=== PATIENT | male | born 1940 | race Caucasian/White ===

== ENCOUNTER → 2016-02-15 | Outpatient (CLI) | payer MEDICARE ==
[~2016-02-15] MED LIST: ASP81TEC; ASP81TEC PO; ASPI-983 PO; ATOR80TA PO; ATOR80TA76 PO; BACL10TA PO; CARDIZEM LA; CARV12.53 PO; CENTRUM SILVER; CIPR-226 PO; CIPR250T3 PO; CLIN300C11 PO; CLOP75TA28 PO; CLPD75T PO; DILT360C20 PO; GADOBUTROL 10 MMOL/10 ML (GADAVIST) VIAL IV ONE; GARL1500 PO; HYDR-3820 PO; LEVO500T69 PO; LEVO750T6 PO; LINA5TAB PO; MULT-1029 PO; NITR0.4T SL; OMEG1CAP58 PO; OMEP-10; OMEP40CA36 PO; OMG1KC; PRD10T PO; RAMI2.5C PO; RANO500T3 PO; RMP2.5C; RMP2.5C PO; SITA1TAB2 PO; TAMS0.4C2 PO; TMSL.4C PO; [UNRECOGNIZED DRUG - REMARK]
[2016-02-15 11:19] LABS: CREATININE SERUM 1.51 MG/DL (0.60-1.30)
--- NOTE | 2016-02-15 15:00 | Diagnostic Imaging Report ---
PROCEDURE: MRI lumbar spine with and without contrast. TECHNIQUE: Multiplanar, multisequence MRI of the lumbar spine was performed with and without contrast. INDICATION: Low back pain. History of laser surgery to the back. COMPARISON: . 7 mL of Gadavist is administered intravenously. FINDINGS: There is straightening of the lumbar lordosis. There is satisfactory alignment of the posterior spinal line. There is no compression fracture at any level. There is disc desiccation at all levels. There is significant disc height loss at L4/5 and L5/S1 and moderate disc height loss at L2/3 and L3/ 4. There is prominent bone marrow edema and enhancement around the endplates of L2/3 level with associated postcontrast enhancement. At this level, there is slight prominent edema compared to marrow edema seen on study from 09/07/2015 exam. The prior study is unenhanced and the degree of contrast enhancement cannot be compared. There is mild edema around endplates of L3/4 and L4/5 with mostly Modic type II marrow changes around the endplates of lower lumbar spine disc levels. The cauda equina and conus medullaris appear grossly unremarkable. T12/L1: There is no disc herniation, no spinal canal or foraminal stenosis. L1/2: No disc herniation, no spinal canal or foraminal stenosis. L2/3: There is diffuse disc bulge and moderate facet arthropathy. There is severe central canal stenosis reducing the AP dimension of the spinal canal to 6.5 mm and severe compression of the lateral recess bilaterally, worse on the left side. The foramina demonstrates moderate to severe stenosis on the left side and mild stenosis on the right. The picture overall is similar to 09/07/2015 with perhaps minimal worsening. L3/4: There is interval left hemilaminectomy with fluid signal at the resection bed and peripheral linear enhancement presumably related to a seroma. There is a diffuse disc bulge. The central canal is patent. The left lateral recess is decompressed with a hemilaminectomy. The right lateral recess demonstrates moderate stenosis abutting the descending right L4 nerve roots. The foramina at this level demonstrate moderate stenosis bilaterally, but worse on the left side. L4/5: There is a diffuse disc bulge and significant disc height loss. There is severe facet arthropathy on the right side and moderate facet hypertrophy on the left. No central canal stenosis. There is however bilateral stenosis of the lateral recess, moderate to severe on the right and moderate on the left abutting the descending L5 nerve roots. The foramina demonstrate bilateral stenosis moderate on the left and severe on the right side. L5/S1: There is a disc bulge and osteophyte formation projecting posteriorly. There is suggestion of old right limited hemilaminectomy. There is no central canal stenosis. There is lateral recess stenosis bilaterally of a moderate degree abutting the descending S1 nerve roots. The foramina demonstrate severe stenosis on both sides. IMPRESSION: 1. Multilevel degenerative changes seen with markedly severe spinal canal stenosis at the L2/3 level. There is associated marrow edema and likely reactive enhancement seen from the facet and the disc degenerative changes and disc herniation. This includes epidural enhancement around the spinal canal at this level without fluid collection seen. 2. Interval left hemilaminectomy at L3/4 with small seroma seen. Other findings as above. Dictated by: Dictated on workstation # [id number]
--- NOTE | 2016-02-15 15:47 | Diagnostic Imaging Report ---
Multiple views of lumbar spine with extension and flexion views. INDICATION: Low back pain. FINDINGS: There is mild right convexity scoliosis centered at L3-L4 level. There is straightening of the lordotic curvature. The alignment of the posterior spinal line is satisfactory. There is preserved vertebral body heights. The discs from L2-L3 through L5-S1 demonstrate moderate narrowing at least on one side of the discs based on the scoliotic curvatures. The flexion and extension views demonstrate no significant spondylolisthesis or subluxation. IMPRESSION: Lower lumbar spine scoliosis and prominent degenerative disc changes. Dictated by: Dictated on workstation # [id number]
== END ==
LOC: RAD 10:41
DX: M54.5 Low back pain (principal)
CPT/HCPCS: 36415; 72114; 72158; 82565; 84520

== ENCOUNTER 2016-05-21 15:22 | Emergency (ER) | payer MEDICARE ==
[~2016-05-21] VITALS: Ht 167.6 cm; Wt 68.9 kg
[~2016-05-21 15:22] MED LIST changes: -ASPI-983 PO; -ATOR80TA76 PO; -BACL10TA PO; -CARV12.53 PO; -CIPR-226 PO; -CIPR250T3 PO; -CLOP75TA28 PO; -GADOBUTROL 10 MMOL/10 ML (GADAVIST) VIAL IV ONE; -HYDR-3820 PO; -NITR0.4T SL; -RANO500T3 PO; -TAMS0.4C2 PO
--- NOTE | 2016-05-21 16:08 | ED GU-Male ---
General Chief Complaint: -Male Stated Complaint: BLOOD IN URINE Nursing Triage Note: AMBULATED TO ROOM 09 WITHOUT DIFFICULTY. COMPLAINS OF BLOOD IN URINE STARTING 30 HRS AGO. STATES HE HAD A RECENT BACK SURGEY 2 1/2 WEEKS AGO AND HAD A CATH AT THAT TIME. Source: patient Exam Limitations: no limitations History of Present Illness Time seen by provider: 16:06 Initial Comments To ER with reports of hematuria. This began about 30 hours ago. Patient had low back surgery by Dr. Quesada in [place] on 01 May. He had a Buckner catheter placed which remained in place for 3 days following that surgery. He had no problems until about 30 hours ago at which point he felt as though he could not urinate. He went to the bathroom and strained and then urinated a large clot followed by a large amount of blood in the toilet. Since then he has had persistent brownish bloody urine. He denies fevers or chills or suprapubic abdominal pain. Denies any flank pain. He has seen Dr. June in the past about 6 months ago most recently because he has a history of prostate issues. Severity/Quality: moderate Location: suprapubic Radiation: none Activities at Onset: none Associated Symptoms: dysuria, No lower back pain, No urinary frequency Allergies and Home Medications Allergies Coded Allergies: No Known Drug Allergies (Verified , 01/10/08) Home Medications Aspirin 81 Mg Tabec, 81 MG PO DAILY, (Reported) Atorvastatin Calcium 80 Mg Tablet, 80 MG PO DAILY, (Reported) Clindamycin HCl 300 Mg Capsule, 300 MG PO QID, #40 Prescribed by: IAIN LUDWIG on 10/10/15 1556 Clopidogrel Bisulfate 75 Mg Tab, 75 MG PO DAILY, (Reported) Diltiazem Hcl 360 Mg Capsule.sa, 360 MG PO DAILY, (Reported) Levofloxacin 500 Mg Tab, 500 MG PO DAILY for 5 Days, (Reported) Linagliptin 5 Mg Tablet, 5 MG PO DAILY, (Reported) Omeprazole 40 Mg Capsule.dr, 40 MG PO DAILY, (Reported) Prednisone 10 Mg Tab, 40 MG PO DAILY, #12 Prescribed by: IAIN LUDWIG on 10/10/15 1600 Constitutional: see HPI, No chills, No fever EENTM: see HPI Respiratory: no symptoms reported Cardiovascular: no symptoms reported Genitourinary: see HPI, dysuria, hematuria Musculoskeletal: no symptoms reported Skin: no symptoms reported Psychiatric/Neurological: No Symptoms Reported Endocrine: No Symptoms Reported Past Gurbnta-Kelzdo-Odfxzn Hx Patient Social History Alcohol Use: Occasionally Uses Recreational Drug Use: No Smoking Status: Never a Smoker Recent Foreign Travel: No Contact w/Someone Who Travel: No Recent Infectious Disease Expo: No Recent Hopitalizations: Yes Immunizations Up To Date Tetanus Booster (TDap): Unknown Date of Influenza Vaccine: Nov 06, 2013 Surgeries HX Surgeries: Yes (BACK) Surgeries: Cardiac, Coronary Stent, Orthopedic Respiratory Hx Respiratory Disorders: No Cardiovascular Hx Cardiac Disorders: Yes (CABG WITH STENTS) Cardiac Disorders: Coronary Artery Disease, High Cholesterol, Hypertension Neurological Hx Neurological Disorders: No Reproductive System Hx Reproductive Disorders: No Genitourinary Hx Genitourinary Disorders: Yes Genitourinary Disorders: Prostate Problems Gastrointestinal Hx Gastrointestinal Disorders: No Musculoskeletal Hx Musculoskeletal Disorders: Yes Musculoskeletal Disorders: Chronic Back Pain Endocrine Hx Endocrine Disorders: Yes Endocrine Disorders: Diabetes, Non-Insulin dep HEENT HX ENT Disorders: No Cancer Hx Cancer: Yes Cancer: Prostate Psychosocial Hx Psychiatric Problems: No Integumentary HX Skin/Integumentary Disorder: No Blood Transfusions Hx Blood Disorders: No Physical Exam Vital Signs Vital Sign - Last 12Hours 05/21/16 15:35 Temp 97.7 Pulse 90 Resp 16 B/P (MAP) 126/83 Pulse Ox 97 Capillary Refill : Less Than 3 Seconds General Appearance: WD/WN, no apparent distress HEENT: PERRL/EOMI, normal ENT inspection Neck: non-tender, full range of motion Respiratory: no respiratory distress, no accessory muscle use Gastrointestinal: non tender, soft Extremities: normal range of motion, non-tender Neurologic/Psychiatric: alert, normal mood/affect, oriented x 3 Skin: normal color, warm/dry Progress/Results/Core Measures Results/Orders Lab Results Laboratory Tests Test 05/21/16 16:12 05/21/16 16:26 Range/Units Urine Color RED H Urine Clarity BLOODY H Urine pH 6.5 5-9 Urine Specific [place] 1.015 L 1.016-1.022 Urine Protein 4+ NEGATIVE Urine Glucose (UA) NEGATIVE NEGATIVE Urine Ketones 1+ H NEGATIVE Urine Nitrite NEGATIVE NEGATIVE Urine Bilirubin NEGATIVE NEGATIVE Urine Urobilinogen NORMAL NORMAL MG/DL Urine Leukocyte Esterase 3+ H NEGATIVE Urine RBC (Auto) 5+ H NEGATIVE Urine RBC TNTC H /HPF Urine WBC >100 H /HPF Urine Squamous Epithelial Cells RARE /HPF Urine Crystals NONE /LPF Urine Bacteria FEW H /HPF Urine Casts NONE /LPF Urine Mucus NEGATIVE /LPF Urine Culture Indicated YES White Blood Count 7.7 4.3-11.0 10^3/uL Red Blood Count 3.12 L 4.35-5.85 10^6/uL Hemoglobin 8.7 L 13.3-17.7 G/DL Hematocrit 28 L 40-54 % Mean Corpuscular Volume 91 80-99 FL Mean Corpuscular Hemoglobin 28 25-34 PG Mean Corpuscular Hemoglobin Concent 31 L 32-36 G/DL Red Cell Distribution Width 14.2 10.0-14.5 % Platelet Count 293 130-400 10^3/uL Mean Platelet Volume 8.9 7.4-10.4 FL Neutrophils (%) (Auto) 71 42-75 % Lymphocytes (%) (Auto) 17 12-44 % Monocytes (%) (Auto) 11 0-12 % Eosinophils (%) (Auto) 1 0-10 % Basophils (%) (Auto) 1 0-10 % Neutrophils # (Auto) 5.5 1.8-7.8 X 10^3 Lymphocytes # (Auto) 1.3 1.0-4.0 X 10^3 Monocytes # (Auto) 0.8 0.0-1.0 X 10^3 Eosinophils # (Auto) 0.1 0.0-0.3 10^3/uL Basophils # (Auto) 0.0 0.0-0.1 10^3/uL Sodium Level 139 135-145 MMOL/L Potassium Level 4.1 3.6-5.0 MMOL/L Chloride Level 104 98-107 MMOL/L Carbon Dioxide Level 23 21-32 MMOL/L Anion Gap 12 5-14 MMOL/L Blood Urea Nitrogen 28 H 7-18 MG/DL Creatinine 1.71 H 0.60-1.30 MG/DL Estimat Glomerular Filtration Rate 39 BUN/Creatinine Ratio 16 Glucose Level 114 H 70-105 MG/DL Calcium Level 9.3 8.5-10.1 MG/DL My Orders Orders - XIAO BURROWS [employer] Cbc With Automated Diff (05/21/16 16:00) Basic Metabolic Panel (05/21/16 16:00) Saline Lock/Iv-Start (05/21/16 16:00) Ns Iv 500 Ml (Sodium Chloride 0.9%) (05/21/16 16:15) Ua Culture If Indicated (05/21/16 16:09) Urine Culture (05/21/16 16:12) Ceftriaxone Injection (Rocephin Injectio (05/21/16 16:30) Ct Abd/Pelvis Wo(Kidney Stone) (05/21/16 17:06) Medications Given in ED Current Medications Medications Dose Ordered Sig/Luz Route Start Time Stop Time Status Last Admin Dose Admin Ceftriaxone Sodium 1000 mg/ Sodium Chloride 50 ml @ 100 mls/hr ONCE ONCE IV 05/21/16 16:30 05/21/16 16:59 DC 05/21/16 17:25 100 MLS/HR Vital Signs/I&O Vital Sign - Last 12Hours 05/21/16 15:35 Temp 97.7 Pulse 90 Resp 16 B/P (MAP) 126/83 Pulse Ox 97 Blood Pressure Mean: 97 Diagnostic Imaging Diagonstic Imaging: CT Comments NAME: ALONDRA WOODS [facility] REC#: [id number] PT STATUS: REG ER : 1940 PHYSICIAN: XIAO BURROWS APRN ADMIT DATE: 05/21/16/ER Draft Date of Exam:05/21/16 CT ABD/PELVIS WO(KIDNEY STONE) PROCEDURE: CT urinary tract, rule out kidney stone. TECHNIQUE: Multiple contiguous axial images were obtained through the abdomen and pelvis without the use of intravenous contrast. INDICATION: Blood in urine FINDINGS: The liver, gallbladder and bile ducts are normal. The spleen, pancreas and adrenals are normal. There are approximately six 2-3 mm nonobstructing stones in the right kidney. There are several 2 mm nonobstructing stones in left kidney. There are low density lesions in the kidneys consistent with cysts. No hydronephrosis on either side is seen. No ureteral calculus is evident. The bladder is normal. There are numerous prostate seed implants present. There is diverticulosis of the colon with no acute bowel abnormality seen. There are changes of recent laminectomy and fusion in the lumbosacral spine with no other acute bony abnormality seen. IMPRESSION: There are bilateral nonobstructing stones. There are low density lesions in the kidneys which are probably cysts but could be confirmed with contrast or ultrasound. There is no ureteral calculus or hydronephrosis on either side. Also seen is diverticulosis of the colon with changes of prior laminectomy and fusion in the lumbar spine. Dictated on workstation # [id number] Dict: 05/21/16 1726 Trans: 05/21/16 1736 [id number] Interpreted by: GREGG RODRIGUEZ MD Electronically signed by: Departure Communication Progress Notes 1742-I also discussed with Dr. Rodriguez from radiology about the appearance of the left retroperitoneal space on CT. He feels that is related to the recent surgery and would be a small amount of blood/edema, but not large enough to be of concern. Patient is not symptomatic in that he does not have lightheadedness chest pain or shortness of breath and he is hemodynamically stable. He should follow-up with his primary care provider next week. I did discuss the UTI and hematuria with Dr. June. We will use ciprofloxacin and the patient will follow-up with Dr. June on Monday. Impression Impression: Primary Impression: Urinary tract infection Additional Impressions: Hematuria Anemia Disposition: HOME, SELF-CARE Condition: Stable Departure-Patient Inst. Decision time for Depature: 17:51 Referrals: PREM POOLE MD (PCP/Family) Primary Care Physician Patient Instructions: Urinary Tract Infection, Adult (DC) Add. Discharge Instructions: 1. You are little anemic. For this reason you need to follow-up with your doctor on Monday to have blood levels rechecked. Between now and Monday you should return to the emergency room for any shortness of breath, lightheadedness or chest pain 2. Take antibiotics as directed for the bladder infection which is likely the cause of the bleeding in your urine All discharge instructions reviewed with patient and/or family. Voiced understanding. Scripts Ciprofloxacin HCl (Ciprofloxacin HCl) 250 Mg Tablet 250 MG PO BID, #14 TAB Prov: XIAO BURROWS APRN 05/21/16 Copy Copies To 1: ILSA JUNE MD; PREM POOLE MD, PETER J APRN May 21, 2016 16:08
[2016-05-21] MEDS ORDERED: NS IV 500 ML 500 ML IV SCH (16:15)
[2016-05-21 16:18] LABS: BILIRUBIN,URINE NEGATIVE (NEGATIVE); KETONES,URINE 1+ (NEGATIVE); LEUKOCYTE ESTERASE ,URINE 3+ (NEGATIVE); NITRITE,URINE NEGATIVE (NEGATIVE); PH,URINE 6.5 (5-9); PROTEIN,URINE 4+ (NEGATIVE); UROBILINOGEN,URINE NORMAL (NORMAL)
[2016-05-21 16:25] LABS: SQUAMOUS EPITHELIAL CELL,UR RARE /HPF; WBC,URINE >100 /HPF
[2016-05-21] MEDS ORDERED: cefTRIAXone INJECTION 1,000 MG in NS (IVPB) 50 ML IV ONE (16:30)
[2016-05-21 16:35] LABS: BASOPHILS % (AUTO) 1 % (0-10); EOSINOPHILS # (AUTO) 0.1 10^3/uL (0.0-0.3); EOSINOPHILS % (AUTO) 1 % (0-10); LYMPHOCYTES # (AUTO) 1.3 X 10^3 (1.0-4.0); LYMPHOCYTES % (AUTO) 17 % (12-44); MEAN CORPUSCULAR HEMOGLOBIN 28 PG (25-34); MEAN CORPUSCULAR HGB CONC 31 G/DL (32-36); MEAN CORPUSCULAR VOLUME 91 FL (80-99); MEAN PLATELET VOLUME 8.9 FL (7.4-10.4); MONOCYTES # (AUTO) 0.8 X 10^3 (0.0-1.0); MONOCYTES % (AUTO) 11 % (0-12); NEUTROPHILS # (AUTO) 5.5 X 10^3 (1.8-7.8); NEUTROPHILS % (AUTO) 71 % (42-75); PLATELET COUNT 293 10^3/uL (130-400); RED BLOOD COUNT 3.12 10^6/uL (4.35-5.85); RED CELL DISTRIBUTION WIDTH 14.2 % (10.0-14.5); WHITE BLOOD COUNT 7.7 10^3/uL (4.3-11.0)
[2016-05-21 16:52] LABS: POTASSIUM 4.1 MMOL/L (3.6-5.0)
[2016-05-21 17:02] LABS: CALCIUM 9.3 MG/DL (8.5-10.1); CREATININE SERUM 1.71 MG/DL (0.60-1.30)
--- NOTE | 2016-05-21 17:37 | Diagnostic Imaging Report ---
PROCEDURE: CT urinary tract, rule out kidney stone. TECHNIQUE: Multiple contiguous axial images were obtained through the abdomen and pelvis without the use of intravenous contrast. INDICATION: Blood in urine FINDINGS: The liver, gallbladder and bile ducts are normal. The spleen, pancreas and adrenals are normal. There are approximately six 2-3 mm nonobstructing stones in the right kidney. There are several 2 mm nonobstructing stones in left kidney. There are low density lesions in the kidneys consistent with cysts. No hydronephrosis on either side is seen. No ureteral calculus is evident. The bladder is normal. There are numerous prostate seed implants present. There is diverticulosis of the colon with no acute bowel abnormality seen. There are changes of recent laminectomy and fusion in the lumbosacral spine with no other acute bony abnormality seen. There is some edema and fluid along the left psoas muscle. This is likely related to the recent spine surgery and represents edema and/or hemorrhage. No large focal hematoma is seen. There is no air within this to suggest an abscess. IMPRESSION: There are bilateral nonobstructing stones. There are low density lesions in the kidneys which are probably cysts but could be confirmed with contrast or ultrasound. There is no ureteral calculus or hydronephrosis on either side. There is also what is likely psoas muscle hemorrhage/inflammation which is likely associated with the recent lumbar spinal surgery. Also seen is diverticulosis of the colon with changes of prior laminectomy and fusion in the lumbar spine. Dictated by: Dictated on workstation # [id number]
[2016-05-21] MEDS ORDERED: CIPR250T3 PO (17:52)
[2016-05-21 18:22] VITALS: BP 146/70
== END 2016-05-21 18:22 | disposition home or self-care (01) ==
LOC: EDUNIT# 15:22 → ER 15:24
DX: N30.91 Cystitis, unspecified with hematuria (principal); D64.9 Anemia, unspecified; I10 Essential (primary) hypertension; I25.10 Atherosclerotic heart disease of native coronary artery without angina pectoris; E11.9 Type 2 diabetes mellitus without complications; Z79.82 Long term (current) use of aspirin; Z79.02 Long term (current) use of antithrombotics/antiplatelets; Z79.899 Other long term (current) drug therapy; Z98.890 Other specified postprocedural states
CPT/HCPCS: 36415; 74176; 80048; 81000; 85025; 87077; 87088; 87186; 96374

== ENCOUNTER 2016-05-24 08:07 | Outpatient (RCR) | payer MEDICARE ==
[2016-05-24] VITALS (9 sets, daily range): BP systolic 98–169; BP diastolic 60–93
[~2016-05-24] VITALS: Ht 167.6 cm; Wt 71.2 kg
[~2016-05-24 08:07] MED LIST changes: +CIPR250T3 PO
[2016-05-24] MEDS ORDERED: NS IV 500 ML 500 ML ONE (08:12)
[2016-05-24] MEDS ORDERED: LIDOCAINE UROJET 2% GEL 10 ML PKG ONE (09:58)
[2016-05-24] MEDS ORDERED: cefTRIAXone INJECTION 1,000 MG in NS (IVPB) 50 ML IV ONE (10:00)
--- NOTE | 2016-05-24 11:04 | CONSULTATION REPORT ---
DATE OF CONSULTATION: 05/24/2016 ATTENDING PHYSICIAN: Dr. Lr SUMMARY: 75-year-old white man known to me for many years with history of cancer of the prostate previously treated with brachytherapy a long time ago, history of heart bypass on aspirin and Plavix. Bypass was again many years ago. He presented to the emergency room over the weekend with history of gross hematuria and some clot retention and was relieved. The patient underwent a CAT scan of the abdomen and pelvis revealed bilateral nonobstructing small renal stones and question cyst and no ureteral obstruction or stones. The patient was dismissed home on Cipro and was given a Rocephin shot in the ER. However, he continued to have gross hematuria. He went to Dr. Lr and had an H\T\H done that showed no values. He was admitted to the outpatient department to receive 2 units of blood, however, it was noticed to have continuous gross hematuria and clot some clot retention and had a problem voiding since midnight last night. IMPRESSION: 1. Gross hematuria. 2. Bilateral renal stones. 3. History of CA of the prostate treated with brachytherapy. No external beam radiation. 4. Medical illnesses essentially heart issues. PLAN: I had a extensive discussion of options with the patient with pros and cons we decided to go ahead and inserted a three-way catheter in him no, irrigated with CBI, and see how he does. If he clears up nicely we will let him go home with the catheter and plug inlet of the CBI and follow up at the office as planned on . However, if he continues to have issues with gross, hematuria, we will admit him to the hospital and take care of it. We will also order a renal ultrasound to on the cyst. If he goes home he has to continue on the Cipro. We will give him another Rocephin today IV when he is here. We will proceed with 2 units of blood transfusion as planned. If he goes home I told him if he any problems to contact my office during hours. Off hours he can try on my cell phone or at home otherwise come to the emergency room and will admit him. Job ID: [id number] Dictated Date: 05/24/2016 09:50:00 Coldfusion Date: 05/24/2016 10:55:19/marie
[2016-05-24] MEDS ORDERED: cefTRIAXone 1 GM (ROCEPHIN) VIAL ONE (11:22)
[2016-05-24] MEDS ORDERED: NS (IVPB) 50 ML ONE (11:23)
[2016-05-24] MEDS ORDERED: PATIENT MAY USE OWN MEDS, ALL MC SCH (17:45)
[2016-05-24] MEDS: HYDROcodone/APAP 10 MG/325 MG (LORTAB) TAB PO PRN ×2 (18:52→23:32)
[2016-05-25 00:10] VITALS: BP 149/73
[2016-05-25 04:05] VITALS: BP 151/76
--- NOTE | 2016-05-25 07:03 | Progress Note-Urology ---
Progress Note-Urology Progress Notes/Assess & Plan Progress/Assessment & Plan afeb, vss, doing well, urine clear nelly, h/h 9.05/04 Final Diagnosis gross hematuria ILSA JUNE MD May 25, 2016 07:03
[2016-05-25] MEDS ORDERED: MILK OF MAGNESIA 400 MG/5 ML 30 ML UDC PO NR (07:15)
[2016-05-25] MEDS ORDERED: cefTRIAXone INJECTION 1,000 MG in NS (IVPB) 50 ML IV NR (07:15)
[2016-05-25 08:00] VITALS: BP 181/81
--- NOTE | 2016-05-25 08:43 | HISTORY AND PHYSICAL ---
DATE OF ADMISSION: 05/24/2016 CHIEF COMPLAINT: Gross hematuria. PRESENT HISTORY: 75-year-old white man known to me for a long time with history of cancer of the prostate previously treated with brachytherapy back in 2004. The patient came to the emergency room on the weekend having gross hematuria with some clot retention. He was treated for urinary tract infection. A CAT scan of the abdomen and pelvis revealed bilateral small renal stone, nonobstructing and what looked like cysts in the kidneys. No other abnormalities. The patient saw Dr. Lr the day prior to admission. His H\T\H was found to be low and he was sent for blood transfusion at the preop area. He continues to have gross hematuria and clot. His anticoagulation was never stopped. He denies any significant voiding symptoms and he is on antibiotic from the ER. In the ER he also received 1 gram of Rocephin. We went ahead and inserted a 23-way 10 mL balloon catheter and connected to continuous bladder irrigation to clear and it achieved good results. The patient was concerned to go home with catheter in pain by himself and elected to be admitted to the hospital for management. REVIEW OF SYSTEMS: Otherwise negative for the 10 systems. PERSONAL HISTORY: The patient is , has children. No smoking. No alcohol. No drugs. FAMILY HISTORY: Noncontributory. PAST MEDICAL HISTORY: 1. No known drug allergies. 2. History of CA of the prostate. 3. Erectile dysfunction. 4. Vvy-mexdodl-xkjmzyjqn diabetic, 5. Atherosclerotic heart disease. 6. Coronary artery disease. PREVIOUS SURGERIES: 1. Brachytherapy. 2. CABG and stent. MEDICATION BROOKS: As per admission; we held his aspirin and has Plavix. PHYSICAL EXAMINATION: VITAL SIGNS: Per chart. GENERAL: Well-nourished, well-developed, in no acute distress. HEAD: Normocephalic. ENT: Unremarkable. NECK: Supple. No bruits. CHEST: Clear, nontender. HEART: Regular rate and rhythm. No murmur. ABDOMEN: Soft and nontender. External genitalia of adequate male configuration. RECTAL EXAM: Deferred. EXTREMITIES: Lower extremity no edema or cyanosis. NEUROLOGICAL EXAM: Grossly intact. Oriented x3. IMPRESSION: 1. Gross hematuria with clot retention. 2. History of CA of the prostate post brachytherapy. 3. Coronary artery disease post CABG and stent. 4. Gdc-bezjjtv-iavurjteu diabetes mellitus. 5. Erectile dysfunction. PLAN: 1. Admit to the hospital, we will continue CBI, rechecking the H\T\H after 2 units of blood . Also check basic metabolic panel. 2. Check an ultrasound of the kidney to confirm the lesion to be cyst not solid in the kidneys. 3. Once he clears very well, we perform a flexible cystoscopy to check on the bladder. The plan was fully explained to him. Job ID: [id number] Dictated Date: 05/24/2016 14:05:41 Shipping & Receiving Lead Date: 05/25/2016 08:33:16/marie
[2016-05-25] MEDS ORDERED: OMEP40CA36 PO (08:48)
[2016-05-25] MEDS ORDERED: ATOR80TA76 PO (08:48)
[2016-05-25] MEDS ORDERED: LINA5TAB PO (08:48)
[2016-05-25] MEDS ORDERED: CARV12.53 PO (08:48)
[2016-05-25] MEDS ORDERED: BACL10TA PO (08:48)
[2016-05-25] MEDS ORDERED: CIPR-226 PO (08:48)
[2016-05-25] MEDS ORDERED: CLOP75TA28 PO (08:48)
[2016-05-25] MEDS ORDERED: RANO500T3 PO (08:48)
[2016-05-25] MEDS ORDERED: NITR0.4T SL (08:48)
[2016-05-25] MEDS ORDERED: RAMI2.5C PO (08:48)
[2016-05-25] MEDS ORDERED: ASPI-983 PO (08:48)
[2016-05-25] MEDS ORDERED: TAMS0.4C2 PO (08:48)
[2016-05-25] MEDS ORDERED: HYDR-3820 PO (08:52)
[2016-05-25] MEDS ORDERED: PANTOPRAZOLE 40 MG (PROTONIX) TAB PO SCH (09:00)
[2016-05-25] MEDS ORDERED: ATORVASTATIN 80 MG (LIPITOR) TABLET PO SCH (09:00)
[2016-05-25] MEDS ORDERED: DOCUSATE SODIUM 100 MG (COLACE) CAP PO SCH (09:00)
[2016-05-25] MEDS ORDERED: LEVOFLOXACIN 500 MG TAB (LEVAQUIN) PO SCH (09:00)
[2016-05-25] MEDS ORDERED: predniSONE 10 MG TAB PO SCH (09:00)
[2016-05-25] MEDS ORDERED: BACLOFEN 10 MG (LIORESAL) TAB PO PRN (09:15)
[2016-05-25] MEDS ORDERED: RANOLAZINE ER 500 MG TAB (RANEXA) PO SCH (09:15)
[2016-05-25 12:00] VITALS: BP 149/74
[2016-05-25] MEDS ORDERED: ALFUZOSIN HCL 10 MG TAB (UROXATRAL) PO SCH (18:00)
[2016-05-25] MEDS ORDERED: CARVEDILOL 12.5 MG (COREG) TABLET PO SCH (21:00)
[2016-05-26 08:00] VITALS: BP 130/65
[2016-05-26] MEDS ORDERED: RAMIPRIL 2.5 MG (ALTACE) CAP PO SCH (09:00)
== END 2016-08-21 | disposition home or self-care (01) ==
LOC: LAB 08:07 → 4TH 15:46 → SDC 15:46
PROVIDERS: ATTEND Internal Medicine
DX: R31.0 Gross hematuria (principal); N20.0 Calculus of kidney; Z85.46 Personal history of malignant neoplasm of prostate
CPT/HCPCS: 36415; 76770; 80048; 85025; 86850; 86900; 86901; 86920

== ENCOUNTER 2016-05-24 15:45 | Observation (INO) | payer MEDICARE ==
[2016-05-25 06:10] LABS: BASOPHILS % (AUTO) 1 % (0-10); EOSINOPHILS # (AUTO) 0.2 10^3/uL (0.0-0.3); EOSINOPHILS % (AUTO) 3 % (0-10); LYMPHOCYTES # (AUTO) 1.3 X 10^3 (1.0-4.0); LYMPHOCYTES % (AUTO) 18 % (12-44); MEAN CORPUSCULAR HEMOGLOBIN 28 PG (25-34); MEAN CORPUSCULAR HGB CONC 32 G/DL (32-36); MEAN CORPUSCULAR VOLUME 87 FL (80-99); MEAN PLATELET VOLUME 9.5 FL (7.4-10.4); MONOCYTES # (AUTO) 0.8 X 10^3 (0.0-1.0); MONOCYTES % (AUTO) 12 % (0-12); NEUTROPHILS # (AUTO) 4.7 X 10^3 (1.8-7.8); NEUTROPHILS % (AUTO) 66 % (42-75); PLATELET COUNT 263 10^3/uL (130-400); RED BLOOD COUNT 3.31 10^6/uL (4.35-5.85); RED CELL DISTRIBUTION WIDTH 15.2 % (10.0-14.5); WHITE BLOOD COUNT 7.1 10^3/uL (4.3-11.0)
[2016-05-25 06:32] LABS: CALCIUM 8.7 MG/DL (8.5-10.1); CREATININE SERUM 1.25 MG/DL (0.60-1.30)
[2016-05-25] MEDS ORDERED: OMEP40CA36 PO (08:48)
[2016-05-25] MEDS ORDERED: ATOR80TA76 PO (08:48)
[2016-05-25] MEDS ORDERED: CIPR-226 PO (08:48)
[2016-05-25] MEDS ORDERED: TAMS0.4C2 PO (08:48)
[2016-05-25] MEDS ORDERED: CLOP75TA28 PO (08:48)
[2016-05-25] MEDS ORDERED: RAMI2.5C PO (08:48)
[2016-05-25] MEDS ORDERED: ASPI-983 PO (08:48)
[2016-05-25] MEDS ORDERED: RANO500T3 PO (08:48)
[2016-05-25] MEDS ORDERED: BACL10TA PO (08:48)
[2016-05-25] MEDS ORDERED: NITR0.4T SL (08:48)
[2016-05-25] MEDS ORDERED: LINA5TAB PO (08:48)
[2016-05-25] MEDS ORDERED: CARV12.53 PO (08:48)
[2016-05-25] MEDS ORDERED: HYDR-3820 PO (08:52)
[2016-05-25 16:20] VITALS: BP 156/73
[2016-05-25] MEDS ORDERED: ALFUZOSIN HCL 10 MG TAB (UROXATRAL) PO SCH (18:05)
[2016-05-25] MEDS ORDERED: BACLOFEN 10 MG (LIORESAL) TAB PO PRN (18:15)
[2016-05-25] MEDS ORDERED: PATIENT MAY USE OWN MEDS, ALL MC SCH (18:15)
[2016-05-25 19:50] VITALS: BP 139/63
[2016-05-25] MEDS: DOCUSATE SODIUM 100 MG (COLACE) CAP PO SCH (20:35)
[2016-05-25] MEDS: CARVEDILOL 12.5 MG (COREG) TABLET PO SCH (20:35)
[2016-05-25] MEDS: HYDROcodone/APAP 10 MG/325 MG (LORTAB) TAB PO PRN (20:39)
[2016-05-26] VITALS: BP 150/70
[2016-05-26] MEDS: HYDROcodone/APAP 10 MG/325 MG (LORTAB) TAB PO PRN ×2 (02:09→06:14)
[2016-05-26 04:00] VITALS: BP 138/66
[2016-05-26] MEDS: CARVEDILOL 12.5 MG (COREG) TABLET PO SCH (08:46)
[2016-05-26] MEDS: DOCUSATE SODIUM 100 MG (COLACE) CAP PO SCH (08:47)
[2016-05-26] MEDS ORDERED: PANTOPRAZOLE 40 MG (PROTONIX) TAB PO SCH (09:00)
[2016-05-26] MEDS ORDERED: ATORVASTATIN 80 MG (LIPITOR) TABLET PO SCH (09:00)
[2016-05-26] MEDS ORDERED: RAMIPRIL 2.5 MG (ALTACE) CAP PO SCH (09:00)
[2016-05-26] MEDS ORDERED: RANOLAZINE ER 500 MG TAB (RANEXA) PO SCH (09:00)
--- NOTE | 2016-05-26 12:01 | Progress Note-Urology ---
Progress Note-Urology Progress Notes/Assess & Plan Progress/Assessment & Plan doing very well, voiding well, clear nelly urine, home Final Diagnosis gross hematuria ILSA JUNE MD May 26, 2016 12:01
--- NOTE | 2016-05-26 12:05 | Discharge Inst-Urology ---
Discharge Inst-Urology Patient Instructions/Follow Up Plan Office Monday at 3:45pm, stay off ASA and Plavix till then Increase oral fluids for 48 hours and then as needed. Diet and Activity as tolerated. If questions or concerns contact your physician Or seek help at emergency department. ILSA JUNE MD May 26, 2016 12:05
[2016-05-26 13:00] VITALS: BP 138/66
--- NOTE | 2016-05-27 13:44 | RADIOLOGY REPORT ---
NAME: ALONDRA WOODS [facility] REC#: [id number] PT STATUS: REG RCR : 1940 PHYSICIAN: ILSA JUNE MD ADMIT DATE: 05/24/16 CORRECTED Signed Date of Exam:05/25/16 US RENAL BILATERAL [id number] EXAMINATION: Renal ultrasound. INDICATION: Evaluate lesions seen on the CT scan. FINDINGS: The right kidney is 10.9 cm and the left kidney is 12.3 cm in length. There is no hydronephrosis or focal lesion. In the right kidney medially, there is a 1.7 cm simple cyst. In the left kidney, there is a 3 x 2.8 x 3.4 cm simple cyst in the mid to inferior aspect. The bladder is empty with a Buckner catheter in place. IMPRESSION: The lesions seen on the CT scan are simple cysts. No solid mass. Dictated by: Dictated on workstation # [id number] Dict: 05/25/16 0855 Trans: 05/25/16 1640 [id number] Interpreted by: HAMIDA LACEY MD Electronically signed by: HAMIDA LACEY MD 05/25/16 1640 MTDD
== END 2016-05-26 12:02 | disposition home or self-care (01) ==
LOC: 4TH 15:45
PROVIDERS: ADMIT Urology; ATTEND Urology
DX: R31.0 Gross hematuria (principal)
CPT/HCPCS: 36415; 36430; 76770; 80048; 85025; 99211; G0378

== ENCOUNTER → 2016-06-08 | Outpatient (CLI) | payer MEDICARE ==
[~2016-06-08] MED LIST changes: +ASPI-983 PO; +ATOR80TA76 PO; +BACL10TA PO; +CARV12.53 PO; +CIPR-226 PO; +CLOP75TA28 PO; +HYDR-3820 PO; +NITR0.4T SL; +RANO500T3 PO; +TAMS0.4C2 PO
--- NOTE | 2016-06-08 15:44 | Diagnostic Imaging Report ---
EXAMINATION: PA and lateral views of the chest. INDICATION: Shortness of breath. FINDINGS: The lungs are clear. The heart size is borderline enlarged. No effusion or pneumothorax. The mediastinum and dameon appear unremarkable. Sternotomy wires and post CABG changes are seen. IMPRESSION: No acute process. Dictated by: Dictated on workstation # [id number]
[2016-06-08 16:58] LABS: PH,URINE 5 (5-9); PROTEIN,URINE 3+ (NEGATIVE)
[2016-06-08 16:59] LABS: KETONES,URINE 1+ (NEGATIVE); LEUKOCYTE ESTERASE ,URINE 2+ (NEGATIVE); NITRITE,URINE NEGATIVE (NEGATIVE); UROBILINOGEN,URINE 4 MG/DL (NORMAL)
[2016-06-08 17:24] LABS: BILIRUBIN,URINE 1+ (NEGATIVE)
== END ==
LOC: RAD 15:08
PROVIDERS: ATTEND Internal Medicine
DX: R09.02 Hypoxemia (principal); R31.9 Hematuria, unspecified; R06.00 Dyspnea, unspecified
CPT/HCPCS: 71020; 81000; 87088

== ENCOUNTER 2017-01-24 11:31 | Inpatient (IN) | payer MEDICARE ==
[2017-01-24] VITALS (26 sets, daily range): BP systolic 79–149; BP diastolic 34–92
[~2017-01-24] VITALS: Ht 172.7 cm; Wt 67.2 kg
--- NOTE | 2017-01-24 12:49 | Diagnostic Imaging Report ---
INDICATION: GI bleeding. EXAMINATION: Portable chest at 12:40 PM. FINDINGS: There are postop changes from CABG surgery. The heart size and pulmonary vascularity are normal. The lungs are clear. There are no effusions or pneumothoraces. IMPRESSION: No acute abnormalities in the chest. Dictated by: Dictated on workstation # [id number]
--- NOTE | 2017-01-24 12:54 | ED GI ---
General Chief Complaint: Abdominal/GI Problems Stated Complaint: POSS BLEEDING ULCER Source of Information: Patient Exam Limitations: No Limitations History of Present Illness Time Seen By Provider: 12:51 Initial Comments Sent to ER from Dr. Poole's office where he presented with reports of dark tarry stools noticed this morning. Patient states that about one week ago he was in [place] and had several beers and some hot wings. He was unable to sleep that night because of the severe acid reflux and heartburn. The symptoms have persisted including belching since then. This morning upon awakening he noticed dark tarry stools in his underwear. He also reports severe general weakness. He reports epigastric fullness and discomfort and early satiety. He reports a brief episode of chest/epigastric discomfort last night relieved with one of his sublingual nitroglycerin. Timing/Duration: 2-3 Days Severity/Quality: Moderate Radiation: No Radiation Allergies and Home Medications Allergies Coded Allergies: No Known Drug Allergies (Verified , 05/24/16) Home Medications Atorvastatin Calcium 80 Mg Tablet, 80 MG PO HS, (Reported) Baclofen 10 Mg Tablet, 10 MG PO Q8H PRN for MUSCLE SPASMS, (Reported) Carvedilol 12.5 Mg Tablet, 12.5 MG PO BID, (Reported) Ciprofloxacin HCl 250 Mg Tablet, 250 MG PO BID, (Reported) FILLED 05/21/16 #14 FOR A 7 DAY THERAPY Hydrocodone/Acetaminophen 1 Each Tablet, 1-2 TAB PO, #100 (Reported) Linagliptin 5 Mg Tablet, 5 MG PO DAILY, (Reported) Nitroglycerin 0.4 Mg Tab.subl, 0.4 MG SL UD PRN for CHEST PAIN, (Reported) 1 TABLET UNDER TONGUE NEEDED FOR CHEST PAIN; IF PAIN REMAINS AFTER 5 MINUTES CALL 911 / NOT TO EXCEED 3 DOSES IN 15 MINUTES Omeprazole 40 Mg Capsule.dr, 40 MG PO DAILY, (Reported) Ramipril 2.5 Mg Capsule, 2.5 MG PO DAILY, (Reported) Ranolazine 500 Mg Tab.er.12h, 500 MG PO Q12H, (Reported) Tamsulosin HCl 0.4 Mg Cap.er.24h, 0.4 MG PO HS, (Reported) Review of Systems Constitutional: see HPI EENTM: No Symptoms Reported Respiratory: No Symptoms Reported Cardiovascular: No Symptoms Reported Gastrointestinal: See HPI, Abdominal Pain (epigastric fullness) Genitourinary: No Symptoms Reported Musculoskeletal: no symptoms reported Skin: no symptoms reported Psychiatric/Neurological: No Symptoms Reported Endocrine: No Symptoms Reported Hematologic/Lymphatic: No Symptoms Reported Past Gnugsrl-Qrxgqj-Wdecns Hx Patient Social History Alcohol Beverage of Choice: Whiskey Recent Foreign Travel: No Contact w/Someone Who Travel: No Recent Hopitalizations: Yes (BACK SX 3 WEEKS AGO) Immunizations Up To Date Tetanus Booster (TDap): Unknown Date of Influenza Vaccine: Nov 06, 2013 Surgeries History of Surgeries: Yes (BACK, HEMMORHOID SX) Surgeries: Cardiac, Coronary Stent, Orthopedic Respiratory History of Respiratory Disorde: No Cardiovascular History of Cardiac Disorders: Yes (TRIPLE BYPASS) Cardiac Disorders: Coronary Artery Disease, High Cholesterol, Hypertension Neurological History of Neurological Disord: No Reproductive System Hx Reproductive Disorders: No Genitourinary History of Genitourinary Disor: No Genitourinary Disorders: Prostate Problems Gastrointestinal History of Gastrointestinal Di: No Musculoskeletal History of Musculoskeletal Dis: Yes Musculoskeletal Disorders: Chronic Back Pain Endocrine History of Endocrine Disorders: Yes Endocrine Disorders: Diabetes, Non-Insulin dep HEENT History of HEENT Disorders: No Cancer History of Cancer: Yes Cancer: Prostate Psychosocial History of Psychiatric Problem: No Integumentary History of Skin or Integumenta: No Blood Transfusions History of Blood Disorders: No Physical Exam Vital Signs Capillary Refill : General Appearance: WD/WN, no apparent distress HEENT: PERRL/EOMI, normal ENT inspection Neck: non-tender, full range of motion Respiratory: no respiratory distress, no accessory muscle use Cardiovascular: regular rate, rhythm, no murmur Gastrointestinal: normal bowel sounds, non tender, soft Neurologic/Psychiatric: alert, normal mood/affect, oriented x 3 Skin: normal color, warm/dry Progress/Results/Core Measures Results/Orders Lab Results Laboratory Tests Test 01/24/17 12:50 Range/Units White Blood Count 11.4 H 4.3-11.0 10^3/uL Red Blood Count 2.05 L 4.35-5.85 10^6/uL Hemoglobin 6.2 *L 13.3-17.7 G/DL Hematocrit 19 *L 40-54 % Mean Corpuscular Volume 93 80-99 FL Mean Corpuscular Hemoglobin 30 25-34 PG Mean Corpuscular Hemoglobin Concent 33 32-36 G/DL Red Cell Distribution Width 13.7 10.0-14.5 % Platelet Count 267 130-400 10^3/uL Mean Platelet Volume 9.6 7.4-10.4 FL Neutrophils (%) (Auto) 77 H 42-75 % Lymphocytes (%) (Auto) 16 12-44 % Monocytes (%) (Auto) 6 0-12 % Eosinophils (%) (Auto) 1 0-10 % Basophils (%) (Auto) 0 0-10 % Neutrophils # (Auto) 8.7 H 1.8-7.8 X 10^3 Lymphocytes # (Auto) 1.8 1.0-4.0 X 10^3 Monocytes # (Auto) 0.7 0.0-1.0 X 10^3 Eosinophils # (Auto) 0.2 0.0-0.3 10^3/uL Basophils # (Auto) 0.0 0.0-0.1 10^3/uL My Orders Orders - XIAO BURROWS APRN Cbc With Automated Diff (01/24/17 12:15) Comprehensive Metabolic Panel (01/24/17 12:15) Protime With Inr (01/24/17 12:15) Partial Thromboplastin Time (01/24/17 12:15) Chest 1 View, Ap/Pa Only (01/24/17 12:15) Saline Lock/Iv-Start (01/24/17 12:15) Type And Screen (01/24/17 12:32) Fecal Occult Bedside (01/24/17 12:32) Troponin I (01/24/17 13:06) Lipase (01/24/17 13:06) Pantoprazole Injection (Protonix Injecti (01/24/17 13:15) Red Cells Leukocytes Reduced (01/24/17 13:06) Peg 3340/Electrolyte Powder (Golytely Po (01/24/17 13:15) Diagnostic Imaging Diagonstic Imaging: Xray Plain Films/CT/US/NM/MRI: chest Comments NAME: MARIYA QUIROS [facility] REC#: [id number] PT STATUS: REG ER : 12/06/2011 PHYSICIAN: XIAO BURROWS APRN ADMIT DATE: 01/24/17/ER Draft Date of Exam:01/24/17 CHEST PA/LAT (2 VIEW) INDICATION: Lower respiratory infection. FINDINGS: There are infiltrates present in the right middle lobe. There is also some infiltrate in the left medial lung base. This may be in the lingular segment of the left upper lobe. IMPRESSION: Bilateral infrahilar infiltrates consistent with pneumonia. Dictated on workstation # [id number] Dict: 01/24/17 1224 Trans: 01/24/17 1228 [facility] [id number] Interpreted by: TRINI WATSON MD Electronically signed by: Departure Communication (Admissions) Progress Notes Dr. Fairchild is present in the emergency room and has evaluated the patient here. Impression Impression: Primary Impression: GI bleed Disposition: 01 HOME, SELF-CARE Condition: Stable Admissions Decision to Admit Reason: Admit from ER (General) Decision to Admit/Date: Jan 24, 2017 Time/Decision to Admit Time: 13:14 Departure-Patient Inst. Referrals: PREM POOLE MD (PCP/Family) Primary Care Physician XIAO BURROWS APRN Jan 24, 2017 12:54
[2017-01-24 13:01] LABS: BASOPHILS % (AUTO) 0 % (0-10); EOSINOPHILS # (AUTO) 0.2 10^3/uL (0.0-0.3); EOSINOPHILS % (AUTO) 1 % (0-10); LYMPHOCYTES # (AUTO) 1.8 X 10^3 (1.0-4.0); LYMPHOCYTES % (AUTO) 16 % (12-44); MEAN CORPUSCULAR HEMOGLOBIN 30 PG (25-34); MEAN CORPUSCULAR HGB CONC 33 G/DL (32-36); MEAN CORPUSCULAR VOLUME 93 FL (80-99); MEAN PLATELET VOLUME 9.6 FL (7.4-10.4); MONOCYTES # (AUTO) 0.7 X 10^3 (0.0-1.0); MONOCYTES % (AUTO) 6 % (0-12); NEUTROPHILS # (AUTO) 8.7 X 10^3 (1.8-7.8); NEUTROPHILS % (AUTO) 77 % (42-75); PLATELET COUNT 267 10^3/uL (130-400); RED BLOOD COUNT 2.05 10^6/uL (4.35-5.85); RED CELL DISTRIBUTION WIDTH 13.7 % (10.0-14.5); WHITE BLOOD COUNT 11.4 10^3/uL (4.3-11.0)
[2017-01-24] MEDS ORDERED: PANTOPRAZOLE 40 MG/10 ML (PROTONIX) VIAL IV ONE (13:15)
[2017-01-24] MEDS ORDERED: GOLYTELY POWDER 4000 ML BTL PO ONE (13:15)
[2017-01-24 13:16] LABS: INR 1.1 (0.8-1.4)
[2017-01-24 13:23] LABS: ALBUMIN 3.4 GM/DL (3.2-4.5); BILIRUBIN,TOTAL 0.3 MG/DL (0.1-1.0); CALCIUM 8.4 MG/DL (8.5-10.1); CREATININE SERUM 1.73 MG/DL (0.60-1.30); POTASSIUM 3.9 MMOL/L (3.6-5.0); TOTAL PROTEIN 6.2 GM/DL (6.4-8.2)
[2017-01-24 13:29] LABS: LIPASE 99 U/L (8-78); TROPONIN I < 0.30 NG/ML (<0.30)
--- OUTSIDE RECORDS SUMMARY | 2017-01-24 13:42 | XMS REPORT ---
Author Author ELISE AMBRIZ [facility] Address [address] [place] [address] Care Team Providers Care Sole Skiver Name Role Phone ELISE AMBRIZ Unavailable PROBLEMS Type Condition ICD9-CM Code [id number] Code Onset Dates Condition Status SNOMED Code Problem Adjustment disorder with anxious mood F43.22 Active [id number] ALLERGIES Unknown Allergies SOCIAL HISTORY No smoking Hx information available PLAN OF CARE Activity Details Follow Up prn Reason:Adjustment disorder VITAL SIGNS MEDICATIONS Unknown Medications RESULTS No Results PROCEDURES Procedure Date Ordered Related Diagnosis Body Site Psych diagnostic evaluation, new patient Feb 25, 2016 IMMUNIZATIONS No Known Immunizations
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
--- NOTE | 2017-01-24 14:06 | History & Physical-Hospitalist ---
HPI History of Present Illness: HPI/Chief Complaint Pt is a 76yoCM with a PMH of CAD s/p 3 vessel CABG who presented to the ER today from his PCP for weakness and black stools. He reports his symptoms started last week when he had beer and hot wings at a restaurant in . He developed severe heartburn and burning pain. This pain continued despite taking Prilosec. He eventually attempted to treat his pain with Nitro which resolved his symptoms. He had a black stool on 01/19. He continued to feel more weak so he was seen in his PCP's office today and sent here for evaluation as he had a large black stool in their office. In the ER he was found to have a hemoglobin on 6.2. He is being admitted for GI bleed. Source: patient Date Seen 01/24/17 Time Seen by Provider: 13:45 Attending Physician Fco De La O MD PCP Khurram Lr MD Referring Physician Date of Admission Jan 24, 2017 at 13:52 Home Medications & Allergies Home Medications Reviewed patient Home Medication Reconciliation Form Allergies Allergies Coded Allergies No Known Drug Allergies (Verified05/24/16) Past Japegos-Orytbp-Opsvca Hx Patient Social History Alcohol Beverage of Choice: Whiskey Recent Foreign Travel: No Contact w/other who traveled: No Recent Hopitalizations: Yes (BACK SX 3 WEEKS AGO) Immunizations Up To Date Tetanus Booster (TDap): Unknown Date of Influenza Vaccine: Nov 06, 2013 Surgeries Yes (BACK, HEMMORHOID SX) Cardiac, Coronary Stent, Orthopedic Respiratory No Cardiovascular Yes (TRIPLE BYPASS) Coronary Artery Disease, High Cholesterol, Hypertension Neurological No Reproductive System Hx Reproductive Disorders: No Genitourinary No Prostate Problems Gastrointestinal No Musculoskeletal Yes Chronic Back Pain Endocrine History of Endocrine Disorders: Yes Endocrine Disorders: Diabetes, Non-Insulin dep HEENT History of HEENT Disorders: No Cancer Yes Prostate Psychosocial History of Psychiatric Problem: No Integumentary History of Skin or Integumenta: No Blood Transfusions History of Blood Disorders: No Review of Systems Constitutional: No chills, dizziness, No fever, weakness EENTM: No blurred vision, No double vision, No nose congestion, No throat pain Respiratory: No cough, No dyspnea on exertion, No short of breath Cardiovascular: chest pain, No edema, No palpitations, No syncope Gastrointestinal: abdominal pain, No constipation, No diarrhea, heartburn, loss of appetite, melena, No nausea, No vomiting Genitourinary: No dysuria, No frequency Musculoskeletal: No joint pain, No muscle pain Skin: No lesions, No rash Psychiatric/Neurological: Denies Headache, Denies Numbness, Denies Tingling Physical Exam Physical Exam Vital Signs Vital Sign - Last 12Hours 01/24/17 01/24/17 12:00 14:00 Temp 98.2 Pulse 82 Resp 16 B/P (MAP) 120/82 (95) Pulse Ox 98 O2 Delivery Room Air O2 Flow Rate 2.00 Capillary Refill : General Appearance: No Apparent Distress, WD/WN HEENT: PERRL/EOMI, Moist Mucous Membranes Neck: Non Tender, Supple Respiratory: Lungs Clear, No Respiratory Distress Cardiovascular: Regular Rate, Rhythm, No Edema, No Murmur Gastrointestinal: Normal Bowel Sounds, Non Tender, Soft Extremity: Normal Capillary Refill, No Calf Tenderness Neurologic/Psychiatric: Alert, Oriented x3, Normal Mood/Affect Skin: Warm/Dry, Pallor Results Results/Procedures Lab Laboratory Tests 01/24/17 12:50 01/24/17 22:40 01/25/17 04:40 Assessment/Plan Admission Diagnosis GI Bleed Diagnosis/Problems Diagnosis/Problems (1) GI bleed Status: Acute Assessment & Plan: Hgb 6.2 9.3 in May 2u pRBCs ordered, await post transfusion H&H Surgery consulted, appreciate recs IV PPI Clear diet go lytely prep plan for scope in AM Qualifiers: Qualified Codes: K92.2 - Gastrointestinal hemorrhage, unspecified (2) JAYLEN (acute kidney injury) Status: Resolved 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
--- OUTSIDE RECORDS SUMMARY | 2017-01-24 14:29 | XMS REPORT | Continuity of Care Document ---
Author Author [facility] Organization [facility] Address Unknown Phone Unavailable Allergies Active Description Code Type Severity Reaction Onset Reported/Identified Relationship to Patient Clinical Status Yes No Known Drug Allergies [id number] Drug Allergy Unknown N/A 05/24/2016 Medications There is no data. 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 NEC [...] OBJ 12/05/2013 IAIN LUDWIG DO Ot V06.1 [id number], COMBINED [ 06/20/2014 Ot 272.4 06/20/2014 Ot [...] APRN Ot I25.10 ATHSCL HEART DISEASE OF [place] CORONARY 05/21/2016 XIAO BURROWS APRN Ot N30.91 CYSTITIS, UNSPECIFIED WITH HEMATURIA 05/21/2016 XIAO BURROWS APRN Ot R31.9 HEMATURIA, UNSPECIFIED 05/21/2016 XIAO BURROWS WARDROBE TECHNICIAN Ot Z79.02 ATHLETIC SHOE DESIGNER (CURRENT) USE OF ANTITHROMBOTI 05/21/2016 XIAO BURROWS WARDROBE TECHNICIAN Ot Z79.82 ASSISTED (CURRENT) USE OF ASPIRIN 05/21/2016 XIAO BURROWS WARDROBE TECHNICIAN Ot Z79.899 OTHER ATHLETIC SHOE DESIGNER (CURRENT) DRUG THERAPY 05/21/2016 XIAO BURROWS WARDROBE TECHNICIAN Ot Z98.890 OTHER SPECIFIED POSTPROCEDURAL STATES 05/23/2016 XIAO BURROWS APRN Ot D64.9 ANEMIA, UNSPECIFIED 05/23/2016 XIAO BURROWS WARDROBE TECHNICIAN Ot E11.9 TYPE 2 DIABETES MELLITUS WITHOUT COMPLIC 05/23/2016 XIAO BURROWS APRN Ot I10 ESSENTIAL (PRIMARY) HYPERTENSION 05/23/2016 XIAO BURROWS APRN Ot I25.10 ATHSCL HEART DISEASE OF [place] CORONARY 05/23/2016 XIAO BURROWS APRN Ot N30.91 CYSTITIS, UNSPECIFIED WITH HEMATURIA 05/23/2016 XIAO BURROWS APRN Ot R31.9 HEMATURIA, UNSPECIFIED 05/23/2016 XIAO BURROWS WARDROBE TECHNICIAN Ot Z79.02 ATHLETIC SHOE DESIGNER (CURRENT) USE OF ANTITHROMBOTI 05/23/2016 XIAO BURROWS WARDROBE TECHNICIAN Ot Z79.82 ATHLETIC SHOE DESIGNER (CURRENT) USE OF ASPIRIN 05/23/2016 XIAO BURROWS WARDROBE TECHNICIAN Ot Z79.899 OTHER ASSISTED (CURRENT) DRUG THERAPY 05/23/2016 XIAO BURROWS WARDROBE TECHNICIAN Ot Z98.890 OTHER SPECIFIED POSTPROCEDURAL STATES 05/24/2016 [...] 10/10/15 15:44 Bacterial blood culture NG NRG [id number] - 02/15/16 10:56 Serum or plasma urea [...] culture - 05/21/16 16:12 Bacterial urine culture [id number] NRG COLONY COUNT >100,000/ML NRG FTX;REPORTABLE SENSITIVITY [...] plasma calcium measurement (mass/volume) 9.3 mg/dL 8.5-10.1 [id number] - 05/23/16 17:24 [id number] SPECIMEN AVAILABLE NR RED CELLS LEUKO REDUCED AS1 - 05/23/16 17:24 RED CELLS LEUKO REDUCED AS1 TRANSFUSED 05/24/[address] [facility] [id number] - 05/23/16 17:[id number] [facility] Blood type T Indirect antibody screen panel - 05/23/16 17:24 ABO+Rh group BP NR Transfusion band number [id number] [facility] Blood group antibody screen NEGATIVE [facility] Complete blood count (CBC) with automated white [...] 06/08/16 16:54 URINE CULTURE RESULTS <10,000/ML NRG Complete blood count (CBC) with automated white blood cell (WBC) differential - 01/24/17 12:50 Blood leukocytes automated count (number/volume) 11.4 10*3/uL 4.3-11.0 Blood erythrocytes automated count (number/volume) 2.05 10*6/uL 4.35-5.85 Venous blood hemoglobin measurement (mass/volume) 6.2 g/dL 13.3-17.7 Blood hematocrit (volume fraction) 19 % 40-54 Automated erythrocyte mean corpuscular volume 93 [foz_us] 80-99 Automated erythrocyte mean corpuscular hemoglobin (mass per erythrocyte) 30 pg 25-34 Automated erythrocyte mean corpuscular hemoglobin concentration measurement ( mass/volume) 33 g/dL 32-36 Automated erythrocyte distribution width ratio 13.7 % 10.0-14.5 Automated blood platelet count (count/volume) 267 10*3/uL 130-400 Automated blood platelet mean volume measurement 9.6 [z_us] 7.4-10.4 Automated blood neutrophils/100 leukocytes 77 % 42-75 Automated blood lymphocytes/100 leukocytes 16 % 12-44 Blood monocytes/100 leukocytes 6 % 0-12 Automated blood eosinophils/100 leukocytes 1 % 0-10 Automated blood basophils/100 leukocytes 0 % 0-10 Blood neutrophils automated count (number/volume) 8.7 10*3 1.8-7.8 Blood lymphocytes automated count (number/volume) 1.8 10*3 1.0-4.0 Blood monocytes automated count (number/volume) 0.7 10*3 0.0-1.0 Automated eosinophil count 0.2 10*3/uL 0.0-0.3 Automated blood basophil count (count/volume) 0.0 10*3/uL 0.0-0.1 PT panel in platelet poor plasma by coagulation assay - 01/24/17 12:50 Prothrombin time (PT) in platelet poor plasma by coagulation assay 14.0 s 12.2-14.7 INR in platelet poor plasma or blood by coagulation assay 1.1 0.8-1.4 Activated partial thromboplastin time (aPTT) in platelet poor plasma bycoagulation assay - 01/24/17 12:50 Activated partial thromboplastin time (aPTT) in platelet poor plasma bycoagulation assay 27 s 24-35 Comprehensive metabolic panel - 01/24/17 12:50 Serum or plasma sodium measurement (moles/volume) 141 mmol/L 135-145 Serum or plasma potassium measurement (moles/volume) 3.9 mmol/L 3.6-5.0 Serum or plasma chloride measurement (moles/volume) 111 mmol/L 98-107 Carbon dioxide 21 mmol/L 21-32 Serum or plasma anion gap determination (moles/volume) 9 mmol/L 5-14 Serum or plasma urea nitrogen measurement (mass/volume) 46 mg/dL 7-18 Serum or plasma creatinine measurement (mass/volume) 1.73 mg/dL 0.60-1.30 Serum or plasma urea nitrogen/creatinine mass ratio 27 NRG Serum or plasma creatinine measurement with calculation of estimated glomerular filtration rate 38 NRG Serum or plasma glucose measurement (mass/volume) 147 mg/dL 70-105 Serum or plasma calcium measurement (mass/volume) 8.4 mg/dL 8.5-10.1 Serum or plasma total bilirubin measurement (mass/volume) 0.3 mg/dL 0.1-1.0 Serum or plasma alkaline phosphatase measurement (enzymatic activity/volume) 64 U/L 40-136 Serum or plasma aspartate aminotransferase measurement (enzymatic activity/ volume) 17 U/L 5-34 Serum or plasma alanine aminotransferase measurement (enzymatic activity/volume ) 10 U/L 0-55 Serum or plasma protein measurement (mass/volume) 6.2 g/dL 6.4-8.2 Serum or plasma albumin measurement (mass/volume) 3.4 g/dL 3.2-4.5 Serum or plasma troponin i.cardiac measurement (mass/volume) - 01/24/17 12:50 Serum or plasma troponin i.cardiac measurement (mass/volume) < ng/ mL <0.30 Lipase - 01/24/17 12:50 Lipase 99 U/L 8-78 RED CELLS LEUKO REDUCED AS1 - 01/24/17 13:08 RED CELLS LEUKO REDUCED AS1 READY NRG Blood type T Indirect antibody screen panel - 01/24/17 13:08 ABO+Rh group BP NRG Transfusion band number [id number] NRG Blood group antibody screen NEGATIVE NRG Encounters ACCT No. Visit Date/Time Discharge Status Pt. Type Provider Facility Loc./Unit Complaint [id number] 08/22/2016 00:13:00 08/22/2016 23:59:59 CLS Preadmit PREM POOLE MD [facility] SDC TYPE AND CROSS FOR TRANSFUSION ON 05/24 [id number] 05/24/2016 08:07:00 08/21/2016 00:01:00 DIS Outpatient PREM POOLE MD [facility] SDC TYPE AND CROSS FOR TRANSFUSION ON 05/24 [id number] 06/08/2016 15:08:00 06/08/2016 23:59:59 CLS Outpatient PREM POOLE MD [facility] RAD DYSPNEA,HYPOXIA [id number] 05/24/2016 15:45:00 05/26/2016 13:00:00 DIS Inpatient ILSA JUNE MD [facility] 4TH GROSS HEMATURIA, CALCULUS OF KIDNEY [id number] 05/21/2016 15:24:00 05/21/2016 18:22:00 DIS Emergency BURROWSXIAO APRN [facility] ER BLOOD IN URINE [id number] 02/15/2016 10:41:00 02/15/2016 23:59:59 CLS Outpatient OTHER, UNLISTED [facility] RAD LOW BACK PAIN [id number] 10/10/2015 14:34:00 10/10/2015 16:26:00 DIS Emergency OZIEL IAIN [facility] ER R ARM PAIN,SWELLING [id number] 09/07/2015 11:46:00 09/07/2015 23:59:59 CLS Outpatient ANIYAH PAULINO DO [facility] RAD LOW BACK PAIN [id number] 06/20/2014 09:45:00 06/20/2014 23:59:59 CLS Outpatient ZULEMA LYLE, PREM [place] [facility] RAD HAND PAIN POST FALL RT [id number] 12/05/2013 18:28:00 12/05/2013 19:36:00 DIS Emergency OZIEL IAIN [facility] ER HEAD/NECK INJ, ALTERCATION [id number] 01/24/2017 13:52:00 ACT Inpatient YOGESH LYLE, FCO [place] [facility] ICU GI BLEED,ARF [id number] 06/20/2014 09:45:00 Document Registration [id number] 09/15/2011 13:48:00 Document Registration [id number] 07/08/2011 09:06:00 Document Registration [id number] 12/20/2010 11:41:00 Document Registration [id number] 12/11/2010 23:16:00 Document Registration [id number] 12/01/2010 11:54:00 Document Registration [id number] 11/22/2010 12:45:00 Document Registration [id number] 03/30/2010 08:34:00 Document Registration
[2017-01-24] MEDS ORDERED: GOLYTELY POWDER 4000 ML BTL PO NR (14:42)
[2017-01-24] MEDS ORDERED: CLOP75TA28 PO (15:07)
[2017-01-24] MEDS: NS IV 1000 ML 1,000 ML IV SCH ×2 (15:28→22:38)
[2017-01-24] MEDS ORDERED: ASPI-983 PO (15:36)
[2017-01-24] MEDS ORDERED: MULT-1029 PO (15:36)
[2017-01-24] MEDS ORDERED: FESO4TAB PO (15:37)
--- NOTE | 2017-01-24 15:43 | Consultation ---
History of Present Illness History of Present Illness Patient Consulted On(star/time) 01/24/17 15:35 Time Seen by Provider: 13:01 History of Present Illness Surgery asked to consult regarding profound anemia and melena. HPI: Sent to ER from Dr. Lr's office where he presented with reports of dark tarry stools noticed this morning. Patient states that about one week ago he was in [place] and had several beers and some hot wings. He was unable to sleep that night because of the severe acid reflux and heartburn. The symptoms have persisted including belching since then. This morning upon awakening he noticed dark tarry stools in his underwear. He also reports severe general weakness. He reports epigastric fullness and discomfort and early satiety. He reports 1 or 2 brief episodes of chest/epigastric discomfort last night relieved with a sublingual nitroglycerin. Timing/Duration: 2-3 Days Severity/Quality: Moderate Radiation: No Radiation Pt had another episode of chest pain up in the ICU, nursing has notified Hospitalist; hopefully just do to the anemia. Troponins were negative. He denies any history of melena or hematochezia and thinks he had a colonoscopy over 10 yrs ago; at that time they may have found some polyps. He has burning in his throat, stomach and back of mouth. Allergies and Home Medications Allergies Coded Allergies: No Known Drug Allergies (Verified , 05/24/16) Home Medications Atorvastatin Calcium 80 Mg Tablet, 80 MG PO HS, (Reported) Carvedilol 12.5 Mg Tablet, 12.5 MG PO BID, (Reported) Clopidogrel Bisulfate 75 Mg Tablet, 75 MG PO HS, (Reported) Linagliptin 5 Mg Tablet, 5 MG PO HS, (Reported) Nitroglycerin 0.4 Mg Tab.subl, 0.4 MG SL UD PRN for CHEST PAIN, (Reported) Omeprazole 40 Mg Capsule.dr, 40 MG PO HS, (Reported) Ramipril 2.5 Mg Capsule, 2.5 MG PO HS, (Reported) Ranolazine 500 Mg Tab.er.12h, 500 MG PO Q12H, (Reported) Tamsulosin HCl 0.4 Mg Cap.er.24h, 0.4 MG PO HS, (Reported) Past Mwacmoy-Oodvqt-Ickqmt Hx Patient Social History Alcohol Use: Occasionally Uses Recreational Drug Use: No Smoking Status: Never a Smoker Recent Foreign Travel: No Contact w/Someone Who Travel: No Recent Hopitalizations: Yes (BACK SX 3 WEEKS AGO) Physical Abuse Screen: No Sexual Abuse: No Immunizations Up To Date Tetanus Booster (TDap): Unknown Date of Influenza Vaccine: Nov 06, 2013 Surgeries History of Surgeries: Yes (BACK, HEMMORHOID SX) Surgeries: Cardiac, Coronary Stent, Orthopedic Respiratory History of Respiratory Disorde: No Cardiovascular History of Cardiac Disorders: Yes (TRIPLE BYPASS) Cardiac Disorders: Coronary Artery Disease, High Cholesterol, Hypertension Neurological History of Neurological Disord: No Reproductive System Hx Reproductive Disorders: No Genitourinary History of Genitourinary Disor: No Genitourinary Disorders: Prostate Problems Gastrointestinal History of Gastrointestinal Di: No Musculoskeletal History of Musculoskeletal Dis: Yes Musculoskeletal Disorders: Chronic Back Pain Endocrine History of Endocrine Disorders: Yes Endocrine Disorders: Diabetes, Non-Insulin dep HEENT History of HEENT Disorders: No Cancer History of Cancer: Yes Cancer: Prostate Psychosocial History of Psychiatric Problem: No Integumentary History of Skin or Integumenta: No Blood Transfusions History of Blood Disorders: No Family Medical History Significant Family History: Cancer (Sister has breast cancer), CAD Over 55 Years Old (mother at 58 of massive [place]) Review of Systems-General Constitutional: No chills, No diaphoresis, dizziness, weakness EENTM: No hearing loss, No blurred vision, No hoarseness, No epistaxis, No throat swelling Respiratory: No cough, No dyspnea on exertion, No hemoptysis, No short of breath Cardiovascular: chest pain, Hx of Intervention, No palpitations, No syncope Gastrointestinal: abdominal pain, diarrhea, No hematemesis, No jaundice, melena , No vomiting Genitourinary: frequency, hesitancy, nocturia Musculoskeletal: joint pain, muscle pain, muscle stiffness Skin: No change in color, No change in hair/nails Psychiatric/Neurological: Denies Anxiety, Denies Depressed, Denies Headache, Denies Seizure, Denies Tingling Other pt denies any abnormal bruising or bleeding, no heat or cold intolerance Physical Exam-General Problems Physical Exam Vital Signs Vital Sign - Last 12Hours 01/24/17 15:20 Temp 99.0 Pulse 86 Resp 15 B/P (MAP) 141/41 Pulse Ox 100 O2 Delivery Room Air Capillary Refill : General Appearance: WD/WN, no apparent distress, thin Eyes: Bilateral Eye PERRL, Bilateral Eye EOMI HEENT: pharynx normal, No scleral icterus (R), No scleral icterus (L), No pale conjunctivae (R), No pale conjunctivae (L) Neck: non-tender, supple Respiratory: chest non-tender, lungs clear, normal breath sounds, no respiratory distress, no accessory muscle use Cardiovascular: regular rate, rhythm, no edema, no murmur Gastrointestinal: normal bowel sounds, non tender, soft, no organomegaly, no pulsatile mass Rectal: deferred Back: no CVA tenderness, no vertebral tenderness Extremities: no pedal edema, no calf tenderness, normal capillary refill Neurologic/Psychiatric: fraud investigator II-XII nml as tested, no motor/sensory deficits, alert, normal mood/affect, oriented x 3 Skin: warm/dry, pallor Lymphatic: no adenopathy (neck, axilla or groin) Data Review Labs Laboratory Tests 01/24/17 12:50: White Blood Count 11.4H, Red Blood Count 2.05L, Hemoglobin 6.2*L, Hematocrit 19* L, Mean Corpuscular Volume 93, Mean Corpuscular Hemoglobin 30, Mean Corpuscular Hemoglobin Concent 33, Red Cell Distribution Width 13.7, Platelet Count 267, Mean Platelet Volume 9.6, Neutrophils (%) (Auto) 77H, Lymphocytes (%) (Auto) 16 , Monocytes (%) (Auto) 6, Eosinophils (%) (Auto) 1, Basophils (%) (Auto) 0, Neutrophils # (Auto) 8.7H, Lymphocytes # (Auto) 1.8, Monocytes # (Auto) 0.7, Eosinophils # (Auto) 0.2, Basophils # (Auto) 0.0, Prothrombin Time 14.0, INR Comment 1.1, Activated Partial Thromboplast Time 27, Sodium Level 141, Potassium Level 3.9, Chloride Level 111H, Carbon Dioxide Level 21, Anion Gap 9, Blood Urea Nitrogen 46H, Creatinine 1.73H, Estimat Glomerular Filtration Rate 38 , BUN/Creatinine Ratio 27, Glucose Level 147H, Calcium Level 8.4L, Total Bilirubin 0.3, Aspartate Amino Transf (AST/SGOT) 17, Alanine Aminotransferase ( ALT/SGPT) 10, Alkaline Phosphatase 64, Troponin I < 0.30, Total Protein 6.2L, Albumin 3.4, Lipase 99H Assessment/Plan Assessment/Plan Assessment/Plan 1. Anemia 2. Melena 3. Gastritis 4. Chest pain - unknown etiology, most likley secondary to #1 Pt is admitted for close monitoring and blood transfusion. Will plan for EGD and Coloscopy tomorrow; he is currently on clears, will be NPO after midnight and is drinking Golytely. Will monitor H/H; can probably be done Q12 hours. IVF, pain control. Will get consent for the procedures tomorrow; risks and complications discussed, not limited to pain , bleeding, infection, intestinal perforation or esophageal rupture. All questions answered to his satisfaction. JONATHAN RODRIGUEZ DO Jan 24, 2017 15:43
[2017-01-24] MEDS ORDERED: NITROGLYCERIN 0.4 MG SL TABS BTL 25'S SL PRN (15:45)
[2017-01-24] MEDS ORDERED: morphine INJ 4 MG/ML 1 ML (VIAL/SYRINGE) IVP PRN (16:15)
[2017-01-24] MEDS ORDERED: morphine INJ 4 MG/ML 1 ML (VIAL/SYRINGE) ONE (16:22)
[2017-01-24] MEDS ORDERED: meTOprolol 5 MG/5 ML (LOPRESSOR) VIAL IV ONE (16:45)
[2017-01-24] MEDS ORDERED: NITROGLYCERIN DRIP 25 MG/D5W 250 ML IV SCH (16:45)
--- NOTE | 2017-01-24 20:46 | Consultation-Cardiology ---
HPI-Cardiology Cardiology Consultation: Date of Consultation 01/24/17 Date of Admission Attending Physician Dilcia De La O MD Admitting Physician Khurram Lr MD Consulting Physician Teddy VALENCIA MD HPI: Time Seen by Provider: 17:30 Chief Complaint: Chest pain This is a 76-year-old gentleman who follows with Dr. Santacruz, cardiology in [place]. The patient has remote history of CABG with 3 bypasses. He had an angiogram which was a few years ago. He is not aware of any recent stress testing. Patient presents with dark stools. Was not having any chest pain on admission. He was found to have severely anemia and likely GI bleeding. He was admitted for GI workup and blood transfusion. However he developed chest pain. Cardiology is consulted for evaluation of chest pain. When I saw the patient he had already received sublingual nitroglycerin and 2 mg of morphine. Ultimately responded to nitroglycerin infusion. Review of Systems-Cardiology Review of Systems Constitutional: No As described under HPI, No no symptoms reported, No chills, No fever, No lightheadedness, No malaise, No tiredness, No weight loss, No weight gain, No other Eyes: No As described under HPI, No no symptoms reported, No blindness, No blurred vision, No contact lenses, No drainage, No decreased acuity, No foreign body sensation, No glasses, No inflammation, No pain, No photophobia, No previous injury, No shadows, No tunnel vision, No other, No vision change Respiratory: No no symptoms reported, No As described under HPI, No cough, No orthopnea, No shortness of breath, No SOB with excertion, No SOB at rest, No stridor, No wheezing, No other Cardiovascular: chest pain Gastrointestinal: As described under HPI Genitourinary: No no symptoms reported, No As described under HPI, No burning, No dysuria, No discharge, No frequency, No flank pain, No hematuria, No incontinence, No pain, No urgency, No other, No urine frequency changes, No urine coloration changes Musculoskeletal: No no symptoms reported, No As describe under HPI, No back pain, No gout, No joint pain, No joint swelling, No muscle pain, No muscle stiffness, No neck pain, No other Skin: No no symptoms reported, No As described under HPI, No change in color, No change in hair/nails, No dryness, No lesions, No lumps, No rash, No other, No skin related problems, No ulcerations, No rash on exposed areas, No ulcerations on exposed areas Psychiatric/Neurological: No no symptoms reported, No As described under HPI, No anxiety, No depression, No emotional problems, No headache, No numbness, No pre-existing deficit, No seizure, No tingling, No tremors, No weakness, No other , No focal weakness, No syncope Hematologic: anemia TRP-[id number] Hx Patient Social History Alcohol Use: Occasionally Uses Recreational Drug Use: No Smoking Status: Never a Smoker Recent Foreign Travel: No Recent Infectious Disease Expo: No Hospitalization with Isolation: Denies Physical Abuse Screen: No Sexual Abuse: No Immunizations Up To Date Tetanus Booster (TDap): Unknown Date of Influenza Vaccine: Nov 06, 2013 Past Medical History PMH As described under Assessment. Allergies and Home Medications Allergies Coded Allergies: No Known Drug Allergies (Verified , 05/24/16) Home Medications Aspirin 81 Mg Tablet.dr, 81 MG PO HS, (Reported) Atorvastatin Calcium 80 Mg Tablet, 80 MG PO HS, (Reported) Carvedilol 12.5 Mg Tablet, 12.5 MG PO BID, (Reported) Clopidogrel Bisulfate 75 Mg Tablet, 75 MG PO HS, (Reported) Fesoterodine Fumarate 4 Mg Tab.sr.24h, 4 MG PO BID, (Reported) Linagliptin 5 Mg Tablet, 5 MG PO HS, (Reported) Multivit-Min/FA/Lycopene/Lut 1 Each Tablet, 1 TAB PO HS, (Reported) Nitroglycerin 0.4 Mg Tab.subl, 0.4 MG SL UD PRN for CHEST PAIN, (Reported) Omeprazole 40 Mg Capsule.dr, 40 MG PO HS, (Reported) Ramipril 2.5 Mg Capsule, 2.5 MG PO HS, (Reported) Ranolazine 500 Mg Tab.er.12h, 500 MG PO Q12H, (Reported) Tamsulosin HCl 0.4 Mg Cap.er.24h, 0.4 MG PO HS, (Reported) Physical Exam-Cardiology Physical Exam Vital Signs/I&O Vital Sign - Last 12Hours 01/24/17 01/24/17 01/24/17 01/24/17 12:00 14:00 14:30 15:00 Temp 98.2 99.0 Pulse 82 87 82 93 Resp 16 14 18 18 B/P (MAP) 120/82 (95) 117/62 (80) 84/34 (51) Pulse Ox 98 100 97 100 O2 Delivery Room Air Nasal Cannula Nasal Cannula O2 Flow Rate 2.00 2.00 01/24/17 01/24/17 01/24/17 01/24/17 15:15 15:20 15:30 15:33 Temp 99.0 98.3 Pulse 91 86 87 87 Resp 15 15 9 9 B/P (MAP) 79/43 (55) 141/41 117/45 (69) Pulse Ox 100 100 98 100 O2 Delivery Nasal Cannula Room Air Nasal Cannula Room Air O2 Flow Rate 2.00 2.00 01/24/17 01/24/17 01/24/17 01/24/17 15:41 15:45 16:00 16:00 Pulse 86 86 Resp 12 7 B/P (MAP) 132/63 (86) 144/66 (92) Pulse Ox 100 99 100 100 O2 Delivery Room Air Nasal Cannula Nasal Cannula Nasal Cannula O2 Flow Rate 2.00 2.00 2.00 01/24/17 01/24/17 01/24/17 01/24/17 16:15 16:30 16:45 16:47 Temp 99.0 Pulse 86 86 89 87 Resp 13 9 20 18 B/P (MAP) 139/52 (81) 134/70 (91) 81/61 (68) Pulse Ox 100 100 100 100 O2 Delivery Nasal Cannula Nasal Cannula Nasal Cannula O2 Flow Rate 2.00 2.00 2.00 01/24/17 01/24/17 01/24/17 01/24/17 17:00 17:07 17:10 17:15 Temp 98.8 98.8 Pulse 81 81 87 81 Resp 11 18 16 23 B/P (MAP) 130/92 (105) 130/92 130/92 117/69 (85) Pulse Ox 100 100 100 100 O2 Delivery Nasal Cannula Nasal Cannula Nasal Cannula Nasal Cannula O2 Flow Rate 2.00 2.00 2.00 2.00 01/24/17 01/24/17 01/24/17 01/24/17 17:30 17:35 17:45 18:00 Temp 99.2 Pulse 80 79 83 84 Resp 14 11 12 16 B/P (MAP) 139/49 (79) 104/67 (79) 120/67 (84) Pulse Ox 100 100 100 100 O2 Delivery Nasal Cannula Nasal Cannula Nasal Cannula Nasal Cannula O2 Flow Rate 2.00 2.00 2.00 2.00 01/24/17 01/24/17 01/24/17 18:15 18:30 18:45 Pulse 85 86 86 Resp 12 20 25 B/P (MAP) 139/59 (85) 126/56 (79) Pulse Ox 100 100 100 O2 Delivery Nasal Cannula Nasal Cannula Nasal Cannula O2 Flow Rate 2.00 2.00 2.00 Capillary Refill : NONELess Than 3 Seconds Constitutional: No appears stated age, No AAO x 3, No apparent distress, No PERRL, No well-developed, No well-nourished, No other HEENT: No PERRL, No normal ENT inspection, No TMs normal, No pharynx normal, No scleral icterus (R), No scleral icterus (L), No pale conjunctivae (R), No pale conjunctivae (L), No photophobia, No TM abnormal (R), No TM abnormal (L), No pharyngeal erythema, No tonsillar exudate, No other, No discharge, No EOMI, No hearing is well preserved, No hard of hearing, No oral hygience is good, No ulceration, No xanthelasmas are seen Neck: No non-tender, No full range of motion, No supple, No normal inspection, No carotid bruit, No limited range of motion, No lymphadenopathy (R), No lymphadenopathy (L), No tender lateral, No tender midline, No thyromegaly, No other, No carotid pulses are 2 + bilaterally, No with good upstrokes Respiratory: No accessory muscle use, No respiratory distress, No chest tender , No chest expansion is symmetric, No chest is bilaterally symmetric, No lungs clear to percussion, No lungs clear to auscultation, No crackles, No rhonchi, No rales, No stridor, No wheezing, No pleural rub, No other Cardiovascular: regular rate-rhythm, S1 and S2 Gastrointestinal: No tender, No soft, No round, No distended, No pulsatile mass , No organomegaly, No guarding, No rebound, No tenderness, No hernia, No mass, No audible bowel sounds, No abnormal bowel sounds, No abdominal bruits, No spleenomegaly, No other Rectal: deferred Extremities: No normal range of motion, No non-tender, No normal inspection, No pedal edema, No calf tenderness, No normal capillary refill, No pelvis stable , No calf tenderness, No inflammation, No pedal edema, No slow capillary refill , No swelling, No other, No abrasion, No clubbing, No cyanosis, No ecchymosis, No laceration, No no lower extremity edema bilateral, No significant edema, No tenderness, No wound Neurologic/Psychiatric: No wound nurse II-XII nml as tested, No no motor/sensory deficits, No alert, No normal mood/affect, No oriented x 3, No abnormal cerebellar tests, No abnormal wound nurse II-XII, No abnormal gait, No aphasia, No EOM palsy, No facial droop, No motor weakness, No sensory deficit, No depressed affect, No disoriented x 3, No other, No grossly intact, No power is 5/5 both on sides Skin: No normal color, No warm/dry, No cyanosis, No cool, No diaphoresis, No damp, No ecchymosis, No jaundice, No mottled, No pallor, No rash, No tattoos/ piercings, No ulcerations, No rash on exposed areas, No ulcerations on exposed areas, No other Lymphatic: no adenopathy (neck, axilla or groin) Data Review Labs Laboratory Tests 01/24/17 12:50: White Blood Count 11.4H, Red Blood Count 2.05L, Hemoglobin 6.2*L, Hematocrit 19* L, Mean Corpuscular Volume 93, Mean Corpuscular Hemoglobin 30, Mean Corpuscular Hemoglobin Concent 33, Red Cell Distribution Width 13.7, Platelet Count 267, Mean Platelet Volume 9.6, Neutrophils (%) (Auto) 77H, Lymphocytes (%) (Auto) 16 , Monocytes (%) (Auto) 6, Eosinophils (%) (Auto) 1, Basophils (%) (Auto) 0, Neutrophils # (Auto) 8.7H, Lymphocytes # (Auto) 1.8, Monocytes # (Auto) 0.7, Eosinophils # (Auto) 0.2, Basophils # (Auto) 0.0, Prothrombin Time 14.0, INR Comment 1.1, Activated Partial Thromboplast Time 27, Sodium Level 141, Potassium Level 3.9, Chloride Level 111H, Carbon Dioxide Level 21, Anion Gap 9, Blood Urea Nitrogen 46H, Creatinine 1.73H, Estimat Glomerular Filtration Rate 38 , BUN/Creatinine Ratio 27, Glucose Level 147H, Calcium Level 8.4L, Total Bilirubin 0.3, Aspartate Amino Transf (AST/SGOT) 17, Alanine Aminotransferase ( ALT/SGPT) 10, Alkaline Phosphatase 64, Troponin I < 0.30, Total Protein 6.2L, Albumin 3.4, Lipase 99H 01/24/17 19:15: Troponin I < 0.30 ECG Impression ECG Initial ECG Rhythm: Normal Sinus Comment Sinus rhythm with lateral ST depressions. A/P-Cardiology Assessment/Admission Diagnosis Chest pain, history of CAD/CABG. GI bleeding. Acute kidney injury. Hypertension. Plan Deferred treatment and evaluation of GI bleeding to the primary team. Blood transfusion being given. Upper and lower endoscopy probably in the morning. Chest pain responded to nitroglycerin infusion. He was not having chest pain when I examined him. Beta blockers will be given as an antianginal agent. Unfortunately we cannot give antiplatelet or antithrombotic agents due to GI bleeding. Discussed with the patient who understands. EKG does show ST depressions with suggest likely global ischemia due to severe anemia. I will recommend an echocardiogram. We will also try to get old records from [place]. Acute kidney injury with a creatinine of 1.75. Baseline creatinine 1.0. We will hold antihypertensive therapy till the patient is more stable. Thank you for your consultation. Please call me if you have any questions. Tonie Valencia MD, FACP, FACC, FSCAI, FHRS, CCDS Interventional Cardiology Cardiac Electrophysiology Vascular Medicine and Endovascular Interventions Clinical Quality Measures DVT/VTE Risk/Contraindication: Risk Factor Score Per Nursin RFS Level Per Nursing on Admit: 2=Moderate Teddy VALENCIA MD Jan 24, 2017 8:46 pm
[2017-01-25] VITALS (16 sets, daily range): BP systolic 99–139; BP diastolic 44–73
[2017-01-25 05:04] LABS: BASOPHILS # (AUTO) 0.1 10^3/uL (0.0-0.1); BASOPHILS % (AUTO) 1 % (0-10); EOSINOPHILS # (AUTO) 0.2 10^3/uL (0.0-0.3); EOSINOPHILS % (AUTO) 2 % (0-10); LYMPHOCYTES % (AUTO) 23 % (12-44); MEAN CORPUSCULAR HEMOGLOBIN 30 PG (25-34); MEAN CORPUSCULAR HGB CONC 34 G/DL (32-36); MEAN CORPUSCULAR VOLUME 89 FL (80-99); MEAN PLATELET VOLUME 9.5 FL (7.4-10.4); MONOCYTES # (AUTO) 0.7 X 10^3 (0.0-1.0); MONOCYTES % (AUTO) 8 % (0-12); NEUTROPHILS # (AUTO) 5.8 X 10^3 (1.8-7.8); NEUTROPHILS % (AUTO) 67 % (42-75); PLATELET COUNT 201 10^3/uL (130-400); RED BLOOD COUNT 2.55 10^6/uL (4.35-5.85); RED CELL DISTRIBUTION WIDTH 14.3 % (10.0-14.5); WHITE BLOOD COUNT 8.6 10^3/uL (4.3-11.0)
[2017-01-25 05:14] LABS: INR 1.1 (0.8-1.4); PROTHROMBIN TIME PATIENT 14.5 SEC (12.2-14.7)
[2017-01-25 05:27] LABS: ANION GAP 6 MMOL/L (5-14); BLOOD UREA NITROGEN 26 MG/DL (7-18); BUN/CREATININE RATIO 24; CALCIUM 7.5 MG/DL (8.5-10.1); CARBON DIOXIDE 22 MMOL/L (21-32); CHLORIDE 115 MMOL/L (98-107); GFR ESTIMATED > 60; GLUCOSE 83 MG/DL (70-105); MAGNESIUM 1.6 MG/DL (1.8-2.4); PHOSPHORUS 1.9 MG/DL (2.3-4.7); POTASSIUM 3.2 MMOL/L (3.6-5.0); SODIUM 143 MMOL/L (135-145)
[2017-01-25] MEDS ORDERED: MAGNESIUM 1 GM/100 ML IVPB 100 ML IV SCH (06:00)
[2017-01-25] MEDS ORDERED: KCL 20 MEQ TAB (K-DUR) PO SCH (06:00)
[2017-01-25] MEDS ORDERED: POTASSIUM CL 10MEQ/50ML IVPB 50 ML IV SCH (06:00)
[2017-01-25] MEDS: POTASSIUM CL 10MEQ/50ML IVPB 50 ML IV SCH ×4 (06:08→10:36)
[2017-01-25] MEDS: NS IV 1000 ML 1,000 ML IV SCH ×2 (06:08→10:35)
[2017-01-25] MEDS: MAGNESIUM 1 GM/100 ML IVPB 100 ML IV SCH ×2 (08:00→09:27)
[2017-01-25] MEDS: PANTOPRAZOLE 40 MG/10 ML (PROTONIX) VIAL IV SCH (08:00)
[2017-01-25] MEDS ORDERED: MIDAZOLAM 2 MG/2 ML (VERSED) VIAL ONE (09:37)
[2017-01-25] MEDS ORDERED: proPOfol 200 MG/20 ML (DIPRIVAN) VIAL IV ONE (09:37)
--- NOTE | 2017-01-25 10:11 | Progress Note-Hospitalist ---
Subjective HPI/CC On Admission Date Seen by Provider: Jan 25, 2017 Time Seen by Provider: 07:20 Pt is a 76yoCM with a PMH of CAD s/p 3 vessel CABG who presented to the ER today from his PCP for weakness and black stools. He reports his symptoms started last week when he had beer and hot wings at a restaurant in . He developed severe heartburn and burning pain. This pain continued despite taking Prilosec. He eventually attempted to treat his pain with Nitro which resolved his symptoms. He had a black stool on 01/19. He continued to feel more weak so he was seen in his PCP's office today and sent here for evaluation as he had a large black stool in their office. In the ER he was found to have a hemoglobin on 6.2. He is being admitted for GI bleed. Subjective/Events-last exam Reports feeling better since yesterday. No chest pain. Still having dark stools. Completed prep last night. Objective Exam Vital Signs Vital Sign - Last 12Hours 01/24/17 01/24/17 12:00 14:00 Temp 98.2 Pulse 82 Resp 16 B/P (MAP) 120/82 (95) Pulse Ox 98 O2 Delivery Room Air O2 Flow Rate 2.00 Capillary Refill : NONELess Than 3 Seconds General Appearance: No Apparent Distress, WD/WN Respiratory: Lungs Clear, No Respiratory Distress Cardiovascular: Regular Rate, Rhythm, No Murmur Gastrointestinal: Normal Bowel Sounds, Non Tender, Soft Extremity: Non Tender, No Calf Tenderness Neurologic/Psychiatric: Alert, Oriented x3 Results/Procedures Lab Laboratory Tests 01/24/17 22:40 01/25/17 04:40 Assessment/Plan Assessment and Plan Assess & Plan/Chief Complaint GI bleed Diagnosis/Problems Diagnosis/Problems (1) GI bleed Status: Acute Assessment & Plan: Hgb 6.2 on arrival 9.3 in May s/p 2u pRBCs Hgb 7.7 today Plan for EGD/Colonoscopy today Qualifiers: Qualified Codes: K92.2 - Gastrointestinal hemorrhage, unspecified (2) CAD (coronary artery disease) Status: Chronic Assessment & Plan: s/p 3 vessel CABG Cardiology consulted Chest pain resolved with nitro Off ASA/Plavix for active bleed (3) JAYLEN (acute kidney injury) Status: Resolved Assessment & Plan: Clinic Director 1.7 on arrival Now back to baseline (4) Essential (primary) hypertension Assessment & Plan: Trend, hold antihypertensives currently FCO ZUÑIGA MD Jan 25, 2017 10:11
--- NOTE | 2017-01-25 10:32 | Progress Note-Post Operative ---
Post-Operative Progess Note Surgeon (s)/Utilization Management Rn (s) Surgeon JONATHAN RODRIGUEZ DO Utilization Management Rn: none Pre-Operative Diagnosis Anemia, Melena, Gastritis, Cardiac ischemia due to anemia Post-Operative Diagnosis Same plus Diverticula, internal hemorrhoids, gastric polyps Procedure & Operative Findings Date of Procedure 01/25/17 Procedure Performed/Findings 1. EGD with bx 2. Colonoscopy Anesthesia Type IV sedation by ECHOCARDIOGRAPH TECHNICIAN Estimated Blood Loss Estimated blood loss (mL): scant Specimens/Packing Specimens Removed antral bx gastric polyp JONATHAN RODRIGUEZ DO Jan 25, 2017 10:32
--- NOTE | 2017-01-25 13:18 | Cardiology Progress Note ---
Cardiology SOAP Progress Note Subjective: No further chest pain. Objective: I&O/Vital Signs Vital Sign - Last 12Hours 01/25/17 01/25/17 01/25/17 01/25/17 02:00 03:00 04:00 04:00 Pulse 78 85 75 Resp 15 13 15 B/P (MAP) 118/46 (70) 115/61 (79) 106/47 (66) Pulse Ox 100 100 100 100 O2 Delivery Nasal Cannula Nasal Cannula Nasal Cannula Room Air O2 Flow Rate 2.00 2.00 2.00 2.00 01/25/17 01/25/17 01/25/17 01/25/17 05:00 06:00 07:00 07:00 Pulse 78 78 73 73 Resp 14 17 18 B/P (MAP) 125/49 (74) 117/68 (84) 106/58 (74) Pulse Ox 100 98 97 O2 Delivery Room Air Room Air Room Air 01/25/17 01/25/17 01/25/17 01/25/17 07:42 08:00 08:00 09:00 Temp 98.6 Pulse 73 82 Resp 10 14 B/P (MAP) 139/67 (91) 105/47 (66) Pulse Ox 100 100 O2 Delivery Room Air Room Air Room Air 01/25/17 01/25/17 01/25/17 10:00 11:00 12:00 Pulse 66 75 71 Resp 19 18 22 B/P (MAP) 107/49 (68) 100/47 (64) 127/64 (85) Pulse Ox 97 99 99 O2 Delivery Room Air Room Air Room Air Intake and Output 01/25/17 00:00 Intake Total 5125 ml Output Total 3700 ml Balance 1425 ml Weight (Pounds): 154 Weight (Ounces): 2.0 Weight (Calculated Kilograms): [id number] Constitutional: No appears stated age, No AAO x 3, No apparent distress, No PERRL, No well-developed, No well-nourished, No other Respiratory: No accessory muscle use, No respiratory distress, No chest tender , No chest expansion is symmetric, No chest is bilaterally symmetric, No lungs clear to percussion, No lungs clear to auscultation, No crackles, No rhonchi, No rales, No stridor, No wheezing, No pleural rub, No other Cardiovascular: regular rate-rhythm, S1 and S2 Gastrointestional: No tender, No soft, No round, No distended, No pulsatile mass, No organomegaly, No guarding, No rebound, No tenderness, No hernia, No mass, No audible bowel sounds, No abnormal bowel sounds, No abdominal bruits, No spleenomegaly, No other Extremities: No normal range of motion, No non-tender, No normal inspection, No pedal edema, No calf tenderness, No normal capillary refill, No pelvis stable , No calf tenderness, No inflammation, No pedal edema, No slow capillary refill , No swelling, No other, No abrasion, No clubbing, No cyanosis, No ecchymosis, No laceration, No no lower extremity edema bilateral, No significant edema, No tenderness, No wound Neurologic/Psychiatric: No liquor commissioner II-XII nml as tested, No no motor/sensory deficits, No alert, No normal mood/affect, No oriented x 3, No abnormal cerebellar tests, No abnormal liquor commissioner II-XII, No abnormal gait, No aphasia, No EOM palsy, No facial droop, No motor weakness, No sensory deficit, No depressed affect, No disoriented x 3, No other, No grossly intact, No power is 5/5 both on sides Skin: No normal color, No warm/dry, No cyanosis, No cool, No diaphoresis, No damp, No ecchymosis, No jaundice, No mottled, No pallor, No rash, No tattoos/ piercings, No ulcerations, No rash on exposed areas, No ulcerations on exposed areas, No other Results/Procedures: Labs Laboratory Tests 01/24/17 19:15: Troponin I < 0.30 01/24/17 22:40: Hemoglobin 8.0#L, Hematocrit 24L 01/25/17 04:40: Hemoglobin 7.7L, Hematocrit 23L, White Blood Count 8.6, Red Blood Count 2.55L, Mean Corpuscular Volume 89, Mean Corpuscular Hemoglobin 30, Mean Corpuscular Hemoglobin Concent 34, Red Cell Distribution Width 14.3, Platelet Count 201, Mean Platelet Volume 9.5, Neutrophils (%) (Auto) 67, Lymphocytes (%) (Auto) 23, Monocytes (%) (Auto) 8, Eosinophils (%) (Auto) 2, Basophils (%) (Auto) 1, Neutrophils # (Auto) 5.8, Lymphocytes # (Auto) 2.0, Monocytes # (Auto) 0.7, Eosinophils # (Auto) 0.2, Basophils # (Auto) 0.1, Prothrombin Time 14.5, INR Comment 1.1, Sodium Level 143, Potassium Level 3.2L, Chloride Level 115H, Carbon Dioxide Level 22, Anion Gap 6, Blood Urea Nitrogen 26H, Creatinine 1.10, Estimat Glomerular Filtration Rate > 60, BUN/Creatinine Ratio 24, Glucose Level 83, Calcium Level 7.5L, Phosphorus Level 1.9L, Magnesium Level 1.6L 01/25/17 12:49: Lab Scanned Report Transfusion Reaction Form A/P: Assessment/Dx: Chest pain, history of CAD/CABG. GI bleeding. Acute kidney injury. Hypertension. Plan: Deferred treatment and evaluation of GI bleeding to the primary team. Blood transfusion given. Dr. Garrison performed upper and lower endoscopy which revealed bleeding from a diverticular source. No active bleeding. Okay to start aspirin today. Plavix only if the patient has recurrent chest pain or ACS. Chest pain responded to nitroglycerin infusion. However patient had an hypotensive episode with nitroglycerin infusion therefore it was discontinued. No chest pain. This could also be since anemia was corrected somewhat with blood transfusion. Serial troponin negative therefore acute coronary syndrome has been ruled out. Patient follows with Dr. Santacruz in [place]. He start other medications for CAD. Acute kidney injury with a creatinine of 1.75. Baseline creatinine 1.0. Antihypertensive therapy can gradually be started if blood pressure tolerates. Dr. Willis is covering inpatient cardiology service from tomorrow. Thank you for your consultation. Please call me if you have any questions. Tonie Valencia MD, FACP, FACC, FSCAI, FHRS, CCDS Interventional Cardiology Cardiac Electrophysiology Vascular Medicine and Endovascular Interventions Teddy VALENCIA MD Jan 25, 2017 1:18 pm
[2017-01-25] MEDS ORDERED: ASPIRIN E.C. 81 MG (ECOTRIN) TAB PO NR (14:00)
[2017-01-25] MEDS ORDERED: PNEUMOCOCCAL VACCINE 25 MCG/0.5 ML VIAL IM ONE (15:45)
[2017-01-25] MEDS ORDERED: INFLUENZA TRIvalent 2017-2018 0.5 ML/45 MCG SYR IM ONE (15:45)
--- NOTE | 2017-01-25 20:05 | OPERATIVE REPORT ---
DATE OF SERVICE: 01/25/2017 PREOPERATIVE DIAGNOSES: 1. Anemia. 2. Melena. 3. Gastritis. 4. Cardiac ischemia secondary to profound anemia. POSTOPERATIVE DIAGNOSES: 1. Anemia. 2. Melena. 3. Gastritis. 4. Cardiac ischemia secondary to profound anemia. 5. Gastric polyps and then in the colon found diverticula and internal hemorrhoids. PROCEDURE: 1. EGD with biopsy. 2. Colonoscopy. SURGEON: Dr. Garrison. ABRASIVE MIXER HELPER: None. ANESTHESIA: IV sedation by the ENGRAVER LETTERING. SPECIMEN: One biopsy from the antrum and then 1 biopsy of gastric polyp. BLOOD LOSS: Scant. FLUIDS: Per anesthesia. POSTOPERATIVE CONDITION: Stable. INDICATION FOR PROCEDURE: The patient is a 76-year-old male who came in with melena, profound anemia, had a little bit of chest pain secondary to the anemia and history of gastritis and needed a workup. FINDINGS: The patient had some gastritis that was minimal, had some gastric polyps and then in the colon saw some diverticula and some internal hemorrhoids but no masses, nothing obviously bleeding, most likely had a diverticular bleed. PROCEDURE NOTE: After informed consent was obtained, the patient was in his bed in the ICU, given IV sedation and his vitals were monitored by the ENGRAVER LETTERING and then I inserted the scope, pushed down through the mouth into the esophagus and down into the stomach, able to get into the stomach and look into the antrum, get into the first portion of duodenum, took a picture and then withdrew the scope and then did a biopsy of the antrum, then pulled the scope back look at the rest of the stomach, retroflexed to look at to look to see if there as a hiatal hernia and there was not one. Did see a lot of gastric polyps so elected to do a biopsy of one of these and then slowly came up the stomach into the esophagus. The GE junction looked good, esophagus looked good and then up and out the mouth. Switched scopes, went to the other side. Switched gloves and then proceeded to start with a colonoscopy. He was having some dark black liquid stool as we were starting the procedure and down in the distal colon, the descending and sigmoid looked like there was possibly some melena. Pushed all the way past this, pushed the scope in to about 140 cm, able to get all the way to the cecum, took a picture of the appendiceal orifice, noted the ileocecal valve and then slowly withdrew the scope insufflating to look circumferentially at the hernandez, looking at the cecum. There was some minimal retained fecal material covering coating a little bit so the hernandez could see most the hernandez, did not see any obvious polyps. Slowly withdrew the scope up the cecum into the ascending colon to the hepatic flexure and then down the transverse colon to the splenic flexure. I did not see any red liquid. I did not see any blood. I did not see melena either through here and then down past the splenic flexure into the descending colon and then down the descending colon somewhere in the distal portion of the descending colon saw some what looked like possibly some melanotic liquid, saw some diverticula. I did not see any active bleeding from these diverticula and then down through the sigmoid into the rectum, retroflexed in rectal vault, saw some internal hemorrhoids, most likely his bleeding was from diverticula. I did not see any other obvious pathology, possibly could be from most likely not though from small intestine because in the ascending colon and transverse colon, there was no blood or melanotic stools, although this was not completely ruled out. Scope was removed. The patient tolerated the procedure and he was recovered in his ICU bed. Job ID: [id number] DocumentID: [id number] Dictated Date: 01/25/2017 10:45:19 Appeals Officer Date: 01/25/2017 20:04:33 Dictated By: JONATHAN GARRISON DO
[2017-01-26] VITALS: BP 122/50
[2017-01-26 04:00] VITALS: BP 148/83
[2017-01-26 05:34] LABS: BASOPHILS % (AUTO) 1 % (0-10); EOSINOPHILS # (AUTO) 0.2 10^3/uL (0.0-0.3); EOSINOPHILS % (AUTO) 2 % (0-10); LYMPHOCYTES # (AUTO) 1.5 X 10^3 (1.0-4.0); LYMPHOCYTES % (AUTO) 18 % (12-44); MEAN CORPUSCULAR HEMOGLOBIN 30 PG (25-34); MEAN CORPUSCULAR HGB CONC 33 G/DL (32-36); MEAN CORPUSCULAR VOLUME 91 FL (80-99); MEAN PLATELET VOLUME 9.7 FL (7.4-10.4); MONOCYTES # (AUTO) 0.8 X 10^3 (0.0-1.0); MONOCYTES % (AUTO) 10 % (0-12); NEUTROPHILS # (AUTO) 5.6 X 10^3 (1.8-7.8); NEUTROPHILS % (AUTO) 70 % (42-75); PLATELET COUNT 204 10^3/uL (130-400); RED BLOOD COUNT 2.49 10^6/uL (4.35-5.85); RED CELL DISTRIBUTION WIDTH 14.7 % (10.0-14.5); WHITE BLOOD COUNT 8.1 10^3/uL (4.3-11.0)
[2017-01-26 06:33] LABS: ANION GAP 8 MMOL/L (5-14); BLOOD UREA NITROGEN 14 MG/DL (7-18); BUN/CREATININE RATIO 14; CARBON DIOXIDE 20 MMOL/L (21-32); CHLORIDE 114 MMOL/L (98-107); CREATININE SERUM 1.01 MG/DL (0.60-1.30); GFR ESTIMATED > 60; GLUCOSE 97 MG/DL (70-105); MAGNESIUM 1.8 MG/DL (1.8-2.4); POTASSIUM 3.9 MMOL/L (3.6-5.0); SODIUM 142 MMOL/L (135-145)
[2017-01-26] MEDS: PANTOPRAZOLE 40 MG/10 ML (PROTONIX) VIAL IV SCH (08:35)
[2017-01-26 08:50] VITALS: BP 104/45
[2017-01-26] MEDS ORDERED: ASPIRIN E.C. 81 MG (ECOTRIN) TAB PO SCH (09:00)
[2017-01-26] MEDS ORDERED: NS IV 500 ML 500 ML IV SCH (09:46)
--- NOTE | 2017-01-26 09:56 | Progress Note ---
Subjective Time Seen by Provider: 09:43 Subjective/Events-last exam Pt seen and examined, no new complaints. Denies nausea, vomiting and abdominal pain. Tolerating diet and states he does not feel dizzy or weak. Review of Systems General: No Chills, No Night Sweats, Fatigue HEENT: No Head Aches Pulmonary: No Dyspnea, No Cough Cardiovascular: Chest Pain, No: Palpitations Gastrointestinal: No: Nausea, Vomiting, Abdominal Pain Objective Exam Vital Signs Date Time Temp Pulse Resp B/P (MAP) Pulse Ox O2 Delivery O2 Flow Rate FiO2 01/26/17 08:50 97.5 83 20 104/45 (64) 100 Room Air 01/26/17 04:00 98.2 77 16 148/83 (104) 97 Room Air 01/26/17 00:00 98.6 75 16 122/50 (74) 97 Room Air 01/25/17 20:15 99 Room Air 01/25/17 16:06 98.2 77 18 139/73 (95) 99 Room Air 01/25/17 15:10 Room Air 01/25/17 15:00 Room Air 01/25/17 14:00 82 10 105/64 (78) 100 Room Air 01/25/17 13:00 85 13 119/44 (69) 97 Room Air 01/25/17 12:45 98.4 01/25/17 12:15 Room Air 01/25/17 12:00 71 22 127/64 (85) 99 Room Air 01/25/17 11:00 75 18 100/47 (64) 99 Room Air 01/25/17 10:00 66 19 107/49 (68) 97 Room Air I & O 01/26/17 06:59 Intake Total 2465 ml Output Total 600 ml Balance 1865 ml Capillary Refill : NONELess Than 3 Seconds General Appearance: No Apparent Distress, WD/WN HEENT: PERRL/EOMI, Moist Mucous Membranes Neck: Non Tender, Supple Respiratory: Lungs Clear, No Respiratory Distress Cardiovascular: Regular Rate, Rhythm, No Murmur Gastrointestinal: normal bowel sounds, non tender, soft, no organomegaly, no pulsatile mass Extremity: Non Tender, No Calf Tenderness Neurologic/Psychiatric: Alert, Oriented x3 Skin: Warm/Dry, Pallor Results Lab Laboratory Tests 01/25/17 12:49: Lab Scanned Report Transfusion Reaction Form 01/25/17 14:33: Glucometer 145H 01/25/17 17:43: Glucometer 116H 01/26/17 00:14: Glucometer 132H 01/26/17 05:15: White Blood Count 8.1, Red Blood Count 2.49L, Hemoglobin 7.5L, Hematocrit 23L, Mean Corpuscular Volume 91, Mean Corpuscular Hemoglobin 30, Mean Corpuscular Hemoglobin Concent 33, Red Cell Distribution Width 14.7H, Platelet Count 204, Mean Platelet Volume 9.7, Neutrophils (%) (Auto) 70, Lymphocytes (%) (Auto) 18, Monocytes (%) (Auto) 10, Eosinophils (%) (Auto) 2, Basophils (%) (Auto) 1, Neutrophils # (Auto) 5.6, Lymphocytes # (Auto) 1.5, Monocytes # (Auto) 0.8, Eosinophils # (Auto) 0.2, Basophils # (Auto) 0.0, Sodium Level 142, Potassium Level 3.9, Chloride Level 114H, Carbon Dioxide Level 20L, Anion Gap 8, Blood Urea Nitrogen 14, Creatinine 1.01, Estimat Glomerular Filtration Rate > 60, BUN/ Creatinine Ratio 14, Glucose Level 97, Calcium Level 8.0L, Magnesium Level 1.8 01/26/17 06:03: Glucometer 93 Assessment/Plan Assessment/Plan Assessment/Plan 1. Anemia 2. Melena 3. Gastritis 4. Chest pain - unknown etiology, most likley secondary to #1 Pt had some mild Gastritis seen during EGD and Diverticula and Internal hemorrhoids seen during colonoscopy. He feels good and states he wants to go home. He will follow up with me in 1-2 weeks to go over pictures and pathology from the procedures. He is going to get IV iron and then may need oral iron at home. No masses or polyps seen; therefore, bleeding was probably from the Diverticula. He had no other questions. Clinical Quality Measures DVT/VTE Risk/Contraindication: Risk Factor Score Per Nursin RFS Level Per Nursing on Admit: 2=Moderate JONATHAN RODRIGUEZ DO Jan 26, 2017 09:56
[2017-01-26] MEDS ORDERED: EPINEPHrine INJECTION 1 MG/ML AMP IM PRN (10:00)
[2017-01-26] MEDS ORDERED: diphenhydrAMINE 50 MG/ML INJ (BENADRYL) IV PRN (10:00)
[2017-01-26] MEDS ORDERED: RT-ALBUTEROL SULF 2.5 MG/3 ML PRE-MIX VIAL IH PRN (10:00)
[2017-01-26] MEDS ORDERED: HYDROCORTISONE 100 MG/2 ML (Solu-CORTEF) VIAL IV PRN (10:00)
[2017-01-26] MEDS ORDERED: IRON DEXTRAN INJECTION 25 MG in NS (IVPB) 50 ML IV NR (10:00)
[2017-01-26] MEDS ORDERED: IRON DEXTRAN INJECTION 975 MG in NS (IVPB) 250 ML IV NR (10:20)
--- NOTE | 2017-01-26 10:21 | Progress Note-Cardiology ---
Cardiology SOAP Progress Note Subjective: He does not report cp or palp or syncope or shortness of breath. Wishes to leave the hospital SUSY Objective: I&O/Vital Signs Vital Sign - Last 12Hours 01/26/17 01/26/17 01/26/17 00:00 04:00 08:50 Temp 98.6 98.2 97.5 Pulse 75 77 83 Resp 16 16 20 B/P (MAP) 122/50 (74) 148/83 (104) 104/45 (64) Pulse Ox 97 97 100 O2 Delivery Room Air Room Air Room Air Intake and Output 01/26/17 00:00 Intake Total 1015 ml Output Total 350 ml Balance 665 ml Weight (Pounds): 148 Weight (Ounces): 4.0 Weight (Calculated Kilograms): 67.555402 Constitutional: AAO x 3, well-developed, well-nourished Respiratory: chest expansion is symmetric, chest is bilaterally symmetric, lungs clear to auscultation Cardiovascular: regular rate-rhythm, S1 and S2 Gastrointestional: audible bowel sounds Extremities: no lower extremity edema bilateral Neurologic/Psychiatric: grossly intact Skin: No rash, No ulcerations Results/Procedures: Labs Laboratory Tests 01/25/17 12:49: Lab Scanned Report Transfusion Reaction Form 01/25/17 14:33: Glucometer 145H 01/25/17 17:43: Glucometer 116H 01/26/17 00:14: Glucometer 132H 01/26/17 05:15: White Blood Count 8.1, Red Blood Count 2.49L, Hemoglobin 7.5L, Hematocrit 23L, Mean Corpuscular Volume 91, Mean Corpuscular Hemoglobin 30, Mean Corpuscular Hemoglobin Concent 33, Red Cell Distribution Width 14.7H, Platelet Count 204, Mean Platelet Volume 9.7, Neutrophils (%) (Auto) 70, Lymphocytes (%) (Auto) 18, Monocytes (%) (Auto) 10, Eosinophils (%) (Auto) 2, Basophils (%) (Auto) 1, Neutrophils # (Auto) 5.6, Lymphocytes # (Auto) 1.5, Monocytes # (Auto) 0.8, Eosinophils # (Auto) 0.2, Basophils # (Auto) 0.0, Sodium Level 142, Potassium Level 3.9, Chloride Level 114H, Carbon Dioxide Level 20L, Anion Gap 8, Blood Urea Nitrogen 14, Creatinine 1.01, Estimat Glomerular Filtration Rate > 60, BUN/ Creatinine Ratio 14, Glucose Level 97, Calcium Level 8.0L, Magnesium Level 1.8 01/26/17 06:03: Glucometer 93 A/P: Assessment: GI bleed requiring transfusions Anemia leading to ECG abnormalities, suggestive of probable anemia-related ischemia, now resolved clinically and no clinical evidence of ACS Mild Gastritis seen during EGD per Dr. Garrison on 01-25-17 Diverticula and Internal hemorrhoids seen during colonoscopy per Dr. Garrison on 01-25-17 H/O CABG - follows with Dr. Santacruz at [facility] in [place], [place] Echocardiogram of 01-25-[address] Valencia showed LVH, LVEF 80-85%. Grade I diastolic dysfunction. LA dilation. Trivial aortic valve regurg HTN Acute kidney injury - Cr improved Plan: Cardiac status clinically stable Rec tx of anemia as directed by Dr. Flanagan Discharge determination per Dr. Flanagan Advised he f/u with Dr. Santacruz his primary home health lpn as an out pt ASA has already been resumed Physician Assessment Physician Assessment He does not report any symptoms of cp or palp or syncope or shortness of breath Lungs: clear Cor: reg Ext: no c/c/e A&R * As documented in our note above that I updated (italics) and as noted below * I reviewed Dr Valencia's note and records of cardiac management so far * I discussed his case with Dr De La O of the Hospitalist/Med Svce * Our recommendation to keep H&H as near to normal as possible * ASA should be continued * We have advised close outpatient card f/u * We have advised return to ER in case of any recurrence of symptoms SHENG ORDONEZ [employer] Jan 26, 2017 10:21 RAVINDER KINGSTON MD FACP [facility] Jan 26, 2017 11:19
[2017-01-26] MEDS ORDERED: INFLUENZA TRIvalent 2017-2018 0.5 ML/45 MCG SYR IM ONE (10:48)
--- NOTE | 2017-01-26 11:51 | Discharge Summary-Hospitalist ---
Diagnosis/Chief Complaint Date of Admission Jan 24, 2017 at 13:52 Date of Discharge Admission Diagnosis GI Bleed Discharge Diagnosis GI bleed (1) GI bleed Status: Acute Assessment & Plan: Hgb 6.2 on arrival 9.3 in May s/p 2u pRBCs Hgb 7.5 today- relatively stable Plan for EGD/Colonoscopy revealed no active bleed, mild gastritis and diverticula Likely diverticular bleed (2) Anemia Status: Acute Assessment & Plan: Replaced with IV iron today Relatively stable over the last 2 days (3) CAD (coronary artery disease) Status: Chronic Assessment & Plan: s/p 3 vessel CABG Cardiology consulted Chest pain resolved with nitro Off ASA/Plavix for active bleed (4) JAYLEN (acute kidney injury) Status: Resolved Assessment & Plan: Escort Service Attendant 1.7 on arrival Now back to baseline (5) Essential (primary) hypertension Assessment & Plan: Trend, hold antihypertensives currently Discharge Summary Consultations Dr Rodriguez- General Surgery Dr. Valencia- Cardiology Discharge Physical Examination Allergies: Coded Allergies: No Known Drug Allergies (Verified , 05/24/16) Vitals & I&Os Vital Signs Date Time Temp Pulse Resp B/P (MAP) Pulse Ox O2 Delivery O2 Flow Rate FiO2 01/26/17 08:50 97.5 83 20 104/45 (64) 100 Room Air 01/25/17 04:00 2.00 Hospital Course Pt is a 76yoCM with a PMH of CAD s/p CABG who presented to the ER after having a large black stool in his PCP's office. He was found to be severely anemic and was having chest pain. He was transfused 2u pRBCs and started on Nitro. His chest pain completely resolved and has not recurred since off nitro. He underwent EGD/Colonoscopy which revealed internal hemorrhoids and diverticula and mild gastritis. He was given IV iron (1000mg InFed) during admission. Cardiology evaluated and recommended continuing on oral aspirin. He wanted to DC home today after receiving IV iron. I called and discussed this with his PCP Deonte Urias and also with Dr Poole. Dr Poole states he will arrange for short term follow up to check hemoglobin. Labs (last 24 hrs) Laboratory Tests 01/25/17 12:49: Lab Scanned Report Transfusion Reaction Form 01/25/17 14:33: Glucometer 145H 01/25/17 17:43: Glucometer 116H 01/26/17 00:14: Glucometer 132H 01/26/17 05:15: White Blood Count 8.1, Red Blood Count 2.49L, Hemoglobin 7.5L, Hematocrit 23L, Mean Corpuscular Volume 91, Mean Corpuscular Hemoglobin 30, Mean Corpuscular Hemoglobin Concent 33, Red Cell Distribution Width 14.7H, Platelet Count 204, Mean Platelet Volume 9.7, Neutrophils (%) (Auto) 70, Lymphocytes (%) (Auto) 18, Monocytes (%) (Auto) 10, Eosinophils (%) (Auto) 2, Basophils (%) (Auto) 1, Neutrophils # (Auto) 5.6, Lymphocytes # (Auto) 1.5, Monocytes # (Auto) 0.8, Eosinophils # (Auto) 0.2, Basophils # (Auto) 0.0, Sodium Level 142, Potassium Level 3.9, Chloride Level 114H, Carbon Dioxide Level 20L, Anion Gap 8, Blood Urea Nitrogen 14, Creatinine 1.01, Estimat Glomerular Filtration Rate > 60, BUN/ Creatinine Ratio 14, Glucose Level 97, Calcium Level 8.0L, Magnesium Level 1.8 01/26/17 06:03: Glucometer 93 Pending Labs Laboratory Tests 01/26/17 05:15: White Blood Count 8.1, Red Blood Count 2.49, Hemoglobin 7.5, Hematocrit 23, Mean Corpuscular Volume 91, Mean Corpuscular Hemoglobin 30, Mean Corpuscular Hemoglobin Concent 33, Red Cell Distribution Width 14.7, Platelet Count 204, Mean Platelet Volume 9.7, Neutrophils (%) (Auto) 70, Lymphocytes (%) (Auto) 18, Monocytes (%) (Auto) 10, Eosinophils (%) (Auto) 2, Basophils (%) (Auto) 1, Neutrophils # (Auto) 5.6, Lymphocytes # (Auto) 1.5, Monocytes # (Auto) 0.8, Eosinophils # (Auto) 0.2, Basophils # (Auto) 0.0, Sodium Level 142, Potassium Level 3.9, Chloride Level 114, Carbon Dioxide Level 20, Anion Gap 8, Blood Urea Nitrogen 14, Creatinine 1.01, Estimat Glomerular Filtration Rate > 60, BUN/ Creatinine Ratio 14, Glucose Level 97, Calcium Level 8.0, Magnesium Level 1.8 01/26/17 06:03: Glucometer 93 Discharge Home Medications: Active Scripts Active Reported Toviaz (Fesoterodine Fumarate) 4 Mg Tab.sr.24h 4 Mg PO BID Centrum Silver Tablet (Multivit-Min/FA/Lycopene/Lut) 1 Each Tablet 1 Tab PO HS Aspirin EC (Aspirin) 81 Mg Tablet.dr 81 Mg PO HS Clopidogrel (Clopidogrel Bisulfate) 75 Mg Tablet 75 Mg PO HS Ranexa (Ranolazine) 500 Mg Tab.er.12h 500 Mg PO Q12H Nitrostat (Nitroglycerin) 0.4 Mg Tab.subl 0.4 Mg SL UD PRN Ramipril 2.5 Mg Capsule 2.5 Mg PO HS Omeprazole 40 Mg Capsule.dr 40 Mg PO HS Tamsulosin HCl 0.4 Mg Cap.er.24h 0.4 Mg PO HS Atorvastatin Calcium 80 Mg Tablet 80 Mg PO HS Carvedilol 12.5 Mg Tablet 12.5 Mg PO BID Tradjenta (Linagliptin) 5 Mg Tablet 5 Mg PO HS Instructions to patient/family Please see electronic discharge instructions given to patient. Clinical Quality Measures DVT/VTE Risk/Contraindication: Risk Factor Score Per Nursin RFS Level Per Nursing on Admit: 2=Moderate Copy Copies To 1: JONATHAN RODRIGUEZ DO; Teddy VALENCIA MD; DEONTE URIAS; PREM POOLE MD Problem Qualifiers (1) GI bleed: GI bleed type/associated pathology: unspecified gastrointestinal hemorrhage type Qualified Codes: K92.2 - Gastrointestinal hemorrhage, unspecified (2) Anemia: Anemia type: other cause Other causes of anemia: acute posthemorrhagic Qualified Codes: D62 - Acute posthemorrhagic anemia FCO ZUÑIGA MD Jan 26, 2017 11:51
[2017-01-26 12:00] VITALS: BP 162/69
== END 2017-01-26 15:20 | disposition home or self-care (01) | DRG 378 ==
LOC: EDUNIT# 11:31 → ER 11:34 → ICU 13:52 → 4TH 01-25 15:00
PROVIDERS: ADMIT Family Medicine; ATTEND Family Medicine
PROC: 0DB78ZX Excision of Stomach, Pylorus, Via Natural or Artificial Opening Endoscopic, Diagnostic (ICD-10-PCS; principal; 2017-01-25 09:30)
PROC: 0DJD8ZZ Inspection of Lower Intestinal Tract, Via Natural or Artificial Opening Endoscopic (ICD-10-PCS; 2017-01-25 09:30)
DX: K57.91 Diverticulosis of intestine, part unspecified, without perforation or abscess with bleeding (principal); K29.70 Gastritis, unspecified, without bleeding; D62 Acute posthemorrhagic anemia; N17.9 Acute kidney failure, unspecified; K31.7 Polyp of stomach and duodenum; K64.8 Other hemorrhoids; K21.9 Gastro-esophageal reflux disease without esophagitis; I25.10 Atherosclerotic heart disease of native coronary artery without angina pectoris; Z23 Encounter for immunization; I10 Essential (primary) hypertension; E78.00 Pure hypercholesterolemia, unspecified; E11.9 Type 2 diabetes mellitus without complications; M54.9 Dorsalgia, unspecified; I95.2 Hypotension due to drugs; T46.3X5A Adverse effect of coronary vasodilators, initial encounter; Z95.5 Presence of coronary angioplasty implant and graft; Z95.1 Presence of aortocoronary bypass graft; Z79.84 Long term (current) use of oral hypoglycemic drugs; Z85.46 Personal history of malignant neoplasm of prostate
CPT/HCPCS: 36415; 71010; 80048; 80053; 82962; 83690; 83735; 84100; 84484; 85014; 85018; 85025; 85610; 85730; 86850; 86900; 86901; 86920; 93005; 93306; 96374

== ENCOUNTER → 2018-01-31 | Outpatient (CLI) | payer MEDICARE ==
[~2018-01-31] MED LIST changes: +FESO4TAB PO; +RAMI2.5C2 PO
--- NOTE | 2018-01-31 15:38 | Diagnostic Imaging Report ---
INDICATION: Back pain, history of laminectomy and fusion. COMPARISON: 02/15/2016. FINDINGS: Three views of the lumbar column demonstrate stable extensive laminectomy and fusion extending from L2 through S1. Orthopedic hardware appears intact. Alignment is stable. There is no traumatic malalignment or fracture. No osseous lesion. IMPRESSION: Stable laminectomy and fusion. Dictated by: Dictated on workstation # [id number]
== END ==
LOC: RAD 14:56
PROVIDERS: ATTEND Internal Medicine
DX: M54.5 Low back pain (principal); Z98.1 Arthrodesis status
CPT/HCPCS: 72100

== ENCOUNTER → 2018-07-05 | Outpatient (CLI) | payer MEDICARE ==
--- NOTE | 2018-07-05 14:20 | Diagnostic Imaging Report ---
INDICATION: Right hip pain. Hale a pop in hip approximately six weeks ago. TECHNIQUE: Two views of the right hip. CORRELATION STUDY: None. FINDINGS: Mild degenerative change about the right hip with joint space narrowing. Mild marginal osteophyte formation about the superior aspect of the acetabulum. The bony trabecular pattern is intact. No acute bony abnormality or pam bony destructive change. Extensive vascular calcification. Radiation implant seeds at the level of the prostate bed. Surgical clips over the right inguinal region. Partial visualization of lumbar spinal fixation hardware. IMPRESSION: 1. Negative for acute bony abnormality of the right hip. Mild to moderately advanced degenerative changes of the right hip. Dictated by: Dictated on workstation # [id number]
== END ==
LOC: RAD 11:24
PROVIDERS: ATTEND Internal Medicine
DX: M16.11 Unilateral primary osteoarthritis, right hip (principal)
CPT/HCPCS: 73502

== ENCOUNTER → 2018-07-23 | Outpatient (CLI) | payer MEDICARE | LOC: CARD 08:41 | PROVIDERS: ATTEND Internal Medicine Cardiovascular Disease | DX: I25.10 Atherosclerotic heart disease of native coronary artery without angina pectoris (principal); R07.89 Other chest pain; E78.5 Hyperlipidemia, unspecified; R06.09 Other forms of dyspnea; I08.1 Rheumatic disorders of both mitral and tricuspid valves | CPT/HCPCS: 93306 ==

== ENCOUNTER → 2018-07-25 | Outpatient (CLI) | payer MEDICARE ==
[~2018-07-25] VITALS: Ht 167.6 cm; Wt 73.5 kg
[~2018-07-25] MED LIST changes: +CATHETER FLUSH 10 ML SYR IV PRN
--- NOTE | 2018-07-25 15:48 | STRESS TEST ---
DATE OF SERVICE: 07/25/2018 EXERCISE MYOVIEW STRESS TEST REPORT REFERRING PHYSICIAN: Dr. Lr. Baseline heart rate is 67. Baseline blood pressure 170/80. Baseline EKG is sinus rhythm with no ischemic changes. In summary, the patient was injected with 10.45 mCi of technetium-99 Myoview and the resting images were acquired. Then, the patient started exercising with a baseline heart rate, blood pressure and EKG mentioned above. The patient was able to exercise for 6 minutes on standard Jay protocol. With peak exercise level, there were [address] depression in leads II, III, aVF; [address] depression in V3, V4, V5 and it was horizontal. Blood pressure was 147/77. During recovery, heart rate returned to baseline. EKG continued to have subtle changes until the end of the test where it returned to baseline. The resting and stress images were reviewed and compared in the short axis, horizontal long axis, and vertical long axis views. Review of the images showed reversible ischemia involving the basal to mid anterior wall with mild reversibility. SSS is 6, SDS 8, TID value 0.92. On the gated images, the left ventricle appeared to be normal size with normal contractility. Calculated ejection fraction 63%. CONCLUSION: 1. Fair exercise tolerance, a total of 6 minutes on standard Jay protocol, total of 7.3 METS achieving 86% of maximum expected heart rate. 2. Abnormal EKG response to exercise suggestive of ischemia. 3. Mild ischemia on SPECT images involving the basal to mid anterior wall. 4. Normal left ventricular size with normal contractility. Calculated ejection fraction 63%. Job ID: [id number] DocumentID: [id number] Dictated Date: 07/25/2018 15:29:47 Vp Integrity Date: 07/25/2018 15:46:08 Dictated By: SEMAJ RAMEY MD
== END ==
LOC: CARD 07:28
PROVIDERS: ATTEND Internal Medicine Cardiovascular Disease
DX: I25.10 Atherosclerotic heart disease of native coronary artery without angina pectoris (principal); R07.89 Other chest pain; E78.5 Hyperlipidemia, unspecified; R06.09 Other forms of dyspnea
CPT/HCPCS: 78452; 93017

== ENCOUNTER 2018-08-01 07:14 | Day surgery (SDC) | payer MEDICARE ==
[~2018-08-01] VITALS: Ht 167.6 cm; Wt 71.2 kg
[2018-08-01] VITALS (11 sets, daily range): BP systolic 141–179; BP diastolic 72–94
[~2018-08-01 07:14] MED LIST changes: -CATHETER FLUSH 10 ML SYR IV PRN
[2018-08-01] MEDS ORDERED: HEParin (CATH LAB) 2,000 ML IV ONE (07:16)
[2018-08-01] MEDS ORDERED: LIDOCAINE 1% INJ 20 ML 20 ML VIAL ONE (07:16)
[2018-08-01] MEDS ORDERED: NS IV 1000 ML 1,000 ML ONE ×2 (07:16→09:20)
[2018-08-01 07:50] LABS: MEAN PLATELET VOLUME 9.8 FL (7.4-10.4); WHITE BLOOD COUNT 8.1 10^3/uL (4.3-11.0)
[2018-08-01] MEDS: NS IV 1000 ML 1,000 ML IV SCH ×2 (07:50→09:40)
[2018-08-01 07:53] LABS: BILIRUBIN,URINE NEGATIVE (NEGATIVE); CLARITY,URINE CLEAR; COLOR,URINE YELLOW; GLUCOSE, URINE (UA) NEGATIVE (NEGATIVE); KETONES,URINE NEGATIVE (NEGATIVE); LEUKOCYTE ESTERASE ,URINE 2+ (NEGATIVE); NITRITE,URINE NEGATIVE (NEGATIVE); PH,URINE 7 (5-9); PROTEIN,URINE 2+ (NEGATIVE); UROBILINOGEN,URINE 1 MG/DL (NORMAL)
--- NOTE | 2018-08-01 07:58 | Diagnostic Imaging Report ---
INDICATION: Preop. FINDINGS: Portable chest. Mild cardiomegaly with median sternotomy changes. The lungs are well-aerated and clear. No pneumothorax or pleural effusion. No hilar adenopathy. No bony abnormalities. IMPRESSION: Postoperative residue with mild cardiomegaly. No acute abnormalities compared with 01/24/2017 Dictated by: Dictated on workstation # [id number]
[2018-08-01] MEDS ORDERED: MIRA50TA PO (07:59)
[2018-08-01] MEDS ORDERED: MULT1CAP27 PO (07:59)
[2018-08-01 08:03] LABS: BACTERIA,URINE MODERATE /HPF; SQUAMOUS EPITHELIAL CELL,UR RARE /HPF; WBC,URINE >100 /HPF
[2018-08-01 08:05] LABS: PROTHROMBIN TIME PATIENT 13.4 SEC (12.2-14.7)
[2018-08-01 08:12] LABS: ALBUMIN 4.3 GM/DL (3.2-4.5); BILIRUBIN,TOTAL 0.7 MG/DL (0.1-1.0); CALCIUM 9.7 MG/DL (8.5-10.1); CREATININE SERUM 1.87 MG/DL (0.60-1.30); POTASSIUM 4.1 MMOL/L (3.6-5.0); TOTAL PROTEIN 7.3 GM/DL (6.4-8.2)
[2018-08-01] MEDS ORDERED: fentaNYL INJECTION 100 MCG/2 ML AMP ONE (09:33)
[2018-08-01] MEDS ORDERED: MIDAZOLAM 5 MG/5 ML (VERSED) VIAL ONE (09:33)
--- OUTSIDE RECORDS SUMMARY | 2018-08-01 10:09 | XMS REPORT ---
Author Author ELISE Mcmanus Organization [facility] Address [address] [place] [address] Care Team Providers Care Front Office Help Name Role Phone ELISE Mcmanus Unavailable PROBLEMS Type Condition ICD9-CM Code [id number] Code Onset Dates Condition Status SNOMED Code Problem Adjustment disorder with anxious mood F43.22 Active [id number] ALLERGIES No Information ENCOUNTERS Encounter Location Date Diagnosis [facility] [address], [place] [address] Apr, Adjustment disorder with anxious mood F43.22 [place] [id number], [place] [address] Apr, Adjustment disorder with anxious mood F43.22 [facility] [id number], [place] [address] Feb, Adjustment disorder with anxious mood F43.22 IMMUNIZATIONS No Known Immunizations SOCIAL HISTORY Never Assessed REASON FOR VISIT f/u PLAN OF CARE Activity Details Follow Up 1 Week Reason:Anxiety, depression VITAL SIGNS MEDICATIONS Unknown Medications RESULTS No Results PROCEDURES Procedure Date Ordered Result Body Site Psychotherapy, patient &/family, 30 minutes, established patient April 11, 2017 INSTRUCTIONS MEDICATIONS ADMINISTERED No Known Medications MEDICAL (GENERAL) HISTORY Type Description Date Hospitalization History GI bleed, ARF - [facility] inpatient admit [place], [place] 01/24-01/26/17
--- OUTSIDE RECORDS SUMMARY | 2018-08-01 10:09 | XMS REPORT ---
Author Author ELISE Mcmanus Organization [facility] Address [address] [place] [address] Care Team Providers Care Civil Engineering Specialist Name Role Phone ELISE Mcmanus Unavailable PROBLEMS Type Condition ICD9-CM Code [id number] Code Onset Dates Condition Status SNOMED Code Problem Adjustment disorder with anxious mood F43.22 Active [id number] ALLERGIES No Information ENCOUNTERS Encounter Location Date Diagnosis [facility] [address], [place] [address] Apr, Adjustment disorder with anxious mood F43.22 [facility] [address], [place] [address] Apr, Adjustment disorder with anxious mood F43.22 [facility] [id number], [place] [address] Feb, Adjustment disorder with anxious mood F43.22 IMMUNIZATIONS No Known Immunizations SOCIAL HISTORY Never Assessed REASON FOR VISIT f/u PLAN OF CARE Activity Details Follow Up Not rescheduled with me Reason:Isael left with making an appointment VITAL SIGNS MEDICATIONS Unknown Medications RESULTS No Results PROCEDURES Procedure Date Ordered Result Body Site Psychotherapy, patient &/family, 30 minutes, established patient April 19, 2017 INSTRUCTIONS MEDICATIONS ADMINISTERED No Known Medications MEDICAL (GENERAL) HISTORY Type Description Date Hospitalization History GI bleed, ARF - [facility] inpatient admit [place], [place] 01/24-01/26/17
--- OUTSIDE RECORDS SUMMARY | 2018-08-01 10:11 | XMS REPORT | Continuity of Care Document ---
Author Organization Unknown Address Unknown Allergies Active Description Code Type Severity Reaction Onset Reported/Identified Relationship to Patient Clinical Status Yes No Known Drug Allergies [id number] Drug Allergy Unknown N/A 05/24/2016 Medications There is no data. Problems Date Dx Coded Attending Type Code Diagnosis Diagnosed By 11/23/2010 Ot 250.00 DIAB DENIS WO COMPL, TYPE II OR UNSPEC TY 11/23/2010 Ot 272.4 HYPERLIPIDEMIA NEC/NOS 11/23/2010 Ot 401.9 HYPERTENSION NOS 11/23/2010 Ot 414.01 CORONARY ATHEROSCLEROSIS OF [place] CORON 11/23/2010 Ot 724.5 BACKACHE NOS 11/23/2010 Ot 786.50 CHEST PAIN NOS 11/23/2010 Ot V10.46 HX-PROSTATIC MALIGNANCY 11/23/2010 Ot V45.81 AORTOCORONARY BYPASS 12/11/2010 Ot 250.02 DIAB DENIS WO COMPL, TYPE II OR UNSPEC TY 12/11/2010 Ot 401.9 HYPERTENSION NOS 12/11/2010 Ot 719.47 JOINT PAIN-ANKLE 12/11/2010 Ot 729.92 NONTRAUMATIC HEMATOMA OF SOFT TISSUE 10/01/2011 Ot 250.00 DIAB DENIS WO COMPL, TYPE II OR UNSPEC TY 10/01/2011 Ot 272.4 HYPERLIPIDEMIA NEC/NOS 10/01/2011 Ot 276.51 DEHYDRATION 10/01/2011 Ot 401.9 HYPERTENSION NOS 10/01/2011 Ot 414.01 CORONARY ATHEROSCLEROSIS OF [place] CORON 10/01/2011 Ot 425.4 PRIM CARDIOMYOPATHY NEC 10/01/2011 Ot 458.29 OTHER IATROGENIC HYPOTENSION 10/01/2011 Ot 486 PNEUMONIA, ORGANISM NOS 10/01/2011 Ot 584.9 ACUTE RENAL FAILURE, UNSPECIFIED 10/01/2011 Ot 715.90 OSTEOARTHROS NOS-UNSPEC 10/01/2011 Ot 724.5 BACKACHE NOS 10/01/2011 Ot E942.9 ADV EFF CARDIOVASC NEC 10/01/2011 Ot V10.46 HX-PROSTATIC MALIGNANCY 10/01/2011 Ot V45.81 AORTOCORONARY BYPASS 12/05/2013 [...] OBJ 12/05/2013 IAIN LUDWIG DO Ot V06.1 [id number], COMBINED [ 06/20/2014 Ot 272.4 06/20/2014 Ot 402.10 06/20/2014 Ot 413.9 06/20/2014 Ot 786.05 06/20/2014 Ot 790.29 06/20/2014 Ot 414.00 06/20/2014 Ot 786.50 06/20/2014 Ot 729.5 06/20/2014 Ot 785.2 06/20/2014 Ot 185 06/20/2014 Ot 593.2 07/18/2014 ZULEMA LYLE, PREM Warren Ot 959.4 07/18/2014 ZULEMA LYLE, PREM Warren Ot E888.9 07/23/2014 PREM POOLE MD Ot [...] Ot 593.2 CYST OF KIDNEY, ACQUIRED 09/07/2015 ZULEMA LYLE, PREM Warren Ot 959.4 HAND INJURY NOS 09/07/2015 PREM POOLE MD Ot E888.9 FALL NOS 09/08/2015 ANIYAH PAULINO DO Teddy Ot M54.5 LOW BACK PAIN 09/09/2015 ANIYAH [...] DO Ot M54.5 LOW BACK PAIN 10/10/2015 KALEIGH LUDWIG DOA K Ot L03.113 CELLULITIS OF RIGHT UPPER LIMB 10/10/2015 OZIEL PLASENCIA IAIN K Ot M70.31 OTHER BURSITIS OF ELBOW, RIGHT ELBOW 10/10/2015 KALEIGH LUDWIG DOA K Ot M79.621 PAIN IN RIGHT UPPER ARM 10/13/2015 OZIEL KALEIGH PLASENCIAA Roger Ot L03.113 CELLULITIS OF RIGHT UPPER LIMB [...] APRN Ot I25.10 ATHSCL HEART DISEASE OF [place] CORONARY 05/21/2016 XIAO BURROWS APRN Ot N30.91 CYSTITIS, UNSPECIFIED WITH HEMATURIA 05/21/2016 XIAO BURROWS APRN Ot R31.9 HEMATURIA, UNSPECIFIED 05/21/2016 BURROWS, PETER J ENGINEERING VICE PRESIDENT Ot Z79.02 RETIREMENT (CURRENT) USE OF ANTITHROMBOTI 05/21/2016 XIAO BURROWS ENGINEERING VICE PRESIDENT Ot 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 05/21/2016 XIAO BURROWS ENGINEERING VICE PRESIDENT Ot Z79.899 OTHER RETIREMENT (CURRENT) DRUG THERAPY 05/21/2016 XIAO BURROWS ENGINEERING VICE PRESIDENT Ot Z98.890 OTHER SPECIFIED POSTPROCEDURAL STATES 05/23/2016 XIAO BURROWS APRN Ot D64.9 ANEMIA, UNSPECIFIED 05/23/2016 XIAO BURROWS ENGINEERING VICE PRESIDENT Ot E11.9 TYPE 2 DIABETES MELLITUS WITHOUT COMPLIC 05/23/2016 XIAO BURROWS ENGINEERING VICE PRESIDENT Ot I10 ESSENTIAL (PRIMARY) HYPERTENSION 05/23/2016 XIAO BURROWS APRN Ot I25.10 ATHSCL HEART DISEASE OF [place] CORONARY 05/23/2016 XIAO BURROWS APRN Ot N30.91 CYSTITIS, UNSPECIFIED WITH HEMATURIA 05/23/2016 XIAO BURROWS APRN Ot R31.9 HEMATURIA, UNSPECIFIED 05/23/2016 XIAO BURROWS ENGINEERING VICE PRESIDENT Ot Z79.02 RETIREMENT (CURRENT) USE OF ANTITHROMBOTI 05/23/2016 XIAO BURROWS ENGINEERING VICE PRESIDENT Ot Z79.82 RETIREMENT (CURRENT) USE OF ASPIRIN 05/23/2016 XIAO BURROWS ENGINEERING VICE PRESIDENT Ot Z79.899 OTHER RETIREMENT (CURRENT) DRUG THERAPY 05/23/2016 XIAO BURROWS APRN Ot Z98.890 OTHER SPECIFIED POSTPROCEDURAL STATES 05/24/2016 [...] OF MALIGNANT NEOPLASM O 05/24/2016 PREM POOLE MD Ot N20.0 CALCULUS OF KIDNEY 05/24/2016 PREM POOLE MD Ot R31.0 GROSS HEMATURIA 05/24/2016 PREM POOLE MD Ot Z85.46 PERSONAL HISTORY OF MALIGNANT NEOPLASM O 05/26/2016 ILSA JUNE MD Ot R31.0 GROSS HEMATURIA 06/29/2016 PREM POOLE MD, Ot N20.0 CALCULUS OF KIDNEY 06/29/2016 PREM POOLE MD Ot R31.0 GROSS HEMATURIA 06/29/2016 PREM POOLE MD Ot Z85.46 PERSONAL HISTORY OF MALIGNANT NEOPLASM O 06/29/2016 PREM POOLE MD Ot R06.00 DYSPNEA, UNSPECIFIED 06/29/2016 PREM POOLE MD Ot R09.02 HYPOXEMIA 06/29/2016 PREM POOLE MD, Ot R31.9 HEMATURIA, UNSPECIFIED 07/06/2016 PREM POOLE MD, Ot N20.0 CALCULUS OF KIDNEY 07/06/2016 PERM POOLE MD Ot R31.0 GROSS HEMATURIA 07/06/2016 PREM POOLE MD Ot Z85.46 PERSONAL HISTORY OF MALIGNANT NEOPLASM O 07/06/2016 PREM POOLE MD Ot R06.00 DYSPNEA, UNSPECIFIED 07/06/2016 PREM POOLE MD Ot R09.02 HYPOXEMIA 07/06/2016 PREM POOLE MD Ot R31.9 HEMATURIA, UNSPECIFIED 08/21/2016 PREM POOLE MD Ot N20.0 CALCULUS OF KIDNEY 08/21/2016 PREM POOLE MD Ot R31.0 GROSS HEMATURIA 08/21/2016 PREM POOLE MD Ot Z85.46 PERSONAL HISTORY OF MALIGNANT NEOPLASM O 08/22/2016 PREM POOLE MD Ot N20.0 CALCULUS OF KIDNEY 08/22/2016 PREM POOLE MD Ot R31.0 GROSS HEMATURIA 08/22/2016 PREM POOLE MD Ot Z85.46 PERSONAL HISTORY OF MALIGNANT NEOPLASM O 01/25/2017 FCO ZUÑIGA MD Ot E11.9 TYPE 2 DIABETES MELLITUS WITHOUT COMPLIC 01/25/2017 FCO ZUÑIGA MD Ot E78.00 PURE HYPERCHOLESTEROLEMIA, UNSPECIFIED 01/25/2017 FCO ZUÑIGA MD Ot I10 ESSENTIAL (PRIMARY) HYPERTENSION 01/25/2017 FCO ZUÑIGA MD Ot I25.10 ATHSCL HEART DISEASE OF [place] CORONARY 01/25/2017 FCO ZUÑIGA MD Ot K21.9 GASTRO-ESOPHAGEAL REFLUX DISEASE WITHOUT 01/25/2017 FCO ZUÑIGA MD Ot K92.2 GASTROINTESTINAL HEMORRHAGE, UNSPECIFIED 01/25/2017 FCO ZUÑIGA MD Ot M54.9 DORSALGIA, UNSPECIFIED 01/25/2017 FCO ZUÑIGA MD Ot N17.9 ACUTE KIDNEY FAILURE, UNSPECIFIED 01/25/2017 FCO ZUÑIGA MD Ot 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 01/25/2017 FCO ZUÑIGA MD Ot Z85.46 PERSONAL HISTORY OF MALIGNANT NEOPLASM O 01/25/2017 FCO ZUÑIGA MD Ot Z95.1 PRESENCE OF AORTOCORONARY BYPASS GRAFT 01/25/2017 FCO ZUÑIGA MD Ot Z95.5 PRESENCE OF CORONARY ANGIOPLASTY IMPLANT 01/26/2017 FCO ZUÑIGA MD Ot E11.9 TYPE 2 DIABETES MELLITUS WITHOUT COMPLIC 01/26/2017 FCO ZUÑIGA MD Ot E78.00 PURE HYPERCHOLESTEROLEMIA, UNSPECIFIED 01/26/2017 FCO ZUÑIGA MD Ot I10 ESSENTIAL (PRIMARY) HYPERTENSION 01/26/2017 FCO ZUÑIGA MD Ot I25.10 ATHSCL HEART DISEASE OF [place] CORONARY 01/26/2017 FCO ZUÑIGA MD Ot K21.9 GASTRO-ESOPHAGEAL REFLUX DISEASE WITHOUT 01/26/2017 FCO ZUÑIGA MD Ot K92.2 GASTROINTESTINAL HEMORRHAGE, UNSPECIFIED 01/26/2017 FCO ZUÑIGA MD Ot M54.9 DORSALGIA, UNSPECIFIED 01/26/2017 FCO ZUÑIGA MD Ot N17.9 ACUTE KIDNEY FAILURE, UNSPECIFIED 01/26/2017 FCO ZUÑIGA MD Ot 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 01/26/2017 FCO ZUÑIGA MD Ot Z85.46 PERSONAL HISTORY OF MALIGNANT NEOPLASM O 01/26/2017 FCO ZUÑIGA MD Ot Z95.1 PRESENCE OF AORTOCORONARY BYPASS GRAFT 01/26/2017 FCO ZUÑIGA MD Ot Z95.5 PRESENCE OF CORONARY ANGIOPLASTY IMPLANT 01/26/2017 FCO ZUÑIGA MD, Ot D62 ACUTE POSTHEMORRHAGIC ANEMIA 01/26/2017 FCO ZUÑIGA MD, Ot E11.9 TYPE 2 DIABETES MELLITUS WITHOUT COMPLIC 01/26/2017 FCO ZUÑIGA MD, Ot E78.00 PURE HYPERCHOLESTEROLEMIA, UNSPECIFIED 01/26/2017 FCO ZUÑIGA MD, Ot I10 ESSENTIAL (PRIMARY) HYPERTENSION 01/26/2017 FCO ZUÑIGA MD, Ot I25.10 ATHSCL HEART DISEASE OF [place] CORONARY 01/26/2017 FCO ZUÑIGA MD, Ot I95.2 HYPOTENSION DUE TO DRUGS 01/26/2017 FCO ZUÑIGA MD, Ot K21.9 GASTRO-ESOPHAGEAL REFLUX DISEASE WITHOUT 01/26/2017 FCO ZUÑIGA MD, Ot K29.70 GASTRITIS, UNSPECIFIED, WITHOUT BLEEDING 01/26/2017 FCO ZUÑIGA MD, Ot K31.7 POLYP OF STOMACH AND DUODENUM 01/26/2017 FCO ZUÑIGA MD, Ot 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, PART UNSP, W/O PERF 01/26/2017 FCO ZUÑIGA MD, Ot K64.8 OTHER HEMORRHOIDS 01/26/2017 FCO ZUÑIGA MD, Ot M54.9 DORSALGIA, UNSPECIFIED 01/26/2017 FCO ZUÑIGA MD, Ot N17.9 ACUTE KIDNEY FAILURE, UNSPECIFIED 01/26/2017 FCO ZUÑIGA MD, Ot T46.3X5A ADVERSE EFFECT OF CORONARY VASODILATORS, 01/26/2017 FCO ZUÑIGA MD Ot Z23 ENCOUNTER FOR IMMUNIZATION 01/26/2017 FCO ZUÑIGA MD, Ot Z79.84 RETIREMENT (CURRENT) USE OF ORAL HYPOGLYC 01/26/2017 FCO ZUÑIGA MD, Ot Z85.46 PERSONAL HISTORY OF MALIGNANT NEOPLASM O 01/26/2017 FCO ZUÑIGA MD, Ot Z95.1 PRESENCE OF AORTOCORONARY BYPASS GRAFT 01/26/2017 FCO ZUÑIGA MD, Ot Z95.5 PRESENCE OF CORONARY ANGIOPLASTY IMPLANT 02/20/2018 PREM POOLE MD, Ot M54.5 LOW BACK PAIN 02/20/2018 PREM POOLE MD Ot Z98.1 ARTHRODESIS STATUS 02/28/2018 PREM POOLE MD, Ot M54.5 LOW BACK PAIN 02/28/2018 ZULEMA LYLE, PREM Warren Ot Z98.1 ARTHRODESIS STATUS 07/06/2018 ZULEMA LYLE, PREM Warren Ot M16.11 UNILATERAL PRIMARY OSTEOARTHRITIS, RIGHT 07/11/2018 PREM POOLE MD Ot M16.11 UNILATERAL PRIMARY OSTEOARTHRITIS, RIGHT 07/23/2018 PREM POOLE MD Ot 959.4 HAND INJURY NOS 07/23/2018 PREM POOLE MD Ot E888.9 FALL NOS 07/23/2018 ANIYAH PAULINO DO Ot M54.5 LOW BACK PAIN 07/23/2018 OTHER, UNLISTED Ot M54.5 LOW BACK PAIN 07/23/2018 PREM POOLE MD Ot R06.00 DYSPNEA, UNSPECIFIED 07/23/2018 PREM POOLE MD Ot R09.02 HYPOXEMIA 07/23/2018 PREM POOLE MD Ot R31.9 HEMATURIA, UNSPECIFIED 07/23/2018 PREM POOLE MD Ot N20.0 CALCULUS OF KIDNEY 07/23/2018 PREM POOLE MD Ot R31.0 GROSS HEMATURIA 07/23/2018 PREM POOLE MD Ot Z85.46 PERSONAL HISTORY OF MALIGNANT NEOPLASM O 07/23/2018 PRME POOLE MD Ot M54.5 LOW BACK PAIN 07/23/2018 PREM POOLE MD Ot Z98.1 ARTHRODESIS STATUS 07/23/2018 ZULEMA LYLE, PREM Warren Ot M16.11 UNILATERAL PRIMARY OSTEOARTHRITIS, RIGHT 07/26/2018 SEMAJ RAMEY MD Ot E78.5 HYPERLIPIDEMIA, UNSPECIFIED 07/26/2018 SEMAJ RAMEY MD Ot I08.1 RHEUMATIC DISORDERS OF BOTH [place] AND T 07/26/2018 SEMAJ RAMEY MD Ot I25.10 ATHSCL HEART DISEASE OF [place] CORONARY 07/26/2018 SEMAJ RAMEY MD Ot R06.09 OTHER FORMS OF DYSPNEA 07/26/2018 SEMAJ RAMEY MD Ot R07.89 OTHER CHEST PAIN 07/29/2018 SEMAJ RAMEY MD Ot E78.5 HYPERLIPIDEMIA, UNSPECIFIED 07/29/2018 SEMAJ RAMEY MD Ot I25.10 ATHSCL HEART DISEASE OF [place] CORONARY 07/29/2018 SEMAJ RAMEY MD Ot R06.09 OTHER FORMS OF DYSPNEA 07/29/2018 SEMAJ RAMEY MD Ot R07.89 OTHER CHEST PAIN 07/30/2018 ZULEMA LYLE, PREM Warren Ot M16.11 UNILATERAL PRIMARY OSTEOARTHRITIS, RIGHT Procedures Code Description Performed By Performed On [id number] EXCISION OF STOMACH, PYLORUS, ENDO, DIAG 01/25/2017 [id number] INSPECTION OF LOWER INTESTINAL TRACT, EN 01/25/2017 Results Test Result Range Complete blood count [...] Automated erythrocyte mean corpuscular hemoglobin concentration measurement (mass/volume) 34 g/dL 32-36 Automated erythrocyte distribution width ratio 13.7 % 10.0- 14.5 Automated blood platelet count (count/volume) 227 10*3/uL [...] Blood monocytes automated count (number/volume) 1.0 10*3 0.0- 1.0 Automated eosinophil count 0.4 10*3/uL 0.0-0.3 Automated [...] Serum or plasma aspartate aminotransferase measurement (enzymatic activity/volume) 20 U/L 5-34 Serum or plasma alanine aminotransferase measurement (enzymatic activity/volume) 31 U/L 0-55 Serum or plasma protein measurement (mass/volume) 6.8 g/dL 6.4-8.2 Serum or plasma albumin measurement (mass/volume) 3.8 g/dL 3.2-4.5 Serum or plasma C reactive protein measurement (mass/volume) - 10/10/15 15:01 Serum or plasma C reactive protein measurement (mass/volume) 6.22 mg/dL 0.00-0.50 Erythrocyte sedimentation rate by westergren method - 10/10/15 15:01 Erythrocyte sedimentation rate by westergren method 72 mm 0-30 Bacterial blood culture - 10/10/15 15:01 Bacterial blood culture NG [facility] Bacterial blood culture - 10/10/15 15:44 Bacterial blood culture [facility] [id number] - 02/15/16 10:56 Serum or plasma urea [...] gravity of urine by test strip 1.015 1.016-1.022 Urine protein assay by test strip, semi-quantitative [...] sediment leukocyte count by microscopy (number/high power field) > [HPF] NRG Bacteria detection in urine [...] culture - 05/21/16 16:12 Bacterial urine culture [id number] NRG COLONY COUNT >100,000/ML NRG FTX;REPORTABLE SENSITIVITY REPORTED AT 0738, 17 NR URINE CULTURE RESULTS PLUS NR Bacterial susceptibility panel - 05/21/16 16:12 Gentamicin susceptibility test by minimum inhibitory concentration <= NRG Trimethoprim/sulfamethoxazole susceptibility test by minimum inhibitoryconcentration <= NRG Tobramycin susceptibility test by minimum inhibitory concentration <= NRG Cefazolin susceptibility test by minimum inhibitory concentration >= NRG Ceftriaxone susceptibility test by minimum inhibitory concentration <= NRG Piperacillin/tazobactam susceptibility test by minimum inhibitory concentration <= NRG Ciprofloxacin susceptibility test by minimum inhibitory concentration <= NRG Meropenem susceptibility test by minimum inhibitory concentration <= NRG Nitrofurantoin susceptibility test by minimum inhibitory concentration 64 NRG Aztreonam susceptibility test by minimum inhibitory concentration <= NRG Cefepime susceptibility test by minimum inhibitory [...] Automated erythrocyte mean corpuscular hemoglobin concentration measurement (mass/volume) 31 g/dL 32-36 Automated erythrocyte distribution width ratio 14.2 % 10.0- 14.5 Automated blood platelet count (count/volume) 293 10*3/uL [...] Blood monocytes automated count (number/volume) 0.8 10*3 0.0- 1.0 Automated eosinophil count 0.1 10*3/uL 0.0-0.3 Automated [...] plasma calcium measurement (mass/volume) 9.3 mg/dL 8.5-10.1 [id number] - 05/23/16 17:24 [id number] SPECIMEN AVAILABLE NR RED CELLS LEUKO REDUCED AS1 - 05/23/16 17:24 RED CELLS LEU[place] REDUCED AS1 TRANSFUSED 05/24/16 1201 NRG [id number] - 05/23/16 17:24 [id number] SPECIMEN AVAILABLE NR Blood type T Indirect antibody screen panel - 05/23/16 17:24 ABO+Rh group BP NRG Transfusion band number [id number] NRG Blood group antibody screen NEGATIVE NRG Complete blood count (CBC) with automated [...] Automated erythrocyte mean corpuscular hemoglobin concentration measurement (mass/volume) 32 g/dL 32-36 Automated erythrocyte distribution width ratio 15.2 % 10.0- 14.5 Automated blood platelet count (count/volume) 263 10*3/uL [...] Blood monocytes automated count (number/volume) 0.8 10*3 0.0- 1.0 Automated eosinophil count 0.2 10*3/uL 0.0-0.3 Automated [...] gravity of urine by test strip 1.025 1.016-1.022 Urine protein assay by test strip, semi-quantitative [...] sediment leukocyte count by microscopy (number/high power field) [HPF] NRG Bacteria detection in urine sediment [...] - 06/08/16 16:54 URINE CULTURE RESULTS <10,000/ML [facility] Complete blood count (CBC) with automated white [...] Automated erythrocyte mean corpuscular hemoglobin concentration measurement (mass/volume) 33 g/dL 32-36 Automated erythrocyte distribution width ratio 13.7 % 10.0- 14.5 Automated blood platelet count (count/volume) 267 10*3/uL 130-400 Automated blood platelet mean volume measurement 9.6 [foz_us] 7.4-10.4 Automated blood neutrophils/100 leukocytes 77 % 42-75 Automated blood lymphocytes/100 leukocytes 16 % 12-44 Blood monocytes/100 leukocytes 6 % 0-12 Automated blood eosinophils/100 leukocytes 1 % 0-10 Automated blood basophils/100 leukocytes 0 % 0-10 Blood neutrophils automated count (number/volume) 8.7 10*3 1.8-7.8 Blood lymphocytes automated count (number/volume) 1.8 10*3 1.0-4.0 Blood monocytes automated count (number/volume) 0.7 10*3 0.0- 1.0 Automated eosinophil count 0.2 10*3/uL 0.0-0.3 Automated [...] Serum or plasma aspartate aminotransferase measurement (enzymatic activity/volume) 17 U/L 5-34 Serum or plasma alanine aminotransferase measurement (enzymatic activity/volume) 10 U/L 0-55 Serum or plasma protein measurement (mass/volume) 6.2 g/dL 6.4-8.2 Serum or plasma albumin measurement (mass/volume) 3.4 g/dL 3.2-4.5 Serum or plasma troponin i.cardiac measurement (mass/volume) - 01/24/17 12:50 Serum or plasma troponin i.cardiac measurement (mass/volume) < ng/mL <0.30 Lipase - 01/24/17 12:50 Lipase 99 U/L 8-78 RED CELLS LEUKO REDUCED AS1 - 01/24/17 13:08 RED CELLS LEUKO REDUCED AS1 TRANSFUSED 01/24/17 1459 NR Blood type T Indirect antibody screen panel - 01/24/17 13:08 ABO+Rh group BP NRG Transfusion band number [id number] NR Blood group antibody screen NEGATIVE NRG Serum or plasma troponin i.cardiac measurement (mass/volume) - 01/24/17 19:15 Serum or plasma troponin i.cardiac measurement (mass/volume) < ng/mL <0.30 Whole blood hemoglobin and hematocrit panel - 01/24/17 22:40 Venous blood hemoglobin measurement (mass/volume) 8.0 g/dL 13.3-17.7 Blood hematocrit (volume fraction) 24 % 40-54 Complete blood count (CBC) with automated white blood cell (WBC) differential - 01/25/17 04:40 Blood leukocytes automated count (number/volume) 8.6 10*3/uL 4.3-11.0 Blood erythrocytes automated count (number/volume) 2.55 10*6/uL 4.35-5.85 Venous blood hemoglobin measurement (mass/volume) 7.7 g/dL 13.3-17.7 Blood hematocrit (volume fraction) 23 % 40-54 Automated erythrocyte mean corpuscular volume 89 [foz_us] 80-99 Automated erythrocyte mean corpuscular hemoglobin (mass per erythrocyte) 30 pg 25-34 Automated erythrocyte mean corpuscular hemoglobin concentration measurement (mass/volume) 34 g/dL 32-36 Automated erythrocyte distribution width ratio 14.3 % 10.0- 14.5 Automated blood platelet count (count/volume) 201 10*3/uL 130-400 Automated blood platelet mean volume measurement 9.5 [foz_us] 7.4-10.4 Automated blood neutrophils/100 leukocytes 67 % 42-75 Automated blood lymphocytes/100 leukocytes 23 % 12-44 Blood monocytes/100 leukocytes 8 % 0-12 Automated blood eosinophils/100 leukocytes 2 % 0-10 Automated blood basophils/100 leukocytes 1 % 0-10 Blood neutrophils automated count (number/volume) 5.8 10*3 1.8-7.8 Blood lymphocytes automated count (number/volume) 2.0 10*3 1.0-4.0 Blood monocytes automated count (number/volume) 0.7 10*3 0.0- 1.0 Automated eosinophil count 0.2 10*3/uL 0.0-0.3 Automated blood basophil count (count/volume) 0.1 10*3/uL 0.0-0.1 PT panel in platelet poor plasma by coagulation assay - 01/25/17 04:40 Prothrombin time (PT) in platelet poor plasma by coagulation assay 14.5 s 12.2-14.7 INR in platelet poor plasma or blood by coagulation assay 1.1 0.8-1.4 Whole blood basic metabolic panel - 01/25/17 04:40 Serum or plasma sodium measurement (moles/volume) 143 mmol/L 135-145 Serum or plasma potassium measurement (moles/volume) 3.2 mmol/L 3.6-5.0 Serum or plasma chloride measurement (moles/volume) 115 mmol/L 98-107 Carbon dioxide 22 mmol/L 21-32 Serum or plasma anion gap determination (moles/volume) 6 mmol/L 5-14 Serum or plasma urea nitrogen measurement (mass/volume) 26 mg/dL 7-18 Serum or plasma creatinine measurement (mass/volume) 1.10 mg/dL 0.60-1.30 Serum or plasma urea nitrogen/creatinine mass ratio 24 NRG Serum or plasma creatinine measurement with calculation of estimated glomerular filtration rate > NRG Serum or plasma glucose measurement (mass/volume) 83 mg/dL 70-105 Serum or plasma calcium measurement (mass/volume) 7.5 mg/dL 8.5-10.1 Serum or plasma phosphate measurement (mass/volume) - 01/25/17 04:40 Serum or plasma phosphate measurement (mass/volume) 1.9 mg/dL 2.3-4.7 Magnesium - 01/25/17 04:40 Magnesium 1.6 mg/dL 1.8-2.4 Capillary blood glucose measurement by glucometer (mass/volume) - 01/25/17 14:33 Capillary blood glucose measurement by glucometer (mass/volume) 145 mg/dL 70-110 Capillary blood glucose measurement by glucometer (mass/volume) - 01/25/17 17:43 Capillary blood glucose measurement by glucometer (mass/volume) 116 mg/dL 70-110 Capillary blood glucose measurement by glucometer (mass/volume) - 01/26/17 00:14 Capillary blood glucose measurement by glucometer (mass/volume) 132 mg/dL 70-110 Complete blood count (CBC) with automated white blood cell (WBC) differential - 01/26/17 05:15 Blood leukocytes automated count (number/volume) 8.1 10*3/uL 4.3-11.0 Blood erythrocytes automated count (number/volume) 2.49 10*6/uL 4.35-5.85 Venous blood hemoglobin measurement (mass/volume) 7.5 g/dL 13.3-17.7 Blood hematocrit (volume fraction) 23 % 40-54 Automated erythrocyte mean corpuscular volume 91 [foz_us] 80-99 Automated erythrocyte mean corpuscular hemoglobin (mass per erythrocyte) 30 pg 25-34 Automated erythrocyte mean corpuscular hemoglobin concentration measurement (mass/volume) 33 g/dL 32-36 Automated erythrocyte distribution width ratio 14.7 % 10.0- 14.5 Automated blood platelet count (count/volume) 204 10*3/uL 130-400 Automated blood platelet mean volume measurement 9.7 [foz_us] 7.4-10.4 Automated blood neutrophils/100 leukocytes 70 % 42-75 Automated blood lymphocytes/100 leukocytes 18 % 12-44 Blood monocytes/100 leukocytes 10 % 0-12 Automated blood eosinophils/100 leukocytes 2 % 0-10 Automated blood basophils/100 leukocytes 1 % 0-10 Blood neutrophils automated count (number/volume) 5.6 10*3 1.8-7.8 Blood lymphocytes automated count (number/volume) 1.5 10*3 1.0-4.0 Blood monocytes automated count (number/volume) 0.8 10*3 0.0- 1.0 Automated eosinophil count 0.2 10*3/uL 0.0-0.3 Automated blood basophil count (count/volume) 0.0 10*3/uL 0.0-0.1 Whole blood basic metabolic panel - 01/26/17 05:15 Serum or plasma sodium measurement (moles/volume) 142 mmol/L 135-145 Serum or plasma potassium measurement (moles/volume) 3.9 mmol/L 3.6-5.0 Serum or plasma chloride measurement (moles/volume) 114 mmol/L 98-107 Carbon dioxide 20 mmol/L 21-32 Serum or plasma anion gap determination (moles/volume) 8 mmol/L 5-14 Serum or plasma urea nitrogen measurement (mass/volume) 14 mg/dL 7-18 Serum or plasma creatinine measurement (mass/volume) 1.01 mg/dL 0.60-1.30 Serum or plasma urea nitrogen/creatinine mass ratio 14 NRG Serum or plasma creatinine measurement with calculation of estimated glomerular filtration rate > NRG Serum or plasma glucose measurement (mass/volume) 97 mg/dL 70-105 Serum or plasma calcium measurement (mass/volume) 8.0 mg/dL 8.5-10.1 Magnesium - 01/26/17 05:15 Magnesium 1.8 mg/dL 1.8-2.4 Capillary blood glucose measurement by glucometer (mass/volume) - 01/26/17 06:03 Capillary blood glucose measurement by glucometer (mass/volume) 93 mg/dL 70-110 Capillary blood glucose measurement by glucometer (mass/volume) - 01/26/17 13:34 Capillary blood glucose measurement by glucometer (mass/volume) 120 mg/dL 70-110 Automated blood complete blood count (hemogram) panel - 08/01/18 07:34 Blood leukocytes automated count (number/volume) 8.1 10*3/uL 4.3-11.0 Blood erythrocytes automated count (number/volume) 3.91 10*6/uL 4.35-5.85 Venous blood hemoglobin measurement (mass/volume) 12.0 g/dL 13.3-17.7 Blood hematocrit (volume fraction) 36 % 40-54 Automated erythrocyte mean corpuscular volume 93 [foz_us] 80-99 Automated erythrocyte mean corpuscular hemoglobin (mass per erythrocyte) 31 pg 25-34 Automated erythrocyte mean corpuscular hemoglobin concentration measurement (mass/volume) 33 g/dL 32-36 Automated erythrocyte distribution width ratio 14.0 % 10.0- 14.5 Automated blood platelet count (count/volume) 191 10*3/uL 130-400 Automated blood platelet mean volume measurement 9.8 [foz_us] 7.4-10.4 Complete urinalysis with reflex to culture - 08/01/18 07:34 Urine color determination YELLOW NRG Urine clarity determination CLEAR NRG Urine pH measurement by test strip 7 5-9 Specific gravity of urine by test strip 1.010 1.016-1.022 Urine protein assay by test strip, semi-quantitative 2+ NEGATIVE Urine glucose detection by automated test strip NEGATIVE NEGATIVE Erythrocytes detection in urine sediment by light microscopy NEGATIVE NEGATIVE Urine ketones detection by automated test strip NEGATIVE NEGATIVE Urine nitrite detection by test strip NEGATIVE NEGATIVE Urine total bilirubin detection by test strip NEGATIVE NEGATIVE Urine urobilinogen measurement by automated test strip (mass/volume) 1 mg/dL NORMAL Urine leukocyte esterase detection by dipstick 2+ NEGATIVE Automated urine sediment erythrocyte count by microscopy (number/high power field) NONE NRG Automated urine sediment leukocyte count by microscopy (number/high power field) > [HPF] NRG Bacteria detection in urine sediment by light microscopy MODERATE NRG Squamous epithelial cells detection in urine sediment by light microscopy RARE NRG Crystals detection in urine sediment by light microscopy NONE NRG Casts detection in urine sediment by light microscopy NONE NRG Mucus detection in urine sediment by light microscopy NEGATIVE NRG Complete urinalysis with reflex to culture YES NRG PT panel in platelet poor plasma by coagulation assay - 08/01/18 07:34 Prothrombin time (PT) in platelet poor plasma by coagulation assay 13.4 s 12.2-14.7 INR in platelet poor plasma or blood by coagulation assay 1.0 0.8-1.4 Activated partial thromboplastin time (aPTT) in platelet poor plasma bycoagulation assay - 08/01/18 07:34 Activated partial thromboplastin time (aPTT) in platelet poor plasma bycoagulation assay 31 s 24-35 Comprehensive metabolic panel - 08/01/18 07:34 Serum or plasma sodium measurement (moles/volume) 140 mmol/L 135-145 Serum or plasma potassium measurement (moles/volume) 4.1 mmol/L 3.6-5.0 Serum or plasma chloride measurement (moles/volume) 109 mmol/L 98-107 Carbon dioxide 21 mmol/L 21-32 Serum or plasma anion gap determination (moles/volume) 10 mmol/L 5-14 Serum or plasma urea nitrogen measurement (mass/volume) 21 mg/dL 7-18 Serum or plasma creatinine measurement (mass/volume) 1.87 mg/dL 0.60-1.30 Serum or plasma urea nitrogen/creatinine mass ratio 11 NRG Serum or plasma creatinine measurement with calculation of estimated glomerular filtration rate 35 NRG Serum or plasma glucose measurement (mass/volume) 102 mg/dL 70-105 Serum or plasma calcium measurement (mass/volume) 9.7 mg/dL 8.5-10.1 Serum or plasma total bilirubin measurement (mass/volume) 0.7 mg/dL 0.1-1.0 Serum or plasma alkaline phosphatase measurement (enzymatic activity/volume) 70 U/L 40-136 Serum or plasma aspartate aminotransferase measurement (enzymatic activity/volume) 26 U/L 5-34 Serum or plasma alanine aminotransferase measurement (enzymatic activity/volume) 23 U/L 0-55 Serum or plasma protein measurement (mass/volume) 7.3 g/dL 6.4-8.2 Serum or plasma albumin measurement (mass/volume) 4.3 g/dL 3.2-4.5 CALCIUM CORRECTED 9.5 mg/dL 8.5-10.1 Encounters ACCT No. Visit Date/Time Discharge Status Pt. Type Provider Facility Loc./Unit Complaint [id number] 07/25/2018 07:28:00 07/25/2018 23:59:59 CLS Outpatient SEMAJ RAMEY MD [facility] CARD CHEST DISCOMFORT,DYSPNEA ON EXERTION [id number] 07/23/2018 08:41:00 07/23/2018 23:59:59 CLS Outpatient SEMAJ RAMEY MD [facility] CARD CHEST DISCOMFORT [id number] 07/05/2018 11:24:00 07/05/2018 23:59:59 CLS Outpatient PREM POOLE MD [facility] RAD RIGHT HIP PAIN [id number] 01/31/2018 14:56:00 01/31/2018 23:59:59 CLS Outpatient PREM POOLE MD [facility] RAD BACK PAIN [id number] 01/24/2017 13:52:00 01/26/2017 15:20:00 DIS Inpatient YOGESH LYLE, FCO [place] [facility] 4TH GI BLEED,ARF [id number] 08/22/2016 00:13:00 08/22/2016 23:59:59 CLS Preadmit PREM POOLE MD [facility] SDC TYPE AND CROSS FOR TRANSFUSION ON 05/24 [id number] 05/24/2016 08:07:00 08/21/2016 00:01:00 DIS Outpatient PREM POOLE MD [facility] SDC TYPE AND CROSS FOR TRANSFUSION ON 05/24 [id number] 06/08/2016 15:08:00 06/08/2016 23:59:59 CLS Outpatient PREM POOLE MD [facility] RAD DYSPNEA,HYPOXIA [id number] 05/24/2016 15:45:00 05/26/2016 13:00:00 DIS Inpatient SLADE LYLE, ILSA [place] [facility] 4TH GROSS HEMATURIA, CALCULUS OF KIDNEY [id number] 05/21/2016 15:24:00 05/21/2016 18:22:00 DIS Emergency BURROWS, PETER J ENGINEERING VICE PRESIDENT [facility] ER BLOOD IN URINE [id number] 02/15/2016 10:41:00 02/15/2016 23:59:59 CLS Outpatient OTHER, UNLISTED [facility] RAD LOW BACK PAIN [id number] 10/10/2015 14:34:00 10/10/2015 16:26:00 DIS Emergency OZIEL PLASENCIAIAIN [facility] ER R ARM PAIN,SWELLING [id number] 09/07/2015 11:46:00 09/07/2015 23:59:59 CLS Outpatient LORA PLASENCIAANIYAH [facility] RAD LOW BACK PAIN [id number] 06/20/2014 09:45:00 06/20/2014 23:59:59 CLS Outpatient PREM POOLE MD [facility] RAD HAND PAIN POST FALL RT [id number] 12/05/2013 18:28:00 12/05/2013 19:36:00 DIS Emergency OZIEL PLASENCIAIAIN [facility] ER HEAD/NECK INJ, ALTERCATION [id number] 08/01/2018 09:00:00 PEN Preadmit TANVIR LYLE, SEMAJ Berg [facility] CATH ABN STRESS TEST [id number] 06/20/2014 09:45:00 Document Registration [id number] 09/15/2011 13:48:00 Document Registration [id number] 07/08/2011 09:06:00 Document Registration [id number] 12/20/2010 11:41:00 Document Registration [id number] 12/11/2010 23:16:00 Document Registration [id number] 12/01/2010 11:54:00 Document Registration [id number] 11/22/2010 12:45:00 Document Registration [id number] 03/30/2010 08:34:00 Document Registration
[2018-08-01] MEDS ORDERED: NS IV 1000 ML 1,000 ML IV SCH (10:38)
--- NOTE | 2018-08-01 10:40 | Discharge Inst-Post CATH ---
Discharge Inst-CATH/EP Post Cardiac Cath/EP D/C Inst Follow Up/Plan appointment with Dr. Smallwood's office in 4-6 weeks <b>CARDIAC CATH/EP PROCEDURE DISCHARGE INSTRUCTIONS</b> ACTIVITY * Go Home directly and rest. * Limit activity of the leg (or wrist if it was used) for 7 days including aerobics, swimming, jogging, bicycling, etc. * Restrict stair-climbing for 7 days if possible, if not, climb up with your non-cath leg, then bring together on the same step. * Avoid lifting, pushing, pulling or excessive movement of the affected extremity for 7 days. * Customary sexual activity may be resumed after 2 days-use caution not to use a position that strains or causes pain to the affected extremity. * No driving for 24 hours. * NO SMOKING. * Avoid straining for bowel movements for 7 days. * Gentle walking on level ground is allowed. * Returning to work will depend on the type of procedure and the results. Your doctor will discuss this with you. CALL YOUR DOCTOR FOR ANY OF THE FOLLOWING: *If bleeding from the puncture site occurs- Apply gentle pressure to site with clean cloth and call your doctor or EMS. * If a knot or lump forms under the skin, increases in size, or causes pain. * If bruising appears to be worsening or moving further down your leg instead of disappearing. * Temperature above 101 F. CARE OF YOUR GROIN INCISION; * Bruising or purple discoloration of the skin near the puncture site is common. * You may shower only, no bathtub bathing for 5 days. Be careful to avoid slipping as your leg may feel stiff. * If a closure device was used on your femoral artery, please see the attached guide regarding care of the device and your leg. * Leave dressing on FOR 24 hours. CARE OF YOUR WRIST INCISION; * Bruising or purple discoloration of the skin near the puncture site is common. * You may shower. * DO NOT submerge wrist. * Leave dressing on FOR 24 hours. SEMAJ SMALLWOOD MD Aug 01, 2018 10:40
[2018-08-01] MEDS ORDERED: PATIENT MAY USE OWN MEDS, ALL PO SCH (10:45)
--- NOTE | 2018-08-01 10:47 | Cardiac Cath Report ---
Cardiac Cath Report Physician (s)/Software Writer (s) Physician SEMAJ RAMEY MD Pre-Procedure Diagnosis Pre-Procedure Diagnosis: coronary artery disease Post-Procedure Note Procedure Start Date: Aug 01, 2018 Name of Procedure: Left heart catheterization Vein graft angiogram DICKSON angiogram Findings/Procedure Note PROCEDURE NOTE: 77 years old gentleman with history of coronary artery disease, CABG, hypertension hyperlipidemia, had an abnormal stress test and scheduled for cardiac catheterization possible PTCA After explaining the procedure to the patient, all pros and cons were explained, all questions were answered. The patient signed the consent and then he was placed on the cardiac catheterization laboratory. Groin was prepped SL fashion local anesthesia was used. Sheath placed in the right femoral artery. Damon right and left catheter were used to access the coronary system.Vein Graft evaluated. DICKSON evaluated. Pigtail was used to access the left ventricular cavity. Left ventriculogram was not done to limit the MOD of contrast exposure At the end of the procedure the sheath was removed. Closure device was used FINDINGS: Hemodynamics LV 154/21, end-diastolic pressure of 21 Aorta 151/62 mean of 58 ANATOMY: Left Main is occluded Left Anterior Descending is occluded, the DICKSON to the LAD is patent with sluggish flow, the subclavian artery has moderate to severe stenosis, vein graft to diagonal artery is patent Left Circumflex is occluded, vein graft to the obtuse marginal branch is patent Right Coronory Artery is occluded, small artery nondominant artery that is not bypassed DICKSON was evaluated with subclavian injection, patient has tortuous subclavian artery with moderate to severe stenosis, the flow in the DICKSON appeared to be normal Vein Graft evaluation showed 2 vein grafts: The lower vein graft is the vein graft to the diagonal artery and is patent with good flow The upper vein graft is the vein graft to the obtuse marginal artery and is patent with good flow LV Gram was not done, pressure was measured CONCLUSION: 1. Total occlusion of the left main, LAD, left circumflex and right coronary artery. 2. Patent vein graft to the diagonal artery, vein graft to the obtuse marginal artery 3. 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 4. The right coronary artery is small nondominant artery that is not bypassed DISCUSSION AND RECOMMENDATION: Medical therapy is recommended at this point. Regarding the subclavian artery, consideration for percutaneous intervention in the future can be considered, preferably with a vascular surgery evaluation. Anesthesia Type: Conscious Sedation Estimated blood loss (mL): 15 ml Contrast Amount: 45 ml Total Radiation Dose: 495 mGy Post-Procedure Diagnosis Post-operative diagnosis: Chest pain Coronary artery disease Hypertension Hyperlipidemia SEMAJ RAMEY MD Aug 01, 2018 10:47
--- NOTE | 2018-08-01 10:52 | Cardiac Procedure Note-CS/ASA ---
Pre-Procedure Note Pre-Op Procedure Note H&P Reviewed The H&P was reviewed, patient examined and no changes noted. Date H&P Reviewed: Aug 01, 2018 Time H&P Reviewed: 09:00 Conscious Sedation Pre-Proced Time 09:00 ASA Score 3 For ASA 3 and 4: Consider anesthesia and medical clearance. Also, for patients with a history of failed moderate sedation consider anesthesia. Airway Lungs Heart ASA score ASA 1: a normal healthy patient ASA 2: a patient with a mild systemic disease (mid diabetes, controlled hypertension, obesity x ASA 3: a patient with a severe systemic disease that limits activity (angina, COPD, prior Myocardial infarction) ASA 4: a patient with an incapacitating disease that is a constant threat to life (CHF, renal failure) ASA 5: a moribund patient not expected to survive 24 hrs. (ruptured aneurysm) ASA 6: a declared brain- patient whose organs are being harvested. For emergent operations, add the letter E after the classification Mallampati Classification Grade 3 Sedation Plan Analgesia, Amnesia, Plan communicated to team members, Discussed options with patient/fam, Discussed risks with patient/fam The patient is an appropriate candidate to undergo the planned procedure, sedation, and anesthesia. The patient immediately re-assessed prior to indication. SEMAJ RAMEY MD Aug 01, 2018 10:51
== END 2018-08-01 15:35 | disposition home or self-care (01) ==
LOC: CATH 07:14 → SDC 11:20 → CATH 15:35
PROVIDERS: ATTEND Internal Medicine Cardiovascular Disease
DX: R07.9 Chest pain, unspecified (principal); I25.10 Atherosclerotic heart disease of native coronary artery without angina pectoris; I10 Essential (primary) hypertension; E78.5 Hyperlipidemia, unspecified; K57.30 Diverticulosis of large intestine without perforation or abscess without bleeding; K29.70 Gastritis, unspecified, without bleeding; E11.9 Type 2 diabetes mellitus without complications; E78.00 Pure hypercholesterolemia, unspecified; I65.29 Occlusion and stenosis of unspecified carotid artery; R53.83 Other fatigue; R94.39 Abnormal result of other cardiovascular function study; Z79.899 Other long term (current) drug therapy; Z79.82 Long term (current) use of aspirin; I34.0 Nonrheumatic mitral (valve) insufficiency; Z95.1 Presence of aortocoronary bypass graft
CPT/HCPCS: 36415; 71045; 80053; 81000; 85027; 85610; 85730; 87077; 87081; 87088; 93459

== ENCOUNTER → 2018-08-22 | Outpatient (CLI) | payer MEDICARE ==
[~2018-08-22] MED LIST changes: +MIRA50TA PO; +MULT1CAP27 PO
--- NOTE | 2018-08-23 10:51 | Diagnostic Imaging Report ---
TIME OF STUDY: 08/22/2018 11:41 AM REASON FOR EXAM: LOW BACK PAIN COMPARISON: Hip radiograph of 07/05/2018. Lumbar spine radiograph on 01/31/2018. FINDINGS: Three views of the lumbar spine and three views of the sacrum and coccyx were obtained. Stable postsurgical changes of posterior fusion and laminectomy from L2 to S1. No evidence of hardware fracture or loosening. Vertebral body heights are well-maintained. A surgical screw is also seen at the right lateral aspect of the L2 vertebral body. Interbody disc spaces are seen at the fused levels. There is straightening of the lumbar spine. Multilevel degenerative changes are present in the lumbar spine with marginal osteophyte formation and facet hypertrophy. There is diffuse calcified aortic atherosclerotic plaque. The sacrum and coccyx are well-visualized without evidence of fracture or dislocation. The bilateral SI joints are unremarkable. No displaced fractures of the pelvis are seen. No focal osseous lesions. 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 IMPRESSION: 1. No acute fracture or dislocation in the lumbar spine. Stable posterior fusion and laminectomy from L2 to S1. 2. No acute fracture of the sacrum or coccyx. The bilateral SI joints are unremarkable. Dictated by: Dictated on workstation # [id number]
== END ==
LOC: RAD 10:48
PROVIDERS: ATTEND Internal Medicine
DX: M54.5 Low back pain (principal); Z98.1 Arthrodesis status; Z98.890 Other specified postprocedural states
CPT/HCPCS: 72100; 72220

== ENCOUNTER 2018-10-22 10:08 | Inpatient (IN) | payer MEDICARE | END 2018-10-24 14:40 | disposition other institution (70) | LOC: ER 10:08 → 4TH 12:33 | DX: A41.9 Sepsis, unspecified organism (principal); K52.9 Noninfective gastroenteritis and colitis, unspecified; N17.9 Acute kidney failure, unspecified; R44.1 Visual hallucinations; E86.0 Dehydration; D64.9 Anemia, unspecified; I25.10 Atherosclerotic heart disease of native coronary artery without angina pectoris; I10 Essential (primary) hypertension; E11.9 Type 2 diabetes mellitus without complications; E78.00 Pure hypercholesterolemia, unspecified; K21.9 Gastro-esophageal reflux disease without esophagitis; Z85.46 Personal history of malignant neoplasm of prostate; Z92.21 Personal history of antineoplastic chemotherapy; Z95.5 Presence of coronary angioplasty implant and graft; Z95.1 Presence of aortocoronary bypass graft ==

== ENCOUNTER → 2018-12-19 | Outpatient (CLI) | payer MEDICARE ==
[~2018-12-19] MED LIST changes: +GABA-488 PO; +OMEP20TA7 PO; +OXC5T PO; +RANO500T5 PO; +TAMS0.4C98 PO
--- NOTE | 2018-12-19 12:00 | Diagnostic Imaging Report ---
PROCEDURE: MRI lumbar spine. TECHNIQUE: Multiplanar, multisequence MRI of the lumbar spine was performed without contrast. INDICATION: Low back pain. Patient has had prior lumbar spine surgery. COMPARISON: Correlation is made with preoperative MRI of the lumbar spine from 02/15/2016. FINDINGS: Since the prior study the patient has undergone lumbar spine surgery. There has been performance of a decompression laminectomy with posterior instrumented fusion with vertical stabilization rods and pedicle screws extending from L2 through S1. Hardware does create moderate artifact. Vertebral body heights are maintained. No acute compression fracture or geographic marrow lesion is seen. There is significant degenerative disc disease at the L1-L2 level. There is disc space narrowing and desiccation noted. There is a very large broad-based disc/osteophyte complex indenting the ventral thecal sac and producing severe central canal stenosis. This has significantly progressed since the prior MRI. All other levels demonstrate the central canal to be patent. Neural foraminal evaluation is somewhat limited due to artifact from the patient's hardware. There does appear to be fairly significant bilateral neural foraminal stenosis at the L5-S1 level. The conus appears unremarkable at the L1 level. Paraspinous tissues demonstrate multiple bilateral renal cysts. IMPRESSION: 1. Postoperative changes of decompression laminectomy and posterior instrumented fusion L2-S1. No acute compression fracture is seen. 2. Development of adjacent level disease at the L1-L2 level where there is severe central canal stenosis due to broad-based disc/osteophyte complex. There is also significant left neural foraminal and mild right neural foraminal stenosis at this level. 3. L5-S1 degenerative disc disease with bilateral neural foraminal stenosis. Dictated by: Dictated on workstation # [id number]
== END ==
LOC: RAD 09:52
PROVIDERS: ATTEND Physician Assistant
DX: M51.37 Other intervertebral disc degeneration, lumbosacral region (principal); M48.061 Spinal stenosis, lumbar region without neurogenic claudication; Z98.1 Arthrodesis status; Z98.890 Other specified postprocedural states
CPT/HCPCS: 72148

== ENCOUNTER → 2018-12-26 | Outpatient (CLI) | payer MEDICARE ==
[2018-12-26 15:32] LABS: MEAN PLATELET VOLUME 9.2 FL (7.4-10.4); RED CELL DISTRIBUTION WIDTH 14.8 % (10.0-14.5); WHITE BLOOD COUNT 6.5 10^3/uL (4.3-11.0)
[2018-12-26 15:47] LABS: BILIRUBIN,TOTAL 0.5 MG/DL (0.1-1.0); CALCIUM 9.1 MG/DL (8.5-10.1); CREATININE SERUM 1.65 MG/DL (0.60-1.30); POTASSIUM 3.8 MMOL/L (3.6-5.0)
== END ==
LOC: LAB 15:08
PROVIDERS: ATTEND Thoracic Surgery (Cardiothoracic Vascular Surgery)
DX: M86.9 Osteomyelitis, unspecified (principal)
CPT/HCPCS: 36415; 80053; 85027; 85652; 86141; 87040

== ENCOUNTER 2019-01-17 11:30 | Outpatient (RCR) | payer MEDICARE ==
[~2019-01-17 11:30] MED LIST changes: +ACHYD1T PO; -HYDR-3820 PO; +OMEP40CA27 PO; -TAMS0.4C98 PO
== END 2019-04-17 | disposition home or self-care (01) ==
LOC: LAB 11:30 → EDSTATUS 03-29 21:30
PROVIDERS: ATTEND Internal Medicine
DX: K92.1 Melena (principal)

== ENCOUNTER → 2019-10-09 | Outpatient (CLI) | payer MEDICARE ==
--- NOTE | 2019-10-09 18:01 | Diagnostic Imaging Report ---
INDICATION: Chronic renal disease and hypertension. EXAMINATION: Bilateral renal sonography is performed in the routine fashion. FINDINGS: The right kidney measures 10.1 x 6.3 x 5.8 cm. The left kidney measures 10.0 x 4.6 x 5.0 cm. Both kidneys show no hydronephrosis with normal cortical thickness. There is a cyst in the mid pole of right kidney measuring 9 x 9 x 7 mm. There is a cyst in the inferior pole of the right kidney measuring 1.6 x 1.5 x 1.6 cm. There is an exophytic cyst in the inferior pole of the left kidney measuring 4.0 x 3.2 x 3.7 cm. There are bilateral ureteral jets. Urinary bladder appears unremarkable. IMPRESSION: There are bilateral renal cysts. The kidneys are normal in size bilaterally. There is no hydronephrosis. Urinary bladder is grossly unremarkable. Dictated by: Dictated on workstation # [id number]
== END ==
LOC: RAD 15:11
PROVIDERS: ATTEND Internal Medicine Nephrology
DX: I12.9 Hypertensive chronic kidney disease with stage 1 through stage 4 chronic kidney disease, or unspecified chronic kidney disease (principal); N18.3 Chronic kidney disease, stage 3 (moderate); I25.10 Atherosclerotic heart disease of native coronary artery without angina pectoris; D50.9 Iron deficiency anemia, unspecified; N28.1 Cyst of kidney, acquired
CPT/HCPCS: 76770

== ENCOUNTER → 2019-10-30 | Outpatient (CLI) | payer MEDICARE ==
[~2019-10-30] MED LIST changes: +ASPI-1238 PO; -ASPI-983 PO; -RANO500T5 PO; +RANO500T6 PO
== END ==
LOC: RAD 12:15
PROVIDERS: ATTEND Urology
DX: N28.1 Cyst of kidney, acquired (principal); K80.20 Calculus of gallbladder without cholecystitis without obstruction; K57.30 Diverticulosis of large intestine without perforation or abscess without bleeding
CPT/HCPCS: 74176

== ENCOUNTER → 2020-05-12 | Outpatient (CLI) | payer MEDICARE ==
[~2020-05-12] MED LIST changes: -CLIN300C11 PO; +CLIN300C12 PO; -RAMI2.5C2 PO; +RAMI2.5C54 PO
== END ==
LOC: CARD 14:30
PROVIDERS: ATTEND Nurse Practitioner Family
DX: I08.0 Rheumatic disorders of both mitral and aortic valves (principal)
CPT/HCPCS: 93306

== ENCOUNTER 2020-08-26 18:13 | Inpatient (IN) | payer MEDICARE ==
[~2020-08-26] VITALS: Ht 167 cm; Wt 73.0 kg
[~2020-08-26 18:13] MED LIST changes: -OMEP40CA27 PO; +OMEP40CA6 PO
--- NOTE | 2020-08-26 18:29 | ED Chest Pain ---
General Stated Complaint: CHEST PAIN Source: patient History of Present Illness Date Seen by Provider: Aug 26, 2020 Time Seen by Provider: 18:16 Initial Comments PT ARRIVES VIA POV FROM HOME C/O MID CHEST PAIN X 2 HOURS, PAIN BEGAN WHILE SITTING AT HIS DESK STATES PAIN WAS 7-8/10, NOW 5-6/10 PAIN IS WORSE WITH WALKING AND RADIATES INTO BACK WITH WALKING NO SHORTNESS OF BREATH NO SWEATS NO NAUSEA/VOMITING NO DIZZINESS OR SYNCOPE NO PALPITATIONS NO SWELLING IN LEGS/FEET OR PAIN IN CALVES STATES "IT'S NOT LIKE NORMAL INDIGESTION" TOOK TUMS WITH MINIMAL RELIEF DID NOT TAKE NTG AT HOME BECAUSE RX IS > 2 YEARS OLD PT WITH HISTORY OF CAD WITH 3 VESSEL CABG AND 4-5 STENTS LAST CATH 07/2018--NO INTERVENTION, OPTED TO TREAT MEDICALLY AT THAT TIME PT IS ON RANOLAZINE, PLAVIX, 81 MG ASPIRIN, COREG. PT IS ALSO DIABETIC--ON TRAJENTA, HAS HTN AND HYPERLIPIDEMIA NO FEVER OR RECENT ILLNESS NO SICK CONTACTS PT HAS HAD BOTH COVID VACCINES IN MARCH PCP: DR. POOLE VACUUM FORM OPERATOR: DR. RAMEY Allergies and Home Medications Allergies Coded Allergies: No Known Drug Allergies (Verified , 05/24/16) Home Medications Aspirin 81 Mg Tablet., 81 MG PO HS, (Reported) Atorvastatin Calcium 80 Mg Tablet, 80 MG PO HS, (Reported) Carvedilol 12.5 Mg Tablet, 12.5 MG PO BID, (Reported) LAST FILLED #180 05-21-18 Clopidogrel Bisulfate 75 Mg Tablet, 75 MG PO DAILY, (Reported) Gabapentin 300 Mg Capsule, 300 MG PO HS, (Reported) Linagliptin 5 Mg Tablet, 5 MG PO HS, (Reported) Mirabegron 50 Mg Tab.er.24h, 50 MG PO DAILY, (Reported) Multivitamin 1 Each Capsule, 1 CAP PO DAILY, (Reported) Nitroglycerin 0.4 Mg Tab.subl, 0.4 MG SL UD PRN for CHEST PAIN, (Reported) Omeprazole 20 Mg Tablet.dr, 20 MG PO DAILY, (Reported) Oxycodone Hcl 5 Mg Tab, 2.5 MG PO Q4H PRN for PAIN-SEVERE Prescribed by: ZACHARY DALTON on 10/24/18 1130 Ramipril 2.5 Mg Capsule, 2.5 MG PO HS, (Reported) Ranolazine 500 Mg Tab.er.12h, 500 MG PO BID, (Reported) Tamsulosin HCl 0.4 Mg Cap, 0.4 MG PO HS, (Reported) Patient Home Medication List Home Medication List Reviewed: Yes Review of Systems Review of Systems Constitutional: no symptoms reported EENTM: No Symptoms Reported Respiratory: No Symptoms Reported; Denies Cough, Denies Shortness of Air Cardiovascular: See HPI, Chest Pain; Denies Edema, Denies Irregular Heart Rate, Denies Lightheadedness, Denies Palpitations, Denies Syncope Gastrointestinal: No Symptoms Reported; Denies Abdominal Pain, Denies Nausea, Denies Vomiting Genitourinary: No Symptoms Reported Musculoskeletal: see HPI, back pain Skin: no symptoms reported Psychiatric/Neurological: No Symptoms Reported Endocrine: No Symptoms Reported Hematologic/Lymphatic: No Symptoms Reported Past Fqavwoa-Qxlrtt-Cpcjlp Hx Patient Social History Tobacco Use?: No Substance use?: No Alcohol Use?: Yes Alcohol type: Hard Liquor Alcohol Frequency: Couple times a week Immunizations Up To Date Tetanus Booster (TDap): Unknown Past Medical History Surgery/Hospitalization HX: 3 VESSEL CABG 2003 CARDIAC CATHS WITH 4-5 STENTS, PER PT. LAST CARDIAC CATH 2019--NO INTERVENTION, OPTED TO TREAT MEDICALLY-- CONCLUSION: 1. Total occlusion of the left main, LAD, left circumflex and right coronary artery. 2. Patent vein graft to the diagonal artery, vein graft to the obtuse marginal artery 3. 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 4. The right coronary artery is small nondominant artery that is not bypassed DISCUSSION AND RECOMMENDATION: Medical therapy is recommended at this point. Regarding the subclavian artery, consideration for percutaneous intervention in the future can be considered, preferably with a vascular surgery evaluation. BACK SURGERIES X 5--LAST ONE 10/2018 Surgeries: Yes Cardiac, CABG, Coronary Stent, Orthopedic Respiratory: No Currently Using CPAP: No Currently Using BIPAP: No Cardiac: Yes (3 VESSEL CABG; 4-5 STENTS) Coronary Artery Disease, High Cholesterol, Hypertension Neurological: No Reproductive Disorders: Yes (E.D.) Genitourinary: Yes (PROSTATE CANCER--S/P BRACHYTHERAPY; E.D.) Prostate Problems Gastrointestinal: No Musculoskeletal: Yes (BACK SURGERIES X 5--LAST ONE 10/2018) Chronic Back Pain Endocrine: Yes Diabetes, Non-Insulin dep HEENT: No Cancer: Yes Prostate Did You Recieve Any Treatments: Yes What Type of Treatment Did You: Radiation BRACHYTHERAPY Psychosocial: No Integumentary: No Blood Disorders: No Family Medical History Cancer, CAD Over 55 Years Old CARDIAC CATH 07/[address] RAMEY: CONCLUSION: 1. Total occlusion of the left main, LAD, left circumflex and right coronary artery. 2. Patent vein graft to the diagonal artery, vein graft to the obtuse marginal artery 3. 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 4. The right coronary artery is small nondominant artery that is not bypassed DISCUSSION AND RECOMMENDATION: Medical therapy is recommended at this point. Regarding the subclavian artery, consideration for percutaneous intervention in the future can be considered, preferably with a vascular surgery evaluation. Physical Exam Vital Signs Vital Signs - First Documented 08/26/20 18:15 Temp 35.9 Pulse 88 Resp 18 B/P (MAP) 198/99 (132) Pulse Ox 99 O2 Delivery Room Air FiO2 99 Capillary Refill : Height, Weight, BMI Height: 5'6.00" Weight: 154lbs. 0.0oz. 69.648759eu; 24.00 BMI Method:Estimated General Appearance: No Apparent Distress, WD/WN Neck: Normal Inspection; No JVD Respiratory: Chest Non Tender, Normal Breath Sounds, No Accessory Muscle Use, No Respiratory Distress Cardiovascular: Regular Rate, Rhythm, No Edema, No JVD, No Murmur, Normal Peripheral Pulses Gastrointestinal: Normal Bowel Sounds, No Organomegaly, No Pulsatile Mass, Non Tender, Soft Extremity: Normal Inspection, No Calf Tenderness, No Pedal Edema Neurologic/Psychiatric: Alert, Oriented x3, No Motor/Sensory Deficits, Normal Mood/Affect, upstream biomanufacturing technician II-XII Norm as Tested Skin: Normal Color, Warm/Dry; No Rash Progress/Results/Core Measures Results/Orders Lab Results Laboratory Tests Test 08/26/20 18:21 Range/Units White Blood Count 14.1 H 4.3-11.0 10^3/uL Red Blood Count 3.74 L 4.30-5.52 10^6/uL Hemoglobin 11.8 L 13.3-17.7 g/dL Hematocrit 37 L 40-54 % Mean Corpuscular Volume 98 80-99 fL Mean Corpuscular Hemoglobin 32 25-34 pg Mean Corpuscular Hemoglobin Concent 32 32-36 g/dL Red Cell Distribution Width 14.4 10.0-14.5 % Platelet Count 210 130-400 10^3/uL Mean Platelet Volume 10.1 9.0-12.2 fL Immature Granulocyte % (Auto) 1 % Neutrophils (%) (Auto) 81 H 42-75 % Lymphocytes (%) (Auto) 9 L 12-44 % Monocytes (%) (Auto) 7 0-12 % Eosinophils (%) (Auto) 2 0-10 % Basophils (%) (Auto) 1 0-10 % Neutrophils # (Auto) 11.5 H 1.8-7.8 10^3/uL Lymphocytes # (Auto) 1.3 1.0-4.0 10^3/uL Monocytes # (Auto) 0.9 0.0-1.0 10^3/uL Eosinophils # (Auto) 0.3 0.0-0.3 10^3/uL Basophils # (Auto) 0.1 0.0-0.1 10^3/uL Immature Granulocyte # (Auto) 0.1 0.0-0.1 10^3/uL Neutrophils % (Manual) 79 % Lymphocytes % (Manual) 14 % Monocytes % (Manual) 5 % Eosinophils % (Manual) 1 % Basophils % (Manual) 1 % Blood Morphology Comment NORMAL Prothrombin Time 13.7 12.2-14.7 SEC INR Comment 1.0 0.8-1.4 Activated Partial Thromboplast Time 29 24-35 SEC Sodium Level 144 135-145 MMOL/L Potassium Level 4.3 3.6-5.0 MMOL/L Chloride Level 109 H 98-107 MMOL/L Carbon Dioxide Level 23 21-32 MMOL/L Anion Gap 12 5-14 MMOL/L Blood Urea Nitrogen 26 H 7-18 MG/DL Creatinine 2.37 H 0.60-1.30 MG/DL Estimat Glomerular Filtration Rate 26 BUN/Creatinine Ratio 11 Glucose Level 129 H 70-105 MG/DL Calcium Level 9.4 8.5-10.1 MG/DL Corrected Calcium 9.2 8.5-10.1 MG/DL Magnesium Level 2.0 1.6-2.4 MG/DL Total Bilirubin 1.1 H 0.1-1.0 MG/DL Aspartate Amino Transf (AST/SGOT) 51 H 5-34 U/L Alanine Aminotransferase (ALT/SGPT) 43 0-55 U/L Alkaline Phosphatase 103 40-136 U/L Total Creatine Kinase 140 30-200 U/L Creatine Kinase MB 4.3 <6.6 NG/ML Myoglobin 134.3 H 10.0-92.0 NG/ML Troponin I < 0.028 <0.028 NG/ML B-Type Natriuretic Peptide 219.7 H <100.0 PG/ML Total Protein 7.1 6.4-8.2 GM/DL Albumin 4.3 3.2-4.5 GM/DL Amylase Level 1113 H 25-125 U/L Lipase 8-78 U/L My Orders Orders - IAIN LUDWIG DO Cbc With Automated Diff (08/26/20 18:17) Magnesium (08/26/20 18:17) Chest 1 View, Ap/Pa Only (08/26/20 18:17) Ekg Tracing (08/26/20 18:17) Comprehensive Metabolic Panel (08/26/20 18:17) Myoglobin Serum (08/26/20 18:17) Protime With Inr (08/26/20 18:17) Partial Thromboplastin Time (08/26/20 18:17) O2 (08/26/20 18:17) Monitor-Rhythm Ecg Trace Only (08/26/20 18:17) Ed Iv/Invasive Line Start (08/26/20 18:17) Creatine Kinase (08/26/20 18:17) Creatine Kinase Mb (08/26/20 18:17) Lipase (08/26/20 18:17) Amylase (08/26/20 18:17) BNP (08/26/20 18:17) Troponin I (08/26/20 18:17) Nitroglycerin 0.4 Mg Btl 25's (Nitrostat (08/26/20 18:30) Aspirin Chewable Tablet (Baby Aspirin Ch (08/26/20 18:30) Manual Differential (08/26/20 18:21) Ct Abdomen/Pelvis Wo (08/26/20 19:13) Ondansetron Injection (Zofran Injectio (08/26/20 20:00) Pantoprazole Injection (Protonix Injecti (08/26/20 20:00) Medications Given in ED Current Medications Medications Dose Ordered Sig/Luz Route Start Time Stop Time Status Last Admin Dose Admin Aspirin 324 mg ONCE ONCE PO 08/26/20 18:30 08/26/20 18:31 DC 08/26/20 18:32 324 MG Nitroglycerin 0.4 mg UD PRN SL 08/26/20 18:30 08/26/20 18:57 DC 08/26/20 18:56 0.4 MG Ondansetron HCl 8 mg ONCE ONCE IVP 08/26/20 20:00 08/26/20 20:01 DC 08/26/20 20:04 8 MG Pantoprazole 40 mg ONCE ONCE IV 08/26/20 20:00 08/26/20 20:01 DC 08/26/20 20:03 40 MG Vital Signs/I&O 08/26/20 08/26/20 08/26/20 08/26/20 18:15 18:15 18:15 18:32 Temp 35.9 Pulse 88 89 Resp 18 20 B/P (MAP) 198/99 (132) 191/99 (129) Pulse Ox 99 99 99 O2 Delivery Room Air Room Air Room Air FiO2 99 08/26/20 08/26/20 08/26/20 08/26/20 18:47 18:52 18:57 19:01 Pulse 87 87 89 88 Resp 20 20 22 18 B/P (MAP) 160/88 (112) 128/76 (93) 147/89 (108) 131/76 (94) Pulse Ox 99 99 97 97 O2 Delivery Room Air Room Air Progress Progress Note : Progress Note GIVEN ASPIRIN AND NTG X 3 WITH RELIEF OF PAIN AND BP DOWN TO A MORE NORMAL RANGE 1952-PT C/O NAUSEA AND VOMITED X 1 A LITTLE BIT--GIVEN ZOFRAN And PROTONIX WITH RELIEF OF SYMPTOMS PT LATER COMPLAINED OF SOME ABDOMINAL PAIN--GIVEN FENTANYL WITH RELIEF VITALS STABLE. Initial ECG Impression Date: Aug 26, 2020 Initial ECG Impression Time: 18:21 Initial ECG Rate: 88 Initial ECG Rhythm: Normal Sinus Diagnostic Imaging Comments CXR--PER RADIOLOGIST REPORT AT 1904 FINDINGS: Single view of the chest demonstrates new atelectasis and/or effusion in the left base. Right lung is clear. Heart is prominent without pulmonary edema. There is no pneumothorax. Sternal wires are midline. IMPRESSION: New atelectasis and/or effusion left base. Follow-up recommended. CT CHEST/ABDOMEN/PELVIS--PER RADIOLOGIST REPORT AT 2104 FINDINGS: The lung bases are clear. The gallbladder is unremarkable. Solid organs are grossly intact. There is advanced atherosclerotic disease. No solid organ or bowel ischemia is identified. Extensive metallic artifact is seen from a thoracolumbar fusion. There is no obvious fracture. There is no obvious inflammatory process. There is diverticulosis of the sigmoid colon without diverticulitis. There is some mild constipation in the rectum. Prostate seeds are present. The urinary bladder is slightly distended. Additional osseous structures are intact. IMPRESSION: 1. Extensive thoracolumbar fusion. No obvious fluid collection or fracture is identified. Detail is suboptimal due to artifact. 2. Advanced atherosclerotic disease of the abdominal aorta and visceral branch vessels. 3. Diverticulosis of the sigmoid colon without diverticulitis. 4. Constipation in the rectosigmoid. 5. Mild distention of the urinary bladder. Reviewed: Reviewed by Me Departure Communication (Admissions) 2114--SPOKE WITH DR. SANDOVAL, HOSPITALIST, ACCEPTS PT FOR ADMIT Impression Primary Impression: Chest pain Additional Impressions: PANCREATITIS NIDDM HTN (hypertension) Acute on chronic renal insufficiency Chronic anemia HX OF CAD WITH CABG AND MULTIPLE STENTS Regular alcohol consumption Disposition: ADMITTED INPATIENT Condition: Improved Admissions Decision to Admit Reason: Admit from ER (General) Decision to Admit/Date: Aug 26, 2020 Time/Decision to Admit Time: 21:15 Departure-Patient Inst. Referrals: PREM POOLE MD (PCP/Family) Primary Care Physician IAIN LUDWIG DO Aug 26, 2020 18:29
[2020-08-26] MEDS ORDERED: ASPIRIN 81 MG CHEW (CHILDREN'S ASA) PO ONE (18:30)
[2020-08-26] MEDS: NITROGLYCERIN 0.4 MG SL TABS BTL 25'S SL PRN ×3 (18:32→18:56)
[2020-08-26 18:35] LABS: BASOPHILS # (AUTO) 0.1 10^3/uL (0.0-0.1); BASOPHILS % (AUTO) 1 % (0-10); EOSINOPHILS # (AUTO) 0.3 10^3/uL (0.0-0.3); EOSINOPHILS % (AUTO) 2 % (0-10); HEMATOCRIT 37 % (40-54); HEMOGLOBIN 11.8 g/dL (13.3-17.7); LYMPHOCYTES # (AUTO) 1.3 10^3/uL (1.0-4.0); LYMPHOCYTES % (AUTO) 9 % (12-44); MEAN CORPUSCULAR HEMOGLOBIN 32 pg (25-34); MEAN CORPUSCULAR HGB CONC 32 g/dL (32-36); MEAN CORPUSCULAR VOLUME 98 fL (80-99); MEAN PLATELET VOLUME 10.1 fL (9.0-12.2); MONOCYTES # (AUTO) 0.9 10^3/uL (0.0-1.0); MONOCYTES % (AUTO) 7 % (0-12); NEUTROPHILS # (AUTO) 11.5 10^3/uL (1.8-7.8); NEUTROPHILS % (AUTO) 81 % (42-75); PLATELET COUNT 210 10^3/uL (130-400); WHITE BLOOD COUNT 14.1 10^3/uL (4.3-11.0)
[2020-08-26 18:46] LABS: ALBUMIN 4.3 GM/DL (3.2-4.5)
[2020-08-26 18:47] LABS: CHLORIDE 109 MMOL/L (98-107); POTASSIUM 4.3 MMOL/L (3.6-5.0); SODIUM 144 MMOL/L (135-145)
[2020-08-26 18:48] LABS: AMYLASE 1113 U/L (25-125); CALCIUM 9.4 MG/DL (8.5-10.1)
[2020-08-26 18:49] LABS: GLUCOSE 129 MG/DL (70-105); PROTHROMBIN TIME PATIENT 13.7 SEC (12.2-14.7); TOTAL PROTEIN 7.1 GM/DL (6.4-8.2)
[2020-08-26 18:50] LABS: CARBON DIOXIDE 23 MMOL/L (21-32)
[2020-08-26 18:51] LABS: BILIRUBIN,TOTAL 1.1 MG/DL (0.1-1.0)
[2020-08-26 18:52] LABS: ALKALINE PHOSPHATASE 103 U/L (40-136)
--- NOTE | 2020-08-26 18:52 | Diagnostic Imaging Report ---
INDICATION: Coronary artery disease, chest pain COMPARISON: 10/22/2018 FINDINGS: Single view of the chest demonstrates new atelectasis and/or effusion in the left base. Right lung is clear. Heart is prominent without pulmonary edema. There is no pneumothorax. Sternal wires are midline. IMPRESSION: New atelectasis and/or effusion left base. Follow-up recommended. Dictated by: Dictated on workstation # [id number]
[2020-08-26 18:53] LABS: CREATININE SERUM 2.37 MG/DL (0.60-1.30); GFR ESTIMATED 26
[2020-08-26 18:54] LABS: BUN/CREATININE RATIO 11
[2020-08-26 18:55] LABS: ALANINE AMINOTRANSFERASE 43 U/L (0-55)
[2020-08-26 18:57] LABS: CREATINE KINASE 140 U/L (30-200)
[2020-08-26 19:04] LABS: CREATINE KINASE MB 4.3 NG/ML (<6.6)
[2020-08-26 19:08] LABS: BASOPHILS % (MANUAL) 1 %; EOSINOPHILS % (MANUAL) 1 %; LYMPHOCYTES % (MANUAL) 14 %; MONOCYTES % (MANUAL) 5 %; NEUTROPHILS % (MANUAL) 79 %; RBC MORPH NORMAL
[2020-08-26] MEDS ORDERED: PANTOPRAZOLE 40 MG (PROTONIX) VIAL IV ONE (20:00)
[2020-08-26] MEDS ORDERED: ONDANSETRON 4 MG/2 ML (SDV) Z0FRAN IVP ONE (20:00)
--- NOTE | 2020-08-26 20:40 | Diagnostic Imaging Report ---
PROCEDURE: CT abdomen and pelvis without contrast. TECHNIQUE: Multiple contiguous axial images were obtained through the abdomen and pelvis without the use of intravenous contrast. Auto Exposure Controls were utilized during the CT exam to meet ALARA standards for radiation dose reduction. INDICATION: Lower back pain. Abdominal pain. COMPARISON: 10/30/2019 FINDINGS: The lung bases are clear. The gallbladder is unremarkable. Solid organs are grossly intact. There is advanced atherosclerotic disease. No solid organ or bowel ischemia is identified. Extensive metallic artifact is seen from a thoracolumbar fusion. There is no obvious fracture. There is no obvious inflammatory process. There is diverticulosis of the sigmoid colon without diverticulitis. There is some mild constipation in the rectum. Prostate seeds are present. The urinary bladder is slightly distended. Additional osseous structures are intact. IMPRESSION: 1. Extensive thoracolumbar fusion. No obvious fluid collection or fracture is identified. Detail is suboptimal due to artifact. 2. Advanced atherosclerotic disease of the abdominal aorta and visceral branch vessels. 3. Diverticulosis of the sigmoid colon without diverticulitis. 4. Constipation in the rectosigmoid. 5. Mild distention of the urinary bladder. Dictated by: Dictated on workstation # [id number]
[2020-08-26] MEDS ORDERED: PIPERACILLIN SODIUM/TAZOBACTAM 4.5 GM in NS (IVPB) 100 ML IV ONE (21:45)
[2020-08-26] MEDS ORDERED: fentaNYL INJ 100 MCG/2 ML AMP ONE (22:02)
[2020-08-26 22:35] VITALS: BP 185/88
[2020-08-26 22:50] VITALS: BP 167/79
[2020-08-26] MEDS ORDERED: ONDANSETRON 4 MG/2 ML (SDV) Z0FRAN IV PRN (23:00)
[2020-08-26] MEDS: fentaNYL INJ 100 MCG/2 ML AMP IV PRN (23:04)
[2020-08-26 23:05] VITALS: BP 145/84
[2020-08-26] MEDS: 1/2 NS IV SOLUTION 1,000 ML IV SCH (23:08)
[2020-08-26] MEDS ORDERED: NITROGLYCERIN 0.4 MG SL TABS BTL 25'S SL PRN (23:15)
[2020-08-26] MEDS ORDERED: morphine INJ 4 MG/ML 1 ML (VIAL/SYRINGE) IV PRN (23:15)
[2020-08-26 23:20] VITALS: BP 171/86
[2020-08-27] VITALS: BP 153/85
[2020-08-27] MEDS: fentaNYL INJ 100 MCG/2 ML AMP IV PRN ×2 (01:08→08:07)
[2020-08-27 04:06] VITALS: BP 166/80
[2020-08-27] MEDS: PIPERACILLIN/TAZO 4.5 GM/NS 100 ML IV SCH ×6 (04:06→20:48)
[2020-08-27 05:21] LABS: BASOPHILS % (AUTO) 0 % (0-10); EOSINOPHILS # (AUTO) 0.1 10^3/uL (0.0-0.3); EOSINOPHILS % (AUTO) 1 % (0-10); HEMATOCRIT 32 % (40-54); HEMOGLOBIN 10.3 g/dL (13.3-17.7); LYMPHOCYTES # (AUTO) 1.1 10^3/uL (1.0-4.0); LYMPHOCYTES % (AUTO) 8 % (12-44); MEAN CORPUSCULAR HEMOGLOBIN 32 pg (25-34); MEAN CORPUSCULAR HGB CONC 32 g/dL (32-36); MEAN CORPUSCULAR VOLUME 99 fL (80-99); MEAN PLATELET VOLUME 9.9 fL (9.0-12.2); MONOCYTES # (AUTO) 0.8 10^3/uL (0.0-1.0); MONOCYTES % (AUTO) 6 % (0-12); NEUTROPHILS # (AUTO) 11.7 10^3/uL (1.8-7.8); NEUTROPHILS % (AUTO) 85 % (42-75); PLATELET COUNT 167 10^3/uL (130-400); WHITE BLOOD COUNT 13.8 10^3/uL (4.3-11.0)
[2020-08-27 05:32] LABS: POTASSIUM 4.3 MMOL/L (3.6-5.0)
[2020-08-27 05:38] LABS: CREATININE SERUM 2.04 MG/DL (0.60-1.30)
[2020-08-27] MEDS: 1/2 NS IV SOLUTION 1,000 ML IV SCH ×3 (05:54→17:37)
[2020-08-27] MEDS: inSUlin ASPART (NovoLOG) 1 UNIT/0.01 ML (CHARGE PER UNIT) SC SCH ×4 (05:54→20:53)
[2020-08-27] MEDS ORDERED: CATHETER FLUSH 10 ML SYR IV PRN (07:15)
[2020-08-27 07:51] VITALS: BP 175/83
[2020-08-27] MEDS: ASPIRIN E.C. 81 MG (ECOTRIN) TAB PO SCH ×2 (08:00→08:07)
[2020-08-27] MEDS: PANTOPRAZOLE 40 MG (PROTONIX) VIAL IV SCH (08:07)
[2020-08-27] MEDS ORDERED: OMEP40CA6 PO (10:08)
[2020-08-27] MEDS ORDERED: CARV6.252 PO (10:08)
[2020-08-27] MEDS ORDERED: MULT-1029 PO (10:08)
[2020-08-27] MEDS ORDERED: FERR142T7 PO (10:08)
[2020-08-27] MEDS ORDERED: CYCL5TAB PO (10:08)
[2020-08-27] MEDS ORDERED: FORMULA PO (10:08)
[2020-08-27] MEDS ORDERED: CHOL10007 PO (10:08)
[2020-08-27] MEDS ORDERED: ALLO100T PO (10:08)
[2020-08-27] MEDS ORDERED: ASCO100024 PO (10:08)
[2020-08-27] MEDS ORDERED: TMSL.4C PO (10:09)
--- NOTE | 2020-08-27 10:12 | History & Physical-Hospitalist ---
History of Present Illness HPI/Chief Complaint Isael Smith is an 79-year-old male with past medical history of hypertension, hyperlipidemia, type 2 diabetes mellitus, BPH, GERD, coronary artery disease, chronic kidney disease, who presented with chest pain. He reports that the pain started yesterday. The pain has resolved at this time. He describes it as burning and like indigestion. The pain was 8 out of 10 in severity at its worst. It reportedly radiated to his back. He also had associated nausea and vomiting. He denies any fevers or chills. He denies any shortness of breath or cough. He denies any palpitations. He does report some epigastric abdominal pain. He denies any diarrhea. He does not smoke cigarettes. He drinks 1-2 alcoholic drinks per week. He does not use any illicit drugs. Source: patient Exam Limitations: no limitations Date Seen 08/27/20 Time Seen by a Provider: 09:00 Attending Physician Félix Mathew MD PCP Khurram Lr MD Referring Physician Date of Admission Aug 26, 2020 at 21:15 Home Medications & Allergies Home Medications Reviewed patient Home Medication Reconciliation performed by pharmacy medication reconciliations fitness technician and/or nursing. Patients Allergies have been reviewed. Allergies Allergies Coded Allergies No Known Drug Allergies (Verified05/24/16) Past Fveuhvj-Dxzaqh-Uxomfo Hx Patient Social History Tobacco Use?: No Use of E-Cig and/or Vaping dev: No Substance use?: No Alcohol Use?: Yes Alcohol type: Hard Liquor Alcohol Frequency: Couple times a week Pt feels they are or have been: No Immunizations Up To Date Date of Influenza Vaccine: Jan 26, 2017 Tetanus Booster (TDap): Unknown Current Status Advance Directives: Yes Advance Directive Location: Home Communicates: Verbally Primary Language: Dominican Preferred Spoken Language: Dominican Is interpretation needed?: No Sensory deficits: Vision impairment Implanted or Applied Medical D: None Past Medical History Surgeries: Cardiac, CABG, Coronary Stent, Orthopedic Currently Using CPAP: No Currently Using BIPAP: No Coronary Artery Disease, High Cholesterol, Hypertension Prostate Problems Chronic Back Pain Diabetes, Non-Insulin dep Prostate Did You Recieve Any Treatments: Yes What Type of Treatment Did You: Radiation BRACHYTHERAPY Blood Disorders: No Family Medical History Cancer, CAD Over 55 Years Old CARDIAC CATH 07/[address] RAMEY: CONCLUSION: 1. Total occlusion of the left main, LAD, left circumflex and right coronary artery. 2. Patent vein graft to the diagonal artery, vein graft to the obtuse marginal artery 3. 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 4. The right coronary artery is small nondominant artery that is not bypassed DISCUSSION AND RECOMMENDATION: Medical therapy is recommended at this point. Regarding the subclavian artery, consideration for percutaneous intervention in the future can be considered, preferably with a vascular surgery evaluation. Review of Systems Constitutional: no symptoms reported EENTM: no symptoms reported Respiratory: no symptoms reported Cardiovascular: chest pain Gastrointestinal: abdominal pain, nausea, vomiting Genitourinary: no symptoms reported Musculoskeletal: no symptoms reported Skin: no symptoms reported Psychiatric/Neurological: No Symptoms Reported Physical Exam Physical Exam Vital Signs Vital Signs - First Documented 08/26/20 18:15 Temp 35.9 Pulse 88 Resp 18 B/P (MAP) 198/99 (132) Pulse Ox 99 O2 Delivery Room Air FiO2 99 Capillary Refill : Less Than 3 Seconds Height, Weight, BMI Height: 5'6.00" Weight: 154lbs. 0.0oz. 69.436610as; 26.17 BMI Method:Estimated General Appearance: No Apparent Distress, WD/WN HEENT: PERRL/EOMI, Pharynx Normal Neck: Normal Inspection, Supple Respiratory: Lungs Clear, Normal Breath Sounds, No Respiratory Distress Cardiovascular: Regular Rate, Rhythm, No Edema, No Murmur Gastrointestinal: Normal Bowel Sounds, Soft, Tenderness (Epigastric) Extremity: Normal Inspection, Non Tender, No Pedal Edema Neurologic/Psychiatric: Alert, Oriented x3, No Motor/Sensory Deficits, Normal Mood/Affect Skin: Normal Color, Warm/Dry Results Results/Procedures Labs Laboratory Tests 08/26/20 18:21 08/27/20 05:15 Patient resulted labs reviewed. Imaging: Reviewed Imaging Report Assessment/Plan Admission Diagnosis Acute pancreatitis Admission Status: Inpatient Order (span 2 midnights) Reason for Inpatient Admission: Pancreatitis requiring further monitoring and treatment Assessment and Plan Acute pancreatitis Epigastric pain and elevated lipase consistent with pancreatitis CT without changes of pancreatitis IV fluids Pain regimen NPO, advance to clears Antiemetics Chest pain CAD s/p CABG Likely due to pancreatitis Troponin remains within normal limits Repeat troponin Consult cardiology JAYLEN on CKD Cr mildly elevated from baseline IV fluids HTN HLD T2DM BPH GERD Continue home meds DVT prophylaxis: Lovenox Diagnosis/Problems Diagnosis/Problems (1) Acute pancreatitis Status: Acute (2) Chest pain Status: Acute (3) Acute kidney injury superimposed on chronic kidney disease Status: Acute Clinical Quality Measures AMI/AHF: ASA po Prior to arrival: ZACHARY Rashid MD Aug 27, 2020 10:12
[2020-08-27] MEDS: ENOXAPARIN 30 MG/0.3 ML (LOVENOX) SYR SC SCH (11:16)
[2020-08-27 11:52] VITALS: BP 149/63
[2020-08-27 16:00] VITALS: BP 139/71
[2020-08-27 19:51] VITALS: BP 166/78
[2020-08-27] MEDS: RANOLAZINE ER 500 MG TAB (RANEXA) PO SCH (20:49)
[2020-08-27] MEDS ORDERED: TAMSULOSIN 0.4 MG (FLOMAX) CAP PO SCH (21:00)
[2020-08-28] VITALS: BP 155/79
[2020-08-28] MEDS: PIPERACILLIN/TAZO 4.5 GM/NS 100 ML IV SCH ×4 (03:07→11:13)
[2020-08-28] MEDS: 1/2 NS IV SOLUTION 1,000 ML IV SCH ×3 (03:13→11:13)
[2020-08-28 04:04] VITALS: BP 129/71
[2020-08-28 05:07] LABS: BASOPHILS % (AUTO) 0 % (0-10); EOSINOPHILS # (AUTO) 0.3 10^3/uL (0.0-0.3); EOSINOPHILS % (AUTO) 3 % (0-10); HEMATOCRIT 29 % (40-54); HEMOGLOBIN 9.4 g/dL (13.3-17.7); LYMPHOCYTES # (AUTO) 1.2 10^3/uL (1.0-4.0); LYMPHOCYTES % (AUTO) 13 % (12-44); MEAN CORPUSCULAR HEMOGLOBIN 31 pg (25-34); MEAN CORPUSCULAR HGB CONC 32 g/dL (32-36); MEAN CORPUSCULAR VOLUME 97 fL (80-99); MEAN PLATELET VOLUME 10.3 fL (9.0-12.2); MONOCYTES # (AUTO) 0.8 10^3/uL (0.0-1.0); MONOCYTES % (AUTO) 9 % (0-12); NEUTROPHILS # (AUTO) 6.7 10^3/uL (1.8-7.8); NEUTROPHILS % (AUTO) 75 % (42-75); PLATELET COUNT 157 10^3/uL (130-400)
[2020-08-28 05:20] LABS: POTASSIUM 3.6 MMOL/L (3.6-5.0)
[2020-08-28 05:21] LABS: CALCIUM 8.4 MG/DL (8.5-10.1)
[2020-08-28 05:25] LABS: CREATININE SERUM 1.63 MG/DL (0.60-1.30)
[2020-08-28] MEDS: inSUlin ASPART (NovoLOG) 1 UNIT/0.01 ML (CHARGE PER UNIT) SC SCH ×2 (05:28→11:12)
[2020-08-28 07:34] LABS: AMYLASE 239 U/L (25-125)
[2020-08-28 07:43] LABS: LIPASE 529 U/L (8-78)
[2020-08-28 08:00] VITALS: BP 169/63
[2020-08-28] MEDS ORDERED: CLOPIDOGREL 75 MG (PLAVIX) TABLET PO SCH (09:00)
[2020-08-28] MEDS ORDERED: ALLOPURINOL 100 MG (ZYLOPRIM) TAB PO SCH (09:00)
[2020-08-28] MEDS: ENOXAPARIN 30 MG/0.3 ML (LOVENOX) SYR SC SCH (09:08)
[2020-08-28] MEDS: PANTOPRAZOLE 40 MG (PROTONIX) VIAL IV SCH (09:08)
[2020-08-28] MEDS: ASPIRIN E.C. 81 MG (ECOTRIN) TAB PO SCH (09:08)
[2020-08-28] MEDS: RANOLAZINE ER 500 MG TAB (RANEXA) PO SCH (09:08)
--- NOTE | 2020-08-28 09:44 | Consultation-Cardiology ---
HPI-Cardiology Cardiology Consultation: Date of Consultation 08/28/20 Time Seen by a Provider: 09:15 Date of Admission 08-26-20 Attending Physician Félix Mathew MD Admitting Physician Khurram Lr MD Consulting Physician Ze Willis MD Primary Waste Machine Operator: Dr. Smallwood HPI: Chief Complaint: Chest pain Mr. Woods is an 79 yr old male admitted to [facility] from the ED with c/o mid- sternal, non-radiating chest pain and abd pain. He reports the chest pain started a couple days ago while he was sitting at his desk. The discomfort radiated through to his back. He reports having indigestion as well a the time. The discomfort did not change with or without activity. He is unsure of how long the pain lasted, but it was constant. No associated symptoms. He denies any SOB, palpitations, syncope, near syncope or LE swelling. He reports he has had no further episodes of chest pain since he has been in the hospital. He does not reports any n/v/d. He states he is feeling much better today. Review of Systems-Cardiology Review of Systems Constitutional: No chills, No fever, No malaise Eyes: No vision change Ears/Nose/Throat: No epistaxis, No recent hearing loss Respiratory: As described under HPI Cardiovascular: As described under HPI Gastrointestinal: As described under HPI Genitourinary: No dysuria, No hematuria Musculoskeletal: back pain (chronic) Skin: No rash on exposed areas, No ulcerations on exposed areas Psychiatric/Neurological: No anxiety, No depression, No seizure, No focal weakness, No syncope Hematologic: No bleeding abnormalities RJR-Tjjafh-Xjcvvl Hx Patient Social History Have you traveled recently?: No Alcohol Use?: Yes Pt feels they are or have been: No Immunizations Up To Date Tetanus Booster (TDap): Unknown Date of Influenza Vaccine: Jan 26, 2017 Past Medical History PMH As described under Assessment. Family Medical History Family Medical History: Family h/o mother having CAD and a sister who had a stroke. Allergies and Home Medications Allergies Coded Allergies: No Known Drug Allergies (Verified , 05/24/16) Home Medications Allopurinol 100 Mg Tablet, 100 MG PO DAILY, (Reported) Last Action: Continued Ascorbic Acid 1,000 Mg Tablet, 1,000 MG PO DAILY, (Reported) Last Action: Held Aspirin 81 Mg Tablet.dr, 81 MG PO HS, (Reported) Last Action: Held Atorvastatin Calcium 80 Mg Tablet, 80 MG PO HS, (Reported) Last Action: Continued Carvedilol 6.25 Mg Tablet, 6.25 MG PO BID, (Reported) Last Action: Continued Cholecalciferol (Vitamin D3) 25 Mcg Capsule, 25 MCG PO DAILY, (Reported) Last Action: Held Clopidogrel Bisulfate 75 Mg Tablet, 75 MG PO DAILY, (Reported) Last Action: Continued Cyclobenzaprine HCl 5 Mg Tablet, 5 MG PO TID PRN for MUSCLE CRAMPS, (Reported) Last Action: Held Ferrous Sulfate 142 Mg Tablet.er, 142 MG PO HS, (Reported) Last Action: Held Linagliptin 5 Mg Tablet, 5 MG PO DAILY, (Reported) Last Action: Continued Mirabegron 50 Mg Tab.er.24h, 50 MG PO HS, (Reported) Last Action: Held Multivit-Min/FA/Lycopene/Lut 1 Each Tablet, 1 EACH PO DAILY, (Reported) Last Action: Held Omeprazole 40 Mg Capsule.dr, 40 MG PO DAILY, (Reported) Last Action: Held Ranolazine 500 Mg Tab.er.12h, 500 MG PO BID, (Reported) Last Action: Continued Tamsulosin HCl 0.4 Mg Cap, 0.4 MG PO HS, (Reported) Last Action: Continued [Bladder Formula] , 1 EA PO BID, (Reported) Last Action: Held Patient Home Medication List Home Medication List Reviewed: Yes Physical Exam-Cardiology Physical Exam Vital Signs/I&O 08/28/20 08/28/20 08/28/20 08/28/20 00:00 01:00 04:04 07:00 Temp 37.1 36.6 Pulse 76 73 73 76 Resp 16 19 B/P (MAP) 155/79 (104) 129/71 (90) Pulse Ox 94 97 O2 Delivery Room Air 08/28/20 08:00 Temp 36.8 Pulse 74 Resp 16 B/P (MAP) 169/63 (98) Pulse Ox 98 O2 Delivery Room Air 08/28/20 00:00 Intake Total 1740 ml Output Total 4 ml Balance 1736 ml Capillary Refill : Less Than 3 Seconds Constitutional: AAO x 3, well-developed, well-nourished HEENT: PERRL, hearing is well preserved, oral hygience is good Neck: No carotid bruit; carotid pulses are 2 + bilaterally Respiratory: No accessory muscle use, No respiratory distress; lungs clear to auscultation Cardiovascular: regular rate-rhythm; No JVD; S1 and S2, systolic murmur Gastrointestinal: No tender; soft, round, audible bowel sounds Extremities: no lower extremity edema bilateral Neurologic/Psychiatric: grossly intact (moves all extremities) Skin: No rash on exposed areas, No ulcerations on exposed areas Data Review Labs Laboratory Tests 08/27/20 10:36: Troponin I < 0.028 08/27/20 16:40: Glucometer 84 08/27/20 20:30: Glucometer 90 08/28/20 04:39: White Blood Count 9.0, Red Blood Count 2.99L, Hemoglobin 9.4L, Hematocrit 29L, Mean Corpuscular Volume 97, Mean Corpuscular Hemoglobin 31, Mean Corpuscular Hemoglobin Concent 32, Red Cell Distribution Width 14.3, Platelet Count 157, Mean Platelet Volume 10.3, Immature Granulocyte % (Auto) 0, Neutrophils (%) (Auto) 75, Lymphocytes (%) (Auto) 13, Monocytes (%) (Auto) 9, Eosinophils (%) (Auto) 3, Basophils (%) (Auto) 0, Neutrophils # (Auto) 6.7, Lymphocytes # (Auto) 1.2, Monocytes # (Auto) 0.8, Eosinophils # (Auto) 0.3, Basophils # (Auto) 0.0, Immature Granulocyte # (Auto) 0.0, Sodium Level 140, Potassium Level 3.6, Chloride Level 110H, Carbon Dioxide Level 20L, Anion Gap 10, Blood Urea Nitrogen 20H, Creatinine 1.63H, Estimat Glomerular Filtration Rate 41, BUN/Creatinine Ratio 12, Glucose Level 87, Calcium Level 8.4L, Amylase Level 239H, Lipase 529H Laboratory Tests 08/26/20 18:21 08/27/20 05:15 08/28/20 04:39 Radiology NAME: ALONDRA WOODS [facility] REC#: [id number] PT STATUS: REG ER : 1940 PHYSICIAN: IAIN LUDWIG DO ADMIT DATE: 08/26/20/ER Signed Date of Exam:08/26/20 CHEST 1 VIEW, AP/PA ONLY INDICATION: Coronary artery disease, chest pain COMPARISON: 10/22/2018 FINDINGS: Single view of the chest demonstrates new atelectasis and/or effusion in the left base. Right lung is clear. Heart is prominent without pulmonary edema. There is no pneumothorax. Sternal wires are midline. IMPRESSION: New atelectasis and/or effusion left base. Follow-up recommended. Dictated by: Dictated on workstation # [id number] Dict: 08/26/201845 Trans: 08/26/202016 [facility] [id number] Interpreted by: LINK ERVIN Electronically signed by: LINK ERVIN 08/26/202016 NAME: ALONDRA WOODS [facility] REC#: [id number] PT STATUS: REG ER : 1940 PHYSICIAN: IAIN LUDWIG DO ADMIT DATE: 08/26/20/ER Signed Date of Exam:08/26/20 CT ABDOMEN/PELVIS WO PROCEDURE: CT abdomen and pelvis without contrast. TECHNIQUE: Multiple contiguous axial images were obtained through the abdomen and pelvis without the use of intravenous contrast. Auto Exposure Controls were utilized during the CT exam to meet ALARA standards for radiation dose reduction. INDICATION: Lower back pain. Abdominal pain. COMPARISON: 10/30/2019 FINDINGS: The lung bases are clear. The gallbladder is unremarkable. Solid organs are grossly intact. There is advanced atherosclerotic disease. No solid organ or bowel ischemia is identified. Extensive metallic artifact is seen from a thoracolumbar fusion. There is no obvious fracture. There is no obvious inflammatory process. There is diverticulosis of the sigmoid colon without diverticulitis. There is some mild constipation in the rectum. Prostate seeds are present. The urinary bladder is slightly distended. Additional osseous structures are intact. IMPRESSION: 1. Extensive thoracolumbar fusion. No obvious fluid collection or fracture is identified. Detail is suboptimal due to artifact. 2. Advanced atherosclerotic disease of the abdominal aorta and visceral branch vessels. 3. Diverticulosis of the sigmoid colon without diverticulitis. 4. Constipation in the rectosigmoid. 5. Mild distention of the urinary bladder. Dictated by: Dictated on workstation # [id number] Dict: 08/26/202032 Trans: 08/26/202048 [facility] [id number] Interpreted by: LINK ERVIN Electronically signed by: LINK ERVIN 08/26/202048 ECG Impression ECG Comment SR with PVC's A/P-Cardiology Assessment/Admission Diagnosis Chest pain of undetermined etiology - no evidence of ACS Coronary artery disease: - History of CABG [address] [place] [address] Quesada, - Cardiac catheterization done in 2007 showing patent DICKSON to LAD, vein graft to diagonal artery and vein graft to the left posterior descending artery of the left circumflex artery, severe disease at the midright coronary artery that is nondominant artery, normal left ventricular size and function. - Cardiac catheterization done August 01, [address] Smallwood revealed total occlusion of the left main, LAD, left circumflex and right coronary artery. 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 The right coronary artery is small nondominant artery that is not bypassed. - Medical therapy is recommended at this point. Regarding the subclavian artery, consideration for percutaneous intervention in the future can be considered, preferably with a vascular surgery evaluation. (Per Dr. Smallwood's office note of April 2020) Aortic stenosis - Echocardiogram of May 12, [address] Smallwood showed concentric hypertrophy. LVEF 75%. Grade 1 diastolic dysfunction. Mild MR. Mild aortic stenosis. PASP 35mmHg Hypertension - labile blood pressure Hyperlipidemia Carotid stenosis reported by Dr. Smallwood - details unknown Pancreatitis - management per medical services Diabetes mellitus CKD - likely in some part d/t diabetic nephropathy Chronic back pain - has had multiple back surgeries in the past, planning to possibly undergo another back surgery with Dr. Quesada in the near future Discussion and Recomendations Chest pain of undetermined etiology without evidence of ACS Management of pancreatitis per medical services Continue current medication regimen Hold statin tx for now Monitor lab Replace electrolytes as indicated Further recs will be based on his hospital course Records from Dr. Smallwood have been reviewed We would like to thank medical services for this consult Clinical Quality Measures AMI/AHF: ASA po Prior to arrival: SHENG Molina Aug 28, 2020 09:44
[2020-08-28] MEDS ORDERED: METF-865 PO (12:03)
--- NOTE | 2020-08-28 12:08 | Discharge Summary ---
Discharge Summary Hospital Course Problems/Dx: (1) Acute pancreatitis Status: Acute Qualifiers: Qualified Codes: K85.30 - Drug induced acute pancreatitis without necrosis or infection (2) Chest pain Status: Acute (3) Acute kidney injury superimposed on chronic kidney disease Status: Acute Hospital Course Date of Admission: Aug 26, 2020 at 21:15 Admission Diagnosis : Acute pancreatitis Family Physician/Provider: Prem Poole MD Date of Discharge: 08/28/20 Discharge Diagnosis: Acute pancreatitis Hospital Course: Isael Smith is an 79-year-old male who presented with epigastric pain and was admitted with acute pancreatitis. He was treated with IV fluids and given nothing by mouth. His pain and nausea improved. He was started on a clear liquid diet and tolerated this well. His diet was advanced and he tolerated that well. His pancreatitis was thought to be due to his diabetes medication, Tradjenta. This was discontinued and he was started on Metformin. He was instructed to follow-up with Dr. Poole in about a week. He was discharged home in stable condition. Labs and Pending Lab Test: Laboratory Tests 08/27/20 16:40: Glucometer 84 08/27/20 20:30: Glucometer 90 08/28/20 04:39: White Blood Count 9.0, Red Blood Count 2.99L, Hemoglobin 9.4L, Hematocrit 29L, Mean Corpuscular Volume 97, Mean Corpuscular Hemoglobin 31, Mean Corpuscular Hemoglobin Concent 32, Red Cell Distribution Width 14.3, Platelet Count 157, Mean Platelet Volume 10.3, Immature Granulocyte % (Auto) 0, Neutrophils (%) (Auto) 75, Lymphocytes (%) (Auto) 13, Monocytes (%) (Auto) 9, Eosinophils (%) (Auto) 3, Basophils (%) (Auto) 0, Neutrophils # (Auto) 6.7, Lymphocytes # (Auto) 1.2, Monocytes # (Auto) 0.8, Eosinophils # (Auto) 0.3, Basophils # (Auto) 0.0, Immature Granulocyte # (Auto) 0.0, Sodium Level 140, Potassium Level 3.6, Chloride Level 110H, Carbon Dioxide Level 20L, Anion Gap 10, Blood Urea Nitrogen 20H, Creatinine 1.63H, Estimat Glomerular Filtration Rate 41, BUN/Creatinine Ratio 12, Glucose Level 87, Calcium Level 8.4L, Amylase Level 239H, Lipase 529H 08/28/20 11:04: Glucometer 116H Home Meds Active Metformin HCl ER (Metformin HCl) 500 Mg Tab.er.24h 500 Mg PO DAILY 30 Days Reported Flomax (Tamsulosin HCl) 0.4 Mg Cap 0.4 Mg PO HS [Bladder Formula] 1 Ea PO BID Slow Release Iron (Ferrous Sulfate) 142 Mg Tablet.er 142 Mg PO HS Vitamin C (Ascorbic Acid) 1,000 Mg Tablet 1,000 Mg PO DAILY Centrum Silver Tablet (Multivit-Min/FA/Lycopene/Lut) 1 Each Tablet 1 Each PO DAILY Vitamin D3 (Cholecalciferol (Vitamin D3)) 25 Mcg Capsule 25 Mcg PO DAILY Cyclobenzaprine HCl 5 Mg Tablet 5 Mg PO TID PRN Allopurinol 100 Mg Tablet 100 Mg PO DAILY Omeprazole 40 Mg Capsule.dr 40 Mg PO DAILY Carvedilol 6.25 Mg Tablet 6.25 Mg PO BID Clopidogrel (Clopidogrel Bisulfate) 75 Mg Tablet 75 Mg PO DAILY Ranolazine ER (Ranolazine) 500 Mg Tab.er.12h 500 Mg PO BID Myrbetriq (Mirabegron) 50 Mg Tab.er.24h 50 Mg PO HS Aspirin EC (Aspirin) 81 Mg Tablet.dr 81 Mg PO HS Atorvastatin Calcium 80 Mg Tablet 80 Mg PO HS Tradjenta (Linagliptin) 5 Mg Tablet 5 Mg PO DAILY Assessment/Pt Instructions Take medications as prescribed. Stop taking Tradjenta. Begin taking Metformin. Follow-up with your primary care physician, Dr. Poole. Return with worsening abdominal pain, vomiting, or if you feel like you are getting worse. Discharge Planning: <30 minutes discharge planning Discharge Instructions Discharge Diet: ADA Diet Activity as Tolerated: Yes Discharge Physical Examination Vital Signs Vital Signs Date Time Temp Pulse Resp B/P (MAP) Pulse Ox O2 Delivery O2 Flow Rate FiO2 08/28/20 08:00 Room Air 08/28/20 08:00 36.8 74 16 169/63 (98) 98 08/27/20 20:11 99 General Appearance: No Apparent Distress, WD/WN HEENT: PERRL/EOMI, Pharynx Normal Respiratory: Lungs Clear, Normal Breath Sounds, No Respiratory Distress Cardiovascular: Regular Rate, Rhythm, No Edema, No Murmur Gastrointestinal: Normal Bowel Sounds, Non Tender, Soft Extremity: Normal Inspection, Non Tender, No Pedal Edema Skin: Normal Color, Warm/Dry Neurologic/Psychiatric: Alert, Oriented x3, No Motor/Sensory Deficits, Normal Mood/Affect Allergies: Coded Allergies: No Known Drug Allergies (Verified , 05/24/16) Copy Copies To 1: PREM POOLE MD Discharge Summary Date of Admission Aug 26, 2020 at 21:15 Date of Discharge Discharge Date: Aug 28, 2020 Discharge Time: 12:06 Admission Diagnosis Acute pancreatitis Discharge Diagnosis Acute pancreatitis (1) Acute pancreatitis Status: Acute Qualifiers: Qualified Codes: K85.30 - Drug induced acute pancreatitis without necrosis or infection (2) Chest pain Status: Acute (3) Acute kidney injury superimposed on chronic kidney disease Status: Acute Clinical Quality Measures AMI/AHF: ASA po Prior to arrival: ZACHARY Rashid MD Aug 28, 2020 12:08
[2020-08-28 13:04] VITALS: BP 169/63
== END 2020-08-28 13:07 | disposition home or self-care (01) | DRG 439 ==
LOC: EDUNIT# 18:13 → ER 18:15 → 4TH 21:15
PROVIDERS: ADMIT Internal Medicine; ATTEND Internal Medicine
DX: K85.30 Drug induced acute pancreatitis without necrosis or infection (principal); N17.9 Acute kidney failure, unspecified; T38.3X5A Adverse effect of insulin and oral hypoglycemic [antidiabetic] drugs, initial encounter; I25.10 Atherosclerotic heart disease of native coronary artery without angina pectoris; E78.00 Pure hypercholesterolemia, unspecified; G89.29 Other chronic pain; M54.9 Dorsalgia, unspecified; D64.9 Anemia, unspecified; I12.9 Hypertensive chronic kidney disease with stage 1 through stage 4 chronic kidney disease, or unspecified chronic kidney disease; N18.9 Chronic kidney disease, unspecified; E11.22 Type 2 diabetes mellitus with diabetic chronic kidney disease; R07.9 Chest pain, unspecified; N40.0 Benign prostatic hyperplasia without lower urinary tract symptoms; I35.0 Nonrheumatic aortic (valve) stenosis; I65.29 Occlusion and stenosis of unspecified carotid artery; Z79.82 Long term (current) use of aspirin; Z79.899 Other long term (current) drug therapy; Z95.1 Presence of aortocoronary bypass graft; Z95.5 Presence of coronary angioplasty implant and graft
CPT/HCPCS: 36415; 71045; 74176; 80048; 80053; 80061; 82150; 82550; 82553; 82947; 83690; 83735; 83874; 83880; 84484; 85007; 85025; 85027; 85610; 85730; 93005; 93041

== ENCOUNTER → 2020-12-01 | Outpatient (CLI) | payer MEDICARE ==
[~2020-12-01] VITALS: Ht 167 cm; Wt 73.0 kg
[~2020-12-01] MED LIST changes: +ALLO100T PO; +ASCO100024 PO; +CARV6.252 PO; +CHOL10007 PO; +CLIN-144 PO; -CLIN300C12 PO; +CYCL5TAB PO; +FERR142T7 PO; +FORMULA PO; +METF-865 PO; +NS IV 1000 ML 1,000 ML IV SCH; +NS IV 1000 ML 1,000 ML ONE
[2020-12-01 11:53] VITALS: BP 113/45
== END ==
LOC: SDC 11:04
PROVIDERS: ATTEND Physician Assistant
DX: E86.0 Dehydration (principal); R19.7 Diarrhea, unspecified
CPT/HCPCS: 96360

== ENCOUNTER → 2020-12-03 | Outpatient (CLI) | payer MEDICARE ==
[~2020-12-03] MED LIST changes: -NS IV 1000 ML 1,000 ML IV SCH; -NS IV 1000 ML 1,000 ML ONE
== END ==
LOC: CARD 13:00
PROVIDERS: ATTEND Internal Medicine Cardiovascular Disease
DX: I35.0 Nonrheumatic aortic (valve) stenosis (principal); I35.1 Nonrheumatic aortic (valve) insufficiency; I11.9 Hypertensive heart disease without heart failure
CPT/HCPCS: 93306

== ENCOUNTER 2021-02-03 16:05 | Outpatient (CLI) | payer MEDICARE ==
[~2021-02-03] VITALS: Wt 73.0 kg
[2021-02-03] MEDS ORDERED: NS IV 1000 ML 1,000 ML ONE (16:20)
[2021-02-03] MEDS ORDERED: NS IV 1000 ML IV SCH (16:30)
[2021-02-03 16:49] VITALS: BP 119/57
== END 2021-02-03 17:51 ==
LOC: SDC 16:05
PROVIDERS: ATTEND Internal Medicine
DX: E86.0 Dehydration (principal)

== ENCOUNTER → 2021-02-03 | Outpatient (CLI) | payer MEDICARE ==
[~2021-02-03] MED LIST changes: +FERR142T17 PO; -FERR142T7 PO
--- NOTE | 2021-02-03 14:19 | Diagnostic Imaging Report ---
EXAMINATION: Chest, 2 views. HISTORY: Fall, dyspnea. COMPARISON: 06/08/2016. FINDINGS: Surgical changes from CABG and median sternotomy. There are calcifications of the aorta. Heart size is normal. Stable linear opacities in the left lung base. No consolidation, pleural effusion, or pneumothorax. Stable surgical clips overlying the left upper lung. Surgical degenerative changes of the spine. IMPRESSION: No acute radiographic abnormality in the chest. Dictated by: Dictated on workstation # [id number]
--- NOTE | 2021-02-03 14:34 | Diagnostic Imaging Report ---
EXAMINATION: Left ribs unilateral 2 view HISTORY: Fall, left chest injury, shortness of breath COMPARISON: Chest film dated 02/03/2021 FINDINGS: Median sternotomy wires are aligned. There are coronary artery bypass graft markers. There is a long segment fusion of the thoracolumbar spine. There are left lateral 8th and 9th rib fractures. There may be 6th and 7th rib fractures as well. No pneumothorax. There is left base atelectasis. No edema or pneumonia. IMPRESSION: 1. Left lateral 8th and 9th rib fractures with possible C6 and C7 fractures as well. Dictated by: Dictated on workstation # [id number]
== END ==
LOC: RAD 13:47
PROVIDERS: ATTEND Internal Medicine
DX: S22.42XA Multiple fractures of ribs, left side, initial encounter for closed fracture (principal); W19.XXXA Unspecified fall, initial encounter
CPT/HCPCS: 71046; 71100

== ENCOUNTER 2021-05-23 18:35 | Inpatient (IN) | payer MEDICARE ==
[~2021-05-23] VITALS: Ht 167.6 cm; Wt 69.9 kg
--- NOTE | 2021-05-23 19:22 | ED General ---
General Chief Complaint: General Problems/Pain Stated Complaint: FALLS/WEAKNESS Source of Information: Patient (POOR HISTORIAN AND APPEARS CONFUSED) History of Present Illness Date Seen by Provider: May 23, 2021 Time Seen by Provider: 19:05 Initial Comments PT ARRIVES VIA POV FROM HOME--PT STATES HIS NEPHEW BROUGHT HIM HERE, BUT HE IS NOT WITH PT AT THIS TIME. LATER IS DETERMINED THAT SON ACTUALLY BROUGHT HIM AND IS WITH HIM IN THE ROOM LATER--NEPHEW HAS NOT BEEN HERE AT ALL, NOR ANY OTHER FAMILY MEMBERS STATES HE LIVES AT HOME WITH HIS PT REPORTEDLY HAS BEEN FALLING AND HAVING GENERALIZED WEAKNESS FOR THE LAST 3 MONTHS STATES HE FALLS AND CAN'T GET UP PT DENIES PAIN ANYWHERE PT UNABLE TO STATE IF HE FELL TODAY OR NOT DENIES ANY SYMPTOMS CURRENTLY NO CHEST PAIN NO SHORTNESS OF BREATH NO NAUSEA/VOMITING/DIARRHEA NO COUGH, FEVER OR ANY RECENT ILLNESS NO ABDOMINAL PAIN NO HEADACHE NO PARESTHESIAS OR MOTOR DEFICITS SON ARRIVES LATER AND REPORTS THAT PT FELL TODAY AND COULD NOT GET UP, AND PT'S COULD NOT HELP HIM GET UP NO APPARENT INJURIES FROM THE FALL IS NOT KNOWN WHAT TIME THE FALL OCCURRED SON STATES HE LAST SAW PATIENT 2-3 DAYS AGO AND HAD NORMAL MENTATION, BUT SAT ALL DAY AND WATCHED TV SON STATES PT'S CALLED HIM TONIGHT, AND SON NOTICED THAT HE WAS "NOT HIMSELF" AND WAS CONFUSED WHEN HE PICKED HIM UP. HE STATES NORMALLY IS NOT CONFUSED AT ALL. SON DOES NOT KNOW ANY DETAILS OF WHEN CHANGE IN MENTATION BEGAN SON IS NOT ABLE TO PROVIDE ANY ADDITIONAL INFORMATION PCP: DR. POOLE Allergies and Home Medications Allergies Coded Allergies: No Known Drug Allergies (Verified , 05/24/16) Patient Home Medication List Home Medication List Reviewed: Yes Allopurinol (Allopurinol) 100 Mg Tablet, 100 MG PO DAILY, (Reported) Entered as Reported by: CALIN MCDERMOTT on 08/27/20 1008 Ascorbic Acid (Vitamin C) 1,000 Mg Tablet, 1,000 MG PO DAILY, (Reported) Entered as Reported by: CALIN MCDERMOTT on 08/27/20 1008 Aspirin (Aspirin EC) 81 Mg Tablet.dr 81 MG PO HS, (Reported) Entered as Reported by: YULISSA MARQUEZ on 01/24/17 1536 Atorvastatin Calcium (Atorvastatin Calcium) 80 Mg Tablet, 80 MG PO HS, (Reported) Entered as Reported by: RENNY CARLOS on 05/25/16 0848 Carvedilol (Carvedilol) 6.25 Mg Tablet, 6.25 MG PO BID, (Reported) Entered as Reported by: CALIN MCDERMOTT on 08/27/20 1008 Cholecalciferol (Vitamin D3) (Vitamin D3) 25 Mcg Capsule, 25 MCG PO DAILY, (Reported) Entered as Reported by: CALIN MCDERMOTT on 08/27/20 1008 Clopidogrel Bisulfate (Clopidogrel) 75 Mg Tablet, 75 MG PO DAILY, (Reported) Entered as Reported by: YULISSA MARQUEZ on 10/22/18 1446 Cyclobenzaprine HCl (Cyclobenzaprine HCl) 5 Mg Tablet, 5 MG PO TID PRN for MUSCLE CRAMPS, (Reported) Entered as Reported by: CALIN MCDERMOTT on 08/27/20 1008 Ferrous Sulfate (Slow Release Iron) 142 Mg Tablet.er, 142 MG PO HS, (Reported) Entered as Reported by: CALIN MCDERMOTT on 08/27/20 1008 Metformin HCl (Metformin HCl ER) 500 Mg Tab.er.24h, 500 MG PO DAILY Prescribed by: ZACHARY DALTON on 08/28/20 1203 Mirabegron (Myrbetriq) 50 Mg Tab.er.24h, 50 MG PO HS, (Reported) Entered as Reported by: LEE HEART on 08/01/18 0759 Multivit-Min/FA/Lycopene/Lut (Centrum Silver Tablet) 1 Each Tablet, 1 EACH PO D AILY, (Reported) Entered as Reported by: CALIN MCDERMOTT on 08/27/20 1008 Omeprazole (Omeprazole) 40 Mg Capsule.dr, 40 MG PO DAILY, (Reported) Entered as Reported by: CALIN MCDERMOTT on 08/27/20 1008 Ranolazine (Ranolazine ER) 500 Mg Tab.er.12h, 500 MG PO BID, (Reported) Entered as Reported by: YULISSA MARQUEZ on 10/22/18 1446 Tamsulosin HCl (Flomax) 0.4 Mg Cap, 0.4 MG PO HS, (Reported) Entered as Reported by: CALIN MCDERMOTT on 08/27/20 1009 [Bladder Formula] , 1 EA PO BID, (Reported) Entered as Reported by: CALIN MCDERMOTT on 08/27/20 1008 Review of Systems Review of Systems Constitutional: see HPI Respiratory: no symptoms reported Cardiovascular: no symptoms reported Gastrointestinal: no symptoms reported Genitourinary: no symptoms reported Musculoskeletal: no symptoms reported Skin: no symptoms reported Psychiatric/Neurological: See HPI Hematologic/Lymphatic: No Symptoms Reported Immunological/Allergic: no symptoms reported Past Auztahd-Ykxdyf-Uxncsg Hx Patient Social History Tobacco Use?: No Substance use?: No Alcohol Use?: Yes Alcohol type: Hard Liquor Alcohol Frequency: Couple times a week Immunizations Up To Date Tetanus Booster (TDap): Unknown Past Medical History Surgery/Hospitalization HX: 3 VESSEL CABG 2003 CARDIAC CATHS WITH 4-5 STENTS, PER PT. LAST CARDIAC CATH 2018--NO INTERVENTION, OPTED TO TREAT MEDICALLY-- CONCLUSION: 1. Total occlusion of the left main, LAD, left circumflex and right coronary artery. 2. Patent vein graft to the diagonal artery, vein graft to the obtuse marginal artery 3. 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 4. The right coronary artery is small nondominant artery that is not bypassed DISCUSSION AND RECOMMENDATION: Medical therapy is recommended at this point. Regarding the subclavian artery, consideration for percutaneous intervention in the future can be considered, preferably with a vascular surgery evaluation. BACK SURGERIES X 5--LAST ONE 10/2018 Surgeries: Yes Cardiac, CABG, Coronary Stent, Orthopedic Respiratory: No Currently Using CPAP: No Currently Using BIPAP: No Cardiac: Yes (3 VESSEL CABG; 4-5 STENTS) Coronary Artery Disease, High Cholesterol, Hypertension Neurological: No Reproductive Disorders: Yes (E.D.) Genitourinary: Yes (PROSTATE CANCER--S/P BRACHYTHERAPY; E.D.) Prostate Problems Gastrointestinal: Yes Pancreatitis Musculoskeletal: Yes (BACK SURGERIES X 5--LAST ONE 10/2018) Degenerate Disk Disease, Arthritis, Chronic Back Pain Endocrine: Yes Diabetes, Non-Insulin dep HEENT: No Cancer: Yes Prostate Did You Recieve Any Treatments: Yes What Type of Treatment Did You: Radiation Psychosocial: No Integumentary: No Blood Disorders: No Family Medical History Cancer, CAD Over 55 Years Old CARDIAC CATH 07/[address] RAMEY: CONCLUSION: 1. Total occlusion of the left main, LAD, left circumflex and right coronary artery. 2. Patent vein graft to the diagonal artery, vein graft to the obtuse marginal artery 3. 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 4. The right coronary artery is small nondominant artery that is not bypassed DISCUSSION AND RECOMMENDATION: Medical therapy is recommended at this point. Regarding the subclavian artery, consideration for percutaneous intervention in the future can be considered, preferably with a vascular surgery evaluation. Physical Exam Vital Signs Vital Signs - First Documented 05/23/21 18:55 Temp 36.5 Pulse 91 Resp 18 B/P (MAP) 128/60 (82) Pulse Ox 99 O2 Delivery Room Air Capillary Refill : Height, Weight, BMI Height: 5'6.00" Weight: 154lbs. 0.0oz. 69.057890or; 26.17 BMI Method:Estimated General Appearance: No Apparent Distress, WD/WN, Other (FLAT AFFECT) HEENT: PERRL/EOMI, TMs Normal, Normal ENT Inspection, Pharynx Normal Neck: Full Range of Motion, Normal Inspection, Non Tender, Supple; No JVD Respiratory: Normal Breath Sounds, No Accessory Muscle Use, No Respiratory Distress Cardiovascular: Regular Rate, Rhythm, No Edema, No JVD, No Murmur, Normal Peripheral Pulses Gastrointestinal: Non Tender, Soft Back: No CVA Tenderness Extremity: Normal Inspection, Normal Range of Motion, Non Tender, No Calf Tenderness, No Pedal Edema Neurologic/Psychiatric: Alert, No Motor/Sensory Deficits, industrial technologist II-XII Norm as Tested, Other (ORIENTED TO SELF, CONFUSED TO FAMILY MEMBERS, PLACE, TIME, SITUATION AND VERY POOR MEMORY) Skin: Normal Color, Warm/Dry, Other (NO EXTERNAL EVIDENCE OF TRAUMA ANYWHERE) Focused Exam Sepsis Stage: Sepsis Possible Source: Genitouriary Lactate Level Time of Focused Exam: 22:00 Respiratory: Normal Breath Sounds, No Accessory Muscle Use, No Respiratory Distress Cardiovascular: No Murmur Capillary Refill: Less Than 3 Seconds Skin: normal color, warm/dry Lactic Acid Level Within 3hrs of presentation: Admin fluids (GENTLE FLUIDS, DUE TO CHF), Admin ABX, Blood cultures prior to ABX's, Focus exam, Lactate level Progress/Results/Core Measures Suspected Sepsis SIRS Temperature: Pulse: Respiratory Rate: Laboratory Tests 05/23/21 19:18: White Blood Count 12.6H Blood Pressure / Mean: Laboratory Tests 05/23/21 19:18: Creatinine 3.09H, INR Comment 1.2, Platelet Count 191, Total Bilirubin 0.8 Results/Orders Lab Results Laboratory Tests Test 05/23/21 19:18 05/23/21 19:25 Range/Units White Blood Count 12.6 H 4.3-11.0 10^3/uL Red Blood Count 2.89 L 4.30-5.52 10^6/uL Hemoglobin 8.9 L 13.3-17.7 g/dL Hematocrit 28 L 40-54 % Mean Corpuscular Volume 96 80-99 fL Mean Corpuscular Hemoglobin 31 25-34 pg Mean Corpuscular Hemoglobin Concent 32 32-36 g/dL Red Cell Distribution Width 15.7 H 10.0-14.5 % Platelet Count 191 130-400 10^3/uL Mean Platelet Volume 9.9 9.0-12.2 fL Immature Granulocyte % (Auto) 1 % Neutrophils (%) (Auto) 83 H 42-75 % Lymphocytes (%) (Auto) 6 L 12-44 % Monocytes (%) (Auto) 10 0-12 % Eosinophils (%) (Auto) 0 0-10 % Basophils (%) (Auto) 0 0-10 % Neutrophils # (Auto) 10.5 H 1.8-7.8 10^3/uL Lymphocytes # (Auto) 0.8 L 1.0-4.0 10^3/uL Monocytes # (Auto) 1.2 H 0.0-1.0 10^3/uL Eosinophils # (Auto) 0.0 0.0-0.3 10^3/uL Basophils # (Auto) 0.0 0.0-0.1 10^3/uL Immature Granulocyte # (Auto) 0.1 0.0-0.1 10^3/uL Neutrophils % (Manual) 84 % Lymphocytes % (Manual) 8 % Monocytes % (Manual) 8 % Blood Morphology Comment NORMAL Prothrombin Time 15.5 H 12.2-14.7 SEC INR Comment 1.2 0.8-1.4 Activated Partial Thromboplast Time 39 H 24-35 SEC Sodium Level 136 135-145 MMOL/L Potassium Level 4.4 3.6-5.0 MMOL/L Chloride Level 106 98-107 MMOL/L Carbon Dioxide Level 16 L 21-32 MMOL/L Anion Gap 14 5-14 MMOL/L Blood Urea Nitrogen 82 H 7-18 MG/DL Creatinine 3.09 H 0.60-1.30 MG/DL Estimat Glomerular Filtration Rate 19 BUN/Creatinine Ratio 27 Glucose Level 159 H 70-105 MG/DL Calcium Level 9.7 8.5-10.1 MG/DL Corrected Calcium 9.9 8.5-10.1 MG/DL Magnesium Level 1.9 1.6-2.4 MG/DL Total Bilirubin 0.8 0.1-1.0 MG/DL Aspartate Amino Transf (AST/SGOT) 37 H 5-34 U/L Alanine Aminotransferase (ALT/SGPT) 28 0-55 U/L Alkaline Phosphatase 71 40-136 U/L Total Creatine Kinase 190 30-200 U/L Creatine Kinase MB 4.9 <6.6 NG/ML Myoglobin 393.3 H 10.0-92.0 NG/ML Troponin I 2.732 *H <0.028 NG/ML B-Type Natriuretic Peptide 364.2 H <100.0 PG/ML Total Protein 7.3 6.4-8.2 GM/DL Albumin 3.7 3.2-4.5 GM/DL Amylase Level 57 25-125 U/L Lipase 67 8-78 U/L Beta-Hydroxybutyrate (Chem panel) 0.20 0.00-0.27 MMOL/L Procalcitonin 1.12 H <0.10 NG/ML Thyroid Stimulating Hormone (TSH) 2.42 0.35-4.94 UIU/ML Serum Alcohol < 10 <10 MG/DL Urine Color YELLOW Urine Clarity CLEAR Urine pH 5.5 5-9 Urine Specific [place] 1.015 L 1.016-1.022 Urine Protein 2+ H NEGATIVE Urine Glucose (UA) NEGATIVE NEGATIVE Urine Ketones NEGATIVE NEGATIVE Urine Nitrite NEGATIVE NEGATIVE Urine Bilirubin NEGATIVE NEGATIVE Urine Urobilinogen 0.2 < = 1.0 MG/DL Urine Leukocyte Esterase 3+ H NEGATIVE Urine RBC (Auto) 2+ H NEGATIVE Urine RBC 25-50 H /HPF Urine WBC TNTC H /HPF Urine Squamous Epithelial Cells 10-25 H /HPF Urine Crystals NONE /LPF Urine Bacteria LARGE H /HPF Urine Casts NONE /LPF Urine Mucus NEGATIVE /LPF Urine Culture Indicated YES My Orders Orders - IAIN LUDWIG DO Ed Iv/Invasive Line Start (05/23/21 19:06) Ekg Tracing (05/23/21 19:06) Monitor-Rhythm Ecg Trace Only (05/23/21 19:06) Straight Cath For Spec.-Adult (05/23/21 19:06) Ct Head Wo-R/O Stroke (05/23/21 19:06) Chest 1 View, Ap/Pa Only (05/23/21 19:06) Pelvis (05/23/21 19:06) Cbc With Automated Diff (05/23/21:) Comprehensive Metabolic Panel (05/23/21 19:) Creatine Kinase (05/23/21 19:06) Creatine Kinase Mb (05/23/21 19:06) Magnesium (05/23/21 19:06) Protime With Inr (05/23/21:) Partial Thromboplastin Time (05/23/21 19:06) Ua Culture If Indicated (05/23/21 19:06) Myoglobin Serum (05/23/21 19:06) Alcohol (05/23/21 19:08) Thyroid Stimulating Hormone (05/23/21 19:08) Troponin I Ga (05/23/21 19:08) Amylase (05/23/21 19:10) Bnp [place] (05/23/21 19:10) Lipase (05/23/21 19:10) Manual Differential (05/23/21 19:18) Urine Culture (05/23/21 19:25) Blood Culture (05/23/21 20:42) Ed Iv/Invasive Line Start (05/23/21 20:42) Vital Signs Adult Sepsis Patie Q15M (05/23/21 20:42) O2 (05/23/21 20:42) Remove Rings In Anticipation O (05/23/21 20:42) Lactic Acid Analyzer (05/23/21 20:42) Procalcitonin (Pct) (05/23/21 20:42) Beta Hydroxybutyrate (05/23/21 20:42) Hemoglobin A1c (05/23/21 20:42) Ceftriaxone 1 Gm Pre-Mix (Rocephin 1 Gm (05/23/21 20:45) Furosemide Injection (Lasix Injection) (05/23/21 20:45) Medications Given in ED Current Medications Medications Dose Ordered Sig/Luz Route Start Time Stop Time Status Last Admin Dose Admin Ceftriaxone Sodium/Dextrose 50 ml @ 100 mls/hr ONCE ONCE IV 05/23/21 20:45 05/23/21 21:14 DC 05/23/21 21:21 100 MLS/HR Furosemide 40 mg ONCE ONCE IVP 05/23/21 20:45 05/23/21 20:50 DC 05/23/21 21:17 40 MG Vital Signs/I&O 05/23/21 18:55 Temp 36.5 Pulse 91 Resp 18 B/P (MAP) 128/60 (82) Pulse Ox 99 O2 Delivery Room Air Capillary Refill : Progress Note : Progress Note NO DETERIORATION IN PT' CONDITION SEPSIS PROTOCOL INITIATED AFTER RECEIVING URINE RESULTS GIVEN GENTLE IV FLUIDS DUE TO PRESENCE OF CHF SON LATER REPORTS THAT PT IS DNR/DNI AFTER CONTACTING PT'S ECG Initial ECG Impression Date: May 23, 2021 Initial ECG Impression Time: 19:15 Initial ECG Rate: 87 Initial ECG Rhythm: Normal Sinus Initial ECG Impression: Nonspecific Changes Diagnostic Imaging Comments XRAYS AND CT SCAN--PER RADIOLOGIST REPORTS AT 2039 CT HEAD-- FINDINGS: The jackman-white matter differentiation is normal. No mass effect or midline shift. There is age related cerebral atrophy with ex vacuo dilation of the ventricles. Basilar cisterns are patent. There are no intra-axial or extra-axial fluid collections. There is no intracranial hemorrhage. The orbits are normal. Paranasal sinuses are normal. Mastoid air cells are clear. No soft tissue abnormality is seen. No osseus lesions or fractures are seen. IMPRESSION: No acute intracranial abnormality. CXR-- FINDINGS: Radiation therapy markers are present in the prostate. No acute fracture is seen. There is mild hip joint osteoarthritis, bilaterally. There is lumbar spine fusion. IMPRESSION: No fracture is seen at the pelvis. FINDINGS: Median sternotomy wires are aligned. There are coronary artery bypass graft markers. There is mild edema. There is mild left base atelectasis. No pneumothorax. No pleural effusion. Heart size is normal. IMPRESSION: Mild pulmonary edema. PELVIS-- Reviewed: Reviewed by Me Departure Communication (Admissions) 2053--SPOKE WITH DR. HUITRON, [facility], FOR CONSULT. NO ADDITIONAL RECOMMENDATIONS AT THIS TIME 2055--SPOKE WITH DR. DALTON, HOSPITALIST, ACCEPTS PT FOR ADMIT. ORDERS NOTED. Impression Primary Impression: Altered mental status Additional Impressions: Sepsis UTI (urinary tract infection) Elevated troponin CHF (congestive heart failure) Anemia Acute on chronic renal failure Generalized weakness Frequent falls CAD (coronary artery disease) NIDDM Disposition: ADMITTED INPATIENT Condition: Stable Admissions Decision to Admit Reason: Admit from ER (General) Decision to Admit/Date: May 23, 2021 Time/Decision to Admit Time: 20:55 Departure-Patient Inst. Referrals: PREM POOLE MD (PCP/Family) Primary Care Physician IAIN LUDWIG DO May 23, 2021 19:22
[2021-05-23 19:26] LABS: BASOPHILS % (AUTO) 0 % (0-10); EOSINOPHILS % (AUTO) 0 % (0-10); HEMATOCRIT 28 % (40-54); HEMOGLOBIN 8.9 g/dL (13.3-17.7); LYMPHOCYTES # (AUTO) 0.8 10^3/uL (1.0-4.0); LYMPHOCYTES % (AUTO) 6 % (12-44); MEAN CORPUSCULAR HEMOGLOBIN 31 pg (25-34); MEAN CORPUSCULAR HGB CONC 32 g/dL (32-36); MEAN CORPUSCULAR VOLUME 96 fL (80-99); MEAN PLATELET VOLUME 9.9 fL (9.0-12.2); MONOCYTES # (AUTO) 1.2 10^3/uL (0.0-1.0); MONOCYTES % (AUTO) 10 % (0-12); NEUTROPHILS # (AUTO) 10.5 10^3/uL (1.8-7.8); NEUTROPHILS % (AUTO) 83 % (42-75); PLATELET COUNT 191 10^3/uL (130-400); WHITE BLOOD COUNT 12.6 10^3/uL (4.3-11.0)
[2021-05-23 19:37] LABS: BILIRUBIN,URINE NEGATIVE (NEGATIVE); CLARITY,URINE CLEAR; COLOR,URINE YELLOW; GLUCOSE, URINE (UA) NEGATIVE (NEGATIVE); KETONES,URINE NEGATIVE (NEGATIVE); LEUKOCYTE ESTERASE ,URINE 3+ (NEGATIVE); NITRITE,URINE NEGATIVE (NEGATIVE); PH,URINE 5.5 (5-9); PROTEIN,URINE 2+ (NEGATIVE)
[2021-05-23 19:37] LABS: INR 1.2 (0.8-1.4); PROTHROMBIN TIME PATIENT 15.5 SEC (12.2-14.7)
[2021-05-23 19:48] LABS: ALANINE AMINOTRANSFERASE 28 U/L (0-55); ALBUMIN 3.7 GM/DL (3.2-4.5); ALKALINE PHOSPHATASE 71 U/L (40-136); AMYLASE 57 U/L (25-125); BILIRUBIN,TOTAL 0.8 MG/DL (0.1-1.0); BUN/CREATININE RATIO 27; CALCIUM 9.7 MG/DL (8.5-10.1); CARBON DIOXIDE 16 MMOL/L (21-32); CHLORIDE 106 MMOL/L (98-107); CREATINE KINASE 190 U/L (30-200); CREATININE SERUM 3.09 MG/DL (0.60-1.30); GFR ESTIMATED 19; GLUCOSE 159 MG/DL (70-105); LIPASE 67 U/L (8-78); MAGNESIUM 1.9 MG/DL (1.6-2.4); POTASSIUM 4.4 MMOL/L (3.6-5.0); SODIUM 136 MMOL/L (135-145); TOTAL PROTEIN 7.3 GM/DL (6.4-8.2)
[2021-05-23 19:49] LABS: BACTERIA,URINE LARGE /HPF; RBC,URINE 25-50 /HPF; WBC,URINE TNTC /HPF
[2021-05-23 20:07] LABS: CREATINE KINASE MB 4.9 NG/ML (<6.6); LYMPHOCYTES % (MANUAL) 8 %; MONOCYTES % (MANUAL) 8 %; NEUTROPHILS % (MANUAL) 84 %; RBC MORPH NORMAL
--- NOTE | 2021-05-23 20:11 | Diagnostic Imaging Report ---
EXAMINATION: CT head without contrast. TECHNIQUE: Multiple contiguous axial images were obtained through the brain without the use of intravenous contrast. All CT scans use one or more of the following dose optimizing techniques: automated exposure control, MA and/or KvP adjustment based on patient size and exam type or iterative reconstruction. HISTORY: Neurologic deficit. COMPARISON: 12/05/2013. FINDINGS: The jackman-white matter differentiation is normal. No mass effect or midline shift. There is age related cerebral atrophy with ex vacuo dilation of the ventricles. Basilar cisterns are patent. There are no intra-axial or extra-axial fluid collections. There is no intracranial hemorrhage. The orbits are normal. Paranasal sinuses are normal. Mastoid air cells are clear. No soft tissue abnormality is seen. No osseus lesions or fractures are seen. IMPRESSION: No acute intracranial abnormality. Dictated by: Dictated on workstation # [id number]
--- NOTE | 2021-05-23 20:24 | Diagnostic Imaging Report ---
EXAMINATION: Chest, 1 view. HISTORY: Fall. COMPARISON: 08/26/2020. FINDINGS: Median sternotomy wires are aligned. There are coronary artery bypass graft markers. There is mild edema. There is mild left base atelectasis. No pneumothorax. No pleural effusion. Heart size is normal. IMPRESSION: Mild pulmonary edema. Dictated by: Dictated on workstation # [id number]
--- NOTE | 2021-05-23 20:25 | Diagnostic Imaging Report ---
EXAMINATION: Pelvis, 1 or 2 views. HISTORY: Pelvic pain. COMPARISON: None available. FINDINGS: Radiation therapy markers are present in the prostate. No acute fracture is seen. There is mild hip joint osteoarthritis, bilaterally. There is lumbar spine fusion. IMPRESSION: No fracture is seen at the pelvis. Dictated by: Dictated on workstation # [id number]
[2021-05-23] MEDS ORDERED: cefTRIAXone 1 GM PRE-MIX 50 ML IV ONE (20:45)
[2021-05-23] MEDS ORDERED: FUROSEMIDE 40 MG/4 ML INJ (LASIX) IVP ONE (20:45)
[2021-05-23] MEDS ORDERED: NITROGLYCERIN 0.4 MG SL TABS BTL 25'S SL PRN (22:00)
[2021-05-23] MEDS ORDERED: ONDANSETRON 4 MG/2 ML (SDV) Z0FRAN IV PRN (22:00)
[2021-05-23] MEDS ORDERED: morphine INJ 4 MG/ML 1 ML (VIAL/SYRINGE) IV PRN (22:00)
[2021-05-23] MEDS ORDERED: NS IV 1000 ML 1,000 ML IV SCH (22:15)
[2021-05-23] MEDS: NS IV 1000 ML 1,000 ML IV SCH (22:17)
[2021-05-23 22:45] VITALS: BP 125/64
[2021-05-23 23:00] VITALS: BP 123/55
[2021-05-23 23:15] VITALS: BP 98/57
[2021-05-23 23:30] VITALS: BP 99/81
[2021-05-23 23:45] VITALS: BP 113/58
[2021-05-24] VITALS (15 sets, daily range): BP systolic 97–123; BP diastolic 48–63
[2021-05-24 06:15] LABS: BASOPHILS # (AUTO) 0.1 10^3/uL (0.0-0.1); BASOPHILS % (AUTO) 0 % (0-10); EOSINOPHILS # (AUTO) 0.1 10^3/uL (0.0-0.3); EOSINOPHILS % (AUTO) 1 % (0-10); HEMATOCRIT 27 % (40-54); HEMOGLOBIN 8.9 g/dL (13.3-17.7); LYMPHOCYTES # (AUTO) 0.8 10^3/uL (1.0-4.0); LYMPHOCYTES % (AUTO) 7 % (12-44); MEAN CORPUSCULAR HEMOGLOBIN 31 pg (25-34); MEAN CORPUSCULAR HGB CONC 33 g/dL (32-36); MEAN CORPUSCULAR VOLUME 94 fL (80-99); MONOCYTES # (AUTO) 1.3 10^3/uL (0.0-1.0); MONOCYTES % (AUTO) 12 % (0-12); NEUTROPHILS % (AUTO) 80 % (42-75); PLATELET COUNT 193 10^3/uL (130-400); WHITE BLOOD COUNT 11.3 10^3/uL (4.3-11.0)
[2021-05-24] MEDS: inSUlin ASPART (NovoLOG) 1 UNIT/0.01 ML (CHARGE PER UNIT) SC SCH ×4 (06:17→20:19)
[2021-05-24 06:24] LABS: ALBUMIN 3.5 GM/DL (3.2-4.5); POTASSIUM 3.8 MMOL/L (3.6-5.0)
[2021-05-24 06:25] LABS: CALCIUM 9.7 MG/DL (8.5-10.1)
[2021-05-24 06:29] LABS: BILIRUBIN,TOTAL 0.6 MG/DL (0.1-1.0)
[2021-05-24 06:30] LABS: CREATININE SERUM 2.73 MG/DL (0.60-1.30)
--- NOTE | 2021-05-24 07:43 | Diagnostic Imaging Report ---
EXAMINATION: Chest 1 view HISTORY: Altered mental status, sepsis COMPARISON: 05/23/2021 FINDINGS: Heart size and pulmonary vasculature are normal. Surgical changes from median sternotomy and CABG. There are mild interstitial opacities seen throughout both lungs which are unchanged from prior exam. No pleural effusion or pneumothorax. Surgical changes from spinal fusion and median sternotomy. Multiple surgical clips overlying the left neck. IMPRESSION: 1. Stable mild interstitial opacities throughout the lungs which can be seen with pulmonary edema. Dictated by: Dictated on workstation # [id number]
[2021-05-24] MEDS ORDERED: HEParin DRIP 25000 UNIT/500ML 500 ML IV SCH (08:15)
[2021-05-24] MEDS ORDERED: HEParin 1000 UNIT/ML (10ML VIAL) FOR BOLUS IV PRN (08:15)
[2021-05-24] MEDS: ASPIRIN E.C. 81 MG (ECOTRIN) TAB PO SCH (08:25)
[2021-05-24] MEDS: ACETAMINOPHEN 500 MG TAB (TYLENOL) PO PRN (08:25)
[2021-05-24] MEDS: NS IV 1000 ML 1,000 ML IV SCH ×2 (08:25→18:45)
[2021-05-24 08:47] LABS: HEMATOCRIT 28 % (40-54); MEAN CORPUSCULAR HEMOGLOBIN 31 pg (25-34); MEAN CORPUSCULAR HGB CONC 32 g/dL (32-36); MEAN CORPUSCULAR VOLUME 96 fL (80-99); MEAN PLATELET VOLUME 10.2 fL (9.0-12.2); PLATELET COUNT 198 10^3/uL (130-400); WHITE BLOOD COUNT 12.5 10^3/uL (4.3-11.0)
[2021-05-24 09:05] LABS: INR 1.1 (0.8-1.4)
--- NOTE | 2021-05-24 09:12 | History & Physical-Hospitalist ---
History of Present Illness HPI/Chief Complaint Patient is an 80-year-old male with past medical history of coronary artery disease status post CABG and subsequent stenting who presented to the emergency department due to confusion and weakness. He is unable to provide me any history. He states he is feeling well. There is no family at bedside to supplement his history. All history is obtained from the records. Apparently he was last seen by his son 2 or 3 days ago and was in his normal state of health but yesterday his called his son as he was very weak and could not get up. Son stated that he was confused and his baseline is alert and oriented x4. He was found to have a urinary tract infection in the emergency department and elevated troponin and was admitted for further management. He denies any chest pain or urinary issues. Source: patient Date Seen 05/24/21 Time Seen by a Provider: 08:15 Attending Physician Prem Lr MD PCP Prem Lr MD Referring Physician Date of Admission May 23, 2021 at 20:54 Home Medications & Allergies Home Medications Reviewed patient Home Medication Reconciliation performed by pharmacy medication reconciliations coffee machine technician and/or nursing. Patients Allergies have been reviewed. Allergies Allergies Coded Allergies No Known Drug Allergies (Verified05/24/16) Past Bofyzuq-Spfqic-Eercbb Hx Patient Social History Marrital Status: Employed/Student: retired Tobacco Use?: No Smoking Status: Never a Smoker Smokeless Tobacco Frequency: Never a User Use of E-Cig and/or Vaping dev: No Substance use?: No Alcohol Use?: Yes Alcohol type: Hard Liquor Alcohol Frequency: Couple times a week Pt feels they are or have been: No Immunizations Up To Date Date of Influenza Vaccine: Jan 26, 2017 Tetanus Booster (TDap): Unknown Current Status Advance Directives: Yes Advance Directive Location: Copy placed in chart Communicates: Verbally Primary Language: Chinese Preferred Spoken Language: Chinese Is interpretation needed?: No Sensory deficits: Vision impairment Implanted or Applied Medical D: Stents Past Medical History Surgeries: Cardiac, CABG, Coronary Stent, Orthopedic Currently Using CPAP: No Currently Using BIPAP: No Coronary Artery Disease, High Cholesterol, Hypertension Prostate Problems Pancreatitis Degenerate Disk Disease, Arthritis, Chronic Back Pain Diabetes, Non-Insulin dep Prostate Did You Recieve Any Treatments: Yes What Type of Treatment Did You: Radiation Blood Disorders: No Family Medical History Cancer, CAD Over 55 Years Old CARDIAC CATH 07/[address] RAMEY: CONCLUSION: 1. Total occlusion of the left main, LAD, left circumflex and right coronary artery. 2. Patent vein graft to the diagonal artery, vein graft to the obtuse marginal artery 3. 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 4. The right coronary artery is small nondominant artery that is not bypassed DISCUSSION AND RECOMMENDATION: Medical therapy is recommended at this point. Regarding the subclavian artery, consideration for percutaneous intervention in the future can be considered, preferably with a vascular surgery evaluation. Review of Systems ROS-Unable to Obtain: confusion Constitutional: see HPI Physical Exam Physical Exam Vital Signs Vital Signs - First Documented 05/23/21 18:55 Temp 36.5 Pulse 91 Resp 18 B/P (MAP) 128/60 (82) Pulse Ox 99 O2 Delivery Room Air Capillary Refill : Less Than 3 Seconds Height, Weight, BMI Height: 5'6.00" Weight: 154lbs. 0.0oz. 69.743227xm; 23.00 BMI Method:Estimated General Appearance: No Apparent Distress, WD/WN, Thin HEENT: PERRL/EOMI, Moist Mucous Membranes Neck: Normal Inspection, Supple Respiratory: Lungs Clear, No Accessory Muscle Use, No Respiratory Distress Cardiovascular: Regular Rate, Rhythm, No JVD, Systolic Murmur Gastrointestinal: Normal Bowel Sounds, Non Tender, Soft Extremity: No Calf Tenderness, No Pedal Edema Neurologic/Psychiatric: Alert, Oriented x3 Results Results/Procedures Labs Laboratory Tests 05/23/21 19:18 05/24/21 06:00 05/24/21 08:42 Patient resulted labs reviewed. Imaging: Reviewed Imaging Report [facility] [place], [place] NAME: ALONDRA WOODS [facility] REC#: [id number] PT STATUS: REG ER : 1940 PHYSICIAN: IAIN LUDWIG DO ADMIT DATE: 05/23/21/ER Signed Date of Exam:05/23/21 CT HEAD WO-R/O STROKE EXAMINATION: CT head without contrast. TECHNIQUE: Multiple contiguous axial images were obtained through the brain without the use of intravenous contrast. All CT scans use one or more of the following dose optimizing techniques: automated exposure control, MA and/or KvP adjustment based on patient size and exam type or iterative reconstruction. HISTORY: Neurologic deficit. COMPARISON: 12/05/2013. FINDINGS: The jackman-white matter differentiation is normal. No mass effect or midline shift. There is age related cerebral atrophy with ex vacuo dilation of the ventricles. Basilar cisterns are patent. There are no intra-axial or extra-axial fluid collections. There is no intracranial hemorrhage. The orbits are normal. Paranasal sinuses are normal. Mastoid air cells are clear. No soft tissue abnormality is seen. No osseus lesions or fractures are seen. IMPRESSION: No acute intracranial abnormality. Dictated by: Dictated on workstation # [id number] Dict: 05/23/212005 Trans: 05/23/212024 PJE [id number] Interpreted by: PREM OBANDO MD Electronically signed by: PREM OBANDO MD 05/23/212024 [facility] [place] NAME: ALONDRA WOODS [facility] REC#: [id number] PT STATUS: REG ER : 1940 PHYSICIAN: IIAN LUDWIG DO ADMIT DATE: 05/23/21/ER Signed Date of Exam:05/23/21 PELVIS EXAMINATION: Pelvis, 1 or 2 views. HISTORY: Pelvic pain. COMPARISON: None available. FINDINGS: Radiation therapy markers are present in the prostate. No acute fracture is seen. There is mild hip joint osteoarthritis, bilaterally. There is lumbar spine fusion. IMPRESSION: No fracture is seen at the pelvis. Dictated by: Dictated on workstation # [id number] Dict: 05/23/212022 Trans: 05/23/212024 PJE [id number] Interpreted by: PREM OBANDO MD Electronically signed by: PREM OBANDO MD 05/23/212024 [facility] [place] NAME: ALONDRA WOODS [facility] REC#: [id number] PT STATUS: REG ER : 1940 PHYSICIAN: IAIN LUDWIG DO ADMIT DATE: 05/23/21/ER Signed Date of Exam:05/23/21 CHEST 1 VIEW, AP/PA ONLY EXAMINATION: Chest, 1 view. HISTORY: Fall. COMPARISON: 08/26/2020. FINDINGS: Median sternotomy wires are aligned. There are coronary artery bypass graft markers. There is mild edema. There is mild left base atelectasis. No pneumothorax. No pleural effusion. Heart size is normal. IMPRESSION: Mild pulmonary edema. Dictated by: Dictated on workstation # [id number] Dict: 05/23/212021 Trans: 05/23/212023 PJE [id number] Interpreted by: PREM OBANDO MD Electronically signed by: PREM OBANDO MD 05/23/212023 Assessment/Plan Admission Diagnosis NSTEMI Admission Status: Inpatient Order (span 2 midnights) Reason for Inpatient Admission: see below Assessment and Plan NSTEMI CAD s/p CABG HTN HLD Cardiology consulted, appreciate recs ASA given Discussed with Dr Pittman and started on heparin gtt due to JAYLEN Continue home meds as able Echo ordered UTI JAYLEN on CKD 3b Creatinine around 1.6 last year Down from yesterday Continue IVF Treat UTI Await cultures Anemia of CKD Around baseline Will check Iron level as is on oral iron and may need IV iron if still low NIDDMII Hold metformin due to JAYLEN BPH Continue flomax when med rec done DVT ppx: On heparin gtt already FCO ZUÑIGA MD May 24, 2021 09:12
[2021-05-24] MEDS ORDERED: FERR-74 PO (14:34)
[2021-05-24] MEDS ORDERED: CARV3.122 PO (14:34)
[2021-05-24] MEDS ORDERED: SOLI5TAB7 PO (14:34)
--- NOTE | 2021-05-24 17:42 | Consultation-Cardiology ---
HPI-Cardiology Cardiology Consultation: Date of Consultation 05/24/21 Date of Admission 05/23/21 Attending Physician Khurram Lr MD Admitting Physician Khurram Lr MD Consulting Physician CHRISTOPHER HUITRON JR, MD HPI: Time Seen by a Provider: 19:04 Chief Complaint: Reason for consultation: Possible NSTEMI. At the pleasure of seeing Reyes on the cardiac stepdown unit at [facility] in [place], [place] today. He normally follows with one of my partners. He came to the hospital yesterday due to weakness and falls. His tells me that since last weekend he has fallen several times. She states that he will be walking and then will slowly get himself down to the floor. He does not lose consciousness but then when he is lying on the floor he will refuse to get up. His is helped him to get up a few times but then she has a shoulder injury and was no longer able to assist in getting up off the floor. Yesterday they called his son when he had slid out of bed and when the son came over, he could tell something was not right with his father so he brought him to the emergency room. When I spoke to the patient he states that he is also been having some intermittent chest discomfort. This seems to be short-lived. He has had some dyspnea on exertion but denies paroxysmal nocturnal dyspnea or orthopnea. He denies any palpitations or lower extremity edema. During his evaluation in the emergency room he was found to have an elevated troponin level and a cardiology consultation was requested. Certain portions of this document may have been dictated utilizing voice recognition technology. Inherent to this technology, typographical and grammatical errors may exist. As much as I am diligent to identify and correct these mistakes, some errors may remain in the document. Review of Systems-Cardiology Review of Systems Other comments Review of 10 organ systems is as per the history of present illness, otherwise negative. QEZ-Rcwhqs-Zshhul Hx Patient Social History Marrital Status: Employed/Student: retired Smoking Status: Never a Smoker Have you traveled recently?: No Alcohol Use?: Yes Pt feels they are or have been: No Immunizations Up To Date Tetanus Booster (TDap): Unknown Date of Influenza Vaccine: Jan 26, 2017 Past Medical History PMH As described under Assessment. Family Medical History Family Medical History: Family h/o mother having CAD and a sister who had a stroke. Allergies and Home Medications Allergies Coded Allergies: No Known Drug Allergies (Verified , 05/24/16) Patient Home Medication List Home Medication List Reviewed: Yes Allopurinol (Allopurinol) 100 Mg Tablet, 100 MG PO DAILY, (Reported) Entered as Reported by: CALIN MCDERMOTT on 08/27/20 1008 Last Action: Reviewed Ascorbic Acid (Vitamin C) 1,000 Mg Tablet, 1,000 MG PO DAILY, (Reported) Entered as Reported by: CALIN MCDERMOTT on 08/27/20 100 Last Action: Reviewed Aspirin (Aspirin EC) 81 Mg Tablet., 81 MG PO HS, (Reported) Entered as Reported by: YULISSA MARQUEZ on 01/24/17 1536 Last Action: Reviewed Atorvastatin Calcium (Atorvastatin Calcium) 80 Mg Tablet, 80 MG PO HS, (Reported) Entered as Reported by: RENNY CARLOS on 05/25/16 0848 Last Action: Reviewed Carvedilol (Carvedilol) 3.125 Mg Tablet, 3.125 MG PO BID, (Reported) Entered as Reported by: CALIN MCDERMOTT on 05/24/21 1434 Last Action: Reviewed Cholecalciferol (Vitamin D3) (Vitamin D3) 25 Mcg Capsule, 25 MCG PO DAILY, (Reported) Entered as Reported by: CALIN MCDERMOTT on 08/27/20 100 Last Action: Reviewed Clopidogrel Bisulfate (Clopidogrel) 75 Mg Tablet, 75 MG PO DAILY, (Reported) Entered as Reported by: YULISSA MARQUEZ on 10/22/18 1446 Last Action: Reviewed Ferrous Sulfate (Ferrous Sulfate) 325 Mg Tablet, 325 MG PO DAILY, (Reported) Entered as Reported by: CALIN MCDERMOTT on 05/24/21 1434 Last Action: Reviewed Multivit-Min/FA/Lycopene/Lut (Centrum Silver Tablet) 1 Each Tablet, 1 EACH PO DAILY, (Reported) Entered as Reported by: CALIN MCDERMOTT on 08/27/20 100 Last Action: Reviewed Omeprazole (Omeprazole) 40 Mg Capsule.dr, 40 MG PO DAILY, (Reported) Entered as Reported by: CALIN MCDERMOTT on 08/27/20 1008 Last Action: Reviewed Ranolazine (Ranolazine ER) 500 Mg Tab.er.12h, 500 MG PO BID, (Reported) Entered as Reported by: YULISSA MARQUEZ on 10/22/18 1446 Last Action: Reviewed Solifenacin Succinate (Solifenacin Succinate) 5 Mg Tablet, 5 MG PO DAILY, (Reported) Entered as Reported by: CALIN MCDERMOTT on 05/24/21 1434 Last Action: Reviewed Tamsulosin HCl (Flomax) 0.4 Mg Cap, 0.8 MG PO HS, (Reported) Entered as Reported by: CALIN MCDERMOTT on 08/27/20 1009 Last Action: Reviewed Discontinued Medications Carvedilol (Carvedilol) 6.25 Mg Tablet, 6.25 MG PO BID, (Reported) Discontinued Reason: No Longer Taking Entered as Reported by: CALIN MCDERMOTT on 08/27/20 1008 Last Action: Discontinued Cyclobenzaprine HCl (Cyclobenzaprine HCl) 5 Mg Tablet, 5 MG PO TID PRN for MUSCLE CRAMPS, (Reported) Discontinued Reason: No Longer Taking Entered as Reported by: CALIN MCDERMOTT on 08/27/20 1008 Last Action: Discontinued Ferrous Sulfate (Slow Release Iron) 142 Mg Tablet.er, 142 MG PO HS, (Reported) Discontinued Reason: No Longer Taking Entered as Reported by: CALIN MCDERMOTT on 08/27/20 1008 Last Action: Discontinued Metformin HCl (Metformin HCl ER) 500 Mg Tab.er.24h, 500 MG PO DAILY Discontinued Reason: No Longer Taking Prescribed by: ZACHARY DALTON on 08/28/20 1203 Last Action: Discontinued Mirabegron (Myrbetriq) 50 Mg Tab.er.24h, 50 MG PO HS, (Reported) Discontinued Reason: No Longer Taking Entered as Reported by: LEE HEART on 08/01/18 0759 Last Action: Discontinued [Bladder Formula] , 1 EA PO BID, (Reported) Discontinued Reason: No Longer Taking Entered as Reported by: CALIN MCDERMOTT on 08/27/20 1008 Last Action: Discontinued Exam Vital Signs Vital Signs Date Time Temp Pulse Resp B/P (MAP) Pulse Ox O2 Delivery O2 Flow Rate FiO2 05/24/21 16:00 73 22 114/60 (78) 99 Room Air 05/24/21 15:50 36.6 Physical Exam General: Alert. No acute distress. Well nourished and appears stated age. Eye: Extraocular movements are intact. Conjunctivae are clear. There are no xanthelasma. HENT: Normocephalic. Atraumatic. Carotid pulsations 2/2 without bruits. Neck: Jugular venous pressure does not appear elevated. No thyromegaly appreciated. Respiratory: Lungs are clear to auscultation. Respirations are non-labored. Breath sounds are equal. Symmetrical chest wall expansion. Cardiovascular: Normal rate. Regular rhythm. 3/6 high-pitched systolic ejection murmur. No gallop. Point of maximal impulse is not appear displaced. Good pulses equal in all extremities. No edema. Gastrointestinal: Soft. Normal bowel sounds. Skin: Skin turgor is normal. There is no pallor. Musculoskeletal: No kyphosis or scoliosis appreciated. Neurologic: Alert and oriented to person, place, time. Cranial nerves 3-12 appea r grossly intact. The patient has good motor tone strength in the upper and lower extremities bilaterally. Psychiatric: Cooperative. Appropriate mood & affect. Labs Laboratory Tests Test 05/23/21 19:18 05/23/21 19:25 05/23/21 20:58 05/23/21 23:00 Range/Units White Blood Count 12.6 H 4.3-11.0 10^3/uL Red Blood Count 2.89 L 4.30-5.52 10^6/uL Hemoglobin 8.9 L 13.3-17.7 g/dL Hematocrit 28 L 40-54 % Mean Corpuscular Volume 96 80-99 fL Mean Corpuscular Hemoglobin 31 25-34 pg Mean Corpuscular Hemoglobin Concent 32 32-36 g/dL Red Cell Distribution Width 15.7 H 10.0-14.5 % Platelet Count 191 130-400 10^3/uL Mean Platelet Volume 9.9 9.0-12.2 fL Immature Granulocyte % (Auto) 1 % Neutrophils (%) (Auto) 83 H 42-75 % Lymphocytes (%) (Auto) 6 L 12-44 % Monocytes (%) (Auto) 10 0-12 % Eosinophils (%) (Auto) 0 0-10 % Basophils (%) (Auto) 0 0-10 % Neutrophils # (Auto) 10.5 H 1.8-7.8 10^3/uL Lymphocytes # (Auto) 0.8 L 1.0-4.0 10^3/uL Monocytes # (Auto) 1.2 H 0.0-1.0 10^3/uL Eosinophils # (Auto) 0.0 0.0-0.3 10^3/uL Basophils # (Auto) 0.0 0.0-0.1 10^3/uL Immature Granulocyte # (Auto) 0.1 0.0-0.1 10^3/uL Neutrophils % (Manual) 84 % Lymphocytes % (Manual) 8 % Monocytes % (Manual) 8 % Blood Morphology Comment NORMAL Prothrombin Time 15.5 H 12.2-14.7 SEC INR Comment 1.2 0.8-1.4 Activated Partial Thromboplast Time 39 H 24-35 SEC Sodium Level 136 135-145 MMOL/L Potassium Level 4.4 3.6-5.0 MMOL/L Chloride Level 106 98-107 MMOL/L Carbon Dioxide Level 16 L 21-32 MMOL/L Anion Gap 14 5-14 MMOL/L Blood Urea Nitrogen 82 H 7-18 MG/DL Creatinine 3.09 H 0.60-1.30 MG/DL Estimat Glomerular Filtration Rate 19 BUN/Creatinine Ratio 27 Glucose Level 159 H 70-105 MG/DL Calcium Level 9.7 8.5-10.1 MG/DL Corrected Calcium 9.9 8.5-10.1 MG/DL Magnesium Level 1.9 1.6-2.4 MG/DL Total Bilirubin 0.8 0.1-1.0 MG/DL Aspartate Amino Transf (AST/SGOT) 37 H 5-34 U/L Alanine Aminotransferase (ALT/SGPT) 28 0-55 U/L Alkaline Phosphatase 71 40-136 U/L Total Creatine Kinase 190 30-200 U/L Creatine Kinase MB 4.9 <6.6 NG/ML Myoglobin 393.3 H 10.0-92.0 NG/ML Troponin I 2.732 *H 3.295 *H <0.028 NG/ML B-Type Natriuretic Peptide 364.2 H <100.0 PG/ML Total Protein 7.3 6.4-8.2 GM/DL Albumin 3.7 3.2-4.5 GM/DL Amylase Level 57 25-125 U/L Lipase 67 8-78 U/L Beta-Hydroxybutyrate (Chem panel) 0.20 0.00-0.27 MMOL/L Procalcitonin 1.12 H <0.10 NG/ML Thyroid Stimulating Hormone (TSH) 2.42 0.35-4.94 UIU/ML Serum Alcohol < 10 <10 MG/DL Urine Color YELLOW Urine Clarity CLEAR Urine pH 5.5 5-9 Urine Specific [place] 1.015 L 1.016-1.022 Urine Protein 2+ H NEGATIVE Urine Glucose (UA) NEGATIVE NEGATIVE Urine Ketones NEGATIVE NEGATIVE Urine Nitrite NEGATIVE NEGATIVE Urine Bilirubin NEGATIVE NEGATIVE Urine Urobilinogen 0.2 < = 1.0 MG/DL Urine Leukocyte Esterase 3+ H NEGATIVE Urine RBC (Auto) 2+ H NEGATIVE Urine RBC 25-50 H /HPF Urine WBC TNTC H /HPF Urine Squamous Epithelial Cells 10-25 H /HPF Urine Crystals NONE /LPF Urine Bacteria LARGE H /HPF Urine Casts NONE /LPF Urine Mucus NEGATIVE /LPF Urine Culture Indicated YES Lactic Acid Level 0.67 0.50-2.00 MMOL/L Test 05/24/21 06:00 05/24/21 06:11 05/24/21 06:12 05/24/21 08:42 Range/Units White Blood Count 11.3 H 12.5 H 4.3-11.0 10^3/uL Red Blood Count 2.90 L 2.95 L 4.30-5.52 10^6/uL Hemoglobin 8.9 L 9.0 L 13.3-17.7 g/dL Hematocrit 27 L 28 L 40-54 % Mean Corpuscular Volume 94 96 80-99 fL Mean Corpuscular Hemoglobin 31 31 25-34 pg Mean Corpuscular Hemoglobin Concent 33 32 32-36 g/dL Red Cell Distribution Width 15.6 H 15.6 H 10.0-14.5 % Platelet Count 193 198 130-400 10^3/uL Mean Platelet Volume 10.0 10.2 9.0-12.2 fL Immature Granulocyte % (Auto) 0 % Neutrophils (%) (Auto) 80 H 42-75 % Lymphocytes (%) (Auto) 7 L 12-44 % Monocytes (%) (Auto) 12 0-12 % Eosinophils (%) (Auto) 1 0-10 % Basophils (%) (Auto) 0 0-10 % Neutrophils # (Auto) 9.0 H 1.8-7.8 10^3/uL Lymphocytes # (Auto) 0.8 L 1.0-4.0 10^3/uL Monocytes # (Auto) 1.3 H 0.0-1.0 10^3/uL Eosinophils # (Auto) 0.1 0.0-0.3 10^3/uL Basophils # (Auto) 0.1 0.0-0.1 10^3/uL Immature Granulocyte # (Auto) 0.1 0.0-0.1 10^3/uL Sodium Level 138 135-145 MMOL/L Potassium Level 3.8 3.6-5.0 MMOL/L Chloride Level 107 98-107 MMOL/L Carbon Dioxide Level 16 L 21-32 MMOL/L Anion Gap 15 H 5-14 MMOL/L Blood Urea Nitrogen 73 H 7-18 MG/DL Creatinine 2.73 H 0.60-1.30 MG/DL Estimat Glomerular Filtration Rate 23 BUN/Creatinine Ratio 27 Glucose Level 122 H 70-105 MG/DL Calcium Level 9.7 8.5-10.1 MG/DL Corrected Calcium 10.1 8.5-10.1 MG/DL Total Bilirubin 0.6 0.1-1.0 MG/DL Aspartate Amino Transf (AST/SGOT) 36 H 5-34 U/L Alanine Aminotransferase (ALT/SGPT) 24 0-55 U/L Alkaline Phosphatase 65 40-136 U/L Troponin I 3.509 *H <0.028 NG/ML B-Type Natriuretic Peptide 331.7 H <100.0 PG/ML Total Protein 7.0 6.4-8.2 GM/DL Albumin 3.5 3.2-4.5 GM/DL Triglycerides Level 107 <150 MG/DL Cholesterol Level 107 < 200 MG/DL LDL Cholesterol Direct 49 1-129 MG/DL VLDL Cholesterol 21 5-40 MG/DL HDL Cholesterol 32 L 40-60 MG/DL Glucometer 115 H 115 H 70-110 MG/DL Prothrombin Time 15.0 H 12.2-14.7 SEC INR Comment 1.1 0.8-1.4 Activated Partial Thromboplast Time 41 H 24-35 SEC Test 05/24/21 11:12 05/24/21 12:23 05/24/21 16:37 Range/Units Glucometer 236 H 112 H 70-110 MG/DL Activated Partial Thromboplast Time 121 *H 24-35 SEC Radiology ECHOCARDIOGRAM 1. This is a technically difficult study due to poor image quality, particularly in the apical views. 2. Left ventricle: The cavity size is normal. There is moderate concentric hypertrophy. Systolic function is normal. The estimated ejection fraction is 55- 60%. Regional wall motion abnormalities cannot be excluded due to poor endocardial definition. Features are consistent with a pseudonormal left ventricular filling pattern, with concomitant abnormal relaxation and increased filling pressure (grade 2 diastolic dysfunction). 3. Left atrium: The left atrium is moderately dilated with a volume index of 46 mL/m. 4. Aortic valve: There is mild to moderate aortic stenosis with a mean gradient of 23 mmHg, peak gradient of 41 mmHg, peak velocity of 3.2 m/s and a calculated aortic valve area of 1.1 cm. 5. Mitral valve: There is mild mitral regurgitation. 6. Pulmonary arteries: The pulmonary artery pressure cannot be estimated on this study due to inadequate tricuspid regurgitant envelope. 7. Compared to the previous study from 12/03/2020, there has been slight progression of the aortic stenosis. ECG Impression ECG Comment Sinus rhythm with nonspecific anterior T wave changes. Diagnosis/Problems Diagnosis/Problems (1) Non-ST elevation myocardial infarction (NSTEMI), initial care episode Assessment & Plan: He had an elevated troponin level which is now coming down. He has no obvious ischemic changes on his electrocardiogram. He is having chest pain but this does not necessarily sound cardiac. He may have just had a troponin elevation due to the acute kidney injury on chronic kidney disease versus a type I or type II non-ST elevation myocardial infarction. I cannot completely exclude an acute coronary syndrome. I recommend he continue on as pirin and clopidogrel. I also have him on heparin infusion. I will reorder ranolazine. I will hold the beta-kimberly due to somewhat low blood pressure. I have also ordered statin medication. I will keep him n.p.o. after a light breakfast in the morning in case his manager radio wants him to have a cardiac catheterization tomorrow. I did not want to perform a cardiac catheterization today due to his acute kidney injury. (2) Aortic stenosis Assessment & Plan: He has mild to moderate aortic stenosis. This should not be contributing to his symptoms but will need to be followed longitudinally. (3) Primary hypertension Assessment & Plan: His blood pressure is actually running somewhat soft. His antihypertensive medication is currently on hold. (4) Mixed hyperlipidemia Assessment & Plan: I have resumed his statin medication. (5) Acute kidney injury superimposed on chronic kidney disease Status: Acute Assessment & Plan: I would question whether or not the patient has severe dehydration. His renal function is starting to improve. Because of the acute kidney injury, I did not feel he was a good candidate for urgent cardiac catheterization. CHRISTOPHER HUITRON JR, MD May 24, 2021 17:42
[2021-05-24] MEDS: cefTRIAXone 1 GM/50 ML (PRE-MIX) IV SCH (20:20)
[2021-05-24] MEDS: RANOLAZINE ER 500 MG TAB (RANEXA) PO SCH (21:22)
[2021-05-25] VITALS (7 sets, daily range): BP systolic 103–150; BP diastolic 51–68
[2021-05-25 02:35] LABS: BASOPHILS % (AUTO) 0 % (0-10); EOSINOPHILS # (AUTO) 0.1 10^3/uL (0.0-0.3); EOSINOPHILS % (AUTO) 1 % (0-10); HEMATOCRIT 24 % (40-54); HEMOGLOBIN 7.7 g/dL (13.3-17.7); LYMPHOCYTES % (AUTO) 10 % (12-44); MEAN CORPUSCULAR HEMOGLOBIN 31 pg (25-34); MEAN CORPUSCULAR HGB CONC 33 g/dL (32-36); MEAN CORPUSCULAR VOLUME 94 fL (80-99); MEAN PLATELET VOLUME 10.6 fL (9.0-12.2); MONOCYTES # (AUTO) 1.2 10^3/uL (0.0-1.0); MONOCYTES % (AUTO) 11 % (0-12); NEUTROPHILS # (AUTO) 8.1 10^3/uL (1.8-7.8); NEUTROPHILS % (AUTO) 77 % (42-75); PLATELET COUNT 176 10^3/uL (130-400); WHITE BLOOD COUNT 10.5 10^3/uL (4.3-11.0)
[2021-05-25 02:49] LABS: ALBUMIN 2.9 GM/DL (3.2-4.5); POTASSIUM 3.4 MMOL/L (3.6-5.0)
[2021-05-25 02:50] LABS: CALCIUM 8.6 MG/DL (8.5-10.1)
[2021-05-25 02:51] LABS: TOTAL PROTEIN 5.8 GM/DL (6.4-8.2)
[2021-05-25 02:53] LABS: BILIRUBIN,TOTAL 0.5 MG/DL (0.1-1.0)
[2021-05-25 02:55] LABS: CREATININE SERUM 2.05 MG/DL (0.60-1.30)
[2021-05-25] MEDS: NS IV 1000 ML 1,000 ML IV SCH ×3 (04:13→16:13)
[2021-05-25] MEDS: inSUlin ASPART (NovoLOG) 1 UNIT/0.01 ML (CHARGE PER UNIT) SC SCH ×5 (05:39→20:47)
[2021-05-25] MEDS: CLOPIDOGREL 75 MG (PLAVIX) TABLET PO SCH (08:37)
[2021-05-25] MEDS: ASPIRIN E.C. 81 MG (ECOTRIN) TAB PO SCH (08:37)
[2021-05-25] MEDS: RANOLAZINE ER 500 MG TAB (RANEXA) PO SCH ×2 (08:37→20:47)
[2021-05-25] MEDS: ACETAMINOPHEN 500 MG TAB (TYLENOL) PO PRN (08:38)
--- NOTE | 2021-05-25 09:03 | Cardiology Progress Note ---
Subjective Date Seen by Provider: May 25, 2021 Time Seen by Provider: 08:30 Subjective/Events-last exam Patient is in bed, c/o weakness. Denies any further chest pain at this time. Focused Exam Lactate Level 05/23/21 20:58: Lactic Acid Level 0.67 Time of Focused Exam: 22:00 Objective-Cardiology Exam Last Set of Vital Signs Vital Signs 05/25/21 05/25/21 09:19 12:00 Temp 37.1 Pulse 64 Resp 18 B/P (MAP) 105/51 (69) Pulse Ox 96 O2 Delivery Room Air I&O l Intake and Output 05/25/21 00:00 Intake Total 1290 ml Output Total 1500 ml Balance -210 ml Intake Oral 1240 ml IV Total 50 ml Output Urine Total 1500 ml General: Alert, Oriented X3, Cooperative Lungs: Clear to Auscultation, Normal Air Movement Abdomen: Normal Bowel Sounds, Soft Extremities: No Clubbing, No Cyanosis, No Edema Skin: No Rashes Neuro: Normal Speech Psych/Mental Status: Mental Status NL, Mood NL Results Lab Laboratory Tests 05/25/21 01:59 A/P-Cardiology Admission Diagnosis NSTEMI CAD HTN HLP Assessment/Plan Non-ST elevation myocardial infarction, has extensive CAD as discussed below. Currently not having any chest pain. Planning for LHC for tomorrow morning. Coronary artery disease,History of CABG [address] [place] [address] Quesada, Cardiac catheterization done August 01, 2018 revealed total occlusion of the left main, LAD, left circumflex and right coronary artery. 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 The right coronary artery is small nondominant artery that is not bypassed. Planning for LHC in the morning. Aortic stenosis, most recent 2D Echo done 05/24/21 showing EF 55-60%, mild to moderate , mild MR. Slight progression of compared to echo of November 2020. UTI, started on antibiotics. HTN, controlled, continue to monitor. HLP, maintained on statin DM Acute on chronic kidney disease, continue with gentle IVF and continue to monitor. Anemia or chronic disease Generalized weakness, debility, PT eval and treat Supervisory-Addendum Brief Supervisory Addendum Participated in pt care: history, MDM, physical Personally performed: exam, history, MDM Care discussed with: JOEL Results interpretation: Verified all documentation Notes: Patient was seen and evaluated with Sekou, examination performed, management plan was discussed, agree with the current scribed note, I made few changes to the note using Italic font Patient was seen and evaluated at bedside, he was feeling better, still having generalized weakness I visited and discussed the management plan with his Starting IV fluid, monitor him closely, planning to proceed with cardiac catheterization in the morning SEKOU PALMA May 25, 2021 09:03 SEMAJ RAMEY MD May 25, 2021 12:32
--- NOTE | 2021-05-25 10:49 | Progress Note - Hospitalist ---
Subjective HPI/CC On Admission Date Seen by Provider: May 25, 2021 Time Seen by Provider: 08:30 Patient is an 80-year-old male with past medical history of coronary artery disease status post CABG and subsequent stenting who presented to the emergency department due to confusion and weakness. He is unable to provide me any history. He states he is feeling well. There is no family at bedside to supplement his history. All history is obtained from the records. Apparently he was last seen by his son 2 or 3 days ago and was in his normal state of health but yesterday his called his son as he was very weak and could not get up. Son stated that he was confused and his baseline is alert and oriented x4. He was found to have a urinary tract infection in the emergency department and elevated troponin and was admitted for further management. He denies any chest pain or urinary issues. Subjective/Events-last exam Pt reports doing ok. Aide states he has been more confused overnight. I called and spoke with his and she states this is how the patient gets whenever he has a urinary tract infection and is dehydrated. She states that she knows he needed to come to the hospital a couple days before he came but he Begging her not to take him. She states he has a long history of this and that he is quite manipulative. She states he was tested for dementia 4 years ago and was found instead to have narcissistic personality disorder. She then relayed many issues to me regarding his home life. 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 He does not take hearing know well. She states that he does not comply with any of his medications or diet at home despite their efforts. She is concerned about him continuing to drive. She also alluded to someone potentially manipulating him for money. She is in contact with his deputy prosecuting attorney regarding these issues. She expressed desire for family meeting and states that his sons are in agreement with that. Focused Exam Lactate Level 05/23/21 20:58: Lactic Acid Level 0.67 Time of Focused Exam: 22:00 Objective Exam Vital Signs Vital Signs Date Time Temp Pulse Resp B/P (MAP) Pulse Ox O2 Delivery O2 Flow Rate FiO2 05/25/21 09:19 37.1 05/25/21 08:00 80 12 103/52 (69) 97 Room Air Capillary Refill : Less Than 3 Seconds General Appearance: No Apparent Distress, Chronically ill Respiratory: Lungs Clear, No Respiratory Distress Cardiovascular: Regular Rate, Rhythm, Systolic Murmur Gastrointestinal: Normal Bowel Sounds, Non Tender, Soft Neurologic/Psychiatric: Alert, Disoriented Results/Procedures Lab Laboratory Tests 05/25/21 01:59 Patient resulted labs reviewed. 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
--- NOTE | 2021-05-25 14:19 | Occupational Therapy Eval ---
OT Evaluation-General/PLF Medical Diagnosis Admission Date May 23, 2021 at 20:54 Medical Diagnosis: AMS, sepsis, UTI, elevated troponin Onset Date: May 23, 2021 Therapy Diagnosis Therapy Diagnosis: decreased ADL status Height/Weight Height (Feet): 5 Height (Inches): 6.00 Weight (Pounds): 154 Weight (Ounces): 0.0 Precautions Precautions/Isolations: Fall Prevention, Standard Precautions Referral Physician: Jaylyn Referral Reason: Evaluation/Treatment Medical History Pertinent Medical History: CAD, DM, GERD, HTN Additional Medical History prostate cancer, CAD s/p CABG, HTN, arthritis, DM Current History presents to ED with confusion and weakness Social History Home: Single Level (with basement) Current Living Status: Spouse ADL-Prior Level of Function SCALE: Activities may be completed with or without assistive devices. 7-Rchdyselzi-fbdmoku completes the activity by him/herself with no assistance from a helper. 5-Set-up or Clean-up Assistance-helper sets up or cleans up; patient completes activity. [place] assists only prior to or following the activity. 4-Supervision or Touching Assistance-helper provides verbal cues and/or touching/steadying and/or contact guard assistance as patient completes activity. Assistance may be provided throughout the activity or intermittently. 3-Partial/Moderate Assistance-helper does LESS THAN HALF the effort. [place] lifts, holds or supports trunk or limbs, but provides less than half the effort. 2-Substantial/Maximal Assistance-helper does MORE THAN HALF the effort. [place] lifts or holds trunk or limbs and provides more than half the effort. 7-Xldjbdxqs-wttuvu does ALL the effort. Patient does none of the effort to complete the activity. Or, the assistance of 2 or more helpers is required for the patient to complete the activity. If activity was not attempted, code reason: 7-Patient Refused. 9-Not Applicable-not attempted and the patient did not perform the activity before the current illness, exacerbation or injury. 10-Not Attempted due to Environmental Limitations-(lack of equipment, weather restraints, etc.). 88-Not Attempted due to Medical Conditions or Safety Concerns. ADL PLOF Comments Pt reports IND with ADLs and functional mobility at PLOF, no AD. He has a walk in shower with a SC. Self Care: Independent Functional Cognition: Independent OT Current Status Subjective Pt in bed, daughter present. Pt agreeable to OT Tx. Mental Status/Objective Patient Orientation: Person, Confused Attachments: Buckner Catheter, IV Current Upper Extremity ROM WFL Upper Extremity Strength grossly 3+/5 ADL-Treatment Eating (QC): 6 (IND with lunch) Lower Body Dressing (QC): 1 (Total assist changing tab style brief.) On/Off Footwear (QC): 1 (total assist gripper socks.) Toileting Hygiene (QC): 2 (Max A, OT assisted pt with managing tab style brief, pt able to perform hygiene.) Other Treatments Pt in bed, transferred supine to sit EOB (min A). Pt used FWW to perform functional mobility in hallways (Min A, 150'), then back to his room and onto toilet. Pt required cues for safety and sequencing of walker use. Pt attempted to have BM, but unsuccessful. Pt's brief changed, then pt transferred to recliner. Pt's lunch arrived, pt able to open milk carton, and cut food. Post tx, pt in recliner, call light in reach and all needs met, chair alarm activated. Education OT Patient Education: Correct positioning, Energy conservation, Modified ADL techniques, Progress toward Goal/Update tx plan, Purpose of tx/functional activities, Rehab process Teaching Recipient: Patient Teaching Methods: Discussion Response to Teaching: Verbalize Understanding OT Fci Goals Fci Goals Time Frame: Jun 04, 2021 Oral Hygiene (QC): 5 Toileting Hygiene (QC): 6 Shower/Bathe Self (QC): 4 Upper Body Dressing (QC): 5 Lower Body Dressing (QC): 4 On/Off Footwear (QC): 4 Additional Goals: 1-Demonstrate ADL Tasks, 2-Verbalize Understanding, 3- ImproveStrength/So 1=Demonstrate adherence to instructed precautions during ADL tasks. 2=Patient will verbalize/demonstrate understanding of assistive devices/modifications for ADL. 3=Patient will improve strength/tolerance for activity to enable patient to perform ADL's. OT Education/Plan Problem List/Assessment Assessment: Decreased Activ Tolerance, Decreased Safety Aware, Decreased UE Strength, Impaired Funct Balance, Impaired I ADL's, Impaired Self-Care Skills Discharge Recommendations Plan/Recommendations: Continue POC Treatment Plan/Plan of Care Patient would benefit from OT for education, treatment and training to promote independence in ADL's, mobility, safety and/or upper extremity function for ADL's. Plan of Care: ADL Retraining, Functional Mobility, UE Funct Exercise/Act Treatment Duration: Jun 04, 2021 Frequency: 3 times per week (3-5 times per week) Estimated Hrs Per Day: .25 hour per day Agreement: Yes Rehab Potential: Fair Time/GCodes Start Time: 13:26 Stop Time: 13:49 Total Time Billed (hr/min): 23 Billed Treatment Time 1, EVM (10'), ADL (13') DHRUV CARTER OT May 25, 2021 14:19
--- NOTE | 2021-05-25 14:23 | Physical Therapy Evaluation ---
PT Evaluation-General Medical Diagnosis Admission Date May 23, 2021 at 20:54 Medical Diagnosis: AMS/sepsis/UTI/elevated troponin Onset Date: May 23, 2021 Therapy Diagnosis Therapy Diagnosis: generalized weakness/debility Height/Weight Height (Feet): 5 Height (Inches): 6.00 Weight (Pounds): 154 Weight (Ounces): 0.0 Precautions Precautions/Isolations: Fall Prevention, Standard Precautions Referral Physician: Jaylyn Reason for Referral: Evaluation/Treatment Medical History Pertinent Medical History: CAD, DM, GERD, HTN Additional Medical History prostate cancer Current History ER via family due to increase confusion and multiple falls Reviewed History: Yes Social History Home: Multilevel Current Living Status: Spouse Entry Into Home: Stairs With Railing PT Steps Into Home: 4 PT Steps Inside Home: 13 Prior Prior Level of Function SCALE: Activities may be completed with or without assistive devices. 7-Nhpjrvlmbr-rklrqzr completes the activity by him/herself with no assistance from a helper. 5-Set-up or Clean-up Assistance-helper sets up or cleans up; patient completes activity. [place] assists only prior to or following the activity. 4-Supervision or Touching Assistance-helper provides verbal cues and/or touching/steadying and/or contact guard assistance as patient completes activity. Assistance may be provided throughout the activity or intermittently. 3-Partial/Moderate Assistance-helper does LESS THAN HALF the effort. [place] lifts, holds or supports trunk or limbs, but provides less than half the effort. 2-Substantial/Maximal Assistance-helper does MORE THAN HALF the effort. [place] lifts or holds trunk or limbs and provides more than half the effort. 0-Azxecuwva-gtmqsj does ALL the effort. Patient does none of the effort to complete the activity. Or, the assistance of 2 or more helpers is required for the patient to complete the activity. If activity was not attempted, code reason: 7-Patient Refused. 9-Not Applicable-not attempted and the patient did not perform the activity before the current illness, exacerbation or injury. 10-Not Attempted due to Environmental Limitations-(lack of equipment, weather restraints, etc.). 88-Not Attempted due to Medical Conditions or Safety Concerns. Bed Mobility: 6 Transfers (B,C,W/C): 6 Gait: 6 Stairs: 6 Indoor Mobility (Ambulation): Independent Stairs: Independent Prior Devices Use: None per family present, patient has, for the last 2 years, had increased confusion and behaviors with multiple falls PT Evaluation-Current Subjective Patient agrees to PT. Family present. Objective Patient Orientation: Person, Confused ROM/Strength ROM Lower Extremities bilateral LE WFL Strength Lower Extremities 3/5 grossly bilateral LE Integumentary/Posture Integumentary refer to nursing notes Bowel Incontinence: Yes Bladder Incontinence: Buckner Cath Posture WFL Neuromuscular (Tone, Coordination, Reflexes) diminished coordination Sensory Vision: Wears Glasses Hearing: Functional Transfers Sit to Lying (QC): 3 Lying to Sitting/Side of Bed(Q: 3 Sit to Stand (QC): 3 Chair/Tvl-nd-Azanb Xfer(QC): 3 Toilet Transfer (QC): 3 Gait Does the Patient Walk?: Yes Mode of Locomotion: Walk Anticipated Mode of Locomotion: Walk Walk 10 feet (QC): 3 Walk 50 ft with 2 Turns(QC): 3 Walk 150 ft (QC): 3 Distance: 150' Gait Assistive Device: FWW Comments/Gait Description tactile and verbal cues for FWW use and body placement in FWW/shuffle gait sequence Balance Sitting Static: Normal Sitting Dynamic: Normal Standing Static: Fair Standing Dynamic: Fair Assessment/Needs Noted difficulty with mobility/gait sequence and processing. Patient appears confused with increase difficulty following simple direction. Patient up in recliner with chair alarm activated for patient safety and family present. Rehab Potential: Fair PT Intermediate Goals Pellet Press Operator Goals PT Pellet Press Operator Goals Time Frame: June 12, 2021 Roll Left & Right (QC): 6 Sit to Lying (QC): 6 Lying-Sitting on Side/Bed(QC): 6 Sit to Stand (QC): 6 Chair/Cjr-cj-Wvkug Xfer(QC): 6 Toilet Transfer (QC): 6 Walk 10 feet (QC): 6 Walk 50ft with 2 Turns (QC): 6 Walk 150 ft (QC): 6 PT Plan Problem List Problem List: Activity Tolerance, Functional Strength, Safety, Balance, Gait, Transfer, Bed Mobility Treatment/Plan Treatment Plan: Continue Plan of Care Treatment Plan: Bed Mobility, Education, Functional Activity So, Functional Strength, Gait, Safety, Therapeutic Exercise, Transfers Treatment Duration: June 12, 2021 Frequency: 6 times per week Estimated Hrs Per Day: .25 hour per day Time/GCodes Time In: 1325 Time Out: 1344 Total Billed Treatment Time: 19 Total Billed Treatment 1 visit EVMod 19 min MICAELA ANNA PT May 25, 2021 14:23
[2021-05-25] MEDS: cefTRIAXone 1 GM/50 ML (PRE-MIX) IV SCH (20:47)
[2021-05-26] VITALS (13 sets, daily range): BP systolic 103–164; BP diastolic 59–74
[2021-05-26] MEDS: NS IV 1000 ML 1,000 ML IV SCH ×4 (03:05→21:01)
[2021-05-26] MEDS: inSUlin ASPART (NovoLOG) 1 UNIT/0.01 ML (CHARGE PER UNIT) SC SCH ×4 (06:15→21:01)
[2021-05-26 07:47] LABS: BASOPHILS # (AUTO) 0.1 10^3/uL (0.0-0.1); BASOPHILS % (AUTO) 0 % (0-10); EOSINOPHILS # (AUTO) 0.1 10^3/uL (0.0-0.3); EOSINOPHILS % (AUTO) 1 % (0-10); HEMATOCRIT 25 % (40-54); HEMOGLOBIN 8.2 g/dL (13.3-17.7); LYMPHOCYTES # (AUTO) 0.9 10^3/uL (1.0-4.0); LYMPHOCYTES % (AUTO) 6 % (12-44); MEAN CORPUSCULAR HEMOGLOBIN 31 pg (25-34); MEAN CORPUSCULAR HGB CONC 32 g/dL (32-36); MEAN CORPUSCULAR VOLUME 96 fL (80-99); MEAN PLATELET VOLUME 10.2 fL (9.0-12.2); MONOCYTES # (AUTO) 1.3 10^3/uL (0.0-1.0); MONOCYTES % (AUTO) 9 % (0-12); NEUTROPHILS # (AUTO) 11.3 10^3/uL (1.8-7.8); NEUTROPHILS % (AUTO) 82 % (42-75); PLATELET COUNT 208 10^3/uL (130-400); WHITE BLOOD COUNT 13.7 10^3/uL (4.3-11.0)
[2021-05-26 07:57] LABS: ALBUMIN 3.1 GM/DL (3.2-4.5); POTASSIUM 3.9 MMOL/L (3.6-5.0)
[2021-05-26 07:58] LABS: CALCIUM 9.1 MG/DL (8.5-10.1)
[2021-05-26 08:00] LABS: TOTAL PROTEIN 6.3 GM/DL (6.4-8.2)
[2021-05-26 08:01] LABS: BILIRUBIN,TOTAL 0.6 MG/DL (0.1-1.0)
[2021-05-26 08:03] LABS: CREATININE SERUM 1.84 MG/DL (0.60-1.30)
[2021-05-26] MEDS: CLOPIDOGREL 75 MG (PLAVIX) TABLET PO SCH (09:00)
[2021-05-26] MEDS: RANOLAZINE ER 500 MG TAB (RANEXA) PO SCH ×2 (09:00→21:01)
[2021-05-26] MEDS: ASPIRIN E.C. 81 MG (ECOTRIN) TAB PO SCH (09:00)
--- NOTE | 2021-05-26 09:14 | Progress Note - Hospitalist ---
Subjective HPI/CC On Admission Date Seen by Provider: May 26, 2021 Time Seen by Provider: 08:05 Patient is an 80-year-old male with past medical history of coronary artery disease status post CABG and subsequent stenting who presented to the emergency department due to confusion and weakness. He is unable to provide me any history. He states he is feeling well. There is no family at bedside to supplement his history. All history is obtained from the records. Apparently he was last seen by his son 2 or 3 days ago and was in his normal state of health but yesterday his called his son as he was very weak and could not get up. Son stated that he was confused and his baseline is alert and oriented x4. He was found to have a urinary tract infection in the emergency department and elevated troponin and was admitted for further management. He denies any chest pain or urinary issues. Subjective/Events-last exam Pt somewhat quiet but denies complaints. at bedside. We discuss the plan for cath today and then further decisions based off that. We went over his recent decline in mental and physical health and the steps needed to help return patient to his previous baseline but also explained that he may never get there. Discussed with outside of room his potential need for rehab at a [facility] but we will see how he does with therapy first. Focused Exam Lactate Level 05/23/21 20:58: Lactic Acid Level 0.67 Time of Focused Exam: 22:00 Objective Exam Vital Signs Vital Signs Date Time Temp Pulse Resp B/P (MAP) Pulse Ox O2 Delivery O2 Flow Rate FiO2 05/26/21 08:00 93 29 94 Room Air 05/26/21 07:50 37.9 134/71 (92) Capillary Refill : Less Than 3 Seconds General Appearance: No Apparent Distress, WD/WN Respiratory: Lungs Clear, No Respiratory Distress Cardiovascular: Regular Rate, Rhythm, Systolic Murmur Gastrointestinal: Normal Bowel Sounds, Non Tender, Soft Neurologic/Psychiatric: Alert, Oriented x3 Results/Procedures Lab Laboratory Tests 05/26/21 07:38 Patient resulted labs reviewed. 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
--- NOTE | 2021-05-26 09:20 | Physical Therapy Daily Note ---
PT Daily Note-Current Subjective Patient was in bed prior to tx. Patient seemed cooperative and compliant to treatment. Pain Location: No Pain Reported Mental Status Patient Orientation: Person, Confused Attachments: Buckner Catheter, IV Telemetry Transfers SCALE: Activities may be completed with or without assistive devices. 1-Flwighomyj-ankgakc completes the activity by him/herself with no assistance from a helper. 5-Set-up or Clean-up Assistance-helper sets up or cleans up; patient completes activity. [place] assists only prior to or following the activity. 4-Supervision or Touching Assistance-helper provides verbal cues and/or touching/steadying and/or contact guard assistance as patient completes activity. Assistance may be provided throughout the activity or intermittently. 3-Partial/Moderate Assistance-helper does LESS THAN HALF the effort. [place] lifts, holds or supports trunk or limbs, but provides less than half the effort. 2-Substantial/Maximal Assistance-helper does MORE THAN HALF the effort. [place] lifts or holds trunk or limbs and provides more than half the effort. 5-Yxfomjsip-yxfmwt does ALL the effort. Patient does none of the effort to complete the activity. Or, the assistance of 2 or more helpers is required for the patient to complete the activity. If activity was not attempted, code reason: 7-Patient Refused. 9-Not Applicable-not attempted and the patient did not perform the activity before the current illness, exacerbation or injury. 10-Not Attempted due to Environmental Limitations-(lack of equipment, weather restraints, etc.). 88-Not Attempted due to Medical Conditions or Safety Concerns. Lying to Sitting/Side of Bed(Q: 3 Sit to Stand (QC): 3 Gait Training Distance: 150' Walk 10 feet (QC): 4 Walk 50 ft with 2 Turns(QC): 4 Walk 150 ft (QC): 4 Gait Assistive Device: FWW Extended arm posture. Short step length no passing other foot (B). Shuffling gait at times. Wheelchair Training Does the Pt Use a Wheelchair?: No Type of Wheelchair: N/A Treatments Ambulation, transfers, mobility Assessment Current Status: Fair Progress Patient tolerated walking well today and was able to walk up to 150' before needing a rest break. Patient required verbal cues to appropriate positioning with FWW. Patient would talk at times that were unable to be understood. Patient was left in chair with chair alarm, tray, call light, and all needs met. PT Usp Goals [employer] Demonstrator Goals PT Usp Goals Time Frame: June 12, 2021 Roll Left & Right (QC): 6 Sit to Lying (QC): 6 Lying-Sitting on Side/Bed(QC): 6 Sit to Stand (QC): 6 Chair/Dnn-he-Gxxcd Xfer(QC): 6 Toilet Transfer (QC): 6 Walk 10 feet (QC): 6 Walk 50ft with 2 Turns (QC): 6 Walk 150 ft (QC): 6 PT Plan Problem List Problem List: Activity Tolerance, Functional Strength, Safety, Balance, Gait, Transfer, Bed Mobility, ROM Treatment/Plan Treatment Plan: Continue Plan of Care Treatment Plan: Bed Mobility, Education, Functional Activity So, Functional Strength, Gait, Safety, Therapeutic Exercise, Transfers Treatment Duration: June 12, 2021 Frequency: 6 times per week Estimated Hrs Per Day: .25 hour per day Safety Risks/Education Patient Education: Gait Training, Transfer Techniques, Correct Positioning, Safety Issues Teaching Recipient: Patient Teaching Methods: Discussion Response to Teaching: Reinforcement Needed Time/GCodes Time In: 852 Time Out: 0911 Total Billed Treatment Time: 19 Total Billed Treatment 1 visit FA 19min ANTON CIFUENTES PT May 26, 2021 09:20
[2021-05-26] MEDS ORDERED: HEParin (CATH LAB) 2,000 ML IV ONE (10:59)
[2021-05-26] MEDS ORDERED: LIDOCAINE 1% INJ 20 ML VIAL ONE (10:59)
[2021-05-26] MEDS ORDERED: MIDAZOLAM 5 MG/5 ML (VERSED) VIAL ONE (13:22)
[2021-05-26] MEDS ORDERED: fentaNYL INJ 100 MCG/2 ML AMP ONE (13:22)
--- NOTE | 2021-05-26 13:54 | Conscious Sedation/ASA ---
Conscious Sedation Pre-Proced Time 13:54 ASA Score 3 For ASA 3 and 4: Consider anesthesia and medical clearance. Also, for patients with a history of failed moderate sedation consider anesthesia. Airway Lungs Heart ASA score ASA 1: a normal healthy patient ASA 2: a patient with a mild systemic disease (mid diabetes, controlled hypertension, obesity x ASA 3: a patient with a severe systemic disease that limits activity (angina, COPD, prior Myocardial infarction) ASA 4: a patient with an incapacitating disease that is a constant threat to life (CHF, renal failure) ASA 5: a moribund patient not expected to survive 24 hrs. (ruptured aneurysm) ASA 6: a declared brain- patient whose organs are being harvested. For emergent operations, add the letter E after the classification Mallampati Classification Grade 3 Sedation Plan Analgesia, Amnesia, Plan communicated to team members, Discussed options with patient/fam, Discussed risks with patient/fam The patient is an appropriate candidate to undergo the planned procedure, sedation, and anesthesia. The patient immediately re-assessed prior to indication. SEMAJ RAMEY MD May 26, 2021 13:54
--- NOTE | 2021-05-26 14:24 | Occ Therapy Progress Note ---
Therapy Progress Note OT tx attempted, pt out of room for procedure this afternoon. OT will attempt tx again tomorrow. DHRUV CARTER OT May 26, 2021 14:24
[2021-05-26] MEDS ORDERED: PATIENT MAY USE OWN MEDS, ALL PO SCH (14:30)
--- NOTE | 2021-05-26 14:30 | Cardiac Cath Report ---
Cardiac Cath Report Physician (s)/Head Of Sales (s) Physician SEMAJ RAMEY MD Pre-Procedure Diagnosis Pre-Procedure Diagnosis: coronary artery disease Post-Procedure Note Procedure Start Date: May 26, 2021 Procedure Start Time: 14:25 Name of Procedure: Coronary angiogram, vein graft angiogram, DICKSON angiogram Findings/Procedure Note PROCEDURE NOTE: 80 years old gentleman with history of coronary artery disease, CABG, known to have extensive disease, admitted with change in mental status, had elevation in troponin and renal insufficiency, received IV fluid and we proceeded with coronary angiogram today. After explaining the procedure to the patient, all pros and cons were explained, all questions were answered. The patient signed the consent and then he was placed on the cardiac catheterization laboratory. Groin was prepped SL fashion local anesthesia was used. Sheath placed in the right femoral artery, I did not engage in the [place] coronary system due to the fact that they were occluded on the previous study. I proceeded directly with a Damon right catheter advanced into the vein graft to the obtuse marginal branch and angiogram was done then I advanced it in the left subclavian artery and did none selective angiogram to the DICKSON I reshaped Damon catheter and advanced it to the vein graft of the diagonal artery, I tried to cross the valve without success, I tried with a pigtail without success. At the end of the procedure the sheath was removed. Closure device was deployed FINDINGS: Hemodynamics LV was not measured, did not cross the aortic valve Aorta 111/46, mean of 74 ANATOMY: Left Main is occluded Left Anterior Descending is known to be occluded at the ostium, DICKSON to the LAD is patent tortuous artery and vein graft to the diagonal artery is patent with small vessel disease Left Circumflex is occluded at the ostium, the vein graft to the left PDA is patent with small vessel disease distally Right Coronary Artery is occluded and not bypassed DICKSON angiogram showed tortuous DICKSON patent to the LAD with small vessel disease Vein Graft evaluation showed 2 vein graft The upper vein graft is the vein graft to the PDA probably the left PDA that is patent with small vessel disease distally The lower vein graft and the vein graft to the diagonal artery that is patent CONCLUSION: 1. Patent DICKSON to LAD, patent vein graft to the diagonal artery and patent vein graft to the left PDA. 2. The [place] coronary artery are occluded at the ostium including the left anterior descending, left circumflex and right coronary artery 3. Calcified aortic valve on fluoroscopy. 4. This anatomy did not change compared to the previous study DISCUSSION AND RECOMMENDATION: Conservative management is recommended no intervention is warranted Anesthesia Type: Conscious Sedation Estimated blood loss (mL): 20 ml Contrast Amount: 13 ml Total Radiation Dose: 213 mGy Post-Procedure Diagnosis (1) Non-ST elevation myocardial infarction (NSTEMI), initial care episode Assessment & Plan: He had an elevated troponin level which is now coming down. He has no obvious ischemic changes on his electrocardiogram. He is having chest pain but this does not necessarily sound cardiac. He may have just had a troponin elevation due to the acute kidney injury on chronic kidney disease versus a type I or type II non-ST elevation myocardial infarction. I cannot completely exclude an acute coronary syndrome. I recommend he continue on aspirin and clopidogrel. I also have him on heparin infusion. I will reorder ranolazine. I will hold the beta-kimberly due to somewhat low blood pressure. I have also ordered statin medication. I will keep him n.p.o. after a light breakfast in the morning in case his map editor wants him to have a cardiac catheterization tomorrow. I did not want to perform a cardiac catheterization today due to his acute kidney injury. (2) Aortic stenosis Assessment & Plan: He has mild to moderate aortic stenosis. This should not be contributing to his symptoms but will need to be followed longitudinally. (3) Primary hypertension Assessment & Plan: His blood pressure is actually running somewhat soft. His antihypertensive medication is currently on hold. (4) Mixed hyperlipidemia Assessment & Plan: I have resumed his statin medication. (5) Acute kidney injury superimposed on chronic kidney disease Assessment & Plan: I would question whether or not the patient has severe dehydration. His renal function is starting to improve. Because of the acute kidney injury, I did not feel he was a good candidate for urgent cardiac catheterization. SEMAJ RAMEY MD May 26, 2021 14:30
[2021-05-26] MEDS: TAMSULOSIN 0.4 MG (FLOMAX) CAP PO SCH (17:48)
[2021-05-26] MEDS: CEPHALEXIN 250 MG (KEFLEX) CAP PO SCH (21:01)
[2021-05-27] VITALS (7 sets, daily range): BP systolic 111–143; BP diastolic 67–85
[2021-05-27] MEDS: ACETAMINOPHEN 500 MG TAB (TYLENOL) PO PRN ×2 (00:23→08:29)
[2021-05-27 06:15] LABS: BASOPHILS # (AUTO) 0.1 10^3/uL (0.0-0.1); BASOPHILS % (AUTO) 0 % (0-10); EOSINOPHILS # (AUTO) 0.1 10^3/uL (0.0-0.3); EOSINOPHILS % (AUTO) 0 % (0-10); HEMATOCRIT 23 % (40-54); HEMOGLOBIN 7.4 g/dL (13.3-17.7); LYMPHOCYTES # (AUTO) 0.8 10^3/uL (1.0-4.0); LYMPHOCYTES % (AUTO) 5 % (12-44); MEAN CORPUSCULAR HEMOGLOBIN 30 pg (25-34); MEAN CORPUSCULAR HGB CONC 32 g/dL (32-36); MEAN CORPUSCULAR VOLUME 95 fL (80-99); MEAN PLATELET VOLUME 10.5 fL (9.0-12.2); MONOCYTES # (AUTO) 1.3 10^3/uL (0.0-1.0); MONOCYTES % (AUTO) 9 % (0-12); NEUTROPHILS # (AUTO) 12.5 10^3/uL (1.8-7.8); NEUTROPHILS % (AUTO) 85 % (42-75); PLATELET COUNT 206 10^3/uL (130-400); WHITE BLOOD COUNT 14.8 10^3/uL (4.3-11.0)
[2021-05-27 06:36] LABS: ALBUMIN 2.9 GM/DL (3.2-4.5); POTASSIUM 3.9 MMOL/L (3.6-5.0)
[2021-05-27 06:38] LABS: TOTAL PROTEIN 5.8 GM/DL (6.4-8.2)
[2021-05-27 06:40] LABS: BILIRUBIN,TOTAL 0.7 MG/DL (0.1-1.0)
[2021-05-27 06:42] LABS: CREATININE SERUM 1.73 MG/DL (0.60-1.30)
[2021-05-27] MEDS: inSUlin ASPART (NovoLOG) 1 UNIT/0.01 ML (CHARGE PER UNIT) SC SCH ×4 (07:45→20:32)
[2021-05-27] MEDS: NS IV 1000 ML 1,000 ML IV SCH (07:45)
[2021-05-27] MEDS: CLOPIDOGREL 75 MG (PLAVIX) TABLET PO SCH (08:29)
[2021-05-27] MEDS: CEPHALEXIN 250 MG (KEFLEX) CAP PO SCH ×2 (08:29→20:35)
[2021-05-27] MEDS: ASPIRIN E.C. 81 MG (ECOTRIN) TAB PO SCH (08:29)
[2021-05-27] MEDS: RANOLAZINE ER 500 MG TAB (RANEXA) PO SCH ×2 (08:29→20:35)
--- NOTE | 2021-05-27 08:56 | Progress Note - Hospitalist ---
Subjective HPI/CC On Admission Date Seen by Provider: May 27, 2021 Time Seen by Provider: 08:52 Patient is an 80-year-old male with past medical history of coronary artery disease status post CABG and subsequent stenting who presented to the emergency department due to confusion and weakness. He is unable to provide me any history. He states he is feeling well. There is no family at bedside to supplement his history. All history is obtained from the records. Apparently he was last seen by his son 2 or 3 days ago and was in his normal state of health but yesterday his called his son as he was very weak and could not get up. Son stated that he was confused and his baseline is alert and oriented x4. He was found to have a urinary tract infection in the emergency department and elevated troponin and was admitted for further management. He denies any chest pain or urinary issues. Subjective/Events-last exam Pt repors doing well. No complaints. More talkative today than yesterday/ Dr Smallwood at bedside as well. Focused Exam Time of Focused Exam: 22:00 Objective Exam Vital Signs Vital Signs Date Time Temp Pulse Resp B/P (MAP) Pulse Ox O2 Delivery O2 Flow Rate FiO2 05/27/21 08:15 86 18 118/70 (86) 96 Room Air 05/27/21 04:00 37.1 Capillary Refill : Less Than 3 Seconds General Appearance: No Apparent Distress, Chronically ill Respiratory: Lungs Clear, No Respiratory Distress Cardiovascular: Regular Rate, Rhythm, Systolic Murmur Gastrointestinal: Normal Bowel Sounds, Non Tender, Soft Neurologic/Psychiatric: Alert, Other (oriented to person and place) Results/Procedures Lab Laboratory Tests 05/27/21 05:42 Patient resulted labs reviewed. 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
--- NOTE | 2021-05-27 09:35 | Diagnostic Imaging Report ---
INDICATION: Sepsis with altered mental status. Comparison with 05/24/2021. FINDINGS: There is cardiomegaly with median sternotomy changes. The lungs are well-aerated. There continue to be interstitial infiltrates throughout both lungs. No consolidated infiltrates are seen. No pneumothorax or pleural effusion. IMPRESSION: 1. Persistent cardiomegaly and bilateral interstitial infiltrates without consolidated pneumonia developing Dictated by: Dictated on workstation # [id number]
--- NOTE | 2021-05-27 10:00 | Cardiology Progress Note ---
Subjective Date Seen by Provider: May 27, 2021 Time Seen by Provider: 09:58 Subjective/Events-last exam Patient is laying down in bed, feeling better today, reporting improvement. Review of Systems General: No Chills, No Night Sweats; Fatigue, Malaise; No Appetite, No Other HEENT: No Head Aches, No Visual Changes, No Eye Pain, No Ear Pain, No Dysphasia, No Sinus Congestion, No Post Nasal Drip, No Sore Throat, No Other Pulmonary: No Dyspnea, No Cough, No Pleuritic Chest Pain, No Other Cardiovascular: No: Chest Pain, Palpitations, Orthopnea, Paroxysmal Noc. Dyspnea, Edema, Lt Headedness, Other Focused Exam Time of Focused Exam: 22:00 Objective-Cardiology Exam Last Set of Vital Signs Vital Signs 05/27/21 05/27/21 04:00 08:15 Temp 37.1 Pulse 86 Resp 18 B/P (MAP) 118/70 (86) Pulse Ox 96 O2 Delivery Room Air I&O Intake and Output 05/26/21 23:59 Intake Total 300 ml Output Total 2400 ml Balance -2100 ml Intake Oral 300 ml Output Urine Total 2400 ml General: Alert, Oriented X3, Cooperative HEENT: Atraumatic, PERRLA Neck: Supple Lungs: Clear to Auscultation, Normal Air Movement Heart: Regular Rate, Normal S1, Normal S2, Other (Aortic stenosis) Abdomen: Normal Bowel Sounds, Soft Extremities: No Clubbing, No Cyanosis, No Edema Skin: No Rashes Neuro: Normal Speech Psych/Mental Status: Mental Status NL, Mood NL Results Lab Laboratory Tests 05/27/21 05:42 A/P-Cardiology Admission Diagnosis NSTEMI CAD HTN HLP Assessment/Plan Non-ST elevation myocardial infarction, has extensive CAD, Coronary angiogram done on June 03, 2021, conservative management was recommended. Coronary artery disease,History of CABG [address] [place] [address] Quesada, Cardiac catheterization done August 01, 2018 revealed total occlusion of the left main, LAD, left circumflex and right coronary artery. 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 The right coronary artery is small nondominant artery that is not bypassed. Cardiac catheterization done on June 03, 2021 showing patent DICKSON to LAD, vein graft to the diagonal artery and vein graft to the left PDA/obtuse marginal branch, tortuous left subclavian with moderate stenosis, small vessel disease. Conservative management is recommended Aortic stenosis, most recent 2D Echo done 05/24/21 showing EF 55-60%, mild to moderate , mild MR. Slight progression of compared to echo of November 2020. Urinary tract infection, received antibiotic and improving. Managed by medical team HTN, controlled, continue to monitor. HLP, maintained on statin DM Acute on chronic kidney disease, continue with gentle IVF and continue to monitor. Anemia or chronic disease Generalized weakness, debility, PT eval and treat SEMAJ RAMEY MD May 27, 2021 10:00
--- NOTE | 2021-05-27 10:17 | Physician Query Clarification ---
Physician Query-General Query to Physician: The medical record reflects the following clinical scenario: The patient, in the setting of History/Risk factors, advanced age and UTI Admission VS/LABS: HR 91, RR 18, BP 128/60, SpO2 98% sat on room air T 36.5, WBC 12.6, Cr 3.09, troponin I 2.732, Lactic acid 0.67 Urine culture: Klebsiella Pneumoniae, Blood cultures with Probable Coag Negative Staph Treatment: ER: Ceftriaxone IV, Lasix IV, NS 1L , Question: Do you agree with the impression of Sepsis per(list the diagnosis/condition) per (Consulting physician)? 1. Yes; will document Sepsis in the Progress Notes 2. No; will continue current documentation in the Progress Notes 3. Other; will document explanation of clinical findings 4. Clinically undetermined; no explanation for clinical findings Please clarify and document your clinical opinion in the Progress Notes and Discharge Summary including the definitive and/or presumptive diagnosis, (suspected or probable), related to the above clinical findings. Please include clinical findings supporting your diagnosis. In responding to this query, please exercise your independent professional judgment. The purpose of this communication is to more accurately reflect the complexity of your patients condition. The fact that a question is asked does not imply that any particular answer is desired or expected. Please remember a lack of response to the above will prompt a phone page by CDI/coding staff Thank you for timely response to this clarification. Milly Lemus MSN, RN Clinical Dukey Rider PH [email or web address] PHYSICIAN RESPONSE: Based on the clinical findings in the record, please respond to the query above on this document as an addendum. Physician Response: Physician Response 1 If you have questions please contact: Physical Science Technician: Ext: Thank you for your time and cooperation. Clinical Dukey Rider/Physical Science Technician This is a permanent part of the medical record MILYL LEMUS May 27, 2021 10:17 FCO ZUÑIGA MD May 29, 2021 11:52
--- NOTE | 2021-05-27 10:32 | Physical Therapy Daily Note ---
PT Daily Note-Current Subjective Patient agrees to PT. Mental Status Patient Orientation: Confused Attachments: Buckner Catheter, IV Transfers SCALE: Activities may be completed with or without assistive devices. 3-Srrqdsztfa-ebxaphm completes the activity by him/herself with no assistance from a helper. 5-Set-up or Clean-up Assistance-helper sets up or cleans up; patient completes activity. [place] assists only prior to or following the activity. 4-Supervision or Touching Assistance-helper provides verbal cues and/or touching/steadying and/or contact guard assistance as patient completes activity. Assistance may be provided throughout the activity or intermittently. 3-Partial/Moderate Assistance-helper does LESS THAN HALF the effort. [place] lifts, holds or supports trunk or limbs, but provides less than half the effort. 2-Substantial/Maximal Assistance-helper does MORE THAN HALF the effort. [place] lifts or holds trunk or limbs and provides more than half the effort. 6-Madvqzywi-ufovxy does ALL the effort. Patient does none of the effort to complete the activity. Or, the assistance of 2 or more helpers is required for the patient to complete the activity. If activity was not attempted, code reason: 7-Patient Refused. 9-Not Applicable-not attempted and the patient did not perform the activity before the current illness, exacerbation or injury. 10-Not Attempted due to Environmental Limitations-(lack of equipment, weather restraints, etc.). 88-Not Attempted due to Medical Conditions or Safety Concerns. Lying to Sitting/Side of Bed(Q: 4 Sit to Stand (QC): 4 Chair/Zhh-cm-Hgmty Xfer(QC): 4 CGA for safety on this date Gait Training Does the Patient Walk?: Yes Distance: 275' Walk 10 feet (QC): 4 Walk 50 ft with 2 Turns(QC): 4 Walk 150 ft (QC): 4 Gait Assistive Device: FWW very slow gait sequence with VC's for body placement in FWW (tends to extend UE's and walk outside of walker with turns) Assessment Patient up in recliner with chair alarm activated and breakfast in situ. Continue to address functional strength and mobility. PT Chcf Goals Chcf Goals PT Chcf Goals Time Frame: June 12, 2021 Roll Left & Right (QC): 6 Sit to Lying (QC): 6 Lying-Sitting on Side/Bed(QC): 6 Sit to Stand (QC): 6 Chair/Bjg-lb-Prjvf Xfer(QC): 6 Toilet Transfer (QC): 6 Walk 10 feet (QC): 6 Walk 50ft with 2 Turns (QC): 6 Walk 150 ft (QC): 6 PT Plan Treatment/Plan Treatment Plan: Continue Plan of Care Treatment Plan: Bed Mobility, Education, Functional Activity So, Functional Strength, Gait, Safety, Therapeutic Exercise, Transfers Treatment Duration: June 12, 2021 Frequency: 6 times per week Estimated Hrs Per Day: .25 hour per day Time/GCodes Time In: 815 Time Out: 831 Total Billed Treatment Time: 16 Total Billed Treatment 1 visit GT 16 min MICAELA ANNA PT May 27, 2021 10:32
[2021-05-27] MEDS: ENOXAPARIN INJECTION 30 MG/0.3 ML SYR SQ SCH (10:55)
--- NOTE | 2021-05-27 11:09 | Occupational Ther Daily Note ---
OT Current Status-Daily Note Subjective Pt alert, lying in bed. Pt alert to place and name. Pt agrees to therapy. No c/o pain. Mental Status/Objective Patient Orientation: Person, Confused, Place Attachments: Buckner Catheter, IV, Telemetry ADL-Treatment After supplies gathered, pt able to complete oral care while in bed. After session, pt lying in bed with call light/phone in reach. All needs met. Therapy Code Descriptions/Definitions Functional [place] Measure: 0=Not Assessed/NA 4=Minimal Assistance 1=Total Assistance 5=Supervision or Setup 2=Maximal Assistance 6=Modified [place] 3=Moderate Assistance 7=Complete IndependenceSCALE: Activities may be completed with or without assistive devices. 6-Unwrubufwt-ktgnbdi completes the activity by him/herself with no assistance from a helper. 5-Set-up or Clean-up Assistance-helper sets up or cleans up; patient completes activity. [place] assists only prior to or following the activity. 4-Supervision or Touching Assistance-helper provides verbal cues and/or touching/steadying and/or contact guard assistance as patient completes activity. Assistance may be provided throughout the activity or intermittently. 3-Partial/Moderate Assistance-helper does LESS THAN HALF the effort. [place] lifts, holds or supports trunk or limbs, but provides less than half the effort. 2-Substantial/Maximal Assistance-helper does MORE THAN HALF the effort. [place] lifts or holds trunk or limbs and provides more than half the effort. 4-Vrrmpwaiz-dojgae does ALL the effort. Patient does none of the effort to complete the activity. Or, the assistance of 2 or more helpers is required for the patient to complete the activity. If activity was not attempted, code reason: 7-Patient Refused. 9-Not Applicable-not attempted and the patient did not perform the activity be fore the current illness, exacerbation or injury. 10-Not Attempted due to Environmental Limitations-(lack of equipment, weather restraints, etc.). 88-Not Attempted due to Medical Conditions or Safety Concerns. Other Treatment Pt completed 3 B UE exercises, 1 set 15 reps then pt c/o fatigue and B shldrs being sore. Pt followed directions appropriately. OT Shelter Goals Wet Process Operator Goals Time Frame: Jun 04, 2021 Oral Hygiene (QC): 5 Toileting Hygiene (QC): 6 Shower/Bathe Self (QC): 4 Upper Body Dressing (QC): 5 Lower Body Dressing (QC): 4 On/Off Footwear (QC): 4 Additional Goals: 1-Demonstrate ADL Tasks, 2-Verbalize Understanding, 3- ImproveStrength/So 1=Demonstrate adherence to instructed precautions during ADL tasks. 2=Patient will verbalize/demonstrate understanding of assistive devices/ modifications for ADL. 3=Patient will improve strength/tolerance for activity to enable patient to perform ADL's. OT Education/Plan Problem List/Assessment Assessment: Decreased Activ Tolerance, Decreased Safety Aware, Decreased UE Strength, Impaired Cognition, Impaired Self-Care Skills Discharge Recommendations Plan/Recommendations: Continue POC Treatment Plan/Plan of Care Patient would benefit from OT for education, treatment and training to promote independence in ADL's, mobility, safety and/or upper extremity function for ADL's. Plan of Care: ADL Retraining, Functional Mobility, UE Funct Exercise/Act Treatment Duration: Jun 04, 2021 Frequency: 3 times per week (3-5 times per week) Estimated Hrs Per Day: .25 hour per day Agreement: Yes Rehab Potential: Fair Time/GCodes Start Time: 10:44 Stop Time: 11:00 Total Time Billed (hr/min): 16 Billed Treatment Time 1 visit-FA 1 (16 min) JOSE MARIA IRELAND May 27, 2021 11:09
[2021-05-27 11:50] LABS: BILIRUBIN,URINE 1+ (NEGATIVE); CLARITY,URINE CLEAR; COLOR,URINE RED; GLUCOSE, URINE (UA) TRACE (NEGATIVE); KETONES,URINE TRACE (NEGATIVE); LEUKOCYTE ESTERASE ,URINE 1+ (NEGATIVE); NITRITE,URINE POSITIVE (NEGATIVE); PROTEIN,URINE 3+ (NEGATIVE)
[2021-05-27 11:54] LABS: BACTERIA,URINE TRACE /HPF; RBC,URINE TNTC /HPF; WBC,URINE 0-2 /HPF
[2021-05-27] MEDS ORDERED: CATHETER FLUSH 10 ML SYR IVP PRN (15:45)
[2021-05-27] MEDS: TAMSULOSIN 0.4 MG (FLOMAX) CAP PO SCH (17:04)
[2021-05-27] MEDS: CATHETER FLUSH 10 ML SYR IVP SCH (20:41)
[2021-05-28] VITALS (7 sets, daily range): BP systolic 108–143; BP diastolic 63–77
[2021-05-28 05:38] LABS: BASOPHILS % (AUTO) 0 % (0-10); EOSINOPHILS # (AUTO) 0.3 10^3/uL (0.0-0.3); EOSINOPHILS % (AUTO) 3 % (0-10); HEMATOCRIT 23 % (40-54); HEMOGLOBIN 7.1 g/dL (13.3-17.7); LYMPHOCYTES # (AUTO) 0.9 10^3/uL (1.0-4.0); LYMPHOCYTES % (AUTO) 9 % (12-44); MEAN CORPUSCULAR HEMOGLOBIN 30 pg (25-34); MEAN CORPUSCULAR HGB CONC 31 g/dL (32-36); MEAN CORPUSCULAR VOLUME 96 fL (80-99); MEAN PLATELET VOLUME 10.2 fL (9.0-12.2); MONOCYTES # (AUTO) 0.7 10^3/uL (0.0-1.0); MONOCYTES % (AUTO) 7 % (0-12); NEUTROPHILS # (AUTO) 8.2 10^3/uL (1.8-7.8); NEUTROPHILS % (AUTO) 79 % (42-75); PLATELET COUNT 221 10^3/uL (130-400); WHITE BLOOD COUNT 10.3 10^3/uL (4.3-11.0)
[2021-05-28 05:46] LABS: POTASSIUM 3.8 MMOL/L (3.6-5.0)
[2021-05-28 05:47] LABS: CALCIUM 9.1 MG/DL (8.5-10.1)
[2021-05-28 05:48] LABS: TOTAL PROTEIN 6.2 GM/DL (6.4-8.2)
[2021-05-28 05:50] LABS: BILIRUBIN,TOTAL 0.8 MG/DL (0.1-1.0)
[2021-05-28 05:52] LABS: CREATININE SERUM 1.8 MG/DL (0.60-1.30)
[2021-05-28] MEDS: inSUlin ASPART (NovoLOG) 1 UNIT/0.01 ML (CHARGE PER UNIT) SC SCH ×4 (05:56→20:36)
[2021-05-28] MEDS: CATHETER FLUSH 10 ML SYR IVP SCH ×3 (06:00→20:36)
[2021-05-28] MEDS: CLOPIDOGREL 75 MG (PLAVIX) TABLET PO SCH (08:33)
[2021-05-28] MEDS: ENOXAPARIN INJECTION 30 MG/0.3 ML SYR SQ SCH (08:33)
[2021-05-28] MEDS: RANOLAZINE ER 500 MG TAB (RANEXA) PO SCH ×2 (08:33→20:04)
[2021-05-28] MEDS: CEPHALEXIN 250 MG (KEFLEX) CAP PO SCH ×2 (08:33→20:04)
[2021-05-28] MEDS: ASPIRIN E.C. 81 MG (ECOTRIN) TAB PO SCH (08:34)
--- NOTE | 2021-05-28 09:45 | Physical Therapy Daily Note ---
PT Daily Note-Current Subjective Patient agrees to PT. Incontinent urine requiring assist to cleanse and change patient. Mental Status Patient Orientation: Confused Transfers SCALE: Activities may be completed with or without assistive devices. 1-Ithwcjmeif-ziizwxx completes the activity by him/herself with no assistance from a helper. 5-Set-up or Clean-up Assistance-helper sets up or cleans up; patient completes activity. [place] assists only prior to or following the activity. 4-Supervision or Touching Assistance-helper provides verbal cues and/or touching/steadying and/or contact guard assistance as patient completes activity. Assistance may be provided throughout the activity or intermittently. 3-Partial/Moderate Assistance-helper does LESS THAN HALF the effort. [place] lifts, holds or supports trunk or limbs, but provides less than half the effort. 2-Substantial/Maximal Assistance-helper does MORE THAN HALF the effort. [place] lifts or holds trunk or limbs and provides more than half the effort. 4-Kqvfulean-ckfwjf does ALL the effort. Patient does none of the effort to complete the activity. Or, the assistance of 2 or more helpers is required for the patient to complete the activity. If activity was not attempted, code reason: 7-Patient Refused. 9-Not Applicable-not attempted and the patient did not perform the activity before the current illness, exacerbation or injury. 10-Not Attempted due to Environmental Limitations-(lack of equipment, weather restraints, etc.). 88-Not Attempted due to Medical Conditions or Safety Concerns. Lying to Sitting/Side of Bed(Q: 4 Sit to Stand (QC): 4 Chair/Psq-yk-Rqtna Xfer(QC): 4 Gait Training Distance: 275' Walk 10 feet (QC): 4 Walk 50 ft with 2 Turns(QC): 4 Walk 150 ft (QC): 4 Gait Assistive Device: FWW very slow, shuffle gait sequence with tactile and VC's for body placement in FWW for safe mobility Assessment Patient requires redirection to remain on task. Patient up in recliner with chair alarm activated. PT Chcf Goals Chcf Goals PT Director Of Community Life Goals Time Frame: June 12, 2021 Roll Left & Right (QC): 6 Sit to Lying (QC): 6 Lying-Sitting on Side/Bed(QC): 6 Sit to Stand (QC): 6 Chair/Aia-eb-Vkssa Xfer(QC): 6 Toilet Transfer (QC): 6 Walk 10 feet (QC): 6 Walk 50ft with 2 Turns (QC): 6 Walk 150 ft (QC): 6 PT Plan Treatment/Plan Treatment Plan: Continue Plan of Care Treatment Plan: Bed Mobility, Education, Functional Activity So, Functional Strength, Gait, Safety, Therapeutic Exercise, Transfers Treatment Duration: June 12, 2021 Frequency: 6 times per week Estimated Hrs Per Day: .25 hour per day Time/GCodes Time In: 805 Time Out: 821 Total Billed Treatment Time: 16 Total Billed Treatment 1 visit GT 16 min MICAELA ANNA PT May 28, 2021 09:45
--- NOTE | 2021-05-28 12:07 | Occupational Ther Daily Note ---
OT Current Status-Daily Note Subjective Pt in bed, agreeable to OT Tx. Pt stopped talking mid sentence at one point, and stopped exercises after 12 reps. When asked if he was feeling okay, he replied he felt normal ADL-Treatment Therapy Code Descriptions/Definitions Functional Rains Measure: 0=Not Assessed/NA 4=Minimal Assistance 1=Total Assistance 5=Supervision or Setup 2=Maximal Assistance 6=Modified Rains 3=Moderate Assistance 7=Complete IndependenceSCALE: Activities may be completed with or without assistive devices. 9-Xqzppisxxe-yeqlvde completes the activity by him/herself with no assistance from a helper. 5-Set-up or Clean-up Assistance-helper sets up or cleans up; patient completes activity. Douglas assists only prior to or following the activity. 4-Supervision or Touching Assistance-helper provides verbal cues and/or touching/steadying and/or contact guard assistance as patient completes activity. Assistance may be provided throughout the activity or intermittently. 3-Partial/Moderate Assistance-helper does LESS THAN HALF the effort. Douglas lifts, holds or supports trunk or limbs, but provides less than half the effort. 2-Substantial/Maximal Assistance-helper does MORE THAN HALF the effort. Douglas lifts or holds trunk or limbs and provides more than half the effort. 1-Avdpjhbuu-unfvit does ALL the effort. Patient does none of the effort to complete the activity. Or, the assistance of 2 or more helpers is required for the patient to complete the activity. If activity was not attempted, code reason: 7-Patient Refused. 9-Not Applicable-not attempted and the patient did not perform the activity before the current illness, exacerbation or injury. 10-Not Attempted due to Environmental Limitations-(lack of equipment, weather restraints, etc.). 88-Not Attempted due to Medical Conditions or Safety Concerns. Other Treatment OT tx with focus on increasing BUE strength and activity tolerance, pt completed x15 reps BUE shoulder flexion, quality of movements decreased with increased reps. During rest break, pt telling OT a story, then stopped mid sentence. OT checked with pt who states he feels normal, and didn't feel off in any way. Pt agreeable to continued exercises, this time with elbow flexion/extension, pt only completed 12 reps, then stopped completing the exercises, closing his eyes. Pt's head slowly turned towards the right side of the pillow. OT again talked with pt about how he was feeling, he states he feels normal and is not tired, although he kept his eyes closed throughout tx. OT notified pt's nurse. Post tx, pt in bed, call light in reach and all needs met. Education OT Patient Education: Correct positioning, Disease process, Energy conservation, Exercise program, Modified ADL techniques, Progress toward Goal/Update tx plan, Purpose of tx/functional activities, Rehab process Teaching Recipient: Patient Teaching Methods: Demonstration, Discussion Response to Teaching: Return Demonstration, Reinforcement Needed OT Patient Relations Director Goals Residential Goals Time Frame: Jun 04, 2021 Oral Hygiene (QC): 5 Toileting Hygiene (QC): 6 Shower/Bathe Self (QC): 4 Upper Body Dressing (QC): 5 Lower Body Dressing (QC): 4 On/Off Footwear (QC): 4 Additional Goals: 1-Demonstrate ADL Tasks, 2-Verbalize Understanding, 3- ImproveStrength/So 1=Demonstrate adherence to instructed precautions during ADL tasks. 2=Patient will verbalize/demonstrate understanding of assistive devices/modifications for ADL. 3=Patient will improve strength/tolerance for activity to enable patient to perform ADL's. OT Education/Plan Problem List/Assessment Assessment: Decreased Activ Tolerance, Decreased Safety Aware, Decreased UE Strength, Impaired Cognition, Impaired Funct Balance, Impaired I ADL's, Impaired Self-Care Skills Discharge Recommendations Plan/Recommendations: Continue POC Treatment Plan/Plan of Care Patient would benefit from OT for education, treatment and training to promote independence in ADL's, mobility, safety and/or upper extremity function for ADL's. Plan of Care: ADL Retraining, Functional Mobility, UE Funct Exercise/Act Treatment Duration: Jun 04, 2021 Frequency: 3 times per week (3-5 times per week) Estimated Hrs Per Day: .25 hour per day Agreement: Yes Rehab Potential: Fair Time/GCodes Start Time: 11:02 Stop Time: 11:12 Total Time Billed (hr/min): 10 Billed Treatment Time 1, EX DHRUV CARTER OT May 28, 2021 12:07
--- NOTE | 2021-05-28 14:39 | Cardiology Progress Note ---
Subjective Date Seen by Provider: May 28, 2021 Time Seen by Provider: 14:38 Subjective/Events-last exam Patient was seen at bedside, eating lunch. Feeling better. No new complaint. Review of Systems General: No Chills, No Night Sweats; Fatigue, Malaise; No Appetite, No Other HEENT: No Head Aches, No Visual Changes, No Eye Pain, No Ear Pain, No Dysphasia, No Sinus Congestion, No Post Nasal Drip, No Sore Throat, No Other Pulmonary: No Dyspnea, No Cough, No Pleuritic Chest Pain, No Other Cardiovascular: No: Chest Pain, Palpitations, Orthopnea, Paroxysmal Noc. Dyspnea, Edema, Lt Headedness, Other Focused Exam Time of Focused Exam: 22:00 Objective-Cardiology Exam Last Set of Vital Signs Vital Signs 05/28/21 05/28/21 08:00 13:31 Temp 36.9 Pulse 78 Resp 18 B/P (MAP) 139/66 (90) Pulse Ox 96 O2 Delivery Room Air I&O Intake and Output 05/28/21 00:00 Intake Total 920 ml Output Total 575 ml Balance 345 ml Intake Oral 920 ml Output Urine Total 575 ml Bladder Scan Volume Amount 236 ml 360 ml 285 ml 269 ml # Voids 5 # Bowel Movements 1 General: Alert, Oriented X3, Cooperative HEENT: Atraumatic, PERRLA Neck: Supple Lungs: Clear to Auscultation, Normal Air Movement Heart: Regular Rate, Normal S1, Normal S2, Other (Aortic stenosis) Abdomen: Normal Bowel Sounds, Soft Extremities: No Clubbing, No Cyanosis, No Edema Skin: No Rashes Neuro: Normal Speech Psych/Mental Status: Mental Status NL, Mood NL Results Lab Laboratory Tests 05/28/21 05:08 A/P-Cardiology Admission Diagnosis NSTEMI CAD HTN HLP Assessment/Plan Non-ST elevation myocardial infarction, has extensive CAD, Coronary angiogram done on June 03, 2021, conservative management was recommended. Coronary artery disease,History of CABG [address] [place] [address] Quesada, Cardiac catheterization done August 01, 2018 revealed total occlusion of the left main, LAD, left circumflex and right coronary artery. 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 The right coronary artery is small nondominant artery that is not bypassed. Cardiac catheterization done on May 26, 2021 showing patent DICKSON to LAD, vein graft to the diagonal artery and vein graft to the left PDA/obtuse marginal branch, tortuous left subclavian with moderate stenosis, small vessel disease. Conservative management is recommended Aortic stenosis, most recent 2D Echo done 05/24/21 showing EF 55-60%, mild to moderate , mild MR. Slight progression of compared to echo of November 2020. Urinary tract infection, received antibiotic and improving. Managed by medical team HTN, controlled, continue to monitor. HLP, maintained on statin DM Acute on chronic kidney disease, continue with gentle IVF and continue to monitor. Anemia or chronic disease Generalized weakness, debility, PT eval and treat SEMAJ RAMEY MD May 28, 2021 14:39
--- NOTE | 2021-05-28 15:22 | Progress Note - Hospitalist ---
Subjective HPI/CC On Admission Date Seen by Provider: May 28, 2021 Time Seen by Provider: 15:17 Patient is an 80-year-old male with past medical history of coronary artery disease status post CABG and subsequent stenting who presented to the emergency department due to confusion and weakness. He is unable to provide me any history. He states he is feeling well. There is no family at bedside to supplement his history. All history is obtained from the records. Apparently he was last seen by his son 2 or 3 days ago and was in his normal state of health but yesterday his called his son as he was very weak and could not get up. Son stated that he was confused and his baseline is alert and oriented x4. He was found to have a urinary tract infection in the emergency department and elevated troponin and was admitted for further management. He denies any chest pain or urinary issues. Subjective/Events-last exam Pt reports doing well today. No complaints. About to work with PT. Focused Exam Time of Focused Exam: 22:00 Objective Exam Vital Signs Vital Signs Date Time Temp Pulse Resp B/P (MAP) Pulse Ox O2 Delivery O2 Flow Rate FiO2 05/28/21 13:31 78 18 139/66 (90) 96 Room Air 05/28/21 08:00 36.9 Capillary Refill : Less Than 3 Seconds General Appearance: No Apparent Distress, WD/WN Respiratory: Lungs Clear, No Respiratory Distress Cardiovascular: Regular Rate, Rhythm, No Murmur Neurologic/Psychiatric: Alert, Oriented x3 (to major details) Results/Procedures Lab Laboratory Tests 05/28/21 05:08 Patient resulted labs reviewed. 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
[2021-05-28] MEDS: TAMSULOSIN 0.4 MG (FLOMAX) CAP PO SCH (18:39)
[2021-05-28] MEDS: ACETAMINOPHEN 500 MG TAB (TYLENOL) PO PRN (20:05)
[2021-05-29] VITALS (7 sets, daily range): BP systolic 128–173; BP diastolic 63–91
[2021-05-29] MEDS: CATHETER FLUSH 10 ML SYR IVP SCH ×3 (05:20→20:48)
[2021-05-29 05:36] LABS: BASOPHILS % (AUTO) 1 % (0-10); EOSINOPHILS # (AUTO) 0.4 10^3/uL (0.0-0.3); EOSINOPHILS % (AUTO) 5 % (0-10); HEMATOCRIT 21 % (40-54); LYMPHOCYTES % (AUTO) 13 % (12-44); MEAN CORPUSCULAR HEMOGLOBIN 30 pg (25-34); MEAN CORPUSCULAR HGB CONC 31 g/dL (32-36); MEAN CORPUSCULAR VOLUME 95 fL (80-99); MEAN PLATELET VOLUME 10.3 fL (9.0-12.2); MONOCYTES # (AUTO) 0.7 10^3/uL (0.0-1.0); MONOCYTES % (AUTO) 9 % (0-12); NEUTROPHILS # (AUTO) 5.8 10^3/uL (1.8-7.8); NEUTROPHILS % (AUTO) 72 % (42-75); PLATELET COUNT 256 10^3/uL (130-400)
[2021-05-29 05:40] LABS: ALBUMIN 2.9 GM/DL (3.2-4.5); POTASSIUM 3.9 MMOL/L (3.6-5.0)
[2021-05-29 05:41] LABS: CALCIUM 9.2 MG/DL (8.5-10.1)
[2021-05-29 05:42] LABS: TOTAL PROTEIN 6.1 GM/DL (6.4-8.2)
[2021-05-29 05:44] LABS: BILIRUBIN,TOTAL 0.5 MG/DL (0.1-1.0)
[2021-05-29 05:46] LABS: CREATININE SERUM 1.75 MG/DL (0.60-1.30); HEMOGLOBIN 6.7 g/dL (13.3-17.7)
[2021-05-29] MEDS: inSUlin ASPART (NovoLOG) 1 UNIT/0.01 ML (CHARGE PER UNIT) SC SCH ×4 (06:15→20:20)
[2021-05-29] MEDS ORDERED: NS IV 500 ML 500 ML IV SCH (06:30)
--- NOTE | 2021-05-29 08:27 | Progress Note - Hospitalist ---
Subjective HPI/CC On Admission Date Seen by Provider: May 29, 2021 Time Seen by Provider: 08:22 Patient is an 80-year-old male with past medical history of coronary artery disease status post CABG and subsequent stenting who presented to the emergency department due to confusion and weakness. He is unable to provide me any history. He states he is feeling well. There is no family at bedside to supplement his history. All history is obtained from the records. Apparently he was last seen by his son 2 or 3 days ago and was in his normal state of health but yesterday his called his son as he was very weak and could not get up. Son stated that he was confused and his baseline is alert and oriented x4. He was found to have a urinary tract infection in the emergency department and elevated troponin and was admitted for further management. He denies any chest pain or urinary issues. Subjective/Events-last exam Pt reports doing well. Focused Exam Time of Focused Exam: 22:00 Objective Exam Vital Signs Vital Signs Date Time Temp Pulse Resp B/P (MAP) Pulse Ox O2 Delivery O2 Flow Rate FiO2 05/29/21 07:00 76 05/29/21 03:48 36.6 12 134/65 (88) 92 Room Air Capillary Refill : Less Than 3 Seconds General Appearance: No Apparent Distress, WD/WN Respiratory: Lungs Clear, No Respiratory Distress Cardiovascular: Regular Rate, Rhythm, No Murmur Gastrointestinal: Normal Bowel Sounds, Non Tender, Soft Neurologic/Psychiatric: Alert, Oriented x3 Results/Procedures Lab Laboratory Tests 05/29/21 05:17 Patient resulted labs reviewed. 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
--- NOTE | 2021-05-29 08:39 | Physical Therapy Daily Note ---
PT Daily Note-Current Subjective Patient agrees to PT. Mental Status Patient Orientation: Person, Time Transfers SCALE: Activities may be completed with or without assistive devices. 2-Bdmtlumnkj-dcxlbyf completes the activity by him/herself with no assistance from a helper. 5-Set-up or Clean-up Assistance-helper sets up or cleans up; patient completes activity. Douglas assists only prior to or following the activity. 4-Supervision or Touching Assistance-helper provides verbal cues and/or touching/steadying and/or contact guard assistance as patient completes activity. Assistance may be provided throughout the activity or intermittently. 3-Partial/Moderate Assistance-helper does LESS THAN HALF the effort. Douglas lifts, holds or supports trunk or limbs, but provides less than half the effort. 2-Substantial/Maximal Assistance-helper does MORE THAN HALF the effort. Douglas lifts or holds trunk or limbs and provides more than half the effort. 3-Dboyhsbyk-quehdd does ALL the effort. Patient does none of the effort to complete the activity. Or, the assistance of 2 or more helpers is required for the patient to complete the activity. If activity was not attempted, code reason: 7-Patient Refused. 9-Not Applicable-not attempted and the patient did not perform the activity before the current illness, exacerbation or injury. 10-Not Attempted due to Environmental Limitations-(lack of equipment, weather restraints, etc.). 88-Not Attempted due to Medical Conditions or Safety Concerns. Lying to Sitting/Side of Bed(Q: 3 Sit to Stand (QC): 3 Chair/Wys-mo-Ufabw Xfer(QC): 4 Gait Training Distance: 450' Walk 10 feet (QC): 4 Walk 50 ft with 2 Turns(QC): 4 Walk 150 ft (QC): 4 Gait Assistive Device: FWW VC's and CGA for safety for body position in FWW Assessment Patient continues to be unaware of safety concerns. Patient up in recliner with chair alarm activated. PT to continue to increase activity as tolerated by patient. PT Alf Goals Alf Goals PT Alf Goals Time Frame: June 12, 2021 Roll Left & Right (QC): 6 Sit to Lying (QC): 6 Lying-Sitting on Side/Bed(QC): 6 Sit to Stand (QC): 6 Chair/Llu-nb-Nozyh Xfer(QC): 6 Toilet Transfer (QC): 6 Walk 10 feet (QC): 6 Walk 50ft with 2 Turns (QC): 6 Walk 150 ft (QC): 6 PT Plan Treatment/Plan Treatment Plan: Continue Plan of Care Treatment Plan: Bed Mobility, Education, Functional Activity So, Functional Strength, Gait, Safety, Therapeutic Exercise, Transfers Treatment Duration: June 12, 2021 Frequency: 6 times per week Estimated Hrs Per Day: .25 hour per day Time/GCodes Time In: 800 Time Out: 813 Total Billed Treatment Time: 13 Total Billed Treatment 1 visit GT 13 min MICAELA ANNA PT May 29, 2021 08:39
[2021-05-29] MEDS: ASPIRIN E.C. 81 MG (ECOTRIN) TAB PO SCH (08:57)
[2021-05-29] MEDS: RANOLAZINE ER 500 MG TAB (RANEXA) PO SCH ×2 (08:57→20:47)
[2021-05-29] MEDS: ENOXAPARIN INJECTION 30 MG/0.3 ML SYR SQ SCH (08:57)
[2021-05-29] MEDS: CEPHALEXIN 250 MG (KEFLEX) CAP PO SCH ×2 (08:57→20:47)
[2021-05-29] MEDS: CLOPIDOGREL 75 MG (PLAVIX) TABLET PO SCH (08:57)
[2021-05-29] MEDS ORDERED: NS IV 500 ML 500 ML ONE (09:38)
--- NOTE | 2021-05-29 10:26 | Progress Note - Cardiology ---
Cardiology SOAP Progress Note Subjective: Gen malaise and weakness present No shortness of breath at rest No palp or syncope No cp No focal weakness No n/v/d No swelling Objective: I&O/Vital Signs 05/28/21 05/29/21 05/29/21 05/29/21 23:37 01:00 03:48 07:00 Temp 36.8 36.6 Pulse 81 80 78 76 Resp 17 12 B/P (MAP) 131/67 (88) 134/65 (88) Pulse Ox 94 92 O2 Delivery Room Air Room Air 05/29/21 05/29/21 08:00 09:39 Temp 36.4 Pulse 80 Resp 20 B/P (MAP) 137/72 O2 Delivery Room Air Room Air 05/29/21 00:00 Intake Total 900 ml Output Total 1 ml Balance 899 ml Weight (Pounds): 154 Weight (Ounces): 0.0 Weight (Calculated Kilograms): 69.697359 Constitutional: AAO x 3, well-developed, well-nourished Respiratory: No accessory muscle use; other (Fair to good, bilateral air entry) Cardiovascular: regular rate-rhythm, S1 and S2, systolic murmur (3/6 MSM) Gastrointestional: No tender; soft; No guarding, No rebound; audible bowel sounds Extremities: No clubbing, No cyanosis, No significant edema Neurologic/Psychiatric: oriented x 3, other (moves all limbs equally) Skin: normal color, warm/dry; No rash on exposed areas, No ulcerations on exposed areas Results/Procedures: Labs Laboratory Tests 05/28/21 10:51: Glucometer 108 05/28/21 16:07: Glucometer 160H 05/28/21 20:06: Glucometer 121H 05/29/21 05:17: White Blood Count 8.0, Red Blood Count 2.26L, Hemoglobin 6.7*L, Hematocrit 21L, Mean Corpuscular Volume 95, Mean Corpuscular Hemoglobin 30, Mean Corpuscular Hemoglobin Concent 31L, Red Cell Distribution Width 15.9H, Platelet Count 256, Mean Platelet Volume 10.3, Immature Granulocyte % (Auto) 1, Neutrophils (%) (Auto) 72, Lymphocytes (%) (Auto) 13, Monocytes (%) (Auto) 9, Eosinophils (%) (Auto) 5, Basophils (%) (Auto) 1, Neutrophils # (Auto) 5.8, Lymphocytes # (Auto) 1.0, Monocytes # (Auto) 0.7, Eosinophils # (Auto) 0.4H, Basophils # (Auto) 0.0, Immature Granulocyte # (Auto) 0.1, Sodium Level 141, Potassium Level 3.9, Chloride Level 112H, Carbon Dioxide Level 16L, Anion Gap 13, Blood Urea Nitrogen 31H, Creatinine 1.75H, Estimat Glomerular Filtration Rate 38, BUN/Creatinine Ratio 18, Glucose Level 122H, Calcium Level 9.2, Corrected Calcium 10.1, Total Bilirubin 0.5, Aspartate Amino Transf (AST/SGOT) 59H, Alanine Aminotransferase (ALT/SGPT) 56H, Alkaline Phosphatase 81, Total Protein 6.1L, Albumin 2.9L Microbiology 05/27/21 Blood Culture - Preliminary, Resulted Staph, Coag Neg (R[facility]ER) 05/27/21 Urine Culture - Final, Complete NO GROWTH Laboratory Tests 05/28/21 05:08 05/29/21 05:17 A/P: Assessment: Type-2 HI - due to severe anemia on underlying mod and chronic (albeit stable) CAD Coronary artery disease - CABG [address] [place] [address] Quesada, - Cardiac cath 05/26/21: all coronary grafts patent, study unchanged compared to a study of 2018 Aortic stenosis - Echo 05/24/21: EF 55-60%, mild to moderate , mild MR. Slight progression of compared to echo of November 2020. Urinary tract infection - Hospitalist managing HTN - controlled HLP - treated with high-dose statin DM II Acute on chronic kidney disease - improving Severe anemia of undetermined etiology - Managed by the Hospitalist nataliya Generalized weakness - due to multiple comorbidities Plan: I interviewed and examined him, and reviewed his records We recommend blood transfusions to restore Hgb at least above 8 (given HI that is likely related to severe anemia - see above) Continue previous cardiac regimen Monitor labs I explained his CV issues to him and answered his questions RAVINDER KINGSTON MD FACP [facility] May 29, 2021 10:26
[2021-05-29 13:11] LABS: HEMOGLOBIN 7.8 g/dL (13.3-17.7)
[2021-05-29] MEDS: TAMSULOSIN 0.4 MG (FLOMAX) CAP PO SCH (17:11)
[2021-05-30 04:38] VITALS: BP 158/74
[2021-05-30] MEDS: CATHETER FLUSH 10 ML SYR IVP SCH ×3 (05:31→20:45)
[2021-05-30] MEDS: inSUlin ASPART (NovoLOG) 1 UNIT/0.01 ML (CHARGE PER UNIT) SC SCH ×4 (05:31→20:28)
[2021-05-30 06:10] LABS: BASOPHILS # (AUTO) 0.1 10^3/uL (0.0-0.1); BASOPHILS % (AUTO) 1 % (0-10); EOSINOPHILS # (AUTO) 0.4 10^3/uL (0.0-0.3); EOSINOPHILS % (AUTO) 5 % (0-10); HEMATOCRIT 24 % (40-54); HEMOGLOBIN 7.8 g/dL (13.3-17.7); LYMPHOCYTES # (AUTO) 0.9 10^3/uL (1.0-4.0); LYMPHOCYTES % (AUTO) 11 % (12-44); MEAN CORPUSCULAR HEMOGLOBIN 30 pg (25-34); MEAN CORPUSCULAR HGB CONC 32 g/dL (32-36); MEAN CORPUSCULAR VOLUME 92 fL (80-99); MEAN PLATELET VOLUME 9.8 fL (9.0-12.2); MONOCYTES # (AUTO) 0.7 10^3/uL (0.0-1.0); MONOCYTES % (AUTO) 8 % (0-12); NEUTROPHILS # (AUTO) 6.4 10^3/uL (1.8-7.8); NEUTROPHILS % (AUTO) 75 % (42-75); PLATELET COUNT 282 10^3/uL (130-400); WHITE BLOOD COUNT 8.5 10^3/uL (4.3-11.0)
[2021-05-30 06:19] LABS: ALBUMIN 2.9 GM/DL (3.2-4.5); POTASSIUM 3.9 MMOL/L (3.6-5.0)
[2021-05-30 06:23] LABS: BILIRUBIN,TOTAL 0.7 MG/DL (0.1-1.0)
[2021-05-30 06:25] LABS: CREATININE SERUM 1.58 MG/DL (0.60-1.30)
[2021-05-30 07:51] VITALS: BP 133/63
[2021-05-30] MEDS: ASPIRIN E.C. 81 MG (ECOTRIN) TAB PO SCH (08:53)
[2021-05-30] MEDS: CLOPIDOGREL 75 MG (PLAVIX) TABLET PO SCH (08:53)
[2021-05-30] MEDS: RANOLAZINE ER 500 MG TAB (RANEXA) PO SCH ×2 (08:53→20:39)
[2021-05-30] MEDS: CEPHALEXIN 250 MG (KEFLEX) CAP PO SCH ×2 (08:54→20:39)
[2021-05-30] MEDS: ENOXAPARIN INJECTION 30 MG/0.3 ML SYR SQ SCH (08:54)
--- NOTE | 2021-05-30 09:44 | Progress Note - Hospitalist ---
Subjective HPI/CC On Admission Date Seen by Provider: May 30, 2021 Time Seen by Provider: 09:43 Patient is an 80-year-old male with past medical history of coronary artery disease status post CABG and subsequent stenting who presented to the emergency department due to confusion and weakness. He is unable to provide me any history. He states he is feeling well. There is no family at bedside to supplement his history. All history is obtained from the records. Apparently he was last seen by his son 2 or 3 days ago and was in his normal state of health but yesterday his called his son as he was very weak and could not get up. Son stated that he was confused and his baseline is alert and oriented x4. He was found to have a urinary tract infection in the emergency department and elevated troponin and was admitted for further management. He denies any chest pain or urinary issues. Subjective/Events-last exam Pt reports doing well. About to eat breakfast. Only concern is that he didn't get lozano on his tray. No other complaints. Focused Exam Time of Focused Exam: 22:00 Objective Exam Vital Signs Vital Signs Date Time Temp Pulse Resp B/P (MAP) Pulse Ox O2 Delivery O2 Flow Rate FiO2 05/30/21 07:51 36.6 76 20 133/63 (86) 96 Room Air Capillary Refill : Less Than 3 Seconds General Appearance: No Apparent Distress, WD/WN Respiratory: Lungs Clear, No Respiratory Distress Cardiovascular: Regular Rate, Rhythm, No Murmur Neurologic/Psychiatric: Alert, Oriented x3 Results/Procedures Lab Laboratory Tests 05/29/21 12:40 05/30/21 05:39 Patient resulted labs reviewed. 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 DVT ppx: FCO Cedeno MD May 30, 2021 09:44
[2021-05-30 12:05] VITALS: BP 124/63
[2021-05-30 15:42] VITALS: BP 149/69
--- NOTE | 2021-05-30 17:55 | Progress Note - Cardiology ---
Cardiology SOAP Progress Note Subjective: Feels better today No cp or palp or syncope No n/v/d Gen weakness and malaise Objective: I&O/Vital Signs 05/30/21 05/30/21 05/30/21 05/30/21 07:00 07:51 08:00 12:05 Temp 36.6 37.0 Pulse 75 76 78 Resp 20 20 B/P (MAP) 133/63 (86) 124/63 (83) Pulse Ox 96 96 94 O2 Delivery Room Air Room Air Room Air 05/30/21 05/30/21 13:00 15:42 Temp 36.8 Pulse 77 73 Resp 18 B/P (MAP) 149/69 (95) Pulse Ox 98 O2 Delivery Room Air 05/30/21 00:00 Intake Total 960 ml Balance 960 ml Weight (Pounds): 154 Weight (Ounces): 0.0 Weight (Calculated Kilograms): [id number] Constitutional: AAO x 3, well-developed, well-nourished Respiratory: No accessory muscle use; other (Fair to good, bilateral air entry) Cardiovascular: regular rate-rhythm, S1 and S2, systolic murmur (3/6 MSM) Gastrointestional: No tender; soft; No guarding, No rebound; audible bowel sounds Extremities: No clubbing, No cyanosis, No significant edema Neurologic/Psychiatric: oriented x 3, other (moves all limbs equally) Skin: normal color, warm/dry; No rash on exposed areas, No ulcerations on exposed areas Results/Procedures: Labs Laboratory Tests 05/29/21 20:15: Glucometer 143H 05/30/21 05:27: Glucometer 97 05/30/21 05:39: White Blood Count 8.5, Red Blood Count 2.61L, Hemoglobin 7.8L, Hematocrit 24L, Mean Corpuscular Volume 92, Mean Corpuscular Hemoglobin 30, Mean Corpuscular Hemoglobin Concent 32, Red Cell Distribution Width 15.9H, Platelet Count 282, Mean Platelet Volume 9.8, Immature Granulocyte % (Auto) 1, Neutrophils (%) (Auto) 75, Lymphocytes (%) (Auto) 11L, Monocytes (%) (Auto) 8, Eosinophils (%) (Auto) 5, Basophils (%) (Auto) 1, Neutrophils # (Auto) 6.4, Lymphocytes # (Auto) 0.9L, Monocytes # (Auto) 0.7, Eosinophils # (Auto) 0.4H, Basophils # (Auto) 0.1, Immature Granulocyte # (Auto) 0.1, Sodium Level 138, Potassium Level 3.9, Chloride Level 108H, Carbon Dioxide Level 17L, Anion Gap 13, Blood Urea Nitrogen 24H, Creatinine 1.58H, Estimat Glomerular Filtration Rate 43, BUN/Creatinine Ratio 15, Glucose Level 108H, Calcium Level 9.0, Corrected Calcium 9.9, Total Bilirubin 0.7, Aspartate Amino Transf (AST/SGOT) 55H, Alanine Aminotransferase (ALT/SGPT) 55, Alkaline Phosphatase 77, Total Protein 6.0L, Albumin 2.9L 05/30/21 11:10: Glucometer 122H 05/30/21 15:12: Glucometer 133H Microbiology 05/27/21 Blood Culture - Preliminary, Resulted Staph, Coag Neg (COOKEE) 05/27/21 Urine Culture - Final, Complete NO GROWTH Laboratory Tests 05/29/21 05:17 05/29/21 12:40 05/30/21 05:39 A/P: Assessment: 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 Quesada, - Cardiac cath 05/26/21: all coronary grafts patent, study unchanged compared to a study of 2018 Aortic stenosis - Echo 05/24/21: EF 55-60%, mild to moderate , mild MR. Slight progression of compared to echo of November 2020. Urinary tract infection - Hospitalist managing HTN - controlled HLP - treated with high-dose statin DM II Acute on chronic kidney disease - improving Severe anemia of undetermined etiology - Managed by the Hospitalist nataliya Generalized weakness - due to multiple comorbidities Plan: We recommend maintaining Hgb above 8 (given ID that is likely related to severe anemia - see above) Continue previous cardiac regimen Monitor labs RAVINDER KINGSTON MD FACP [facility]S May 30, 2021 17:55
[2021-05-30] MEDS: TAMSULOSIN 0.4 MG (FLOMAX) CAP PO SCH (18:00)
[2021-05-30 19:37] VITALS: BP 174/83
[2021-05-31 00:44] VITALS: BP 152/57
[2021-05-31 04:55] VITALS: BP 126/56
[2021-05-31] MEDS: inSUlin ASPART (NovoLOG) 1 UNIT/0.01 ML (CHARGE PER UNIT) SC SCH ×2 (05:44→11:44)
[2021-05-31] MEDS: CATHETER FLUSH 10 ML SYR IVP SCH (05:44)
[2021-05-31 06:08] LABS: BASOPHILS # (AUTO) 0.1 10^3/uL (0.0-0.1); BASOPHILS % (AUTO) 1 % (0-10); EOSINOPHILS # (AUTO) 0.4 10^3/uL (0.0-0.3); EOSINOPHILS % (AUTO) 5 % (0-10); HEMATOCRIT 24 % (40-54); HEMOGLOBIN 7.8 g/dL (13.3-17.7); LYMPHOCYTES # (AUTO) 1.1 10^3/uL (1.0-4.0); LYMPHOCYTES % (AUTO) 13 % (12-44); MEAN CORPUSCULAR HEMOGLOBIN 30 pg (25-34); MEAN CORPUSCULAR HGB CONC 33 g/dL (32-36); MEAN CORPUSCULAR VOLUME 92 fL (80-99); MEAN PLATELET VOLUME 9.7 fL (9.0-12.2); MONOCYTES # (AUTO) 0.7 10^3/uL (0.0-1.0); MONOCYTES % (AUTO) 8 % (0-12); NEUTROPHILS # (AUTO) 6.2 10^3/uL (1.8-7.8); NEUTROPHILS % (AUTO) 72 % (42-75); PLATELET COUNT 299 10^3/uL (130-400); WHITE BLOOD COUNT 8.6 10^3/uL (4.3-11.0)
[2021-05-31 06:35] LABS: ALBUMIN 2.8 GM/DL (3.2-4.5); BILIRUBIN,TOTAL 0.7 MG/DL (0.1-1.0); CALCIUM 8.9 MG/DL (8.5-10.1); CREATININE SERUM 1.52 MG/DL (0.60-1.30); POTASSIUM 3.8 MMOL/L (3.6-5.0)
[2021-05-31 07:00] VITALS: BP 143/71
[2021-05-31] MEDS: CLOPIDOGREL 75 MG (PLAVIX) TABLET PO SCH (08:28)
[2021-05-31] MEDS: RANOLAZINE ER 500 MG TAB (RANEXA) PO SCH (08:28)
[2021-05-31] MEDS: ASPIRIN E.C. 81 MG (ECOTRIN) TAB PO SCH (08:28)
[2021-05-31] MEDS: ENOXAPARIN INJECTION 30 MG/0.3 ML SYR SQ SCH (08:28)
--- NOTE | 2021-05-31 09:29 | Physical Therapy Daily Note ---
PT Daily Note-Current Subjective Patient agrees to PT. Does remember this PT on this date. Mental Status Patient Orientation: Normal For Age Transfers SCALE: Activities may be completed with or without assistive devices. 7-Izedfelstz-hhybktm completes the activity by him/herself with no assistance from a helper. 5-Set-up or Clean-up Assistance-helper sets up or cleans up; patient completes activity. [place] assists only prior to or following the activity. 4-Supervision or Touching Assistance-helper provides verbal cues and/or t ouching/steadying and/or contact guard assistance as patient completes activity. Assistance may be provided throughout the activity or intermittently. 3-Partial/Moderate Assistance-helper does LESS THAN HALF the effort. [place] lifts, holds or supports trunk or limbs, but provides less than half the effort. 2-Substantial/Maximal Assistance-helper does MORE THAN HALF the effort. [place] lifts or holds trunk or limbs and provides more than half the effort. 2-Wksccfcis-fhxpsh does ALL the effort. Patient does none of the effort to complete the activity. Or, the assistance of 2 or more helpers is required for the patient to complete the activity. If activity was not attempted, code reason: 7-Patient Refused. 9-Not Applicable-not attempted and the patient did not perform the activity before the current illness, exacerbation or injury. 10-Not Attempted due to Environmental Limitations-(lack of equipment, weather restraints, etc.). 88-Not Attempted due to Medical Conditions or Safety Concerns. Sit to Stand (QC): 4 Gait Training Distance: 200' x 2 Walk 10 feet (QC): 3 Walk 50 ft with 2 Turns(QC): 3 Walk 150 ft (QC): 3 Gait Assistive Device: FWW Patient ambulated 200' without FWW per his request requiring minimal assist for balance and safety. Patient ambulated with FWW SBA with improved balance Assessment Gait training with and without FWW with patient education on importance of FWW use for safety with all mobility. Patient voices understanding. Continues to display decreased hollie with gait with shuffle gait sequence. PT Digital Project Coordinator Goals Chcf Goals PT Digital Project Coordinator Goals Time Frame: June 12, 2021 Roll Left & Right (QC): 6 Sit to Lying (QC): 6 Lying-Sitting on Side/Bed(QC): 6 Sit to Stand (QC): 6 Chair/Pdt-pu-Qwsae Xfer(QC): 6 Toilet Transfer (QC): 6 Walk 10 feet (QC): 6 Walk 50ft with 2 Turns (QC): 6 Walk 150 ft (QC): 6 PT Plan Treatment/Plan Treatment Plan: Continue Plan of Care Treatment Plan: Bed Mobility, Education, Functional Activity So, Functional Strength, Gait, Safety, Therapeutic Exercise, Transfers Treatment Duration: June 12, 2021 Frequency: 6 times per week Estimated Hrs Per Day: .25 hour per day Time/GCodes Time In: 828 Time Out: 846 Total Billed Treatment Time: 18 Total Billed Treatment 1 visit GT 18 min MICAELA ANNA PT May 31, 2021 09:28
[2021-05-31] MEDS: CEPHALEXIN 250 MG (KEFLEX) CAP PO SCH (09:50)
--- NOTE | 2021-05-31 11:02 | Cardiology Progress Note ---
Subjective Date Seen by Provider: May 31, 2021 Time Seen by Provider: 11:01 Subjective/Events-last exam Patient was seen at bedside, sitting upright and feeling better Asking about going home. No chest pain was reported Review of Systems General: No Chills, No Night Sweats, No Fatigue, No Malaise, No Appetite, No Other HEENT: No Head Aches, No Visual Changes, No Eye Pain, No Ear Pain, No Dysphasia, No Sinus Congestion, No Post Nasal Drip, No Sore Throat, No Other Pulmonary: No Dyspnea, No Cough, No Pleuritic Chest Pain, No Other Cardiovascular: No: Chest Pain, Palpitations, Orthopnea, Paroxysmal Noc. Dyspnea, Edema, Lt Headedness, Other Focused Exam Time of Focused Exam: 22:00 Objective-Cardiology Exam Last Set of Vital Signs Vital Signs 05/31/21 05/31/21 05/31/21 07:00 07:48 09:00 Temp 36.6 Pulse 73 Resp 19 B/P (MAP) 143/71 (95) Pulse Ox 94 O2 Delivery Room Air I&O Intake and Output 05/31/21 00:00 Intake Total 1188 ml Balance 1188 ml Intake Oral 1188 ml # Voids 14 # Bowel Movements 1 General: Alert, Oriented X3, Cooperative HEENT: Atraumatic, PERRLA Neck: Supple Lungs: Clear to Auscultation, Normal Air Movement Heart: Regular Rate, Normal S1, Normal S2, Other (Aortic stenosis) Abdomen: Normal Bowel Sounds, Soft Extremities: No Clubbing, No Cyanosis, No Edema Skin: No Rashes Neuro: Normal Speech Psych/Mental Status: Mental Status NL, Mood NL Results Lab Laboratory Tests 05/31/21 05:38 A/P-Cardiology Admission Diagnosis NSTEMI CAD HTN HLP Assessment/Plan Status post Non-ST elevation myocardial infarction, has extensive CAD, Coronary angiogram done on June 03, 2021, conservative management was recommended. Anemia, status post blood transfusion, maintained on iron. Continue to monitor H&H, evaluate for GI loss Managed by primary care team Coronary artery disease,History of CABG [address] [place] [address] Quesada, Cardiac catheterization done August 01, 2018 revealed total occlusion of the left main, LAD, left circumflex and right coronary artery. 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 The right coronary artery is small nondominant artery that is not bypassed. Cardiac catheterization done on May 26, 2021 showing patent DICKSON to LAD, vein graft to the diagonal artery and vein graft to the left PDA/obtuse marginal branch, tortuous left subclavian with moderate stenosis, small vessel disease. Conservative management is recommended Aortic stenosis, most recent 2D Echo done 05/24/21 showing EF 55-60%, mild to moderate , mild MR. Slight progression of compared to echo of November 2020. Urinary tract infection, received antibiotic and improving. Managed by medical team HTN, controlled, continue to monitor. HLP, maintained on statin DM Acute on chronic kidney disease, continue with gentle IVF and continue to monitor. Generalized weakness, debility, receiving physical therapy. Okay for discharge and follow-up as an outpatient SEMAJ RAMEY MD May 31, 2021 11:02
--- NOTE | 2021-05-31 11:32 | Discharge Summary ---
Discharge Summary Reconcile Patient Problems Problems Reviewed?: Yes Instructions for Patient Via [employer], Assessment/Instructions Take medications as prescribed. Follow up with your PCP. Return with worsening confusion, pain, or if you feel like you are getting worse. Physician to follow Patient: Adeline Discharge Diet for Home: Low Sodium Diet Hospital Course Date of Admission: May 23, 2021 at 20:54 Admission Diagnosis : Severe sepsis due to UTI Family Physician/Provider: Khurram Lr MD Date of Discharge: 05/31/21 Discharge Diagnosis: Severe sepsis due to UTI Hospital Course: Isael Smith is an 80 year old male with PMH HTN, HLD, CAD, T2DM, CKD, anemia, BPH, who presented with confusion and was admitted with severe sepsis due to urinary tract infection. He was treated with IV antibiotics and improved. He completed a course of antibiotics while in the hospital. His course was complicated by NSTEMI. Cardiology was consulted and assisted with his care. He underwent left heart catheterization which showed mild coronary artery disease and no intervention was required. His NSTEMI was thought to be type II. He also had JAYLEN on CKD which resolved with fluid resuscitation. He was debilitated due to his illness but improved and was set up with home health care on discharge. He was discharged home in stable condition. He should follow up with Dr. Lr in a week or two. Labs and Pending Lab Test: Laboratory Tests 05/30/21 15:12: Glucometer 133H 05/30/21 20:07: Glucometer 114H 05/31/21 05:36: Glucometer 86 05/31/21 05:38: White Blood Count 8.6, Red Blood Count 2.58L, Hemoglobin 7.8L, Hematocrit 24L, Mean Corpuscular Volume 92, Mean Corpuscular Hemoglobin 30, Mean Corpuscular Hemoglobin Concent 33, Red Cell Distribution Width 15.9H, Platelet Count 299, Mean Platelet Volume 9.7, Immature Granulocyte % (Auto) 2, Neutrophils (%) (Auto) 72, Lymphocytes (%) (Auto) 13, Monocytes (%) (Auto) 8, Eosinophils (%) (Auto) 5, Basophils (%) (Auto) 1, Neutrophils # (Auto) 6.2, Lymphocytes # (Auto) 1.1, Monocytes # (Auto) 0.7, Eosinophils # (Auto) 0.4H, Basophils # (Auto) 0.1, Immature Granulocyte # (Auto) 0.1, Sodium Level 141, Potassium Level 3.8, Chloride Level 109H, Carbon Dioxide Level 18L, Anion Gap 14, Blood Urea Nitrogen 23H, Creatinine 1.52H, Estimat Glomerular Filtration Rate 45, BUN/Creatinine Ratio 15, Glucose Level 101, Calcium Level 8.9, Corrected Calcium 9.9, Total Bilirubin 0.7, Aspartate Amino Transf (AST/SGOT) 60H, Alanine Aminotransferase (ALT/SGPT) 61H, Alkaline Phosphatase 77, Total Protein 6.0L, Albumin 2.8L 05/31/21 11:08: Glucometer 151H Microbiology 05/27/21 Blood Culture - Preliminary, Resulted Staph, Coag Neg (SCHOOL VOCATIONAL EDUCATOR) 05/27/21 Urine Culture - Final, Complete NO GROWTH Home Meds Active Reported Ferrous Sulfate 325 Mg Tablet 325 Mg PO DAILY Solifenacin Succinate 5 Mg Tablet 5 Mg PO DAILY Carvedilol 3.125 Mg Tablet 3.125 Mg PO BID Flomax (Tamsulosin HCl) 0.4 Mg Cap 0.8 Mg PO HS TAKES 2 (0.4MG) TABS Vitamin C (Ascorbic Acid) 1,000 Mg Tablet 1,000 Mg PO DAILY Centrum Silver Tablet (Multivit-Min/FA/Lycopene/Lut) 1 Each Tablet 1 Each PO DAILY Vitamin D3 (Cholecalciferol (Vitamin D3)) 25 Mcg Capsule 25 Mcg PO DAILY Allopurinol 100 Mg Tablet 100 Mg PO DAILY Omeprazole 40 Mg Capsule.dr 40 Mg PO DAILY Clopidogrel (Clopidogrel Bisulfate) 75 Mg Tablet 75 Mg PO DAILY Ranolazine ER (Ranolazine) 500 Mg Tab.er.12h 500 Mg PO BID Aspirin EC (Aspirin) 81 Mg Tablet.dr 81 Mg PO HS Atorvastatin Calcium 80 Mg Tablet 80 Mg PO HS Consulations Cardiology Patient Allergies: Coded Allergies: No Known Drug Allergies (Verified , 05/24/16) Height (Feet): 5 Height (Inches): 6.00 Weight (Pounds): 154 Weight (Ounces): 0.0 Home Health Need/Face to Face Date of Face to Face: May 31, 2021 Clinical Findings: Instability, Muscle weakness, Unsteady gait I have seen Pt [id number]: Yes Discharged To: Home Diagnosis/Conditions: HTN HLD CAD CKD T2DM BPH Debility Problems/Diagnosis/Condition: (1) Severe sepsis (2) UTI (urinary tract infection) (3) NSTEMI (non-ST elevated myocardial infarction) (4) Acute kidney injury superimposed on chronic kidney disease (5) CKD (chronic kidney disease) (6) Debility (7) BPH (benign prostatic hyperplasia) (8) Primary hypertension (9) Aortic stenosis (10) CAD (coronary artery disease) (11) Chronic anemia Patient is Homebound due to: Radha fall risk due to instabilty, Muscle weakness Homebound Status Due to the above stated illness, injury or surgical procedure (medical condition or diagnosis) and associated clinical findings, the patient is homebound because of his/her inability to leave home except with aid of a supportive device and/or person AND leaving the home requires a considerable and taxing effort or is medically contraindicated. Pt req the following assistanc: Aid of another person, Walker Home Health Nursing Orders Home Health Services Order: Nursing Services, Medical Recruiter-Evaluate & Treat, Physical Therapy-Evaluate & Treat Home Health Infusion Therapy Line Start Date: May 24, 2021 Therapy Orders Therapy Orders: OT (must have SN or PT order), Physical Therapy Therapy Specific Orders: Eval assistive deivces, Teach enviro modifications/safety, Gait training, Increase strength/endurance Certify Stmt I certify that this patient is under my care and that I, a nurse practitioner or a physician; a press assistant and feeder working with me, had a face to face encounter that - meets the physician face to face encounter requirements with this patient as dated. Discharge Physical Exam General: Alert, Cooperative, No Acute Distress HEENT: Atraumatic, EOMI, Mucous Memb Moist/[place] Lungs: Clear to Auscultation, Normal Air Movement Heart: Regular Rate, Other (systolic murmur) Abdomen: Normal Bowel Sounds, Soft, No Tenderness Extremities: No Edema, No Tenderness/Swelling Skin: No Rashes, No Significant Lesion Neuro: Normal Speech, Normal Tone Psych/Mental Status: Mental Status NL, Mood NL ZACHARY DALTON MD May 31, 2021 11:26
[2021-05-31 11:35] VITALS: BP 144/72
== END 2021-05-31 12:55 | disposition home health service (06) | DRG 871 ==
LOC: EDUNIT# 18:35 → ER 18:37 → CSD 20:54 → 4TH 05-29 14:31
PROVIDERS: ADMIT Internal Medicine; ATTEND Internal Medicine
PROC: B2131ZZ Fluoroscopy of Multiple Coronary Artery Bypass Grafts using Low Osmolar Contrast (ICD-10-PCS; principal; 2021-05-26)
PROC: B2181ZZ Fluoroscopy of Left Internal Mammary Bypass Graft using Low Osmolar Contrast (ICD-10-PCS; 2021-05-26)
DX: A41.9 Sepsis, unspecified organism (principal); I21.A1 Myocardial infarction type 2; N39.0 Urinary tract infection, site not specified; I13.0 Hypertensive heart and chronic kidney disease with heart failure and stage 1 through stage 4 chronic kidney disease, or unspecified chronic kidney disease; N17.9 Acute kidney failure, unspecified; R65.20 Severe sepsis without septic shock; E11.22 Type 2 diabetes mellitus with diabetic chronic kidney disease; N18.32 Chronic kidney disease, stage 3b; Z66 Do not resuscitate; I50.9 Heart failure, unspecified; D63.1 Anemia in chronic kidney disease; E78.00 Pure hypercholesterolemia, unspecified; E78.5 Hyperlipidemia, unspecified; I25.10 Atherosclerotic heart disease of native coronary artery without angina pectoris; N40.0 Benign prostatic hyperplasia without lower urinary tract symptoms; I08.0 Rheumatic disorders of both mitral and aortic valves; F60.81 Narcissistic personality disorder; H54.7 Unspecified visual loss; Z91.81 History of falling; Z79.84 Long term (current) use of oral hypoglycemic drugs; Z95.1 Presence of aortocoronary bypass graft; Z95.5 Presence of coronary angioplasty implant and graft; Z85.46 Personal history of malignant neoplasm of prostate; Z79.82 Long term (current) use of aspirin; Z82.49 Family history of ischemic heart disease and other diseases of the circulatory system
CPT/HCPCS: 36415; 51701; 51702; 70450; 71045; 72170; 80053; 80061; 80320; 81000; 82010; 82150; 82550; 82553; 82728; 82947; 83036; 83540; 83550; 83605; 83690; 83735; 83874; 83880; 84145; 84443; 84484; 85007; 85014; 85018; 85025; 85027; 85610; 85730; 86850; 86900; 86901; 86920; 87040; 87077; 87088; 87186; 93005; 93041; 93306; 93455

== ENCOUNTER → 2021-06-03 | Outpatient (CLI) | payer MEDICARE ==
[~2021-06-03] MED LIST changes: +ACHD5005 PO; +CARV3.122 PO; +FERR-74 PO; +OMEP20TA56 PO; -OMEP20TA7 PO; +SOLI5TAB7 PO
--- NOTE | 2021-06-03 16:02 | Diagnostic Imaging Report ---
INDICATION: Cough. Left anterior chest pain with recent falls. Comparison with 02/03/2021. FINDINGS: PA and lateral chest. The lungs are well aerated. There is no air trapping. Chronic interstitial changes are noted with mild prominence pulmonary vasculature noted today as well. Small pleural effusion is present today. The heart is mildly enlarged. Median sternotomy changes are noted. IMPRESSION: 1. Postoperative residue with mild chronic lung disease. 2. Cardiomegaly with development of mild pulmonary edema and small pleural effusions today. Dictated by: Dictated on workstation # [id number]
== END ==
LOC: RAD 10:53
PROVIDERS: ATTEND Physician Assistant
DX: I51.7 Cardiomegaly (principal); J90 Pleural effusion, not elsewhere classified
CPT/HCPCS: 71046

== ENCOUNTER 2021-06-06 03:22 | Emergency (ER) | payer MEDICARE ==
[~2021-06-06 03:22] MED LIST changes: -ACHD5005 PO
--- NOTE | 2021-06-06 03:39 | ED Fall/Injury ---
General Chief Complaint: Trauma-Non Activation Stated Complaint: FALL, SHOULDER INJURY Nursing Triage Note: TO ED VIA [facility] TO ROOM 6 WITH C/O FALL AND HIT HEAD AND C/O PAIN TO LEFT SHOULDER. EMS STATES PT REFUSED C COLLAR. Source: patient Exam Limitations: no limitations (AUGUSTO HESTER) History of Present Illness Date Seen by Provider: June 06, 2021 Time Seen by Provider: 03:19 Initial Comments Patient to the ER by [facility] with chief complaint of was getting up to go to the bathroom and fell. Landed on his left shoulder and having shoulder pain. Painful movement. No previous fracture or surgery. No loss of consciousness. He did hit his head. He is on Plavix but no blood thinners. He takes hydrocodone as necessary but has not had any recently and does not want a thing for pain right this moment. He did recently get out of the hospital a couple days ago for UTI and sepsis with confusion. EMS remarks no confusion presently. (AUGUSTO HESTER) Allergies and Home Medications Allergies Coded Allergies: No Known Drug Allergies (Verified , 05/24/16) Patient Home Medication List Home Medication List Reviewed: Yes (AUGUSTO HESTER) Allopurinol (Allopurinol) 100 Mg Tablet, 100 MG PO DAILY, (Reported) Entered as Reported by: CALIN MCDERMOTT on 08/27/20 1008 Ascorbic Acid (Vitamin C) 1,000 Mg Tablet, 1,000 MG PO DAILY, (Reported) Entered as Reported by: CALIN MCDERMOTT on 08/27/20 1008 Aspirin (Aspirin EC) 81 Mg Tablet.dr, 81 MG PO HS, (Reported) Entered as Reported by: YULISSA MARQUEZ on 01/24/17 1536 Atorvastatin Calcium (Atorvastatin Calcium) 80 Mg Tablet, 80 MG PO HS, (Reported) Entered as Reported by: RENNY CARLOS on 05/25/16 0848 Carvedilol (Carvedilol) 3.125 Mg Tablet, 3.125 MG PO BID, (Reported) Entered as Reported by: CALIN MCDERMOTT on 05/24/21 1434 Cholecalciferol (Vitamin D3) (Vitamin D3) 25 Mcg Capsule, 25 MCG PO DAILY, (Reported) Entered as Reported by: CALIN MCDERMOTT on 08/27/20 1008 Clopidogrel Bisulfate (Clopidogrel) 75 Mg Tablet, 75 MG PO DAILY, (Reported) Entered as Reported by: YULISSA MARQUEZ on 10/22/18 1446 Ferrous Sulfate (Ferrous Sulfate) 325 Mg Tablet, 325 MG PO DAILY, (Reported) Entered as Reported by: CALIN MCDERMOTT on 05/24/21 1434 Hydrocodone/Acetaminophen (Hydrocodone-Acetamin 5-325 mg) 5 Mg-325 Mg Tablet, 1 TAB PO Q6H PRN for PAIN-MODERATE (5-7) Prescribed by: AUGUSTO HESTER on 06/06/21 0522 Multivit-Min/FA/Lycopene/Lut (Centrum Silver Tablet) 1 Each Tablet, 1 EACH PO DAILY, (Reported) Entered as Reported by: CALIN MCDERMOTT on 08/27/20 1008 Omeprazole (Omeprazole) 40 Mg Capsule.dr, 40 MG PO DAILY, (Reported) Entered as Reported by: CALIN MCDERMOTT on 08/27/20 1008 Ranolazine (Ranolazine ER) 500 Mg Tab.er.12h, 500 MG PO BID, (Reported) Entered as Reported by: YULISSA MARQUEZ on 10/22/18 1446 Solifenacin Succinate (Solifenacin Succinate) 5 Mg Tablet, 5 MG PO DAILY, (Reported) Entered as Reported by: CALIN MCDERMOTT on 05/24/21 1434 Tamsulosin HCl (Flomax) 0.4 Mg Cap, 0.8 MG PO HS, (Reported) Entered as Reported by: CALIN MCDERMOTT on 08/27/20 1009 Review of Systems Review of Systems Constitutional: No chills, No diaphoresis Eyes: Denies Blindness, Denies Blurred Vision Ears, Nose, Mouth, Throat: denies ear pain, denies ear discharge Respiratory: No cough, No short of breath Cardiovascular: No chest pain, No edema Gastrointestinal: No abdominal pain, No nausea, No vomiting Genitourinary: No discharge, No dysuria Musculoskeletal: No back pain, No joint pain (AUGUSTO HESTER) All Other Systems Reviewed Negative Unless Noted: Yes (AUGUSTO HESTER) Past Lunjpww-Qcgyql-Gfukst Hx Patient Social History Tobacco Use?: No Use of E-Cig and/or Vaping dev: No Substance use?: No Alcohol Use?: Yes Alcohol Frequency: Rarely (AUGUSTO HESTER) Immunizations Up To Date Tetanus Booster (TDap): Unknown COVID19 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 2 VACCINES PLUS BOOSTER (AUGUSTO HESTER) Past Medical History Surgery/Hospitalization HX: CABG- 2003 Cardiac Cath- 2018 Back Surgery -2019 Surgeries: Yes Cardiac, CABG, Coronary Stent, Orthopedic Respiratory: No Currently Using CPAP: No Currently Using BIPAP: No Cardiac: Yes (3 VESSEL CABG; 4-5 STENTS) Coronary Artery Disease, High Cholesterol, Hypertension Neurological: No Reproductive Disorders: Yes (E.D.) Genitourinary: Yes (PROSTATE CANCER--S/P BRACHYTHERAPY; E.D.) Prostate Problems Gastrointestinal: Yes Pancreatitis Musculoskeletal: Yes (BACK SURGERIES X 5--LAST ONE 10/2018) Degenerate Disk Disease, Arthritis, Chronic Back Pain Endocrine: Yes Diabetes, Non-Insulin dep HEENT: No Cancer: Yes Prostate Did You Recieve Any Treatments: Yes What Type of Treatment Did You: Radiation Psychosocial: No Integumentary: No Blood Disorders: No (AUGUSTO HESTER) Family Medical History Cancer, CAD Over 55 Years Old CARDIAC CATH 07/[address] RAMEY: CONCLUSION: 1. Total occlusion of the left main, LAD, left circumflex and right coronary artery. 2. Patent vein graft to the diagonal artery, vein graft to the obtuse marginal artery 3. 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 4. The right coronary artery is small nondominant artery that is not bypassed DISCUSSION AND RECOMMENDATION: Medical therapy is recommended at this point. Regarding the subclavian artery, consideration for percutaneous intervention in the future can be considered, preferably with a vascular surgery evaluation. (AUGUSTO HESTER) Physical Exam Vital Signs Vital Signs - First Documented 06/06/21 03:27 Temp 37.0 Pulse 87 Resp 16 B/P (MAP) 176/85 (115) Pulse Ox 96 (OZIEL,IAIN K DO) Vital Signs Capillary Refill : Less Than 3 Seconds (AUGUSTO HESTER) Height, Weight, BMI Height: 5'6.00" Weight: 154lbs. 0.0oz. [id number]; 24.03 BMI Method:Estimated General Appearance: WD/WN, no apparent distress HEENT: PERRL/EOMI, normal ENT inspection, TMs normal, pharynx normal Neck: non-tender, full range of motion, supple, normal inspection Cardiovascular: normal peripheral pulses, regular rate, rhythm Respiratory: lungs clear, normal breath sounds, no respiratory distress, no accessory muscle use Peripheral Pulses: 2+ Radial Pulses (R), 2+ Radial Pulses (L) Gastrointestinal: normal bowel sounds, non tender, soft Extremities: normal inspection, normal capillary refill, other (Tenderness over the anterior glenohumeral Joint) Neurologic/Psychiatric: alert, normal mood/affect, oriented x 3 Skin: normal color, warm/dry (KACIE,AUGUSTO J) Progress/Results/Core Measures Results/Orders Lab Results Laboratory Tests Test 06/06/21 03:45 Range/Units White Blood Count 9.2 4.3-11.0 10^3/uL Red Blood Count 2.94 L 4.30-5.52 10^6/uL Hemoglobin 8.8 L 13.3-17.7 g/dL Hematocrit 28 L 40-54 % Mean Corpuscular Volume 95 80-99 fL Mean Corpuscular Hemoglobin 30 25-34 pg Mean Corpuscular Hemoglobin Concent 32 32-36 g/dL Red Cell Distribution Width 15.9 H 10.0-14.5 % Platelet Count 325 130-400 10^3/uL Mean Platelet Volume 9.5 9.0-12.2 fL Immature Granulocyte % (Auto) 1 % Neutrophils (%) (Auto) 72 42-75 % Lymphocytes (%) (Auto) 15 12-44 % Monocytes (%) (Auto) 8 0-12 % Eosinophils (%) (Auto) 3 0-10 % Basophils (%) (Auto) 1 0-10 % Neutrophils # (Auto) 6.6 1.8-7.8 10^3/uL Lymphocytes # (Auto) 1.4 1.0-4.0 10^3/uL Monocytes # (Auto) 0.7 0.0-1.0 10^3/uL Eosinophils # (Auto) 0.3 0.0-0.3 10^3/uL Basophils # (Auto) 0.1 0.0-0.1 10^3/uL Immature Granulocyte # (Auto) 0.1 0.0-0.1 10^3/uL Sodium Level 141 135-145 MMOL/L Potassium Level 4.8 3.6-5.0 MMOL/L Chloride Level 106 98-107 MMOL/L Carbon Dioxide Level 22 21-32 MMOL/L Anion Gap 13 5-14 MMOL/L Blood Urea Nitrogen 37 H 7-18 MG/DL Creatinine 1.61 H 0.60-1.30 MG/DL Estimat Glomerular Filtration Rate 42 BUN/Creatinine Ratio 23 Glucose Level 125 H 70-105 MG/DL Calcium Level 9.3 8.5-10.1 MG/DL (OZIEL,IAIN K DO) Medications Given in ED Current Medications Medications Dose Ordered Sig/Luz Route Start Time Stop Time Status Last Admin Dose Admin Fentanyl Citrate 25 mcg ONCE ONCE IVP 06/06/21 03:45 06/06/21 03:46 DC 06/06/21 03:45 25 MCG (OZIEL,IAIN K DO) Vital Signs/I&O 06/06/21 03:27 Temp 37.0 Pulse 87 Resp 16 B/P (MAP) 176/85 (115) Pulse Ox 96 (OZIEL,IAIN K DO) Blood Pressure Mean: 115 Progress Progress Note #1: Time: 03:38 Progress Note Plain films left shoulder, CT of the head and C-spine, basic labs, fentanyl 25 mcg IV Progress Note #2: Time: 05:18 Progress Note Patient did not receive much relief from the 25 mcg of fentanyl so we will give him some hydrocodone. Put his arm in a sling. Waiting on the rest of the images for his C-spine to upload. (AUGUSTO HESTER) Progress Note : Progress Note 0600--ASSUMED CARE FROM DR. HESTER, XRAYS AND CT REPORTS PENDING PT ONLY C/O LEFT SHOULDER PAIN. DENIES HEADACHE, NECK BACK, BACK PAIN OR HIP PAIN, NO CHEST/ABDOMINAL PAIN NO PARESTHESIAS OR MOTOR DEFICITS NO SHORTNESS OF BREATH NO NAUSEA/VOMITING NO VISION CHANGES NO DIZZINESS (OZIEL,IAIN K DO) Diagnostic Imaging Diagonstic Imaging: Xray Plain Films/CT/US/NM/MRI: other (Left shoulder) Comments No acute osseous abnormality on 3 view left shoulder [facility] [place] NAME: ALONDRA WOODS [facility] REC#: [id number] PT STATUS: DEP ER : 1940 PHYSICIAN: AUGUSTO HESTER MD ADMIT DATE: 06/06/21/ER Signed Date of Exam:06/06/21 SHOULDER, LEFT, 3 VIEWS HISTORY: Left shoulder pain TECHNIQUE: 3 views of the left shoulder COMPARISON: None FINDINGS: No acute fracture or dislocation is seen in the left shoulder. Alignment appears normal. There are mild degenerative changes in the left shoulder. There is subtle cortical irregularity at the lateral left 5th and 6th ribs, may represent age-indeterminate fractures. IMPRESSION: 1. No acute osseous abnormality is seen in the left shoulder. 2. Cortical irregularity at the left 5th and 6th ribs, may represent age-indeterminate fractures. Dictated by: Dictated on workstation # [id number] Dict: 06/06/21612 Trans: 06/06/21 08 [facility] [id number] Interpreted by: SAYDA SUTHERLAND MD Electronically signed by: SAYDA SUTHERLAND MD 06/06/21837 Reviewed: Reviewed by Me Diagonstic Imaging: CT Plain Films/CT/US/NM/MRI: c-spine, head Reviewed: Reviewed by Me (AUGUSTO HESTER) Comments XRAYS LEFT SHOULDER--PER RADIOLOGIST REPORT AT 0630 FINDINGS: No acute fracture or dislocation is seen in the left shoulder. Alignment appears normal. There are mild degenerative changes in the left shoulder. There is subtle cortical irregularity at the lateral left 5th and 6th ribs, may represent age-indeterminate fractures. IMPRESSION: 1. No acute osseous abnormality is seen in the left shoulder. 2. Cortical irregularity at the left 5th and 6th ribs, may represent age-indeterminate fractures. CT HEAD/CERVICAL SPINE--PER RADIOLOGIST REPORT AT 0640 COMPARISON: 05/23/2021 FINDINGS: CT HEAD: The ventricles and cortical sulci are prominent, likely from generalized parenchymal volume loss. There is no midline shift or mass effect. There is a small CSF prominence anterior to the left temporal horn measuring about 1.5 x 2 cm in size, most likely a small arachnoid cyst. No acute intracranial hemorrhage is seen. There is no CT evidence of acute territorial ischemia. Visible paranasal sinuses are clear. The calvarium appears intact. CT cervical spine: There is grade 1 anterolisthesis at C6-C7. There is mild vertebral body height loss at C7 which is age indeterminate. There are moderate degenerative changes at C5-C6 and mild degenerative changes elsewhere in the cervical spine. There is multilevel facet arthropathy. No bony fragments or hyperdense fluid collections are seen within the spinal canal. Soft tissues about the cervical spine demonstrate no acute abnormality. There is motion artifact in the lung apices, but there does appear to be some interlobular septal thickening and perhaps some groundglass opacity. IMPRESSION: 1. No acute intracranial hemorrhage or calvarium fracture. 2. Age-indeterminate mild compression deformity of C7. If pain localizes to this region, MRI could be considered to evaluate for edema. 3. Degenerative changes in the cervical spine. 4. Interlobular septal thickening, may be due to artifact, versus early edema. No preliminary report was available at the time of dictation. (IAIN LUDWIG DO) Departure Impression Primary Impression: Fall Qualified Codes: W19.XXXA - Unspecified fall, initial encounter Additional Impression: Contusion of left shoulder, initial encounter Disposition: HOME, SELF-CARE Condition: Stable Departure-Patient Inst. Decision time for Depature: 06:45 (IAIN LUDWIG DO) Referrals: MANUELA HAN MD, JOHN D MD (PCP/Family) Primary Care Physician Patient Instructions: Contusion (DC), Shoulder Pain ED, Preventing Falls in Older Adults Add. Discharge Instructions: Wear the sling except to sleep and bathe. Call Dr. Han's office Monday morning and request follow-up appointment later in the week. Tylenol 650 mg every 6 hours as needed for pain. Hydrocodone 1 tablet every 6 hours as needed for severe breakthrough pain. Hydrocodone will cause constipation and drowsiness. I recommend MiraLAX or Colace to stay regular. All discharge instructions reviewed with patient and/or family. Voiced understanding. Scripts Hydrocodone/Acetaminophen (Hydrocodone-Acetamin 5-325 mg) 5 Mg-325 Mg Tablet 1 TAB PO Q6H PRN for PAIN-MODERATE (5-7), #8 TAB 0 Refills Prov: AUGUSTO HESTER 06/06/21 Copy Copies To 1: MANUELA HAN MD, TITUS J June 06, 2021 03:39 IAIN LUDWIG DO June 06, 2021 06:28
[2021-06-06] MEDS ORDERED: fentaNYL INJ 100 MCG/2 ML AMP IVP ONE ×2 (03:45→06:45)
[2021-06-06 03:59] LABS: BASOPHILS # (AUTO) 0.1 10^3/uL (0.0-0.1); BASOPHILS % (AUTO) 1 % (0-10); EOSINOPHILS # (AUTO) 0.3 10^3/uL (0.0-0.3); EOSINOPHILS % (AUTO) 3 % (0-10); HEMATOCRIT 28 % (40-54); HEMOGLOBIN 8.8 g/dL (13.3-17.7); LYMPHOCYTES # (AUTO) 1.4 10^3/uL (1.0-4.0); LYMPHOCYTES % (AUTO) 15 % (12-44); MEAN CORPUSCULAR HEMOGLOBIN 30 pg (25-34); MEAN CORPUSCULAR HGB CONC 32 g/dL (32-36); MEAN CORPUSCULAR VOLUME 95 fL (80-99); MEAN PLATELET VOLUME 9.5 fL (9.0-12.2); MONOCYTES # (AUTO) 0.7 10^3/uL (0.0-1.0); MONOCYTES % (AUTO) 8 % (0-12); NEUTROPHILS # (AUTO) 6.6 10^3/uL (1.8-7.8); NEUTROPHILS % (AUTO) 72 % (42-75); PLATELET COUNT 325 10^3/uL (130-400); WHITE BLOOD COUNT 9.2 10^3/uL (4.3-11.0)
[2021-06-06 04:12] LABS: POTASSIUM 4.8 MMOL/L (3.6-5.0)
[2021-06-06 04:13] LABS: CALCIUM 9.3 MG/DL (8.5-10.1)
[2021-06-06 04:17] LABS: CREATININE SERUM 1.61 MG/DL (0.60-1.30)
[2021-06-06] MEDS ORDERED: ACHD5005 PO (05:22)
--- NOTE | 2021-06-06 06:19 | Diagnostic Imaging Report ---
HISTORY: Left shoulder pain TECHNIQUE: 3 views of the left shoulder COMPARISON: None FINDINGS: No acute fracture or dislocation is seen in the left shoulder. Alignment appears normal. There are mild degenerative changes in the left shoulder. There is subtle cortical irregularity at the lateral left 5th and 6th ribs, may represent age-indeterminate fractures. IMPRESSION: 1. No acute osseous abnormality is seen in the left shoulder. 2. Cortical irregularity at the left 5th and 6th ribs, may represent age-indeterminate fractures. Dictated by: Dictated on workstation # [id number]
--- NOTE | 2021-06-06 06:37 | Diagnostic Imaging Report ---
PROCEDURE: CT head and CT cervical spine without contrast. TECHNIQUE: Multiple contiguous axial images were obtained through the brain and cervical spine without the use of intravenous contrast. Sagittal and coronal reformations through the cervical spine were then performed. Auto Exposure Controls were utilized during the CT exam to meet ALARA standards for radiation dose reduction. INDICATION: Fall, head and neck injury COMPARISON: 05/23/2021 FINDINGS: CT HEAD: The ventricles and cortical sulci are prominent, likely from generalized parenchymal volume loss. There is no midline shift or mass effect. There is a small CSF prominence anterior to the left temporal horn measuring about 1.5 x 2 cm in size, most likely a small arachnoid cyst. No acute intracranial hemorrhage is seen. There is no CT evidence of acute territorial ischemia. Visible paranasal sinuses are clear. The calvarium appears intact. CT cervical spine: There is grade 1 anterolisthesis at C6-C7. There is mild vertebral body height loss at C7 which is age indeterminate. There are moderate degenerative changes at C5-C6 and mild degenerative changes elsewhere in the cervical spine. There is multilevel facet arthropathy. No bony fragments or hyperdense fluid collections are seen within the spinal canal. Soft tissues about the cervical spine demonstrate no acute abnormality. There is motion artifact in the lung apices, but there does appear to be some interlobular septal thickening and perhaps some groundglass opacity. IMPRESSION: 1. No acute intracranial hemorrhage or calvarium fracture. 2. Age-indeterminate mild anterior compression deformity of C7. This is thought most likely chronic and there is no retropulsion. If pain localizes to this region, MRI could be considered to evaluate for edema. 3. Degenerative changes in the cervical spine. 4. Interlobular septal thickening, may be due to artifact, versus early edema. Discussed with Dr. Mendoza at 8:45 AM on 06/06/2021 Dictated by: Dictated on workstation # [id number]
[2021-06-06 07:29] VITALS: BP 179/95
== END 2021-06-06 07:29 | disposition home or self-care (01) ==
LOC: EDUNIT# 03:22 → ER 03:23
DX: S40.012A Contusion of left shoulder, initial encounter (principal); Z79.02 Long term (current) use of antithrombotics/antiplatelets; W18.30XA Fall on same level, unspecified, initial encounter
CPT/HCPCS: 70450; 72125; 73030; 80048; 85025; 99284; A4565; 36415

== ENCOUNTER 2021-06-09 17:53 | Emergency (ER) | payer MEDICARE ==
[~2021-06-09] VITALS: Ht 167 cm; Wt 69.8 kg
[~2021-06-09 17:53] MED LIST changes: +ACHD5005 PO
[2021-06-09] MEDS ORDERED: cefTRIAXone 1 GM PRE-MIX 50 ML IV ONE (18:15)
[2021-06-09] MEDS ORDERED: NS IV 500 ML 500 ML IV ONE (18:15)
--- NOTE | 2021-06-09 18:19 | ED GU-Male ---
General Chief Complaint: - Reproductive Stated Complaint: UTI,SEPSIS Nursing Triage Note: PT PRESENTS TO ED VIA POV FROM HOME ACCOMPANIED BY WITH COMPLAINTS OF INCREASED CONFUSION AND GEN WEAKNESSSTARTING TODAY. PT WAS DIAGNOSED WITH A UTI BY HIS PRIMARY YESTERDAY AND PLACED ON LEVAQUIN PO TODAY. Source: patient, spouse Exam Limitations: no limitations History of Present Illness Date Seen by Provider: June 09, 2021 Time Seen by Provider: 18:00 Initial Comments Patient presents to the ER by private conveyance from home with chief complaint that he has had malodorous smelling urine, incontinence of urine worse than normal, confused conversation with his and hallucination of people who were not there. This all started in the last couple days and he had a [place]inal[place] [facility] which was read out as a UTI by Cate at Dr. Lr's office. He has a history of UTIs been proceeding to urosepsis. He was started on Levaquin yesterday. He has not had any fever but he has had a cough. He denies feeling short of breath. His notes he has been eating okay but refusing to drink fluids. He had a fall earlier in the week resulting in a contusion of his left shoulder for which she was placed in a sling. Has been using hydrocodone couple times a day to maintain his pain control. He says his last dose was sometime this afternoon. He denies any chest pain nausea fevers diarrhea. His home health nurse noted that he had some increased swelling in his feet today compared to the last time she visited. He has a history of multivessel CABG but no valvular issues. He has a known heart murmur. He just got out of the hospital about a week ago for UTI, sepsis and confusion. He is taking his Plavix routinely. He also is chronically on hydrocodone. History of hyperlipidemia, hypertension, diabetes, coronary disease with most recent coronary angiogram in May 2021 which showed extensive coronary disease, non-STEMI and conservative medical management was recommended at that time. Echocardiogram last month demonstrated an EF of 55 to 60% with mild to moderate aortic stenosis, mild mitral regurgitation and a slight progression of the aortic stenosis compared to November 2020. He has a history of benign prostatic hypertrophy on Flomax. Previous micro grew out Klebsiella which was broadly susceptible. Allergies and Home Medications Allergies Coded Allergies: No Known Drug Allergies (Verified , 05/24/16) Patient Home Medication List Home Medication List Reviewed: Yes Allopurinol (Allopurinol) 100 Mg Tablet, 100 MG PO DAILY, (Reported) Entered as Reported by: CALIN MCDERMOTT on 08/27/20 1008 Ascorbic Acid (Vitamin C) 1,000 Mg Tablet, 1,000 MG PO DAILY, (Reported) Entered as Reported by: CALIN MCDERMOTT on 08/27/20 1008 Aspirin (Aspirin EC) 81 Mg Tablet.dr, 81 MG PO HS, (Reported) Entered as Reported by: YULISSA MARQUEZ on 01/24/17 1536 Atorvastatin Calcium (Atorvastatin Calcium) 80 Mg Tablet, 80 MG PO HS, (Reported) Entered as Reported by: RENNY CARLOS on 05/25/16 0848 Carvedilol (Carvedilol) 3.125 Mg Tablet, 3.125 MG PO BID, (Reported) Entered as Reported by: CALIN MCDERMOTT on 05/24/21 1434 Cholecalciferol (Vitamin D3) (Vitamin D3) 25 Mcg Capsule, 25 MCG PO DAILY, (Re ported) Entered as Reported by: CALIN MCDERMOTT on 08/27/20 1008 Clopidogrel Bisulfate (Clopidogrel) 75 Mg Tablet, 75 MG PO DAILY, (Reported) Entered as Reported by: YULISSA MARQUEZ on 10/22/18 1446 Ferrous Sulfate (Ferrous Sulfate) 325 Mg Tablet, 325 MG PO DAILY, (Reported) Entered as Reported by: CALIN MCDERMOTT on 05/24/21 1434 Hydrocodone/Acetaminophen (Hydrocodone-Acetamin 5-325 mg) 5 Mg-325 Mg Tablet, 1 TAB PO Q6H PRN for PAIN-MODERATE (5-7) Prescribed by: AUGUSTO HESTER on 06/06/21 0522 Multivit-Min/FA/Lycopene/Lut (Centrum Silver Tablet) 1 Each Tablet, 1 EACH PO DAILY, (Reported) Entered as Reported by: CALIN MCDERMOTT on 08/27/20 1008 Omeprazole (Omeprazole) 40 Mg Capsule.dr, 40 MG PO DAILY, (Reported) Entered as Reported by: CALIN MCDERMOTT on 08/27/20 1008 Ranolazine (Ranolazine ER) 500 Mg Tab.er.12h, 500 MG PO BID, (Reported) Entered as Reported by: YULISSA MARQUEZ on 10/22/18 1446 Solifenacin Succinate (Solifenacin Succinate) 5 Mg Tablet, 5 MG PO DAILY, (Reported) Entered as Reported by: CALIN MCDERMOTT on 05/24/21 1434 Tamsulosin HCl (Flomax) 0.4 Mg Cap, 0.8 MG PO HS, (Reported) Entered as Reported by: CALIN MCDERMOTT on 08/27/20 1009 Review of Systems Review of Systems Constitutional: No chills, No diaphoresis, No fever; malaise EENTM: No ear discharge, No hearing loss, No ear pain, No blurred vision Respiratory: cough; No dyspnea on exertion, No short of breath Cardiovascular: No chest pain Gastrointestinal: see HPI; No abdominal pain, No constipation, No diarrhea Genitourinary: denies burning, denies discharge Musculoskeletal: see HPI; No back pain; joint pain All Other Systemes Reviewed Negative Unless Noted: Yes Past Icjycjc-Ixprst-Qxyhgq Hx Patient Social History Tobacco Use?: No Substance use?: No Alcohol Use?: Yes Alcohol type: Hard Liquor Alcohol Frequency: Once in a while Pt feels they are or have been: No Immunizations Up To Date Tetanus Booster (TDap): Unknown First/Initial COVID19 Vaccinat: yes Second COVID19 Vaccination Enrique: yes COVID19 Vaccine Mysql Database Administrator: armen Past Medical History Surgery/Hospitalization HX: CABG- 2003 Cardiac Cath- 2018 Back Surgery -2019 Surgeries: Yes Cardiac, CABG, Coronary Stent, Orthopedic Respiratory: No Currently Using CPAP: No Currently Using BIPAP: No Cardiac: Yes (3 VESSEL CABG; 4-5 STENTS) Coronary Artery Disease, High Cholesterol, Hypertension Neurological: No Reproductive Disorders: Yes (E.D.) Genitourinary: Yes (PROSTATE CANCER--S/P BRACHYTHERAPY; E.D.) Prostate Problems Gastrointestinal: Yes Pancreatitis Musculoskeletal: Yes (BACK SURGERIES X 5--LAST ONE 10/2018) Degenerate Disk Disease, Arthritis, Chronic Back Pain Endocrine: Yes Diabetes, Non-Insulin dep HEENT: No Cancer: Yes Prostate Did You Recieve Any Treatments: Yes What Type of Treatment Did You: Radiation Psychosocial: No Integumentary: No Blood Disorders: No Family Medical History Cancer, CAD Over 55 Years Old CARDIAC CATH 07/[address] RAMEY: CONCLUSION: 1. Total occlusion of the left main, LAD, left circumflex and right coronary artery. 2. Patent vein graft to the diagonal artery, vein graft to the obtuse marginal artery 3. 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 4. The right coronary artery is small nondominant artery that is not bypassed DISCUSSION AND RECOMMENDATION: Medical therapy is recommended at this point. Regarding the subclavian artery, consideration for percutaneous intervention in the future can be considered, preferably with a vascular surgery evaluation. Physical Exam Vital Signs Vital Signs - First Documented 06/09/21 18:04 Temp 36.6 Pulse 86 Resp 18 B/P (MAP) 115/65 (82) Pulse Ox 96 Capillary Refill : Less Than 3 Seconds Height, Weight, BMI Height: 5'6.00" Weight: 154lbs. 0.0oz. [id number]; 25.00 BMI Method:Estimated General Appearance: WD/WN, mild distress HEENT: PERRL/EOMI (Pupils are 2 mm, nearly pinpoint bilateral, symmetric), TMs normal, pharynx normal (Mildly dry oral mucosa) Neck: non-tender, full range of motion, supple, normal inspection Cardiovascular: normal peripheral pulses, regular rate, rhythm, systolic murmur (4 out of 6 murmur systolic, decrescendo), other (Trace bipedal edema) Respiratory: lungs clear, normal breath sounds, no respiratory distress, no accessory muscle use Gastrointestinal: normal bowel sounds, non tender Extremities: normal inspection, normal capillary refill, other (Left shoulder is in a sling and he is able to move it actively. Does have tenderness around the left shoulder joint.) Neurologic/Psychiatric: no motor/sensory deficits, alert, oriented x 3, other (Subdued, depressed affect compared to previous encounters. He does answer questions readily and accurately.) Skin: normal color, warm/dry Progress/Results/Core Measures Suspected Sepsis SIRS Temperature: Pulse: 86 Respiratory Rate: 18 Laboratory Tests 06/09/21 18:13: White Blood Count 9.0 Blood Pressure 115 /65 Mean: 82 Laboratory Tests 06/09/21 18:13: Creatinine 2.13H, Platelet Count 283, Total Bilirubin 0.8 Results/Orders Lab Results Laboratory Tests Test 06/09/21 18:13 06/09/21 18:22 5/4/22 18:35 Range/Units White Blood Count 9.0 4.3-11.0 10^3/uL Red Blood Count 2.76 L 4.30-5.52 10^6/uL Hemoglobin 8.3 L 13.3-17.7 g/dL Hematocrit 26 L 40-54 % Mean Corpuscular Volume 95 80-99 fL Mean Corpuscular Hemoglobin 30 25-34 pg Mean Corpuscular Hemoglobin Concent 32 32-36 g/dL Red Cell Distribution Width 16.1 H 10.0-14.5 % Platelet Count 283 130-400 10^3/uL Mean Platelet Volume 9.6 9.0-12.2 fL Immature Granulocyte % (Auto) 0 % Neutrophils (%) (Auto) 73 42-75 % Lymphocytes (%) (Auto) 13 12-44 % Monocytes (%) (Auto) 12 0-12 % Eosinophils (%) (Auto) 2 0-10 % Basophils (%) (Auto) 1 0-10 % Neutrophils # (Auto) 6.6 1.8-7.8 10^3/uL Lymphocytes # (Auto) 1.2 1.0-4.0 10^3/uL Monocytes # (Auto) 1.1 H 0.0-1.0 10^3/uL Eosinophils # (Auto) 0.1 0.0-0.3 10^3/uL Basophils # (Auto) 0.1 0.0-0.1 10^3/uL Immature Granulocyte # (Auto) 0.0 0.0-0.1 10^3/uL Sodium Level 138 135-145 MMOL/L Potassium Level 5.3 H 3.6-5.0 MMOL/L Chloride Level 103 98-107 MMOL/L Carbon Dioxide Level 22 21-32 MMOL/L Anion Gap 13 5-14 MMOL/L Blood Urea Nitrogen 44 H 7-18 MG/DL Creatinine 2.13 H 0.60-1.30 MG/DL Estimat Glomerular Filtration Rate 30 BUN/Creatinine Ratio 21 Glucose Level 147 H 70-105 MG/DL Calcium Level 9.2 8.5-10.1 MG/DL Corrected Calcium 9.6 8.5-10.1 MG/DL Total Bilirubin 0.8 0.1-1.0 MG/DL Aspartate Amino Transf (AST/SGOT) 24 5-34 U/L Alanine Aminotransferase (ALT/SGPT) 26 0-55 U/L Alkaline Phosphatase 71 40-136 U/L Troponin I 0.034 H <0.028 NG/ML C-Reactive Protein High Sensitivity 8.99 H 0.00-0.50 MG/DL B-Type Natriuretic Peptide 948.4 H <100.0 PG/ML Total Protein 6.9 6.4-8.2 GM/DL Albumin 3.5 3.2-4.5 GM/DL Glucometer 127 H 70-110 MG/DL Urine Color YELLOW Urine Clarity CLEAR Urine pH 6.5 5-9 Urine Specific [place] 1.010 L 1.016-1.022 Urine Protein NEGATIVE NEGATIVE Urine Glucose (UA) NEGATIVE NEGATIVE Urine Ketones NEGATIVE NEGATIVE Urine Nitrite NEGATIVE NEGATIVE Urine Bilirubin NEGATIVE NEGATIVE Urine Urobilinogen 0.2 < = 1.0 MG/DL Urine Leukocyte Esterase NEGATIVE NEGATIVE Urine RBC (Auto) NEGATIVE NEGATIVE Urine RBC NONE /HPF Urine WBC 2-5 /HPF Urine Squamous Epithelial Cells NONE /HPF Urine Renal Epithelial Cells NONE /HPF Urine Crystals NONE /LPF Urine Bacteria NEGATIVE /HPF Urine Casts NONE /LPF Urine Mucus NEGATIVE /LPF Urine Culture Indicated NO My Orders Orders - AUGUSTO HESTER Ed Iv/Invasive Line Start (06/09/21 18:11) Ns Iv 500 Ml (Sodium Chloride 0.9%) (06/09/21 18:15) Ceftriaxone 1 Gm Pre-Mix (Rocephin 1 Gm (06/09/21 18:15) Cbc With Automated Diff (06/09/21 18:11) Comprehensive Metabolic Panel (06/09/21 18:11) Hs C Reactive Protein (06/09/21 18:11) Ua Culture If Indicated (06/09/21 18:11) Blood Culture (06/09/21 18:11) Chest 1 View, Ap/Pa Only (06/09/21 18:11) Bnp [place] (06/09/21 18:11) Troponin I Ga (06/09/21 18:11) Continuous Ekg Monitoring (06/09/21 18:11) Ekg Tracing (06/09/21 18:11) Accucheck Stat ONCE (06/09/21 18:19) Medications Given in ED Current Medications Medications Dose Ordered Sig/Luz Route Start Time Stop Time Status Last Admin Dose Admin Ceftriaxone Sodium/Dextrose 50 ml @ 100 mls/hr ONCE ONCE IV 06/09/21 18:15 06/09/21 18:44 DC 06/09/21 18:58 100 MLS/HR Sodium Chloride 500 ml @ 0 mls/hr Q0M ONCE IV 06/09/21 18:15 06/09/21 18:16 DC 06/09/21 18:20 0 MLS/HR Vital Signs/I&O 06/09/21 18:04 Temp 36.6 Pulse 86 Resp 18 B/P (MAP) 115/65 (82) Pulse Ox 96 Capillary Refill : Less Than 3 Seconds Blood Pressure Mean: 82 Progress Note #1: Time: : Progress Note The patient has no septic vital signs. Lung sounds are clear but since he has a reported cough we will get an x-ray. We did start him on Levaquin without cultures. We will go ahead and try and obtain some blood and urine cultures. With his pinpoint pupils I am concerned that perhaps some of his delirium is compounded by his opiates for pain control. We would cosmetic counselor family to reduce the use of opiates as this will worsen his risk for UTI, delirium, falls. We have suggested topical creams such as Voltaren, IcyHot etc. we will check some labs including a BNP because of his progressive edema reported by family. We will go ahead and give him 500 cc of fluid as a early aliquot based on his otherwise dry clinical impression. If he is not septic and not meeting inpatient criteria we could offer him outpatient IM Rocephin for 2 more days. Progress Note #2: Time: 19:26 Progress Note Had a lengthy discussion about how opiates can contribute to his delirium and somnolence. Patient questions were answered. Family's questions were answered. They asked about potentially doing a surgery by Dr. Traylor that was recommended because he has had a couple urinary tract infections and discovered he had a problem with his bladder. We suggest that they weigh the potential benefits against the potential risks given his health history and may be discussed this with his boiler operator helper before committing to do surgery. We also suggest that he continue his medications with hold off the Levaquin and will put him on a couple more rounds of Rocephin IM. Follow-up with primary care as well as with the orthopedic surgeon to manage his shoulder contusion. ECG Initial ECG Impression Date: June 09, 2021 Initial ECG Impression Time: 18:19 Initial ECG Rate: 72 Initial ECG Rhythm: Normal Sinus Initial ECG Intervals: Normal Initial ECG Impression: Normal, Nonspecific Changes Initial ECG Comparisson: Unchanged Comment Incomplete right bundle branch block. No clinically relevant ST elevation or depression. Diagnostic Imaging Diagonstic Imaging: Xray Plain Films/CT/US/NM/MRI: chest Comments NAME: ALONDRA WOODS [facility] REC#: [id number] PT STATUS: REG ER : 1940 PHYSICIAN: AUGUSTO HESTER MD ADMIT DATE: 06/09/21/ER Draft Date of Exam:06/09/21 CHEST 1 VIEW, AP/PA ONLY INDICATION: Cough. TECHNIQUE: Single view chest 6:31 PM. CORRELATION STUDY: 06/03/2021. FINDINGS: Poststernotomy changes with coronary artery bypass. Heart size enlarged and mediastinum prominent, appearing slightly more increased from prior. Calcification of the aortic arch. Vasculature overall within normal limits. Minimal scarring or atelectasis at the left lung base. No definitive infiltrate. Multiple surgical clips within the neck on the left. Spinal fixation hardware partially visualized. IMPRESSION: 1. Chronic appearing changes about the lung parenchyma. Atelectasis and/or scarring about the left lung base. 2. Heart size, mediastinum and vasculature overall slightly more prominent from prior. Prior sternotomy changes. Dictated on workstation # [id number] Dict: 06/09/21 1831 Trans: 06/09/21 1836 [facility] [id number] Interpreted by: BRIJESH CROOK DO Electronically signed by: Reviewed: Reviewed by Me Departure Impression Primary Impression: UTI (urinary tract infection) Qualified Codes: N30.00 - Acute cystitis without hematuria Additional Impressions: Delirium opiate sedation Disposition: 01 HOME, SELF-CARE Condition: Stable Departure-Patient Inst. Decision time for Depature: 19:29 Referrals: MANUELA HAN MD, JOHN D MD (PCP/Family) Primary Care Physician Patient Instructions: Urinary Tract Infection, Adult (DC), Delirium (Confusion) (DC) Add. Discharge Instructions: His confusion is probably a combination of his infection and his use of opiates which are causing sedation. Try to reserve opiate use if other pain management modalities are not working and he is not able to function despite his pain. Use topical creams such as icy hot, Biofreeze, capsaicin oil, CBD oil etc. as needed for shoulder pain. Lidocaine patches can be obtained [id number] and use. Tylenol 1000 mg every 8 hours as needed for pain. Follow-up with the orthopedic surgeon for management of your shoulder pain. Follow-up with primary care for worsening symptoms or if he develops fever, intractable nausea, chest pain, shortness of air etc. then return to the ER promptly. Return to outpatient center for a shot of Rocephin daily for the next 2 days. Do not use the Levaquin if you are using the Rocephin as this should more than cover his urinary tract infection. All discharge instructions reviewed with patient and/or family. Voiced understanding. AUGUSTO HESTER June 09, 2021 18:19
[2021-06-09 18:21] LABS: BASOPHILS # (AUTO) 0.1 10^3/uL (0.0-0.1); BASOPHILS % (AUTO) 1 % (0-10); EOSINOPHILS # (AUTO) 0.1 10^3/uL (0.0-0.3); EOSINOPHILS % (AUTO) 2 % (0-10); HEMATOCRIT 26 % (40-54); HEMOGLOBIN 8.3 g/dL (13.3-17.7); LYMPHOCYTES # (AUTO) 1.2 10^3/uL (1.0-4.0); LYMPHOCYTES % (AUTO) 13 % (12-44); MEAN CORPUSCULAR HEMOGLOBIN 30 pg (25-34); MEAN CORPUSCULAR HGB CONC 32 g/dL (32-36); MEAN CORPUSCULAR VOLUME 95 fL (80-99); MEAN PLATELET VOLUME 9.6 fL (9.0-12.2); MONOCYTES # (AUTO) 1.1 10^3/uL (0.0-1.0); MONOCYTES % (AUTO) 12 % (0-12); NEUTROPHILS # (AUTO) 6.6 10^3/uL (1.8-7.8); NEUTROPHILS % (AUTO) 73 % (42-75); PLATELET COUNT 283 10^3/uL (130-400)
[2021-06-09 18:33] LABS: ALBUMIN 3.5 GM/DL (3.2-4.5); POTASSIUM 5.3 MMOL/L (3.6-5.0)
[2021-06-09 18:34] LABS: CALCIUM 9.2 MG/DL (8.5-10.1)
[2021-06-09 18:36] LABS: TOTAL PROTEIN 6.9 GM/DL (6.4-8.2)
[2021-06-09 18:37] LABS: BILIRUBIN,TOTAL 0.8 MG/DL (0.1-1.0)
--- NOTE | 2021-06-09 18:37 | Diagnostic Imaging Report ---
INDICATION: Cough. TECHNIQUE: Single view chest 6:31 PM. CORRELATION STUDY: 06/03/2021. FINDINGS: Poststernotomy changes with coronary artery bypass. Heart size enlarged and mediastinum prominent, appearing slightly more increased from prior. Calcification of the aortic arch. Vasculature overall within normal limits. Minimal scarring or atelectasis at the left lung base. No definitive infiltrate. Multiple surgical clips within the neck on the left. Spinal fixation hardware partially visualized. IMPRESSION: 1. Chronic appearing changes about the lung parenchyma. Atelectasis and/or scarring about the left lung base. 2. Heart size, mediastinum and vasculature overall slightly more prominent from prior. Prior sternotomy changes. Dictated by: Dictated on workstation # [id number]
[2021-06-09 18:39] LABS: BILIRUBIN,URINE NEGATIVE (NEGATIVE); CLARITY,URINE CLEAR; COLOR,URINE YELLOW; GLUCOSE, URINE (UA) NEGATIVE (NEGATIVE); KETONES,URINE NEGATIVE (NEGATIVE); LEUKOCYTE ESTERASE ,URINE NEGATIVE (NEGATIVE); NITRITE,URINE NEGATIVE (NEGATIVE); PH,URINE 6.5 (5-9); PROTEIN,URINE NEGATIVE (NEGATIVE)
[2021-06-09 18:40] LABS: CREATININE SERUM 2.13 MG/DL (0.60-1.30)
[2021-06-09 18:52] LABS: BACTERIA,URINE NEGATIVE /HPF
[2021-06-09 19:37] VITALS: BP 98/41
== END 2021-06-09 19:45 | disposition home or self-care (01) ==
LOC: EDUNIT# 17:53 → ER 17:56
DX: N30.00 Acute cystitis without hematuria (principal); F13.9 Sedative, hypnotic or anxiolytic-related use, unspecified; I45.19 Other right bundle-branch block; I25.10 Atherosclerotic heart disease of native coronary artery without angina pectoris; Z79.891 Long term (current) use of opiate analgesic; Z86.19 Personal history of other infectious and parasitic diseases; Z87.438 Personal history of other diseases of male genital organs; Z85.46 Personal history of malignant neoplasm of prostate; Z79.02 Long term (current) use of antithrombotics/antiplatelets; Z79.899 Other long term (current) drug therapy; Z95.1 Presence of aortocoronary bypass graft
CPT/HCPCS: 36415; 51701; 71045; 80053; 81000; 82947; 83880; 84484; 85025; 86141; 87040; 93005

== ENCOUNTER 2021-06-11 13:13 | Outpatient (RCR) | payer MEDICARE ==
[2021-06-10] MEDS: cefTRIAXone 1,000 MG VIAL IM SCH (13:40)
[2021-06-10] MEDS: LIDOCAINE 1% INJ 20 ML VIAL INJ SCH (13:40)
[2021-06-10 13:48] VITALS: BP 110/58
[~2021-06-11] VITALS: Ht 167.7 cm; Wt 69.8 kg
[2021-06-11 13:15] VITALS: BP 119/65
[2021-06-11] MEDS: LIDOCAINE 1% INJ 20 ML VIAL INJ SCH (13:38)
[2021-06-11] MEDS: cefTRIAXone 1,000 MG VIAL IM SCH (13:38)
== END 2021-06-11 13:43 | disposition home or self-care (01) ==
LOC: SDC 13:13
PROVIDERS: ATTEND Emergency Medicine
DX: N39.0 Urinary tract infection, site not specified (principal); R41.0 Disorientation, unspecified
CPT/HCPCS: 96372

== ENCOUNTER → 2021-06-22 | Outpatient (CLI) | payer MEDICARE ==
--- NOTE | 2021-06-22 16:50 | Diagnostic Imaging Report ---
INDICATION: Left shoulder fracture. Time of Exam: 2:46 PM Comparison is made with prior radiographs from 06/06/2021. Glenohumeral and acromioclavicular alignment appear normal. Acromiohumeral space is normal. No definite fracture is seen. There does appear to be a healing 6th rib fracture. IMPRESSION: No acute abnormality of the left shoulder is seen. There does appear to be healing left 6th rib fracture. Dictated by: Dictated on workstation # [id number]
== END ==
LOC: ORTHO 14:29
PROVIDERS: ATTEND Orthopaedic Surgery
DX: S42.035A Nondisplaced fracture of lateral end of left clavicle, initial encounter for closed fracture (principal); X58.XXXA Exposure to other specified factors, initial encounter
CPT/HCPCS: 73030; G0463; 99202

== ENCOUNTER 2021-08-20 16:32 | Emergency (ER) | payer MEDICARE ==
[2021-08-20] MEDS ORDERED: cefTRIAXone 1 GM PRE-MIX 50 ML IV STA (16:56)
--- NOTE | 2021-08-20 16:59 | ED GU-Male ---
General Chief Complaint: - Reproductive Stated Complaint: BLADDER INFECTION Source: patient Exam Limitations: no limitations History of Present Illness Date Seen by Provider: Aug 20, 2021 Time Seen by Provider: 16:58 Initial Comments Patient is a 80-year-old male with a history of coronary artery disease, UTIs who presents ED with family for concern for bladder infection. Patient had a outpatient urinalysis performed today that tested positive for UTI. Patient Was sent to the ED for antibiotics. According to family patient has a history of UTIs. In the past patient became delirious and confused. According to family patient has been slightly more confused over the past week. She states this has progressively got worse over the past several months. According to family at bedside his noted that his urine smelled. History of urinary incontinence. Patient has no complaints. Denies chest pain, abdominal pain pain, vomiting, diarrhea, headache, dizziness, visual changes, neck pain, fever. Patient is alert and orient x3. Allergies and Home Medications Allergies Coded Allergies: No Known Drug Allergies (Verified , 05/24/16) Patient Home Medication List Home Medication List Reviewed: Yes Allopurinol (Allopurinol) 100 Mg Tablet, 100 MG PO DAILY, (Reported) Entered as Reported by: CALIN MCDERMOTT on 08/27/20 1008 Ascorbic Acid (Vitamin C) 1,000 Mg Tablet, 1,000 MG PO DAILY, (Reported) Entered as Reported by: CALIN MCDERMOTT on 08/27/20 1008 Aspirin (Aspirin EC) 81 Mg Tablet.dr, 81 MG PO HS, (Reported) Entered as Reported by: YULISSA MARQUEZ on 01/24/17 1536 Atorvastatin Calcium (Atorvastatin Calcium) 80 Mg Tablet, 80 MG PO HS, (Reported) Entered as Reported by: RENNY CARLOS on 05/25/16 0848 Carvedilol (Carvedilol) 3.125 Mg Tablet, 3.125 MG PO BID, (Reported) Entered as Reported by: CALIN MCDERMOTT on 05/24/21 1434 Cephalexin (Cephalexin) 500 Mg Tablet, 500 MG PO TID Prescribed by: JOEL MORENO on 08/20/21 1757 Cholecalciferol (Vitamin D3) (Vitamin D3) 25 Mcg Capsule, 25 MCG PO DAILY, (Reported) Entered as Reported by: CALIN MCDERMOTT on 08/27/20 1008 Clopidogrel Bisulfate (Clopidogrel) 75 Mg Tablet, 75 MG PO DAILY, (Reported) Entered as Reported by: YULISSA MARQUEZ on 10/22/18 1446 Ferrous Sulfate (Ferrous Sulfate) 325 Mg Tablet, 325 MG PO DAILY, (Reported) Entered as Reported by: CALIN MCDERMOTT on 05/24/21 1434 Hydrocodone/Acetaminophen (Hydrocodone-Acetamin 5-325 mg) 5 Mg-325 Mg Tablet, 1 TAB PO Q6H PRN for PAIN-MODERATE (5-7) Prescribed by: AUGUSTO HESTER on 06/06/21 0522 Multivit-Min/FA/Lycopene/Lut (Centrum Silver Tablet) 1 Each Tablet, 1 EACH PO DAILY, (Reported) Entered as Reported by: CALIN MCDERMOTT on 08/27/20 1008 Omeprazole (Omeprazole) 40 Mg Capsule.dr, 40 MG PO DAILY, (Reported) Entered as Reported by: CALIN MCDERMOTT on 08/27/20 1008 Ranolazine (Ranolazine ER) 500 Mg Tab.er.12h, 500 MG PO BID, (Reported) Entered as Reported by: YULISSA MARQUEZ on 10/22/18 1446 Solifenacin Succinate (Solifenacin Succinate) 5 Mg Tablet, 5 MG PO DAILY, (Reported) Entered as Reported by: CALIN MCDERMOTT on 05/24/21 1434 Tamsulosin HCl (Flomax) 0.4 Mg Cap, 0.8 MG PO HS, (Reported) Entered as Reported by: CALIN MCDERMOTT on 08/27/20 1009 Review of Systems Review of Systems Constitutional: No chills, No diaphoresis, No malaise, No weakness EENTM: No hearing loss, No ear pain, No blurred vision, No double vision Respiratory: No cough, No dyspnea on exertion Cardiovascular: No chest pain, No edema Gastrointestinal: No abdominal pain, No diarrhea, No nausea, No vomiting Genitourinary: denies burning, denies discharge Musculoskeletal: No back pain, No gout Skin: No change in color, No change in hair/nails Psychiatric/Neurological: Other (confusion) All Other Systemes Reviewed Negative Unless Noted: Yes Past Mxhfqtj-Kqcliq-Szeztr Hx Immunizations Up To Date Tetanus Booster (TDap): Unknown First/Initial COVID19 Vaccinat: yes Second COVID19 Vaccination Enrique: yes Past Medical History Surgery/Hospitalization HX: CABG- 2003 Cardiac Cath- 2018 Back Surgery -2019 Surgeries: Yes Cardiac, CABG, Coronary Stent, Orthopedic Respiratory: No Currently Using CPAP: No Currently Using BIPAP: No Cardiac: Yes (3 VESSEL CABG; 4-5 STENTS) Coronary Artery Disease, High Cholesterol, Hypertension Neurological: No Reproductive Disorders: Yes (E.D.) Genitourinary: Yes (PROSTATE CANCER--S/P BRACHYTHERAPY; E.D.) Prostate Problems Gastrointestinal: Yes Pancreatitis Musculoskeletal: Yes (BACK SURGERIES X 5--LAST ONE 10/2018) Degenerate Disk Disease, Arthritis, Chronic Back Pain Endocrine: Yes Diabetes, Non-Insulin dep HEENT: No Cancer: Yes Prostate Did You Recieve Any Treatments: Yes What Type of Treatment Did You: Radiation Psychosocial: No Integumentary: No Blood Disorders: No Family Medical History Cancer, CAD Over 55 Years Old CARDIAC CATH 07/[address] RAMEY: CONCLUSION: 1. Total occlusion of the left main, LAD, left circumflex and right coronary artery. 2. Patent vein graft to the diagonal artery, vein graft to the obtuse marginal artery 3. 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 4. The right coronary artery is small nondominant artery that is not bypassed DISCUSSION AND RECOMMENDATION: Medical therapy is recommended at this point. Regarding the subclavian artery, consideration for percutaneous intervention in the future can be considered, preferably with a vascular surgery evaluation. Physical Exam Vital Signs Vital Signs - First Documented 08/20/21 08/20/21 16:42 19:15 Temp 36.6 Pulse 74 Resp 74 B/P (MAP) 154/69 (97) Pulse Ox 100 O2 Delivery Room Air Capillary Refill : Height, Weight, BMI Height: 5'6.00" Weight: 154lbs. 0.0oz. [id number]; 25.00 BMI Method:Estimated General Appearance: WD/WN, no apparent distress HEENT: PERRL/EOMI, normal ENT inspection, TMs normal, pharynx normal Neck: non-tender, full range of motion, supple, normal inspection Cardiovascular: regular rate, rhythm, no edema, no gallop, no JVD, no murmur Respiratory: chest non-tender, lungs clear, normal breath sounds, no respiratory distress, no accessory muscle use Gastrointestinal: normal bowel sounds, non tender, soft, no organomegaly Back: normal inspection, no CVA tenderness, no vertebral tenderness Extremities: normal range of motion, non-tender, normal inspection, no pedal edema, no calf tenderness 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, no motor/sensory deficits, alert, normal mood/affect, oriented x 3 Skin: normal color, warm/dry Progress/Results/Core Measures Suspected Sepsis SIRS Temperature: Pulse: Respiratory Rate: Laboratory Tests 08/20/21 16:57: White Blood Count 7.6 Blood Pressure / Mean: Laboratory Tests 08/20/21 16:57: Creatinine 2.27H, Platelet Count 175, Total Bilirubin 0.5 Results/Orders Lab Results Laboratory Tests Test 08/20/21 16:57 08/20/21 18:26 Range/Units White Blood Count 7.6 4.3-11.0 10^3/uL Red Blood Count 3.09 L 4.30-5.52 10^6/uL Hemoglobin 9.3 L 13.3-17.7 g/dL Hematocrit 29 L 40-54 % Mean Corpuscular Volume 94 80-99 fL Mean Corpuscular Hemoglobin 30 25-34 pg Mean Corpuscular Hemoglobin Concent 32 32-36 g/dL Red Cell Distribution Width 16.6 H 10.0-14.5 % Platelet Count 175 130-400 10^3/uL Mean Platelet Volume 9.9 9.0-12.2 fL Immature Granulocyte % (Auto) 0 % Neutrophils (%) (Auto) 63 42-75 % Lymphocytes (%) (Auto) 20 12-44 % Monocytes (%) (Auto) 12 0-12 % Eosinophils (%) (Auto) 5 0-10 % Basophils (%) (Auto) 1 0-10 % Neutrophils # (Auto) 4.7 1.8-7.8 10^3/uL Lymphocytes # (Auto) 1.5 1.0-4.0 10^3/uL Monocytes # (Auto) 0.9 0.0-1.0 10^3/uL Eosinophils # (Auto) 0.4 H 0.0-0.3 10^3/uL Basophils # (Auto) 0.1 0.0-0.1 10^3/uL Immature Granulocyte # (Auto) 0.0 0.0-0.1 10^3/uL Sodium Level 141 135-145 MMOL/L Potassium Level 4.7 3.6-5.0 MMOL/L Chloride Level 110 H 98-107 MMOL/L Carbon Dioxide Level 20 L 21-32 MMOL/L Anion Gap 11 5-14 MMOL/L Blood Urea Nitrogen 50 H 7-18 MG/DL Creatinine 2.27 H 0.60-1.30 MG/DL Estimat Glomerular Filtration Rate 28 BUN/Creatinine Ratio 22 Glucose Level 135 H 70-105 MG/DL Calcium Level 9.6 8.5-10.1 MG/DL Corrected Calcium 9.8 8.5-10.1 MG/DL Total Bilirubin 0.5 0.1-1.0 MG/DL Aspartate Amino Transf (AST/SGOT) 26 5-34 U/L Alanine Aminotransferase (ALT/SGPT) 27 0-55 U/L Alkaline Phosphatase 75 40-136 U/L Total Protein 6.6 6.4-8.2 GM/DL Albumin 3.7 3.2-4.5 GM/DL Urine Color YELLOW Urine Clarity CLEAR Urine pH 6.0 5-9 Urine Specific [place] 1.015 L 1.016-1.022 Urine Protein NEGATIVE NEGATIVE Urine Glucose (UA) NEGATIVE NEGATIVE Urine Ketones NEGATIVE NEGATIVE Urine Nitrite NEGATIVE NEGATIVE Urine Bilirubin NEGATIVE NEGATIVE Urine Urobilinogen 0.2 < = 1.0 MG/DL Urine Leukocyte Esterase 3+ H NEGATIVE Urine RBC (Auto) TRACE-I H NEGATIVE Urine RBC NONE /HPF Urine WBC 50-100 H /HPF Urine Squamous Epithelial Cells RARE /HPF Urine Crystals NONE /LPF Urine Bacteria MODERATE H /HPF Urine Casts NONE /LPF Urine Mucus NEGATIVE /LPF Urine Culture Indicated YES My Orders Orders - ANTIONETTE SOMMER Urinalysis (08/20/21 16:34) Cbc With Automated Diff (08/20/21 16:56) Comprehensive Metabolic Panel (08/20/21 16:56) Iv/Invasive Line Insertion .IV start (08/20/21 16:56) Ceftriaxone 1 Gm Pre-Mix (Rocephin 1 Gm (08/20/21 16:56) Ns Iv 500 Ml (Sodium Chloride 0.9%) (08/20/21 17:31) Ns Iv 500 Ml (Sodium Chloride 0.9%) (08/20/21 17:43) Urine Culture (08/20/21 18:26) Vital Signs/I&O 08/20/21 08/20/21 16:42 19:15 Temp 36.6 36.6 Pulse 74 72 Resp 74 16 B/P (MAP) 154/69 (97) 151/81 Pulse Ox 100 O2 Delivery Room Air Capillary Refill : Departure Communication (PCP) Patient with a history of chronic kidney disease, coronary artery disease. Presents ED with confusion and potential UTI. Had outpatient positive urina lysis. Urinalysis positive here. Has stable vital signs stable. He is alert and orient x3. According to family patient has been more confused over the past week. According to family patient has progressively become more confused over the past several months. history of similar symptoms secondary to UTI with confusion. No history of dementia. Patient has no current complaints. Chronic kidney disease noted with creatinine of 2.27 GFR of 28. Patient was given a small amount of fluid 500 mL of normal saline. Last creatinine 2.13. Has been higher in the past and has fluctuated. He states he is drinking fluid. Avoid excessive IV fluids secondary to his heart history. Patient was given dose of Rocephin 1 g here. Previous urinalysis cultured out as Klebsiella in May. Susceptible to cephalosporins. Will discharge with Keflex. Discussed with recommend continue monitoring at home. If patient becomes more confused, fever, vomiting, change in mental status to return back to ED. She family states he appears to be close to his baseline at this time. Recommend recheck of his kidney function with his primary care physician outpatient in the next 2 to 3 days. Recommend recheck with urinalysis as well. If failed outpatient would recommend inpatient with his history. No chest pain, shortness of breath, cough, headache, dizziness. He has no current complaints Impression Primary Impression: UTI (urinary tract infection) Additional Impression: CKD (chronic kidney disease) Disposition: 01 HOME, SELF-CARE Condition: Stable Departure-Patient Inst. Decision time for Depature: 17:56 Referrals: PREM POOLE MD (PCP/Family) Primary Care Physician Patient Instructions: Urinary Tract Infection, Adult (DC) Add. Discharge Instructions: Recommend taking antibiotics as prescribed. Need to follow-up with your primary care physician for recheck with urinalysis and lab work for kidney function All discharge instructions reviewed with patient and/or family. Voiced understanding. Scripts Cephalexin (Cephalexin) 500 Mg Tablet 500 MG PO TID for 7 Days, #21 TAB Prov: ANTIONETTE SOMMER 08/20/21 ANTIONETTE SOMMER Aug 20, 2021 16:58
[2021-08-20 17:06] LABS: BASOPHILS # (AUTO) 0.1 10^3/uL (0.0-0.1); BASOPHILS % (AUTO) 1 % (0-10); EOSINOPHILS # (AUTO) 0.4 10^3/uL (0.0-0.3); EOSINOPHILS % (AUTO) 5 % (0-10); HEMATOCRIT 29 % (40-54); HEMOGLOBIN 9.3 g/dL (13.3-17.7); LYMPHOCYTES # (AUTO) 1.5 10^3/uL (1.0-4.0); LYMPHOCYTES % (AUTO) 20 % (12-44); MEAN CORPUSCULAR HEMOGLOBIN 30 pg (25-34); MEAN CORPUSCULAR HGB CONC 32 g/dL (32-36); MEAN CORPUSCULAR VOLUME 94 fL (80-99); MEAN PLATELET VOLUME 9.9 fL (9.0-12.2); MONOCYTES # (AUTO) 0.9 10^3/uL (0.0-1.0); MONOCYTES % (AUTO) 12 % (0-12); NEUTROPHILS # (AUTO) 4.7 10^3/uL (1.8-7.8); NEUTROPHILS % (AUTO) 63 % (42-75); PLATELET COUNT 175 10^3/uL (130-400); WHITE BLOOD COUNT 7.6 10^3/uL (4.3-11.0)
[2021-08-20 17:16] LABS: ALBUMIN 3.7 GM/DL (3.2-4.5)
[2021-08-20 17:17] LABS: POTASSIUM 4.7 MMOL/L (3.6-5.0)
[2021-08-20 17:18] LABS: CALCIUM 9.6 MG/DL (8.5-10.1)
[2021-08-20 17:19] LABS: TOTAL PROTEIN 6.6 GM/DL (6.4-8.2)
[2021-08-20 17:21] LABS: BILIRUBIN,TOTAL 0.5 MG/DL (0.1-1.0)
[2021-08-20 17:23] LABS: CREATININE SERUM 2.27 MG/DL (0.60-1.30)
[2021-08-20] MEDS ORDERED: NS IV 500 ML 500 ML IV STA (17:31)
[2021-08-20] MEDS ORDERED: NS IV 500 ML 500 ML ONE (17:43)
[2021-08-20] MEDS ORDERED: CEPH500T PO (17:57)
[2021-08-20 18:31] LABS: BILIRUBIN,URINE NEGATIVE (NEGATIVE); CLARITY,URINE CLEAR; COLOR,URINE YELLOW; GLUCOSE, URINE (UA) NEGATIVE (NEGATIVE); KETONES,URINE NEGATIVE (NEGATIVE); LEUKOCYTE ESTERASE ,URINE 3+ (NEGATIVE); NITRITE,URINE NEGATIVE (NEGATIVE); PROTEIN,URINE NEGATIVE (NEGATIVE)
[2021-08-20 18:41] LABS: BACTERIA,URINE MODERATE /HPF; SQUAMOUS EPITHELIAL CELL,UR RARE /HPF; WBC,URINE 50-100 /HPF
[2021-08-20 19:15] VITALS: BP 151/81
== END 2021-08-20 19:14 | disposition home or self-care (01) ==
LOC: EDUNIT# 16:32 → ER 16:35
DX: I12.9 Hypertensive chronic kidney disease with stage 1 through stage 4 chronic kidney disease, or unspecified chronic kidney disease (principal); N18.9 Chronic kidney disease, unspecified; E11.22 Type 2 diabetes mellitus with diabetic chronic kidney disease; N39.0 Urinary tract infection, site not specified
CPT/HCPCS: 36415; 80053; 81000; 85025; 87077; 87088

== ENCOUNTER → 2021-09-28 | Outpatient (CLI) | payer MEDICARE ==
[~2021-09-28] MED LIST changes: +CEPH500T PO
== END | disposition home or self-care (01) ==
LOC: PREOP 05:29
PROVIDERS: ATTEND Urology
DX: Z01.818 Encounter for other preprocedural examination (principal)

== ENCOUNTER 2021-10-06 05:41 | Outpatient (CLI) | payer MEDICARE ==
[~2021-10-06] VITALS: Ht 160 cm; Wt 63.0 kg
== END 2021-10-08 12:35 | disposition home or self-care (01) ==
LOC: PREOP 05:41
PROVIDERS: ATTEND Urology
DX: Z01.818 Encounter for other preprocedural examination (principal)

== ENCOUNTER 2021-10-13 07:12 | Day surgery (SDC) | payer MEDICARE ==
[~2021-10-13] VITALS: Ht 160 cm; Wt 63.0 kg
[2021-10-13] VITALS (11 sets, daily range): BP systolic 107–166; BP diastolic 48–78
[~2021-10-13 07:12] MED LIST changes: +LACTATED RINGERS 1,000 ML IV PRN
--- NOTE | 2021-10-13 07:25 | Progress Note-Pre Operative ---
Pre-Operative Progress Note Date of Available H&P: Oct 13, 2021 Date H&P Reviewed: Oct 13, 2021 Time H&P Reviewed: 07:24 Changes from last HP NONE Pre-Operative Diagnosis: OAB AND SEVERE URGENCY REFRACTORY TO MEDICAL TREATMENT ILSA JNUE MD Oct 13, 2021 07:25
[2021-10-13] MEDS ORDERED: LACTATED RINGERS 1,000 ML IV ONE (08:00)
[2021-10-13] MEDS ORDERED: cefTRIAXone 1 GM PRE-MIX 50 ML IV ONE ×2 (08:00→08:03)
[2021-10-13] MEDS ORDERED: 0.9% SODIUM CHLORIDE PF INJ 20 ML VIAL ONE (09:31)
[2021-10-13] MEDS ORDERED: ONABOTULINUMTOXINA 100 UNIT (BOTOX) VIAL INJ ONE (11:30)
--- NOTE | 2021-10-13 12:23 | Progress Note-Post Operative ---
Post-Operative Progess Note Surgeon (s)/Window Framer (s) Surgeon ILSA JUNE MD Window Framer: NONE Pre-Operative Diagnosis OAB AND SEVERE URGENCY REFRACTORY TO MEDICAL TREATMENT Post-Operative Diagnosis SAME Procedure & Operative Findings Date of Procedure 10/13/21 Procedure Performed/Findings ENDOSCOPIC BOTOX INJECTIONS Anesthesia Type GENERAL Estimated Blood Loss Estimated blood loss (mL): NONE Specimens/Packing Specimens Removed NONE Packing: NONE ILSA JUNE MD Oct 13, 2021 12:23
--- NOTE | 2021-10-13 12:25 | Discharge Inst-Urology ---
Discharge Inst-Urology Reconcile Patient Problems Problems Reviewed?: Yes Final Diagnosis OAB AND SEVERE URGENCY WITH INCONTINENCE Patient Instructions/Follow Up Plan/Assessment/Instructions Please make appointment to been seen in office in 3 weeks. In 72 hours, if no bleeding, may resume ASA and Plavix Stay off Solifenacin (Vesicare) Increase oral fluids for 48 hours and then as needed. Diet and Activity as tolerated. If questions or concerns contact your physician Or seek help at emergency department. ILSA JUNE MD Oct 13, 2021 12:25
[2021-10-13] MEDS ORDERED: HYDROmorphone 2 MG/ML VIAL (DILAUDID) IV ONE (12:30)
[2021-10-13] MEDS ORDERED: ONDANSETRON 4 MG/2 ML (SDV) Z0FRAN IVP PRN (12:30)
[2021-10-13] MEDS ORDERED: PHEN-640 PO (12:43)
[2021-10-13] MEDS ORDERED: NITR-65 PO (12:43)
--- NOTE | 2021-10-13 13:41 | Anesthesia-General Post-Op ---
General Patient Condition Mental Status/LOC: Same as Preop Cardiovascular: Satisfactory Nausea/Vomiting: Absent Respiratory: Satisfactory Pain: Controlled Complications: Absent Post Op Complications Complications None Follow Up Care/Instructions Patient Instructions None needed. Anesthesia/Patient Condition Patient Condition Patient is doing well, no complaints, stable vital signs, no apparent adverse anesthesia problems. No complications reported per nursing. D/C home per [facility] [place] Criteria: Yes ALMAZ FLAHERTY CRNA Oct 13, 2021 13:41
--- NOTE | 2021-10-13 20:15 | OPERATIVE REPORT ---
DATE OF SERVICE: 10/13/2021 PREOPERATIVE DIAGNOSIS: Overactive bladder with severe what urgency incontinence. POSTOPERATIVE DIAGNOSIS: Overactive bladder with severe what urgency incontinence. OPERATION PERFORMED: Endoscopic Botox injection. SURGEON: Tyree June MD ANESTHESIA: General. COMPLICATIONS: None. DESCRIPTION OF PROCEDURE: Under satisfactory general anesthesia, the patient in lithotomy position, genitalia were prepped and draped in the usual sterile fashion. Cystoscope was introduced under vision. The anterior urethra was normal. The prostate was small and the bladder neck was open. The bladder was entered, revealed 4+ trabeculation with cellules leaving the bladder about half full. I injected a total of 100 units of Botox in 20 different spots, 0.5 mL each starting above and lateral to the ureteric orifices, there was no bleeding. I evacuated the bladder and removed the cystoscope. The patient tolerated the procedure and anesthesia well and was sent to recovery room in stable condition. CC: Dr. Lr - requested, unable to deliver. Job ID: [id number] DocumentID: [id number] Dictated Date: 10/13/2021 12:27:35 Hospital Housekeeper Date: 10/13/2021 20:15:29 Dictated By: TYREE JUNE MD
== END 2021-10-13 14:10 | disposition home or self-care (01) ==
LOC: SDC 07:12
PROVIDERS: ATTEND Urology
DX: N32.81 Overactive bladder (principal); R32 Unspecified urinary incontinence
CPT/HCPCS: 87081

== ENCOUNTER → 2021-12-17 | Outpatient (CLI) | payer MEDICARE ==
[~2021-12-17] MED LIST changes: +DONE5TAB30 PO; +ISOS30TA82 PO; -LACTATED RINGERS 1,000 ML IV PRN; +NITR-65 PO; +PHEN-640 PO
[2021-12-17 11:44] LABS: BASOPHILS # (AUTO) 0.1 10^3/uL (0.0-0.1); BASOPHILS % (AUTO) 1 % (0-10); EOSINOPHILS # (AUTO) 0.2 10^3/uL (0.0-0.3); EOSINOPHILS % (AUTO) 3 % (0-10); HEMATOCRIT 26 % (40-54); HEMOGLOBIN 8.1 g/dL (13.3-17.7); LYMPHOCYTES # (AUTO) 0.9 10^3/uL (1.0-4.0); LYMPHOCYTES % (AUTO) 12 % (12-44); MEAN CORPUSCULAR HEMOGLOBIN 31 pg (25-34); MEAN CORPUSCULAR HGB CONC 32 g/dL (32-36); MEAN CORPUSCULAR VOLUME 97 fL (80-99); MEAN PLATELET VOLUME 9.2 fL (9.0-12.2); MONOCYTES # (AUTO) 0.8 10^3/uL (0.0-1.0); MONOCYTES % (AUTO) 10 % (0-12); NEUTROPHILS # (AUTO) 5.9 10^3/uL (1.8-7.8); NEUTROPHILS % (AUTO) 75 % (42-75); PLATELET COUNT 218 10^3/uL (130-400); WHITE BLOOD COUNT 7.9 10^3/uL (4.3-11.0)
[2021-12-17 11:53] LABS: ALBUMIN 3.6 GM/DL (3.2-4.5); CHLORIDE 111 MMOL/L (98-107); POTASSIUM 4.4 MMOL/L (3.6-5.0); SODIUM 141 MMOL/L (135-145)
[2021-12-17 11:54] LABS: CALCIUM 9.5 MG/DL (8.5-10.1)
[2021-12-17 11:55] LABS: GLUCOSE 167 MG/DL (70-105)
[2021-12-17 11:56] LABS: CARBON DIOXIDE 21 MMOL/L (21-32)
[2021-12-17 11:57] LABS: BILIRUBIN,TOTAL 0.5 MG/DL (0.1-1.0)
[2021-12-17 11:59] LABS: ALKALINE PHOSPHATASE 65 U/L (40-136); CREATININE SERUM 2.26 MG/DL (0.60-1.30); GFR ESTIMATED 28
[2021-12-17 12:00] LABS: BUN/CREATININE RATIO 19
[2021-12-17 12:02] LABS: ALANINE AMINOTRANSFERASE 18 U/L (0-55)
== END ==
LOC: LAB 11:19
PROVIDERS: ATTEND Nurse Practitioner Family
DX: R07.9 Chest pain, unspecified (principal)
CPT/HCPCS: 36415; 80053; 84484; 85025; 93005

== ENCOUNTER 2021-12-21 10:26 | Observation (INO) | payer MEDICARE ==
[~2021-12-21] VITALS: Ht 167.6 cm; Wt 60.7 kg
[2021-12-21] VITALS (9 sets, daily range): BP systolic 112–156; BP diastolic 55–80
[~2021-12-21 10:26] MED LIST changes: -DONE5TAB30 PO; -ISOS30TA82 PO
[2021-12-21 11:57] LABS: HEMATOCRIT 25 % (40-54); HEMOGLOBIN 7.9 g/dL (13.3-17.7); MEAN CORPUSCULAR HEMOGLOBIN 31 pg (25-34); MEAN CORPUSCULAR HGB CONC 32 g/dL (32-36); MEAN CORPUSCULAR VOLUME 97 fL (80-99); MEAN PLATELET VOLUME 9.2 fL (9.0-12.2); PLATELET COUNT 229 10^3/uL (130-400); WHITE BLOOD COUNT 8.1 10^3/uL (4.3-11.0)
[2021-12-21 12:10] LABS: ALBUMIN 3.7 GM/DL (3.2-4.5)
[2021-12-21 12:11] LABS: CHLORIDE 108 MMOL/L (98-107); POTASSIUM 4.8 MMOL/L (3.6-5.0); SODIUM 140 MMOL/L (135-145)
[2021-12-21 12:12] LABS: CALCIUM 9.8 MG/DL (8.5-10.1)
[2021-12-21 12:13] LABS: GLUCOSE 160 MG/DL (70-105)
[2021-12-21 12:14] LABS: CARBON DIOXIDE 23 MMOL/L (21-32); INR 1.2 (0.8-1.4); PROTHROMBIN TIME PATIENT 15.6 SEC (12.2-14.7)
[2021-12-21 12:15] LABS: BILIRUBIN,TOTAL 0.4 MG/DL (0.1-1.0)
[2021-12-21 12:17] LABS: ALKALINE PHOSPHATASE 69 U/L (40-136); CREATININE SERUM 2.27 MG/DL (0.60-1.30); GFR ESTIMATED 28
[2021-12-21 12:18] LABS: BUN/CREATININE RATIO 16
[2021-12-21 12:20] LABS: ALANINE AMINOTRANSFERASE 16 U/L (0-55)
[2021-12-21] MEDS ORDERED: ENOXAPARIN 40 MG/0.4 ML (LOVENOX) SYR SQ SCH (15:15)
[2021-12-21] MEDS ORDERED: ENOXAPARIN INJECTION 30 MG/0.3 ML SYR SC SCH (15:30)
[2021-12-21] MEDS ORDERED: CLOP75TA28 PO (15:50)
[2021-12-21] MEDS ORDERED: ASPI-1238 PO (15:50)
[2021-12-21] MEDS ORDERED: TMSL.4C PO (15:50)
[2021-12-21] MEDS ORDERED: DONE5TAB30 PO (15:50)
[2021-12-21] MEDS ORDERED: ACHD5005 PO (15:50)
--- NOTE | 2021-12-21 16:12 | Diagnostic Imaging Report ---
Indication: Dyspnea. Time of Exam: 2:27 PM Correlation is made with prior chest 06/03/2021. The heart size is stable. There are changes of median sternotomy and CABG. There is some linear scarring or atelectasis in the left base. Lungs are otherwise clear. No infiltrate or failure is detected. There is no effusion or pneumothorax. Spinal instrumentation in the lower thoracic and lumbar spine is noted. IMPRESSION: No acute cardiopulmonary process is detected. Dictated by: Dictated on workstation # [id number]
[2021-12-21] MEDS: NS IV 1000 ML 1,000 ML IV SCH ×2 (16:46→21:30)
[2021-12-21] MEDS ORDERED: TAMSULOSIN 0.4 MG (FLOMAX) CAP PO SCH (18:00)
[2021-12-21] MEDS ORDERED: FLU QUAD HIGH DOSE 240 MCG/0.7 ML 2022-23 (FLUZONE) IM ONE (19:00)
[2021-12-21] MEDS ORDERED: DONEPEZIL 5 MG (ARICEPT) TAB PO SCH (21:00)
[2021-12-21] MEDS: RANOLAZINE ER 500 MG TAB (RANEXA) PO SCH (21:03)
[2021-12-22 03:48] VITALS: BP 160/73
[2021-12-22] MEDS: NS IV 1000 ML 1,000 ML IV SCH (04:52)
[2021-12-22 05:28] LABS: HEMATOCRIT 25 % (40-54); HEMOGLOBIN 7.8 g/dL (13.3-17.7); MEAN CORPUSCULAR HEMOGLOBIN 30 pg (25-34); MEAN CORPUSCULAR HGB CONC 32 g/dL (32-36); MEAN CORPUSCULAR VOLUME 95 fL (80-99); MEAN PLATELET VOLUME 9.4 fL (9.0-12.2); PLATELET COUNT 219 10^3/uL (130-400); WHITE BLOOD COUNT 10.4 10^3/uL (4.3-11.0)
[2021-12-22 07:48] VITALS: BP 157/70
[2021-12-22] MEDS: RANOLAZINE ER 500 MG TAB (RANEXA) PO SCH (08:41)
[2021-12-22] MEDS ORDERED: ASPIRIN E.C. 81 MG (ECOTRIN) TAB PO SCH (09:00)
[2021-12-22] MEDS ORDERED: PANTOPRAZOLE 40 MG (PROTONIX) TAB PO SCH (09:00)
[2021-12-22] MEDS ORDERED: CLOPIDOGREL 75 MG (PLAVIX) TABLET PO SCH (09:00)
--- NOTE | 2021-12-22 09:08 | Cardiology History & Physical ---
HPI-Cardiology Cardiology Consultation Date of Consultation 12/22/21 Date of Admission Time Seen by Provider: 09:01 Indication: Chest pain HPI Patient is an 81 y/o male with hx of CAD, chronic stable angina, presented to the office yesterday with complaints of increasing chest pain with activity and increased dyspnea on exertion. PMH-Cardiology Immunizations Up To Date Tetanus Booster (DTap): Unknown Date of Influenza Vaccine: Jan 26, 2017 Seasonal Allergies Seasonal Allergies: Yes Surgeries Yes (BACK, CATARACTS) Respiratory No Cardiovascular Yes (3 VESSEL CABG; 4-5 STENTS) Neurological No Reproductive System Hx Reproductive Disorders: Yes (E.D.) Genitourinary Yes (PROSTATE CANCER--S/P BRACHYTHERAPY; E.D.) Prostate Problems, Renal Failure Gastrointestinal Yes Pancreatitis Musculoskeletal Yes (BACK SURGERIES X 5--LAST ONE 10/2018) Degenerate Disk Disease, Arthritis, Chronic Back Pain Endocrine Yes Diabetes, Non-Insulin dep HEENT Yes Cataract Cancer Yes Prostate Did You Recieve Any Treatments: Yes Type of Treatment: Radiation Psychosocial No Integumentary No Blood Transfusions No Social History Patient Social History Marrital Status: Employed/Student: retired Have you traveled recently?: No Alcohol Use?: Yes Family Hx Significant Family History: Cancer, CAD Over 55 Years Old ROS-Cardiology Review of Systems General: No Chills, No Night Sweats, No Fatigue, No Malaise, No Appetite, No Other HEENT: No Head Aches, No Visual Changes, No Eye Pain, No Ear Pain, No Dy sphasia, No Sinus Congestion, No Post Nasal Drip, No Sore Throat, No Other Pulmonary: Dyspnea; No Cough Cardiovascular: Chest Pain; No: Palpitations, Edema Gastrointestinal: No: Nausea, Vomiting, Abdominal Pain, Diarrhea, Constipation, Melena, Hematochezia Genitourinary: No Dysuria, No Frequency, No Incontinence, No Hematuria, No Retention Musculoskeletal: No: neck pain, shoulder pain, arm pain, back pain, hand pain, leg pain, foot pain Neurological: No: Weakness, Numbness, Incoordination, Change in speech, Confusion, Seizures Home Medications & Allergies Allergies: Coded Allergies: No Known Drug Allergies (Verified , 05/24/16) Home Medication List Reviewed: Yes Exam-Cardiology Vital Signs Vital Signs Date Time Temp Pulse Resp B/P (MAP) Pulse Ox O2 Delivery O2 Flow Rate FiO2 12/22/21 08:44 95 Room Air 12/22/21 07:48 37.4 71 16 157/70 (99) Exam General Appearance: Alert, Oriented X3, No Acute Distress HEENT: Atraumatic, PERRLA Respiratory: Clear to Auscultation, Normal Air Movement Cardiovascular: Regular Rate, Normal S1, Other ( murmur) Abdominal: Normal Bowel Sounds, Soft Extremities: No Edema Skin: No Rashes, No Significant Lesion Neuro: Normal Speech Psych/Mental Status: Mental Status NL Results Labs Labs Laboratory Tests 12/21/21 11:40: White Blood Count 8.1, Red Blood Count 2.59L, Hemoglobin 7.9L, Hematocrit 25L, Mean Corpuscular Volume 97, Mean Corpuscular Hemoglobin 31, Mean Corpuscular Hemoglobin Concent 32, Red Cell Distribution Width 13.4, Platelet Count 229, Mean Platelet Volume 9.2, Prothrombin Time 15.6H, INR Comment 1.2, Activated Partial Thromboplast Time 35, Sodium Level 140, Potassium Level 4.8, Chloride Level 108H, Carbon Dioxide Level 23, Anion Gap 9, Blood Urea Nitrogen 37H, Creatinine 2.27H, Estimat Glomerular Filtration Rate 28, BUN/Creatinine Ratio 16, Glucose Level 160H, Calcium Level 9.8, Corrected Calcium 10.0, Total Bilirub in 0.4, Aspartate Amino Transf (AST/SGOT) 18, Alanine Aminotransferase (ALT/SGPT) 16, Alkaline Phosphatase 69, Troponin I < 0.028, B-Type Natriuretic Peptide 669.2H, Total Protein 7.0, Albumin 3.7, Thyroid Stimulating Hormone (TSH) 2.39 12/22/21 05:15: White Blood Count 10.4, Red Blood Count 2.59L, Hemoglobin 7.8L, Hematocrit 25L, Mean Corpuscular Volume 95, Mean Corpuscular Hemoglobin 30, Mean Corpuscular Hemoglobin Concent 32, Red Cell Distribution Width 13.2, Platelet Count 219, Mean Platelet Volume 9.4, Troponin I < 0.028 A/P-Cardiology Admission Diagnosis Chest pain CAD HTN Admission Status: Observation Assessment/Plan Chest pain, resembling angina, chest pain with exertion worsening over the past week. Cardiac enzymes negative, no acute EKG changes. Patient has known small vessel disease. Will start on long acting nitro prior to discharge. Aortic stenosis, 2D Echo done 12/21/21 showing EF 55-60%, moderately dilated left atrium, mod with Peak gradient 49mmHg, mean gradient 27mmHg, calculated valve area 1.12cm squared Coronary artery disease, History of CABG [address] [place] [address] Quesada, Cardiac catheterization done in 2007 showing patent DICKSON to LAD, vein graft to diagonal artery and vein graft to the left posterior descending artery of the left circumflex artery, severe disease at the midright coronary artery that is nondominant artery, normal left ventricular size and function. Cardiac catheterization done August 01, 2018 revealed total occlusion of the left main, LAD, left circumflex and right coronary artery. 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 The right coronary artery is small nondominant artery that is not bypassed. Medical therapy is recommended at this point. Dyspnea on exertion, chronic 2D echo was done in July 2018 showing normal LV size, EF 55 to 65%, grade 1 diastolic dysfunction, left atrium 4.27 cm, mild MR, aortic valve sclerosis, mild regurgitation, PA pressure 30 mmHg Patient did not have the echo done. I will reevaluate echo Hypertension, labile blood pressure, previously was having episode of hypotension. Currently borderline hypotension Hyperlipidemia, continue to monitor. Carotid stenosis, patient is still going to the life screen test, I'll try to obtain copy of the results Diabetes mellitus, followed and managed by primary care physician Back pain, has had multiple back surgeries in the past, planning to possibly undergo another back surgery with Dr. Quesada in the near future This is Edith Franco PA-C, as a scribe for Dr. Smallwood. Patient was seen and evaluated with Edith, I interviewed and examined the patient. Discussed the management plan and agree with the current scribed note Patient was admitted for chest pain, monitored overnight, cardiac enzymes were negative, restarted home medication and added Imdur to his current medication Feeling better Planning for discharge and follow-up as an outpatient Final diagnosis Unstable angina Coronary artery disease Hypertension Hyperlipidemia EDITH PALMA Dec 22, 2021 09:08 SEMAJ SMALLWOOD MD Dec 22, 2021 11:40
[2021-12-22] MEDS ORDERED: ISOSORBIDE MONONITRATE 30 MG (IMDUR) TAB PO SCH (10:30)
[2021-12-22] MEDS ORDERED: ISOS30TA82 PO (11:34)
--- NOTE | 2021-12-22 11:39 | Short Stay Summary ---
Discharge Summary Hospital Course Was the Problem List Reviewed?: Yes Final Diagnosis: Unstable angina Hospital Course Date of Admission: Dec 21, 2021 at 10:32 Admission Diagnosis : Family Physician/Provider: Prem Poole MD Date of Discharge: 12/22/21 Discharge Diagnosis: [Unstable angina Coronary artery disease Hypertension Hyperlipidemia] Hospital Course: [ Chest pain, resembling angina, unstable angina, chest pain with exertion worsening over the past week. Cardiac enzymes negative, no acute EKG changes. Patient has known small vessel disease. Patient is feeling better today, I will start him on isosorbide 30 mg daily and continue on Ranexa and planning for discharge and follow-up as an outpatient Cardiac enzymes and EKG did not show any acute abnormality Aortic stenosis, 2D Echo done 12/21/21 showing EF 55-60%, moderately dilated l eft atrium, mod with Peak gradient 49mmHg, mean gradient 27mmHg, calculated valve area 1.12cm squared Coronary artery disease, History of CABG [address] [place] [address] Quesada, Cardiac catheterization done in 2007 showing patent DICKSON to LAD, vein graft to diagonal artery and vein graft to the left posterior descending artery of the left circumflex artery, severe disease at the midright coronary artery that is nondominant artery, normal left ventricular size and function. Cardiac catheterization done August 01, 2018 revealed total occlusion of the left main, LAD, left circumflex and right coronary artery. 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 The right coronary artery is small nondominant artery that is not bypassed. Medical therapy is recommended at this point. Dyspnea on exertion, chronic 2D echo was done in July 2018 showing normal LV size, EF 55 to 65%, grade 1 diastolic dysfunction, left atrium 4.27 cm, mild MR, aortic valve sclerosis, mild regurgitation, PA pressure 30 mmHg Patient did not have the echo done. I will reevaluate echo Hypertension, labile blood pressure, previously was having episode of hypote nsion. Currently borderline hypotension, started on isosorbide Hyperlipidemia, continue to monitor. Carotid stenosis, patient is still going to the life screen test, I'll try to obtain copy of the results Diabetes mellitus, followed and managed by primary care physician Back pain, has had multiple back surgeries in the past, planning to possibly undergo another back surgery with Dr. Quesada in the near future] Labs and Pending Lab Test: Laboratory Tests 12/21/21 11:40: White Blood Count 8.1, Red Blood Count 2.59L, Hemoglobin 7.9L, Hematocrit 25L, Mean Corpuscular Volume 97, Mean Corpuscular Hemoglobin 31, Mean Corpuscular Hemoglobin Concent 32, Red Cell Distribution Width 13.4, Platelet Count 229, Mean Platelet Volume 9.2, Prothrombin Time 15.6H, INR Comment 1.2, Activated Partial Thromboplast Time 35, Sodium Level 140, Potassium Level 4.8, Chloride Level 108H, Carbon Dioxide Level 23, Anion Gap 9, Blood Urea Nitrogen 37H, Creatinine 2.27H, Estimat Glomerular Filtration Rate 28, BUN/Creatinine Ratio 16, Glucose Level 160H, Calcium Level 9.8, Corrected Calcium 10.0, Total Bilirubin 0.4, Aspartate Amino Transf (AST/SGOT) 18, Alanine Aminotransferase (ALT/SGPT) 16, Alkaline Phosphatase 69, Troponin I < 0.028, B-Type Natriuretic Peptide 669.2H, Total Protein 7.0, Albumin 3.7, Thyroid Stimulating Hormone (TSH) 2.39 12/22/21 05:15: White Blood Count 10.4, Red Blood Count 2.59L, Hemoglobin 7.8L, Hematocrit 25L, Mean Corpuscular Volume 95, Mean Corpuscular Hemoglobin 30, Mean Corpuscular Hemoglobin Concent 32, Red Cell Distribution Width 13.2, Platelet Count 219, Mean Platelet Volume 9.4, Troponin I < 0.028 Home Meds Active Isosorbide Mononitrate ER (Isosorbide Mononitrate) 30 Mg Tab.er.24h 30 Mg PO DAILY Reported Aspirin EC (Aspirin) 81 Mg Tablet.dr 81 Mg PO HS Flomax (Tamsulosin HCl) 0.4 Mg Cap 0.4 Mg PO DAILY Clopidogrel (Clopidogrel Bisulfate) 75 Mg Tablet 75 Mg PO DAILY Donepezil HCl 5 Mg Tablet 5 Mg PO HS Hydrocodone-Acetamin 5-325 mg (Hydrocodone/Acetaminophen) 5 Mg-325 Mg Tablet 1 Tab PO Q6H PRN Ferrous Sulfate 325 Mg (65 Mg Iron) Tablet 325 Mg PO HS Carvedilol 3.125 Mg Tablet 3.125 Mg PO BID Vitamin C (Ascorbic Acid) 1,000 Mg Tablet 1,000 Mg PO HS Centrum Silver Tablet (Multivit-Min/FA/Lycopene/Lut) 1 Each Tablet 1 Each PO DAILY Allopurinol 100 Mg Tablet 100 Mg PO DAILY Omeprazole 40 Mg Capsule.dr 40 Mg PO DAILY Ranolazine ER (Ranolazine) 500 Mg Tab.er.12h 500 Mg PO DAILY Atorvastatin Calcium 80 Mg Tablet 80 Mg PO HS Assessment/Pt Instructions Arrangement for follow-up in 1 to [address] Smallwood Discharge Instructions Discharge Diet: No Restrictions, Cardiac Diet Discharge Physical Examination General Appearance: Alert, Oriented X3, Cooperative HEENT: Atraumatic, PERRLA Respiratory: Clear to Auscultation Cardiovascular: Regular Rate, Normal S1, Normal S2, Other (Aortic stenosis) Abdominal: Normal Bowel Sounds Extremities: No Clubbing, No Cyanosis Skin: No Rashes, No Breakdown Neuro: Normal Speech Psych/Mental Status: Mental Status NL, Mood NL Allergies: Coded Allergies: No Known Drug Allergies (Verified , 05/24/16) Copy Copies To 1: PREM POOLE MD Discharge Summary Date of Admission Dec 21, 2021 at 10:32 Date of Discharge December 22, 2021 Discharge Date: Dec 22, 2021 Discharge Time: 11:38 Admission Diagnosis Chest pain Clinical Quality Measures AMI/AHF: Ejection Fraction: Normal LVSF ASA Given prior to admit: Yes Initial ECG Impression Date: Dec 21, 2021 Initial ECG Impression: Normal DVT/VTE Risk/Contraindication: VTE Addressed: Yes RFS Level Per Nursing on Admit: 2=Moderate SEMAJ SMALLWOOD MD Dec 22, 2021 11:39
[2021-12-22 11:58] VITALS: BP 134/57
== END 2021-12-22 13:30 | disposition home or self-care (01) ==
LOC: CSD 10:32
PROVIDERS: ADMIT Internal Medicine Cardiovascular Disease; ATTEND Internal Medicine Cardiovascular Disease
DX: I25.110 Atherosclerotic heart disease of native coronary artery with unstable angina pectoris (principal); I35.0 Nonrheumatic aortic (valve) stenosis; I10 Essential (primary) hypertension; E78.5 Hyperlipidemia, unspecified; E11.9 Type 2 diabetes mellitus without complications; M54.9 Dorsalgia, unspecified; Z79.82 Long term (current) use of aspirin; Z79.02 Long term (current) use of antithrombotics/antiplatelets; Z95.5 Presence of coronary angioplasty implant and graft; Z79.899 Other long term (current) drug therapy
CPT/HCPCS: 71046; 80053; 83880; 84443; 84484 ×2; 85027 ×2; 85610; 85730; 93005; 96361; 96372; C8929; G0378; G0379; 36415; 93306

== ENCOUNTER → 2022-01-11 | Outpatient (CLI) | payer MEDICARE ==
[~2022-01-11] MED LIST changes: +DONE5TAB30 PO; +ISOS30TA82 PO
[2022-01-11 14:14] LABS: BASOPHILS # (AUTO) 0.1 10^3/uL (0.0-0.1); BASOPHILS % (AUTO) 1 % (0-10); EOSINOPHILS # (AUTO) 0.3 10^3/uL (0.0-0.3); EOSINOPHILS % (AUTO) 3 % (0-10); HEMATOCRIT 27 % (40-54); HEMOGLOBIN 8.4 g/dL (13.3-17.7); LYMPHOCYTES # (AUTO) 1.1 10^3/uL (1.0-4.0); LYMPHOCYTES % (AUTO) 11 % (12-44); MEAN CORPUSCULAR HEMOGLOBIN 30 pg (25-34); MEAN CORPUSCULAR HGB CONC 31 g/dL (32-36); MEAN CORPUSCULAR VOLUME 96 fL (80-99); MEAN PLATELET VOLUME 9.2 fL (9.0-12.2); MONOCYTES # (AUTO) 0.7 10^3/uL (0.0-1.0); MONOCYTES % (AUTO) 7 % (0-12); NEUTROPHILS # (AUTO) 7.6 10^3/uL (1.8-7.8); NEUTROPHILS % (AUTO) 78 % (42-75); PLATELET COUNT 261 10^3/uL (130-400); WHITE BLOOD COUNT 9.8 10^3/uL (4.3-11.0)
[2022-01-11 14:25] LABS: ALBUMIN 3.8 GM/DL (3.2-4.5); POTASSIUM 4.5 MMOL/L (3.6-5.0)
[2022-01-11 14:26] LABS: CALCIUM 9.6 MG/DL (8.5-10.1)
[2022-01-11 14:31] LABS: CREATININE SERUM 2.59 MG/DL (0.60-1.30); PHOSPHORUS 2.9 MG/DL (2.3-4.7)
[2022-01-11 14:34] LABS: URIC ACID 5.6 MG/DL (2.6-7.2)
== END ==
LOC: LAB 13:45
PROVIDERS: ATTEND Internal Medicine Nephrology
DX: I12.9 Hypertensive chronic kidney disease with stage 1 through stage 4 chronic kidney disease, or unspecified chronic kidney disease (principal); N18.32 Chronic kidney disease, stage 3b; N28.1 Cyst of kidney, acquired; E79.0 Hyperuricemia without signs of inflammatory arthritis and tophaceous disease
CPT/HCPCS: 36415; 80069; 82306; 82570; 83970; 84156; 84550; 85025

== ENCOUNTER → 2022-07-04 | Outpatient (CLI) | payer MEDICARE ==
[2022-07-04 18:56] LABS: CLARITY,URINE TURBID; COLOR,URINE YELLOW; GLUCOSE, URINE (UA) NEGATIVE (NEGATIVE); KETONES,URINE NEGATIVE (NEGATIVE); NITRITE,URINE POSITIVE (NEGATIVE); PH,URINE 6.5 (5-9); PROTEIN,URINE 2+ (NEGATIVE)
[2022-07-04 18:57] LABS: BILIRUBIN,URINE 1+ (NEGATIVE); LEUKOCYTE ESTERASE ,URINE 3+ (NEGATIVE)
[2022-07-04 19:02] LABS: BACTERIA,URINE LARGE /HPF; RBC,URINE 25-50 /HPF; SQUAMOUS EPITHELIAL CELL,UR RARE /HPF; WBC,URINE TNTC /HPF
== END ==
LOC: LABNPT 18:30
PROVIDERS: ATTEND Urology
DX: N39.0 Urinary tract infection, site not specified (principal)
CPT/HCPCS: 81000; 87088